=== PATIENT | female | born 1935 | race Caucasian/White ===

== ENCOUNTER 2017-06-01 17:59 | Emergency (ER) | payer MEDICARE, OTHER ==
[2017-06-01] MEDS ORDERED: DUONEB 0.5-3 MG/3 ml Neb IH ONE ×4 (18:35→20:30)
[2017-06-01] MEDS ORDERED: solu-MEDROL 125 MG IV ONE (18:35)
--- NOTE | 2017-06-01 18:40 | ERPHSYRPT ---
- History of Present Illness Source: patient, family Exam Limitations: no limitations Patient Subjective Stated Complaint: cough for three days Triage Nursing Assessment: ambulated to room per self. skin w/d,color normal, resp slightly sob. anterior upper chest wheezes heard. pain in chest with coughing. Timing/Duration: day(s) (4-5 days) Severity of Dyspnea-Max: moderate Severity of Dyspnea-Current: moderate Possible Cause: occasional episodes Modifying Factors: Improves With: coughing (makes it worse) Associated Symptoms: cough, chest pain/discomfort, productive cough Hx Tetanus, Diphtheria Vaccination/Date Given: Yes Hx Influenza Vaccination/Date Given: Yes Hx Pneumococcal Vaccination/Date Given: Yes <MONA PETIT - Last Filed: 06/01/17 18:52> <RACHELLE BONDS - Last Filed: 06/01/17 20:34> - History of Present Illness Time Seen by Provider: 06/01/17 18:36 Physician History: 81-year-old female with significant past medical history of atrial fibrillation , hypertension, started having cough, cold, fever. 3. 4 days ago was started on oral cephalexin but without any help. She started having more and more shortness of breath, chest congestion and cough, so she came to the emergency room. She denies any heavy pressure type of chest pain, nausea, vomiting, diarrhea or constipation, headache or dizziness. (MONA PETIT) Allergies/Adverse Reactions: Sulfa (Sulfonamide Antibiotics) Allergy (Verified 06/01/17 18:24) Home Medications: Carvedilol [Carvedilol] 6.25 mg PO BID 06/01/17 [History] Denosumab 60 mg [Prolia 60 mg Injection] 60 mg SQ UD 06/01/17 [History] Diazepam [Valium] 5 mg PO UD 06/01/17 [History] Diclofenac Sodium 50 mg [Voltaren 50 mg] 50 mg PO DAILY 06/01/17 [History] Hydrocodone/Acetaminophen [Hydrocodon-Acetaminophen 5-325] 1 each PO Q4HPRN PRN 06/01/17 [History] Levothyroxine Sodium 75 mg PO DAILY 06/01/17 [History] Losartan Potassium [Cozaar] 100 mg PO DAILY 06/01/17 [History] Lovastatin 40 mg PO DAILY 06/01/17 [History] Omeprazole 20 MG [Prilosec 20 mg] 20 mg PO DAILY 06/01/17 [History] Prednisone [Prednisone] 5 mg PO DAILY 06/01/17 [History] Pregabalin [Lyrica] 50 mg PO DAILY 06/01/17 [History] Sildenafil Citrate [Revatio] 20 mg PO TID 06/01/17 [History] Sildenafil Citrate [Viagra] 25 mg PO TID 06/01/17 [History] Warfarin Sodium 1 mg [Coumadin 1 MG] 1 mg PO DAILY 06/01/17 [History] Warfarin Sodium 2 mg [Coumadin 2 MG] 2 mg PO DAILY 06/01/17 [History] Zolpidem Tartrate [Ambien] 10 mg PO HS 06/01/17 [History] - Review of Systems Constitutional: No Fever, No Chills Eyes: No Symptoms Ears, Nose, & Throat: No Symptoms Respiratory: Cough, Dyspnea, Dyspnea on Exertion (VELIZ), Wheezing Cardiac: No Chest Pain, No Edema, No Syncope Abdominal/Gastrointestinal: No Abdominal Pain, No Nausea, No Vomiting, No Diarrhea Genitourinary Symptoms: No Dysuria Musculoskeletal: No Back Pain, No Neck Pain Skin: No Rash Neurological: No Dizziness, No Focal Weakness, No Sensory Changes Psychological: No Symptoms Endocrine: No Symptoms All Other Systems: Reviewed and Negative <MARISABEL,MONA - Last Filed: 06/01/17 18:52> - Past Medical History Pertinent Past Medical History: Yes Neurological History: Peripheral Neuropathy Cardiac History: Arrhythmia, Hypertension Respiratory History: Other Endocrine Medical History: Hypothyroidism Musculoskeletal History: Arthritis GI Medical History: GERD Other Medical History: pulmonary hypertension - Past Surgical History Past Surgical History: Yes Musculoskeletal: Orthopedic Surgery Other Surgical History: back surgery - Social History Smoking Status: Never smoker Exposure to second hand smoke: Yes Drug Use: none Patient Lives Alone: Yes - Female History Hx Now: No <MARISABEL,MONA - Last Filed: 06/01/17 18:52> - Physical Exam General Appearance: no apparent distress Eye Exam: PERRL/EOMI Ears, Nose, Throat Exam: hearing grossly normal Neck Exam: normal inspection Respiratory Exam: diminished breath sounds, rhonchi, wheezing Cardiovascular/Chest Exam: irregular Abdominal/Gastrointestinal Exam: soft Extremity Exam: non-tender Neurologic Exam: alert, oriented x 3 Skin Exam: normal color SpO2 Interpretation: normal SpO2: 97 Oxygen Delivery: Room Air <LÓPEZ PETITSH - Last Filed: 06/01/17 18:52> - Nursing Vital Signs Nursing Vital Signs: Initial Vital Signs Temperature 97.8 F 06/01/17 18:15 Pulse Rate 93 H 06/01/17 18:15 Respiratory Rate 18 06/01/17 18:15 Blood Pressure 141/87 06/01/17 18:15 O2 Sat by Pulse Oximetry 97 06/01/17 18:15 Pain Scale Pain Intensity 0 - Course Nursing assessment & vital signs reviewed: Yes <MARISABEL - Last Filed: 06/01/17 18:52> - Course EKG Interpreted by Me: RATE (74), A-fib (flutter), NORMAL INTERVALS (QTc 406), Non-specific ST Changes - Radiology Exams cxr X-ray Interpretation: Interpreted by me (mild right infrahilar and left lingular infiltrates) <RACHELLE BONDS - Last Filed: 06/01/17 20:34> Ordered Tests: Active Orders 24 hr Category Date Time Status EKG-ER Only STAT Care 06/01/17 18:35 Active Oxygen-ED Only NASAL CANNULA 2 lpm Care 06/01/17 18:35 Active CHEST 2 VIEWS (PA AND LAT) Stat Exams 06/01/17 18:35 Taken CBC W DIFF Stat Lab 06/01/17 18:52 Completed CMP Stat Lab 06/01/17 18:52 Completed Lactic Acid Stat Lab 06/01/17 19:35 Completed NT PRO BNP Stat Lab 06/01/17 18:52 Completed PROTIME WITH INR Stat Lab 06/01/17 18:45 Completed TROPONIN Stat Lab 06/01/17 18:52 Completed Respiratory Nebulizer STAT RT 06/01/17 18:36 Completed Medication Summary Generic Name Dose Route Start Last Admin Trade Name Freq PRN Reason Stop Dose Admin Albuterol/Ipratropium 3 ml 06/01/17 20:29 Duoneb 0.5-3 Mg/3 Ml Neb IH 06/01/17 20:30 STAT ONE Sodium Chloride 1,000 mls @ 100 mls/hr 06/01/17 18:45 06/01/17 19:09 Sodium Chloride 0.9% 1000 Ml IV 07/01/17 18:44 100 mls/hr .Q10H DARLEEN Administration Discontinued Medications Generic Name Dose Route Start Last Admin Trade Name Remigio PRN Reason Stop Dose Admin Albuterol/Ipratropium 3 ml 06/01/17 18:35 06/01/17 18:42 Duoneb 0.5-3 Mg/3 Ml Neb IH 06/01/17 18:36 3 ml STAT ONE Administration Albuterol/Ipratropium Confirm 06/01/17 18:35 Duoneb 0.5-3 Mg/3 Ml Neb Administered 06/01/17 18:36 Dose 3 ml IH .STK-MED ONE Methylprednisolone Sodium Succinate 80 mg 06/01/17 18:35 06/01/17 19:09 Solu-Medrol 125 Mg IV 06/01/17 18:36 80 mg STAT ONE Administration Methylprednisolone Sodium Succinate Confirm 06/01/17 19:01 Solu-Medrol 125 Mg Administered 06/01/17 19:02 Dose 125 mg .ROUTE .STK-MED ONE Lab/Rad Data: Laboratory Result Diagrams 06/01/17 18:52 06/01/17 18:52 Laboratory Results 06/01/17 06/01/17 06/01/17 Range/Units Unknown 19:35 18:52 WBC (4.0-10.5) K/mm3 RBC (4.1-5.4) M/mm3 Hgb (12.0-16.0) gm/dl Hct (35-47) % MCV (78-100) fl MCH (26-32) pg MCHC (32-36) g/dl RDW (11.5-14.0) % Plt Count (150-450) K/mm3 MPV (6-9.5) fl Gran % (36.0-66.0) % Lymphocytes % (24.0-44.0) % Monocytes % (0.0-12.0) % Eosinophils % (0.00-5.0) % Basophils % (0.0-0.4) % Basophils # (0-0.4) INR (0.8-3.0) Sodium (136-145) mEq/L Potassium (3.5-5.1) mEq/L Chloride (98-107) mEq/L Carbon Dioxide (21-32) mEq/L Anion Gap (5-15) MEQ/L BUN (9-20) mg/dL Creatinine (0.55-1.30) mg/dl Estimated GFR ML/MIN Glucose (70-110) MG/DL Lactic Acid 1.1 (0.4-2.0) Calcium (8.5-10.1) mg/dL Total Bilirubin (0.2-1.0) mg/dL AST (15-37) U/L ALT (12-78) U/L Alkaline Phosphatase (46-116) U/L Troponin I < 0.017 (0.000-0.056) ng/ml NT-Pro-B Natriuret Pep (0-450) pg/ml Serum Total Protein (6.4-8.2) gm/dL Albumin (3.4-5.0) g/dL Influenza Type A Ag NEGATIVE (NEGATIVE) Influenza Type B Ag NEGATIVE (NEGATIVE) RSV (PCR) NEGATIVE (Negative) 06/01/17 06/01/17 06/01/17 Range/Units 18:52 18:52 18:45 WBC 5.7 (4.0-10.5) K/mm3 RBC 3.62 L (4.1-5.4) M/mm3 Hgb 10.7 L (12.0-16.0) gm/dl Hct 34.5 L (35-47) % MCV 95.3 (78-100) fl MCH 29.5 (26-32) pg MCHC 31.0 L (32-36) g/dl RDW 15.5 H (11.5-14.0) % Plt Count 142 L (150-450) K/mm3 MPV 10.8 H (6-9.5) fl Gran % 66.3 H (36.0-66.0) % Lymphocytes % 25.2 (24.0-44.0) % Monocytes % 8.3 (0.0-12.0) % Eosinophils % 0.0 (0.00-5.0) % Basophils % 0.2 (0.0-0.4) % Basophils # 0.01 (0-0.4) INR 2.20 (0.8-3.0) Sodium 140 (136-145) mEq/L Potassium 4.2 (3.5-5.1) mEq/L Chloride 107 (98-107) mEq/L Carbon Dioxide 24.0 (21-32) mEq/L Anion Gap 13.1 (5-15) MEQ/L BUN 17 (9-20) mg/dL Creatinine 1.04 (0.55-1.30) mg/dl Estimated GFR 54 ML/MIN Glucose 120 H (70-110) MG/DL Lactic Acid (0.4-2.0) Calcium 8.3 L (8.5-10.1) mg/dL Total Bilirubin 0.40 (0.2-1.0) mg/dL AST 27 (15-37) U/L ALT 27 (12-78) U/L Alkaline Phosphatase 51 (46-116) U/L Troponin I (0.000-0.056) ng/ml NT-Pro-B Natriuret Pep 1927 H (0-450) pg/ml Serum Total Protein 6.4 (6.4-8.2) gm/dL Albumin 3.2 L (3.4-5.0) g/dL Influenza Type A Ag (NEGATIVE) Influenza Type B Ag (NEGATIVE) RSV (PCR) (Negative) <MONA PETIT - Last Filed: 06/01/17 18:52> - Progress Counseled pt/family regarding: lab results, diagnosis, need for follow-up, rad results <RACHELLE BONDS - Last Filed: 06/01/17 20:34> - Progress Progress Note: 06/01/17 19:37 Pt initially seen per Dr Petit. She is a pt of Dr Solorzano with hx of pulm HTN and atrial fib. She has few day hx of cough. Wheezing at home. Denies fever or chills. Some chest tightness worse with cough. PE: Crackes bilateral and tight wheeze on expiration. Cor irreg. Abd soft and NT. Await labs. 06/01/17 20:30 Tests reviewed with pt and daughter. She feels better. BNP a little up. She has hx of pulm HTN and uses home oxygen. They prefer home treatment. Will increase daily prednisone to 20mg daily and add duoneb and doxycyclien. She will follow up this week. Instr given. (RACHELLE BONDS) <MAHENDRA PETITYESH - Last Filed: 06/01/17 18:52> - Departure Time of Disposition: 20:31 Departure Disposition: Home Critical Care Time: No <BONDSRACHELLE Fountain - Last Filed: 06/01/17 20:34> - Departure Clinical Impression: Acute asthmatic bronchitis, Pulmonary hypertension Condition: Fair Referrals: AROLDO REYES [Primary Care Provider] - JAMIE COUCH [NON-STAFF PHY W/O PRIVILEGES] - Instructions: Bronchitis Additional Instructions: Increase prednisone to 20mg daily. Rx doxycycline. Rx duoneb. Return for problems or concerns. Follow up this week. Prescriptions: Albuterol/Ipratropium 3ml Neb* [DUONEB 0.5-3 MG/3 ml Neb] 3 ml IH Q4-6HPRN PRN #1 ampul.neb PRN Reason: breathing Doxycycline Hyclate 100 mg [Vibramycin 100 MG] 100 mg PO BID #20 tab
[2017-06-01] MEDS ORDERED: Sodium Chloride 0.9% 1000 ML 1,000 ML IV SCH (18:45)
[2017-06-01 19:00] LABS: BASOPHIL % 0.2 % (0.0-0.4); Granulocytes % 66.3 % (36.0-66.0); Lymphocytes % 25.2 % (24.0-44.0); Mean Cell Volume 95.3 fl (78-100); Mean Platelet Volume 10.8 fl (6-9.5); Monocytes % 8.3 % (0.0-12.0); Platelet Count 142 K/mm3 (150-450); Red Blood Count 3.62 M/mm3 (4.1-5.4); Red Cell Distribution Width 15.5 % (11.5-14.0); White Blood Count 5.7 K/mm3 (4.0-10.5)
[2017-06-01] MEDS ORDERED: solu-MEDROL 125 MG ONE (19:01)
[2017-06-01] MEDS ORDERED: Sodium Chloride 0.9% 1000 ML 1,000 ML ONE (19:01)
[2017-06-01 19:20] VITALS: O2SAT 98
[2017-06-01 19:37] LABS: ALBUMIN 3.2 g/dL (3.4-5.0); ANION GAP 13.1 MEQ/L (5-15); BILIRUBIN,TOTAL 0.4 mg/dL (0.2-1.0); Potassium 4.2 mEq/L (3.5-5.1); Total Protein 6.4 gm/dL (6.4-8.2)
[2017-06-01 19:41] LABS: INR 2.2 (0.8-3.0); PROTIME 24.7 SECONDS (9.95-12.35)
[2017-06-01 19:53] LABS: Mean Corpuscular Hemoglobin 29.5 pg (26-32)
[2017-06-01 20:25] VITALS: BP 136/79; PULSE 85
[2017-06-01] MEDS ORDERED: Vibramycin 100 MG PO ONE (20:29)
[2017-06-01] MEDS ORDERED: Vibramycin 100 MG ONE (20:37)
--- NOTE | 2017-06-01 21:15 | XRAY ---
Indication: Cough and short of breath. Comparison: None PA/lateral chest hyperinflated and clear. Heart is borderline enlarged. Vascularity normal. Bony thorax intact with osteopenia and degenerative changes. Impression: Nonacute hyperinflated chest with chronic features.
== END 2017-06-01 20:45 | disposition home or self-care (01) ==
LOC: ED 17:59
DX: J45.909 Unspecified asthma, uncomplicated (principal); I27.20 Pulmonary hypertension, unspecified; R05 Cough
CPT/HCPCS: 36000; 36415; 71020; 80053; 83605; 83880; 84484; 85025; 85610; 87631; 93005; 94640; 96360; 99284; J2930; A9270-GY

== ENCOUNTER 2017-09-02 20:57 | Emergency (ER) | payer MEDICARE, OTHER ==
[2017-09-02 21:48] LABS: Hematocrit 39.8 % (35-47); Hemoglobin 12.8 gm/dl (12.0-16.0); Mean Corpuscular Hemoglobin 30.5 pg (26-32); Mean Corpuscular Hgb Concent. 32.2 g/dl (32-36); Mean Platelet Volume 11.1 fl (6-9.5); Platelet Count 181 K/mm3 (150-450); Red Blood Count 4.19 M/mm3 (4.1-5.4); Red Cell Distribution Width 15.5 % (11.5-14.0); White Blood Count 7.6 K/mm3 (4.0-10.5)
[2017-09-02 22:11] LABS: ALBUMIN 4.1 g/dL (3.5-5.0); ALKALINE PHOSPHATASE 57 U/L (38-126); BLOOD UREA NITROGEN 15 mg/dL (7-17); CHLORIDE 106 mmol/L (98-107); Calcium 9.5 mg/dL (8.4-10.2); Carbon Dioxide 26 mmol/L (22-30); Creatinine 1 0.84 mg/dL (0.52-1.04); Glucose 91 mg/dL (74-106); Potassium 3.9 mmol/L (3.5-5.1); SGOT/AST 22 U/L (14-36); SGPT/ALT 17 U/L (0-35); SODIUM 142 mmol/L (137-145); Total Protein 7.1 g/dL (6.3-8.2)
[2017-09-02 22:18] LABS: Appearance CLEAR (CLEAR); Bacteria FEW /HPF (NEGATIVE); Bilirubin NEGATIVE (NEGATIVE); Blood NEGATIVE Ery/ul (0-5); Epithelial Cells FEW /HPF (FEW); Glucose NEGATIVE (NEGATIVE); Ketones NEGATIVE (NEGATIVE); Leukocyte Esterase 2+ (NEGATIVE); Nitrite NEGATIVE (NEGATIVE); Protein,Urine Dip NEGATIVE (Negative); Specific Gravity 1.005 (1.005-1.025); Urobilinogen NORMAL mg/dL (0-1)
[2017-09-02] MEDS ORDERED: APRESOLINE 20 MG/ML INJ IV ONE (22:36)
[2017-09-02] MEDS ORDERED: APRESOLINE 20 MG/ML INJ ONE ×2 (22:40→22:45)
--- NOTE | 2017-09-02 22:44 | ERPHSYRPT ---
- History of Present Illness Time Seen by Provider: 09/02/17 22:00 Source: patient, family Exam Limitations: no limitations Patient Subjective Stated Complaint: pt states 2 day hx of hypertension. "it feels like my a-fib is acting up. i have a dull pressure in my chest" Triage Nursing Assessment: aox3, breathing easy unlabored, skin pink warm dry, steady gait Physician History: patient with history of hypertension, A. fib and pulmonary fibrosis presents with elevated blood pressure. Patient noted her blood pressure was severely elevated yesterday with systolic blood pressure greater than 200 and systolic blood pressure greater than 110. Patient also noted that she was having some headaches along with palpitation and intermittent anterior chest discomfort. Patient double up on her blood pressure medicine Coreg. Blood pressure was still elevated today and was brought to ED by her daughter, who is a respiratory therapist at [facility]. Patient denies trying to get a hold of her physician for any advice. Patient denies any shortness of breath, pedal edema, blurred vision, numbness, weakness, altered mental status or difficulty speaking. Timing/Duration: day(s) (2), intermittent, gradual onset Severity: moderate Modifying Factors: Improves With: medication (Coreg seems to decrease blood pressure intermittently) Associated Symptoms: chest pain, headaches, No nausea, No vomiting, No abdominal pain, No shortness of breath, No diaphoresis, No cough, No malaise, No syncope, No seizure, No weakness Allergies/Adverse Reactions: amlodipine [From [facility]] Allergy (Verified 09/02/17 21:31) Sulfa (Sulfonamide Antibiotics) Allergy (Verified 06/01/17 18:24) Home Medications: Carvedilol [Carvedilol] 6.25 mg PO BID 06/01/17 [History] Hydrocodone/Acetaminophen [Hydrocodon-Acetaminophen 5-325] 1 each PO Q4HPRN PRN 06/01/17 [History] Levothyroxine Sodium 75 mg PO DAILY 06/01/17 [History] Losartan Potassium [Cozaar] 100 mg PO DAILY 06/01/17 [History] Prednisone [Prednisone] 5 mg PO DAILY 06/01/17 [History] Pregabalin [Lyrica] 50 mg PO DAILY 06/01/17 [History] Sildenafil Citrate [Revatio] 20 mg PO TID 06/01/17 [History] Warfarin Sodium 1 mg [Coumadin 1 MG] 1 mg PO DAILY 06/01/17 [History] Warfarin Sodium 2 mg [Coumadin 2 MG] 2 mg PO DAILY 06/01/17 [History] Zolpidem Tartrate [Ambien] 10 mg PO HS 06/01/17 [History] Esomeprazole Magnesium [Nexium] 20 mg PO DAILY 09/02/17 [History] Hx Tetanus, Diphtheria Vaccination/Date Given: Yes Hx Influenza Vaccination/Date Given: Yes Hx Pneumococcal Vaccination/Date Given: Yes - Review of Systems Constitutional: No Fever, No Chills Eyes: No Symptoms Ears, Nose, & Throat: No Symptoms Respiratory: No Symptoms, No Cough, No Dyspnea Cardiac: Palpitations, No Chest Pain, No Edema, No Syncope Abdominal/Gastrointestinal: No Symptoms, No Abdominal Pain, No Nausea, No Vomiting, No Diarrhea Genitourinary Symptoms: No Symptoms, No Dysuria Musculoskeletal: No Symptoms, No Back Pain, No Neck Pain Skin: No Symptoms, No Rash Neurological: Headache, No Dizziness, No Focal Weakness, No Gait Changes, No Irritability, No Parasthesia, No Sensory Changes, No Speech Changes Psychological: No Symptoms Endocrine: No Symptoms All Other Systems: Reviewed and Negative - Past Medical History Pertinent Past Medical History: Yes Neurological History: Peripheral Neuropathy Cardiac History: Arrhythmia, Hypertension Respiratory History: Other Endocrine Medical History: Hypothyroidism Musculoskeletal History: Arthritis GI Medical History: GERD Other Medical History: pulmonary hypertension - Past Surgical History Past Surgical History: Yes Musculoskeletal: Orthopedic Surgery Other Surgical History: back surgery - Social History Smoking Status: Never smoker Exposure to second hand smoke: Yes Drug Use: none Patient Lives Alone: Yes - Female History Hx Now: No - Nursing Vital Signs Nursing Vital Signs: Initial Vital Signs Temperature 98.6 F 09/02/17 21:23 Pulse Rate 91 H 09/02/17 21:23 Respiratory Rate 18 09/02/17 21:23 Blood Pressure 176/118 09/02/17 21:23 O2 Sat by Pulse Oximetry 96 09/02/17 21:23 Pain Scale Pain Intensity 5 - Physical Exam General Appearance: no apparent distress, alert Eye Exam: PERRL/EOMI, eyes nml inspection Ears, Nose, Throat Exam: normal ENT inspection, TMs normal, pharynx normal, moist mucous membranes Neck Exam: normal inspection, non-tender, supple, full range of motion Respiratory Exam: normal breath sounds, lungs clear, No respiratory distress Cardiovascular Exam: normal peripheral pulses, irregular, capillary refill <2 sec Gastrointestinal/Abdomen Exam: soft, normal bowel sounds, No tenderness, No mass Back Exam: normal inspection, normal range of motion, No CVA tenderness, No vertebral tenderness Extremity Exam: normal inspection, normal range of motion, pelvis stable Neurologic Exam: alert, oriented x 3, cooperative, normal mood/affect, nml cerebellar function, nml station & gait, sensation nml, No motor deficits, No sensory deficit, No disoriented, No confusion Skin Exam: normal color, warm, dry, No rash Lymphatic Exam: No adenopathy SpO2: 95 Oxygen Delivery: Room Air - Course Nursing assessment & vital signs reviewed: Yes EKG Interpreted by Me: RATE (80), A-fib, NORMAL AXIS, Non-specific ST Changes Ordered Tests: Active Orders 24 hr Category Date Time Status EKG-ER Only STAT Care 09/02/17 21:27 Active CBC Stat Lab 09/02/17 21:35 Completed CK-Creatinine Phosphokinase Stat Lab 09/02/17 21:35 Completed CMP Stat Lab 09/02/17 21:35 Completed D-DIMER QUANTITATION Stat Lab 09/02/17 21:35 Completed NT PRO BNP Stat Lab 09/02/17 21:35 Completed TROPONIN Q3H Lab 09/02/17 21:35 Completed UA W/ MICROSCOPIC Stat Lab 09/02/17 21:49 Completed Medication Summary Discontinued Medications Generic Name Dose Route Start Last Admin Trade Name Freq PRN Reason Stop Dose Admin Hydralazine HCl 10 mg 09/02/17 22:36 09/02/17 22:46 Apresoline 20 Mg/Ml Inj IV 09/02/17 22:37 10 mg STAT ONE Administration Hydralazine HCl Confirm 09/02/17 22:40 Apresoline 20 Mg/Ml Inj Administered 09/02/17 22:41 Dose 20 mg .ROUTE .STK-MED ONE Hydralazine HCl Confirm 09/02/17 22:45 Apresoline 20 Mg/Ml Inj Administered 09/02/17 22:46 Dose 20 mg .ROUTE .STK-MED ONE Lab/Rad Data: Laboratory Result Diagrams 09/02/17 21:35 09/02/17 21:35 Laboratory Results 09/02/17 09/02/17 09/02/17 Range/Units 21:49 21:35 21:35 WBC (4.0-10.5) K/mm3 RBC (4.1-5.4) M/mm3 Hgb (12.0-16.0) gm/dl Hct (35-47) % MCV (78-100) fl MCH (26-32) pg MCHC (32-36) g/dl RDW (11.5-14.0) % Plt Count (150-450) K/mm3 MPV (6-9.5) fl D-Dimer < 215 L (215-500) ng/mL Sodium (137-145) mmol/L Potassium (3.5-5.1) mmol/L Chloride (98-107) mmol/L Carbon Dioxide (22-30) mmol/L Anion Gap (5-15) MEQ/L BUN (7-17) mg/dL Creatinine (0.52-1.04) mg/dL Estimated GFR ML/MIN Glucose (74-106) mg/dL Calcium (8.4-10.2) mg/dL Total Bilirubin (0.2-1.3) mg/dL AST (14-36) U/L ALT (0-35) U/L Alkaline Phosphatase (38-126) U/L Creatine Kinase (30-135) U/L Troponin I 0.019 (0.000-0.034) ng/mL NT-Pro-B Natriuret Pep (0-1800) pg/mL Serum Total Protein (6.3-8.2) g/dL Albumin (3.5-5.0) g/dL Ur Collection Type VOID Urine Color LT.YELLOW (YELLOW) Urine Appearance CLEAR (CLEAR) Urine pH 8.0 (5-6) Ur Specific [place] 1.005 (1.005-1.025) Urine Protein NEGATIVE (Negative) Urine Ketones NEGATIVE (NEGATIVE) Urine Blood NEGATIVE (0-5) Thai/ul Urine Nitrite NEGATIVE (NEGATIVE) Urine Bilirubin NEGATIVE (NEGATIVE) Urine Urobilinogen NORMAL (0-1) mg/dL Ur Leukocyte Esterase 2+ (NEGATIVE) Urine Microscopic RBC 0-2 (0-2) /HPF Urine Microscopic WBC 2-5 (0-5) /HPF Ur Epithelial Cells FEW (FEW) /HPF Urine Bacteria FEW (NEGATIVE) /HPF Urine Culture Reflexed NO (NO) Urine Glucose NEGATIVE (NEGATIVE) mg/dL Specimen Received 09/02/170 09/02/17 09/02/17 09/02/17 Range/Units 21:35 21:35 21:35 WBC 7.6 (4.0-10.5) K/mm3 RBC 4.19 (4.1-5.4) M/mm3 Hgb 12.8 (12.0-16.0) gm/dl Hct 39.8 (35-47) % MCV 95.0 (78-100) fl MCH 30.5 (26-32) pg MCHC 32.2 (32-36) g/dl RDW 15.5 H (11.5-14.0) % Plt Count 181 (150-450) K/mm3 MPV 11.1 H (6-9.5) fl D-Dimer (215-500) ng/mL Sodium 142 (137-145) mmol/L Potassium 3.9 (3.5-5.1) mmol/L Chloride 106 (98-107) mmol/L Carbon Dioxide 26 (22-30) mmol/L Anion Gap 13.0 (5-15) MEQ/L BUN 15 (7-17) mg/dL Creatinine 0.84 (0.52-1.04) mg/dL Estimated GFR > 60 ML/MIN Glucose 91 (74-106) mg/dL Calcium 9.5 (8.4-10.2) mg/dL Total Bilirubin 0.60 (0.2-1.3) mg/dL AST 22 (14-36) U/L ALT 17 (0-35) U/L Alkaline Phosphatase 57 (38-126) U/L Creatine Kinase 89 (30-135) U/L Troponin I (0.000-0.034) ng/mL NT-Pro-B Natriuret Pep 1400 (0-1800) pg/mL Serum Total Protein 7.1 (6.3-8.2) g/dL Albumin 4.1 (3.5-5.0) g/dL Ur Collection Type Urine Color (YELLOW) Urine Appearance (CLEAR) Urine pH (5-6) Ur Specific [place] (1.005-1.025) Urine Protein (Negative) Urine Ketones (NEGATIVE) Urine Blood (0-5) Thai/ul Urine Nitrite (NEGATIVE) Urine Bilirubin (NEGATIVE) Urine Urobilinogen (0-1) mg/dL Ur Leukocyte Esterase (NEGATIVE) Urine Microscopic RBC (0-2) /HPF Urine Microscopic WBC (0-5) /HPF Ur Epithelial Cells (FEW) /HPF Urine Bacteria (NEGATIVE) /HPF Urine Culture Reflexed (NO) Urine Glucose (NEGATIVE) mg/dL Specimen Received - Progress Progress: improved Progress Note: 09/02/17 22:46 we will give patient hydralazine for elevated blood pressure. 09/02/17 23:20 patient feels much better. Blood pressure was 150s over 90s prior to discharge. Patient instructed to follow up with physician for adjustment of her blood pressure med Counseled pt/family regarding: lab results, diagnosis - Departure Time of Disposition: 23:21 Departure Disposition: Home Clinical Impression: Hypertensive urgency Condition: Stable Critical Care Time: No Referrals: AROLDO REYES [Primary Care Provider] - Instructions: High Blood Pressure in Adults Additional Instructions: follow up here in one to 2 days for blood pressure medicine adjustment. Return for worse headache, dizziness, blurred vision, chest pain, shortness of breath or any problems
[2017-09-02 22:54] LABS: CK-Creatinine Phosphokinase 89 U/L (30-135)
[2017-09-02 23:04] LABS: NT PRO BNP 1400 pg/mL (0-1800)
[2017-09-02 23:38] VITALS: BP 128/98; PULSE 102; O2SAT 98
== END 2017-09-02 23:33 ==
LOC: ED 20:57
DX: I16.0 Hypertensive urgency (principal); G62.9 Polyneuropathy, unspecified; Z79.899 Other long term (current) drug therapy; M19.90 Unspecified osteoarthritis, unspecified site; K21.9 Gastro-esophageal reflux disease without esophagitis; E03.9 Hypothyroidism, unspecified; Z79.01 Long term (current) use of anticoagulants; I48.91 Unspecified atrial fibrillation
CPT/HCPCS: 36000; 36415; 80053; 81000; 82550; 83880; 84484; 85027; 85379; 93005; 96374; 99284; J0360

== ENCOUNTER 2017-09-06 20:45 | Emergency (ER) | payer MEDICARE, OTHER ==
[2017-09-06] MEDS ORDERED: Catapres 0.1 MG PO ONE (21:07)
[2017-09-06] MEDS ORDERED: BABY ASPIRIN 81 MG CHEW PO ONE (21:07)
[2017-09-06] MEDS ORDERED: Catapres 0.1 MG ONE (21:14)
[2017-09-06] MEDS ORDERED: BABY ASPIRIN 81 MG CHEW ONE (21:14)
[2017-09-06] MEDS ORDERED: Sodium Chloride 0.9% 1000 ML 1,000 ML ONE (21:14)
[2017-09-06] MEDS ORDERED: Sodium Chloride 0.9% 1000 ML 1,000 ML IV SCH (21:15)
--- NOTE | 2017-09-06 21:15 | ERPHSYRPT ---
- History of Present Illness Time Seen by Provider: 09/06/17 20:55 Source: patient, family (DAUGHTER) Exam Limitations: no limitations Patient Subjective Stated Complaint: pain in chest, HTN, and pain in right neck Triage Nursing Assessment: PT A&O x3, pt complains of high blood pressure, pressure in chest, pain in right side of neck, BP 202/108, all other vitals wnl , lungs clear, upper and lower extremity pulses normal, skin dry Physician History: FOR THE PAST 3 HOURS PT HAS HAD CONSTANT CHEST PRESSURE AND ELEVATED BP OF 198/ 110; FOR THE PAST 2 HOURS RIGHT SIDED NECK PAIN. PT DENIES FEVER, COUGH, SHORTNESS OF AIR, NAUSEA, ABDOMINAL PAIN. LAST BM WAS 3 HOURS AGO. Allergies/Adverse Reactions: [place] [facility] Allergy (Verified 09/06/17 21:10) Sulfa (Sulfonamide Antibiotics) Allergy (Verified 09/06/17 21:10) Home Medications: Carvedilol [Carvedilol] 1.5 tab PO BID 06/01/17 [History] Hydrocodone/Acetaminophen [Hydrocodon-Acetaminophen 5-325] 1 each PO Q4HPRN PRN 06/01/17 [History] Levothyroxine Sodium 75 mg PO DAILY 06/01/17 [History] Losartan Potassium [Cozaar] 100 mg PO DAILY 06/01/17 [History] Prednisone [Prednisone] 5 mg PO DAILY 06/01/17 [History] Pregabalin [Lyrica] 50 mg PO DAILY 06/01/17 [History] Sildenafil Citrate [Revatio] 20 mg PO TID 06/01/17 [History] Zolpidem Tartrate [Ambien] 10 mg PO HS 06/01/17 [History] Esomeprazole Magnesium [Nexium] 20 mg PO DAILY 09/02/17 [History] Atorvastatin Calcium [Lipitor 20MG Tablet] 20 mg PO DAILY 09/06/17 [History] Hx Tetanus, Diphtheria Vaccination/Date Given: Yes Hx Influenza Vaccination/Date Given: Yes Hx Pneumococcal Vaccination/Date Given: Yes - Review of Systems Constitutional: Other (ELEVATED BP), No Fever Respiratory: No Dyspnea Cardiac: Other (CHEST PRESSURE) Abdominal/Gastrointestinal: No Abdominal Pain, No Vomiting, No Diarrhea Musculoskeletal: Neck Pain All Other Systems: Reviewed and Negative - Past Medical History Pertinent Past Medical History: Yes Neurological History: Peripheral Neuropathy Cardiac History: Arrhythmia, Hypertension Respiratory History: Other Endocrine Medical History: Hypothyroidism Musculoskeletal History: Arthritis GI Medical History: GERD Other Medical History: pulmonary hypertension, neuropathy - Past Surgical History Past Surgical History: Yes Musculoskeletal: Orthopedic Surgery Other Surgical History: back surgery - Social History Smoking Status: Never smoker Exposure to second hand smoke: Yes Drug Use: none Patient Lives Alone: Yes - Nursing Vital Signs Nursing Vital Signs: Initial Vital Signs Temperature 99.3 F 09/06/17 20:51 Pulse Rate 82 09/06/17 20:51 Respiratory Rate 13 09/06/17 20:51 Blood Pressure 202/108 09/06/17 20:51 O2 Sat by Pulse Oximetry 98 09/06/17 20:51 Pain Scale Pain Intensity 0 - Physical Exam General Appearance: alert Eye Exam: PERRL/EOMI Ears, Nose, Throat Exam: pharynx normal, moist mucous membranes Neck Exam: normal inspection Respiratory Exam: lungs clear Cardiovascular Exam: irregular Gastrointestinal/Abdomen Exam: soft, normal bowel sounds Back Exam: normal range of motion Extremity Exam: normal inspection, No pedal edema Neurologic Exam: alert, cooperative Skin Exam: warm, dry SpO2 Interpretation: normal SpO2: 98 Oxygen Delivery: Room Air - Course Nursing assessment & vital signs reviewed: Yes EKG Interpreted by Me: RATE (74), A-fib, NORMAL AXIS - Radiology Exams Chest X-ray Interpretation: Interpreted by me (QUESTIONABLE DENSITY RUL) - CT Exams Chest CT Interpretation: Tele-radiologist Report (NO ACUTE CARDIOPULMONARY ABNORMALITY IS IDENTIFIED.) Ordered Tests: Active Orders 24 hr Category Date Time Status Agriculture Laboratory Technician STAT Care 09/06/17 21:08 Active Clean Catch Urine Specimen STAT Care 09/06/17 21:55 Active EKG-ER Only STAT Care 09/06/17 21:03 Active IV Insertion STAT Care 09/06/17 21:03 Active Oxygen-ED Only NASAL CANNULA 2 lpm Care 09/06/17 21:07 Active Pulse Oximetry (ED) STAT Care 09/06/17 21:07 Active CHEST 1 VIEW (PORTABLE) Stat Exams 09/06/17 21:08 Taken CHEST WITHOUT CONTRAST [CT] Stat Exams 09/06/17 22:29 Taken AMYLASE Stat Lab 09/06/17 21:35 Completed CBC W DIFF Stat Lab 09/06/17 21:35 Completed CMP Stat Lab 09/06/17 21:35 Completed CULTURE,URINE Stat Lab 09/06/17 21:35 Received D-DIMER QUANTITATION Stat Lab 09/06/17 21:35 Completed LIPASE Stat Lab 09/06/17 21:35 Completed MAGNESIUM Stat Lab 09/06/17 21:35 Completed Estill Screen Stat Lab 09/06/17 21:35 Completed NT PRO BNP Stat Lab 09/06/17 21:35 Completed PROTIME WITH INR Stat Lab 09/06/17 21:35 Completed PTT Stat Lab 09/06/17 21:35 Completed T4 (Thyroxine) Stat Lab 09/06/17 21:35 Completed TROPONIN Q3H Lab 09/06/17 21:35 Completed TROPONIN Q3H Lab 09/07/17 00:15 Ordered TROPONIN Q3H Lab 09/07/17 03:15 Ordered TROPONIN Q3H Lab 09/07/17 06:15 Ordered TROPONIN Q3H Lab 09/07/17 09:15 Ordered TSH [TSH, 3RD Generation] Stat Lab 09/06/17 21:35 Completed UA W/ MICROSCOPIC Stat Lab 09/06/17 21:35 Completed Medication Summary Generic Name Dose Route Start Last Admin Trade Name Freq PRN Reason Stop Dose Admin Sodium Chloride 1,000 mls @ 100 mls/hr 09/06/17 21:15 09/06/17 21:16 Sodium Chloride 0.9% 1000 Ml IV 10/06/17 21:14 100 mls/hr .Q10H DARLEEN Administration Discontinued Medications Generic Name Dose Route Start Last Admin Trade Name Freq PRN Reason Stop Dose Admin Aspirin 324 mg 09/06/17 21:07 09/06/17 21:15 Baby Aspirin 81 Mg Chew PO 09/06/17 21:08 324 mg STAT ONE Administration Aspirin Confirm 09/06/17 21:14 Baby Aspirin 81 Mg Chew Administered 09/06/17 21:15 Dose 324 mg .ROUTE .STK-MED ONE Clonidine 0.1 mg 09/06/17 21:07 09/06/17 21:15 Catapres 0.1 Mg PO 09/06/17 21:08 0.1 mg STAT ONE Administration Clonidine Confirm 09/06/17 21:14 Catapres 0.1 Mg Administered 09/06/17 21:15 Dose 0.1 mg .ROUTE .STK-MED ONE Ceftriaxone Sodium/Dextrose 1 g in 50 mls @ 100 mls/hr 09/06/17 22:07 22:14 Rocephin 1 Gm-D5w 50 Ml Bag IV 09/06/17 22:36 100 mls/hr STAT STA Administration Ceftriaxone Sodium/Dextrose Confirm 09/06/17 22:12 Rocephin 1 Gm-D5w 50 Ml Bag Administered 09/06/17 22:13 Dose 1 g in 50 mls @ ud IV .STK-MED ONE Lab/Rad Data: Laboratory Result Diagrams 09/06/17 21:35 09/06/17 21:35 Laboratory Results 09/06/17 09/06/17 09/06/17 Range/Units 21:35 21:35 21:35 WBC (4.0-10.5) K/mm3 RBC (4.1-5.4) M/mm3 Hgb (12.0-16.0) gm/dl Hct (35-47) % MCV (78-100) fl MCH (26-32) pg MCHC (32-36) g/dl RDW (11.5-14.0) % Plt Count (150-450) K/mm3 MPV (6-9.5) fl Gran % (36.0-66.0) % Eos # (Auto) (0-0.5) Absolute Lymphs (auto) (1.0-4.6) Absolute Monos (auto) (0.0-1.3) Lymphocytes % (24.0-44.0) % Monocytes % (0.0-12.0) % Eosinophils % (0.00-5.0) % Basophils % (0.0-0.4) % Absolute Granulocytes (1.4-6.9) Basophils # (0-0.4) PT (9.95-12.35) SECONDS INR (0.8-3.0) APTT (25.3-37.0) SECONDS D-Dimer (215-500) ng/mL Sodium (137-145) mmol/L Potassium (3.5-5.1) mmol/L Chloride (98-107) mmol/L Carbon Dioxide (22-30) mmol/L Anion Gap (5-15) MEQ/L BUN (7-17) mg/dL Creatinine (0.52-1.04) mg/dL Estimated GFR ML/MIN Glucose (74-106) mg/dL Calcium (8.4-10.2) mg/dL Magnesium (1.6-2.3) mg/dL Total Bilirubin (0.2-1.3) mg/dL AST (14-36) U/L ALT (0-35) U/L Alkaline Phosphatase (38-126) U/L Troponin I (0.000-0.034) ng/mL NT-Pro-B Natriuret Pep (0-1800) pg/mL Serum Total Protein (6.3-8.2) g/dL Albumin (3.5-5.0) g/dL Amylase (30-110) U/L Lipase (23-300) U/L Thyroxine (T4) 8.03 (5.53-10.96) ug/dL TSH 3rd Generation 2.390 (0.47-4.68) mIU/L Ur Collection Type Urine Color (YELLOW) Urine Appearance (CLEAR) Urine pH (5-6) Ur Specific [place] (1.005-1.025) Urine Protein (Negative) Urine Ketones (NEGATIVE) Urine Blood (0-5) Thai/ul Urine Nitrite (NEGATIVE) Urine Bilirubin (NEGATIVE) Urine Urobilinogen (0-1) mg/dL Ur Leukocyte Esterase (NEGATIVE) Urine Microscopic WBC (0-5) /HPF Ur Epithelial Cells (FEW) /HPF Urine Bacteria (NEGATIVE) /HPF Urine Culture Reflexed (NO) Urine Glucose (NEGATIVE) mg/dL Monoscreen NEGATIVE (Negative) Specimen Received 09/06/17 09/06/17 09/06/17 Range/Units 21:35 21:35 21:35 WBC (4.0-10.5) K/mm3 RBC (4.1-5.4) M/mm3 Hgb (12.0-16.0) gm/dl Hct (35-47) % MCV (78-100) fl MCH (26-32) pg MCHC (32-36) g/dl RDW (11.5-14.0) % Plt Count (150-450) K/mm3 MPV (6-9.5) fl Gran % (36.0-66.0) % Eos # (Auto) (0-0.5) Absolute Lymphs (auto) (1.0-4.6) Absolute Monos (auto) (0.0-1.3) Lymphocytes % (24.0-44.0) % Monocytes % (0.0-12.0) % Eosinophils % (0.00-5.0) % Basophils % (0.0-0.4) % Absolute Granulocytes (1.4-6.9) Basophils # (0-0.4) PT 28.9 H (9.95-12.35) SECONDS INR 2.57 (0.8-3.0) APTT 38.6 H (25.3-37.0) SECONDS D-Dimer 286.62 (215-500) ng/mL Sodium (137-145) mmol/L Potassium (3.5-5.1) mmol/L Chloride (98-107) mmol/L Carbon Dioxide (22-30) mmol/L Anion Gap (5-15) MEQ/L BUN (7-17) mg/dL Creatinine (0.52-1.04) mg/dL Estimated GFR ML/MIN Glucose (74-106) mg/dL Calcium (8.4-10.2) mg/dL Magnesium (1.6-2.3) mg/dL Total Bilirubin (0.2-1.3) mg/dL AST (14-36) U/L ALT (0-35) U/L Alkaline Phosphatase (38-126) U/L Troponin I < 0.012 (0.000-0.034) ng/mL NT-Pro-B Natriuret Pep (0-1800) pg/mL Serum Total Protein (6.3-8.2) g/dL Albumin (3.5-5.0) g/dL Amylase (30-110) U/L Lipase (23-300) U/L Thyroxine (T4) (5.53-10.96) ug/dL TSH 3rd Generation (0.47-4.68) mIU/L Ur Collection Type CLEAN CATCH Urine Color LT.YELLOW (YELLOW) Urine Appearance CLEAR (CLEAR) Urine pH 8.0 (5-6) Ur Specific [place] 1.005 (1.005-1.025) Urine Protein NEGATIVE (Negative) Urine Ketones NEGATIVE (NEGATIVE) Urine Blood NEGATIVE (0-5) Thai/ul Urine Nitrite NEGATIVE (NEGATIVE) Urine Bilirubin NEGATIVE (NEGATIVE) Urine Urobilinogen NORMAL (0-1) mg/dL Ur Leukocyte Esterase 1+ (NEGATIVE) Urine Microscopic WBC 5-10 (0-5) /HPF Ur Epithelial Cells FEW (FEW) /HPF Urine Bacteria FEW (NEGATIVE) /HPF Urine Culture Reflexed YES (NO) Urine Glucose NEGATIVE (NEGATIVE) mg/dL Monoscreen (Negative) Specimen Received 09/06/17213409/06/17 09/06/17 Range/Units 21:35 21:35 WBC 7.6 (4.0-10.5) K/mm3 RBC 3.94 L (4.1-5.4) M/mm3 Hgb 12.0 (12.0-16.0) gm/dl Hct 38.3 (35-47) % MCV 97.2 (78-100) fl MCH 30.4 (26-32) pg MCHC 31.3 L (32-36) g/dl RDW 15.5 H (11.5-14.0) % Plt Count 164 (150-450) K/mm3 MPV 10.6 H (6-9.5) fl Gran % 55.6 (36.0-66.0) % Eos # (Auto) 0.08 (0-0.5) Absolute Lymphs (auto) 2.43 (1.0-4.6) Absolute Monos (auto) 0.84 (0.0-1.3) Lymphocytes % 31.9 (24.0-44.0) % Monocytes % 11.0 (0.0-12.0) % Eosinophils % 1.0 (0.00-5.0) % Basophils % 0.5 (0.0-0.4) % Absolute Granulocytes 4.23 (1.4-6.9) Basophils # 0.04 (0-0.4) PT (9.95-12.35) SECONDS INR (0.8-3.0) APTT (25.3-37.0) SECONDS D-Dimer (215-500) ng/mL Sodium 142 (137-145) mmol/L Potassium 5.0 (3.5-5.1) mmol/L Chloride 107 (98-107) mmol/L Carbon Dioxide 27 (22-30) mmol/L Anion Gap 13.6 (5-15) MEQ/L BUN 20 H (7-17) mg/dL Creatinine 1.03 (0.52-1.04) mg/dL Estimated GFR 55 ML/MIN Glucose 110 H (74-106) mg/dL Calcium 9.0 (8.4-10.2) mg/dL Magnesium 2.3 (1.6-2.3) mg/dL Total Bilirubin 0.40 (0.2-1.3) mg/dL AST 22 (14-36) U/L ALT 18 (0-35) U/L Alkaline Phosphatase 47 (38-126) U/L Troponin I (0.000-0.034) ng/mL NT-Pro-B Natriuret Pep 1260 (0-1800) pg/mL Serum Total Protein 6.2 L (6.3-8.2) g/dL Albumin 3.7 (3.5-5.0) g/dL Amylase 78 (30-110) U/L Lipase 192 (23-300) U/L Thyroxine (T4) (5.53-10.96) ug/dL TSH 3rd Generation (0.47-4.68) mIU/L Ur Collection Type Urine Color (YELLOW) Urine Appearance (CLEAR) Urine pH (5-6) Ur Specific [place] (1.005-1.025) Urine Protein (Negative) Urine Ketones (NEGATIVE) Urine Blood (0-5) Thai/ul Urine Nitrite (NEGATIVE) Urine Bilirubin (NEGATIVE) Urine Urobilinogen (0-1) mg/dL Ur Leukocyte Esterase (NEGATIVE) Urine Microscopic WBC (0-5) /HPF Ur Epithelial Cells (FEW) /HPF Urine Bacteria (NEGATIVE) /HPF Urine Culture Reflexed (NO) Urine Glucose (NEGATIVE) mg/dL Monoscreen (Negative) Specimen Received - Departure Time of Disposition: 23:20 Departure Disposition: Home Clinical Impression: CHEST PRESSURE, UTI, HTN Condition: Stable Critical Care Time: No Referrals: AROLDO REYES [Primary Care Provider] - Instructions: Malignant Hypertension (DC), Urinary Tract Infection, Adult (DC) Additional Instructions: FOLLOW UP WITH PRIVATE DOCTOR TOMORROW. Prescriptions: Nitrofurantoin Macro 100 mg [Macrobid 100MG Capsule] 100 mg PO BID #20 capsule
[2017-09-06 21:43] LABS: BASOPHIL % 0.5 % (0.0-0.4); Basophil (Absolute #) 0.04 (0-0.4); Eosinophil (Absolute #) 0.08 (0-0.5); Granulocyte Absolute (ANC) 4.23 (1.4-6.9); Granulocytes % 55.6 % (36.0-66.0); Hematocrit 38.3 % (35-47); Lymphocyte (Absolute #) 2.43 (1.0-4.6); Lymphocytes % 31.9 % (24.0-44.0); Mean Cell Volume 97.2 fl (78-100); Mean Corpuscular Hgb Concent. 31.3 g/dl (32-36); Mean Platelet Volume 10.6 fl (6-9.5); Monocyte (Absolute #) 0.84 (0.0-1.3); Platelet Count 164 K/mm3 (150-450); Red Blood Count 3.94 M/mm3 (4.1-5.4); Red Cell Distribution Width 15.5 % (11.5-14.0); White Blood Count 7.6 K/mm3 (4.0-10.5)
[2017-09-06 22:00] LABS: Mean Corpuscular Hemoglobin 30.4 pg (26-32)
[2017-09-06 22:02] LABS: Appearance CLEAR (CLEAR); Specific Gravity 1.005 (1.005-1.025)
[2017-09-06 22:03] LABS: ALBUMIN 3.7 g/dL (3.5-5.0); ANION GAP 13.6 MEQ/L (5-15); BILIRUBIN,TOTAL 0.4 mg/dL (0.2-1.3); Bacteria FEW /HPF (NEGATIVE); Bilirubin NEGATIVE (NEGATIVE); Blood NEGATIVE Ery/ul (0-5); Creatinine 1 1.03 mg/dL (0.52-1.04); Epithelial Cells FEW /HPF (FEW); Glucose NEGATIVE (NEGATIVE); Ketones NEGATIVE (NEGATIVE); Leukocyte Esterase 1+ (NEGATIVE); Nitrite NEGATIVE (NEGATIVE); Protein,Urine Dip NEGATIVE (Negative); Total Protein 6.2 g/dL (6.3-8.2); Urobilinogen NORMAL mg/dL (0-1)
[2017-09-06] MEDS ORDERED: ROCEPHIN 1 Gm-D5w 50 ml Bag** 1 G/50 ML IVPB IV STA (22:07)
[2017-09-06 22:08] LABS: INR 2.57 (0.8-3.0)
[2017-09-06 22:09] LABS: D-DIMER QUANTITATION 286.62 ng/mL (215-500)
[2017-09-06 22:10] LABS: PTT 38.6 SECONDS (25.3-37.0)
[2017-09-06] MEDS ORDERED: ROCEPHIN 1 Gm-D5w 50 ml Bag** 1 G/50 ML IVPB IV ONE (22:12)
[2017-09-06 23:46] VITALS: BP 153/87; PULSE 74; O2SAT 99
--- NOTE | 2017-09-07 08:44 | XRAY ---
Indication: Chest pressure. Hypertension. Atrial fibrillation. Multiple contiguous axial images obtained through the chest without contrast as ordered. Comparison: None Lungs are inflated with minimal bilateral dependent atelectasis and left base fibrosis/scarring. No suspicious pulmonary mass, infiltrate, or effusion. Heart is enlarged. Aorta is mildly calcified without aneurysmal dilatation. Distal paratracheal calcified node. No pathologic mediastinal lymphadenopathy. Bony thorax intact with moderate degenerative changes throughout the spine and mild of the curvature scoliosis. Limited upper abdomen including adrenal glands are unremarkable. Impression: Cardiomegaly. No acute cardiopulmonary abnormalities. Comment: Preliminary interpretation was made by [facility]. No discrepancy. CT DI 11.69
--- NOTE | 2017-09-07 08:44 | XRAY ---
Indication: Chest pressure. Hypertension. Comparison: June 01, 2017. Portable chest remains borderline enlarged. Vascularity normal. No focal infiltrate, consolidation, or large effusion. Bony thorax intact again with degenerative changes throughout the spine and mild double curvature scoliosis. Impression: Stable nonacute chest with chronic features. Comment: Preliminary interpretation was made by [facility]. No critical discrepancy.
== END 2017-09-06 23:46 | disposition home or self-care (01) ==
LOC: ED 20:45
DX: R07.89 Other chest pain (principal); N39.0 Urinary tract infection, site not specified; I10 Essential (primary) hypertension; M54.2 Cervicalgia; Z79.899 Other long term (current) drug therapy; I48.91 Unspecified atrial fibrillation
CPT/HCPCS: 36000; 36415; 71045; 71250; 80053; 81000; 82150; 83690; 83735; 83880; 84436; 84443; 84484; 85025; 85379; 85610; 85730; 86308; 87086; 93005; 93041; 96360; 96361; 96365; 99284; J0696; A9270-GY

== ENCOUNTER 2020-06-05 12:58 | Observation (INO) | payer MEDICARE, OTHER ==
[2020-06-05] MEDS ORDERED: PROVENTIL 2.5 MG/3 ML NEB IH ONE ×2 (13:50→14:02)
[2020-06-05] MEDS ORDERED: Sodium Chloride 0.9% 1000 ML 1,000 ML IV STA (13:51)
[2020-06-05] MEDS ORDERED: solu-MEDROL 125 MG IV ONE (13:51)
[2020-06-05] MEDS ORDERED: DUONEB 0.5-3 MG/3 ml Neb IH ONE (13:51)
[2020-06-05] MEDS ORDERED: Sodium Chloride 0.9% 1000 ML 1,000 ML ONE (14:01)
[2020-06-05] MEDS ORDERED: solu-MEDROL 125 MG ONE (14:01)
[2020-06-05 14:15] LABS: Absolute Neutrophil Ct (ANC) 5.63 (1.4-6.9); BASOPHIL % 0.1 % (0.0-0.4); Basophil (Absolute #) 0.01 (0-0.4); Eosinophil (Absolute #) 0 (0-0.5); Hematocrit 37.4 % (35-47); Hemoglobin 12.3 gm/dl (12.0-16.0); Lymphocytes % 23.1 % (24.0-44.0); Mean Corpuscular Hemoglobin 29.9 pg (26-32); Mean Corpuscular Hgb Concent. 32.9 g/dl (32-36); Mean Platelet Volume 9.9 fl (7.5-11.0); Monocytes % 8.5 % (0.0-12.0); Neutrophil % 68.3 % (36.0-66.0); Platelet Count 194 K/mm3 (150-450); Red Blood Count 4.11 M/mm3 (4.1-5.4); Red Cell Distribution Width 14.6 % (11.5-14.0); White Blood Count 8.2 K/mm3 (4.0-10.5)
--- NOTE | 2020-06-05 14:27 | XRAY ---
Indication: Short of breath. Comparison: September 06, 2017. Portable chest again demonstrates minimal bibasilar fibrosis/scarring and cardiomegaly. No focal infiltrate, consolidation, or large effusion. Bony thorax intact again with mild osteopenia, degenerative changes, and levorotoscoliosis. Impression: Nonacute chest with chronic features.
[2020-06-05 14:29] LABS: ALBUMIN 3.7 g/dL (3.5-5.0); ALKALINE PHOSPHATASE 48 U/L (38-126); ANION GAP 10.8 MEQ/L (5-15); BLOOD UREA NITROGEN 22 mg/dL (7-17); CHLORIDE 94 mmol/L (98-107); Calcium 8.8 mg/dL (8.4-10.2); Carbon Dioxide 26 mmol/L (22-30); Creatinine 1 0.91 mg/dL (0.52-1.04); EST GLOMERULAR FILTRATION RATE > 60.0 ML/MIN; Glucose 117 mg/dL (74-106); MAGNESIUM 1.8 mg/dL (1.6-2.3); NT PRO BNP 1890 pg/mL (0-1800); Potassium 4.3 mmol/L (3.5-5.1); SGOT/AST 29 U/L (14-36); SGPT/ALT 18 U/L (0-35); SODIUM 127 mmol/L (137-145); Total Protein 6.8 g/dL (6.3-8.2)
--- NOTE | 2020-06-05 15:04 | ERPHSYRPT ---
- History of Present Illness Time Seen by Provider: 06/05/20 13:15 Patient Subjective Stated Complaint: Pt went to see Elsa Pichardo yesterday for a kidney infection and was given a script for Keflex, pt today began feeling like her face is on fire and she's exhausted and stated that she can't walk straight and that her head hurts Triage Nursing Assessment: Pt brought to the ER by her daughter, hypertensive, rates head pain as 8/, tested positive for covid on 05/25/20 with symptoms beginning on the 05/21/20 and had BAM on the , pt did improve until the UTI, pulses normal, doesn't appear to be in any distress Physician History: 84 years old female with multiple medical problems including atrial fibrillation rate controlled on Eliquis, hypertension, hyperlipidemia, hypothyroidism, pulmonary hypertension, recent COVID-19 infection 2 weeks ago received outpa tient Bamlanivimab was seen outpatient yesterday because of burning urination, was diagnosed with UTI and placed on cefuroxime. Patient report after taking she started to feel weird and after taking second dose this morning she got flushing of her face, tightness in the chest with some shortness of breath. She was also having headache and facial burning sensation and also has been burning sensation in the throat. She took Benadryl at home when the heart symptoms started to improve and on my evaluation her symptoms are almost gone. She does complain of mild generalized weakness fatigue and tiredness. No fever or chills reported recently. Daughter is concerned about patient being dehydrated. Denies any abdominal pain or vomiting. Timing/Duration: today, sudden, improved Severity: moderate Modifying Factors: Improves With: other (benadryl) Associated Symptoms: nausea, shortness of breath, cough, headaches, weakness, No vomiting, No abdominal pain, No chest pain, No fever, No malaise, No seizure Allergies/Adverse Reactions: amlodipine [From Norvasc] Allergy (Verified 06/07/20 14:13) cefuroxime Allergy (Verified 06/07/20 14:13) cephalexin [From Keflex] Allergy (Verified 06/07/20 14:13) gabapentin [From Neurontin] Allergy (Verified 06/07/20 14:13) Sulfa (Sulfonamide Antibiotics) Allergy (Verified 06/07/20 14:13) Home Medications: Levothyroxine Sodium 75 mg PO DAILY 06/01/17 [History] Losartan Potassium [Cozaar] 100 mg PO DAILY 06/01/17 [History] Pregabalin [Lyrica] 50 mg PO DAILY 06/01/17 [History] Sildenafil Citrate [Revatio] 20 mg PO TID 06/01/17 [History] carvediloL [Carvedilol] 25 mg PO DAILY 06/01/17 [History] Atorvastatin Calcium [Lipitor 20MG Tablet] 20 mg PO DAILY 09/06/17 [History] Albuterol 2.5 mg/3 ml Neb [Proventil 2.5 mg/3 ml Neb] 2.5 mg IH TID 06/05/20 [History] Apixaban [Eliquis] 5 mg PO BID 06/05/20 [History] Chlorthalidone 25 mg PO DAILY 06/05/20 [History] Diclofenac Sodium Gel [Voltaren GEL] 2 gm TP QID 06/05/20 [History] Glycopyrrolate/Formoterol Fum [Bevespi Aerosphere Inhaler] 2 puff PO BID 06/05/20 [History] Hydrocodone Bit/Acetaminophen [Hydrocodon-Acetaminoph 7.5-325] 1 tab PO Q6H 06/05/20 [History] Omeprazole 20 mg PO DAILY 06/05/20 [History] Pregabalin 200 mg PO DAILY 06/05/20 [History] Trazodone HCl 50 mg [Desyrel 50 mg] 50 mg PO DAILY 06/05/20 [History] Hx Tetanus, Diphtheria Vaccination/Date Given: Yes Hx Influenza Vaccination/Date Given: Yes Hx Pneumococcal Vaccination/Date Given: Yes Travel Risk - International Travel Have you traveled outside of the country in past 3 weeks: No - Coronavirus Screening Are you exhibiting any of the following symptoms?: No Close contact with a COVID-19 positive Pt in past 14-21 Days: Yes - Review of Systems Constitutional: Fatigue, Weakness Eyes: No Symptoms Ears, Nose, & Throat: No Symptoms Respiratory: Cough, Dyspnea Cardiac: No Symptoms Abdominal/Gastrointestinal: Nausea Genitourinary Symptoms: Dysuria, Frequency, No Flank Pain Musculoskeletal: No Symptoms Skin: No Symptoms Neurological: Headache Psychological: No Symptoms Endocrine: No Symptoms Hematologic/Lymphatic: No Symptoms Immunological/Allergic: No Symptoms - Past Medical History Pertinent Past Medical History: Yes Neurological History: No Pertinent History ENT History: No Pertinent History Cardiac History: Arrhythmia Respiratory History: Other Endocrine Medical History: No Pertinent History Musculoskeletal History: Arthritis, Rheumatoid Arthritis GI Medical History: GERD History: No Pertinent History Psycho-Social History: No Pertinent History Female Reproductive Disorders: No Pertinent History Other Medical History: A FIB - TAKES ELOQUIS; PULMONARY HTN,COPD - Past Surgical History Past Surgical History: Yes Neuro Surgical History: No Pertinent History Cardiac: No Pertinent History Respiratory: No Pertinent History Gastrointestinal: No Pertinent History Genitourinary: No Pertinent History Musculoskeletal: Orthopedic Surgery Female Surgical History: No Pertinent History Other Surgical History: back surgery - Social History Smoking Status: Never smoker Exposure to second hand smoke: No Drug Use: none Patient Lives Alone: No - Female History Hx Now: No - Nursing Vital Signs Nursing Vital Signs: Initial Vital Signs Temperature 99.1 F 06/05/20 13:01 Pulse Rate 118 H 06/05/20 13:01 Blood Pressure 155/92 06/05/20 13:01 O2 Sat by Pulse Oximetry 95 06/05/20 13:01 Pain Scale Pain Intensity 0 - Physical Exam General Appearance: no apparent distress, alert Eye Exam: PERRL/EOMI, eyes nml inspection Ears, Nose, Throat Exam: normal ENT inspection, TMs normal, pharyngeal erythema Neck Exam: normal inspection, non-tender, supple, full range of motion Respiratory Exam: normal breath sounds, wheezing Cardiovascular Exam: normal heart sounds, tachycardia Gastrointestinal/Abdomen Exam: soft, normal bowel sounds, No tenderness Back Exam: normal inspection, normal range of motion, No CVA tenderness Extremity Exam: normal inspection, normal range of motion, pelvis stable Neurologic Exam: alert, oriented x 3, cooperative, 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 II-XII nml as tested, normal mood/affect, nml cerebellar function, sensation nml, No motor deficits, No sensory deficit Skin Exam: normal color SpO2 Interpretation: normal SpO2: 95 - Course EKG Interpreted by Me: RATE ([id number]), A-fib, NORMAL AXIS, NORMAL INTERVALS, Other (Nonspecific ST changes, T wave inversion in lateral leads) Ordered Tests: Medication Summary Discontinued Medications Generic Name Dose Route Start Last Admin Trade Name Freq PRN Reason Stop Dose Admin Acetaminophen 650 mg 06/05/20 16:14 06/05/20 16:37 Tylenol 325 Mg PO 07/05/20 16:13 650 mg Q4H PRN PRN Administration PAIN AND/OR FEVER Hydrocodone Bitart/Acetaminophen 1 tab 06/05/20 21:00 [place] 7.5/325 Mg Tab PO 06/10/20 20:59 Q6H PRN PRN PAIN Albuterol Sulfate Confirm 06/05/20 13:50 Proventil 2.5 Mg/3 Ml Neb Administered 06/05/20 13:51 Dose 2.5 mg IH .STK-MED ONE Albuterol Sulfate 2.5 mg 06/05/20 14:02 06/05/20 14:03 Proventil 2.5 Mg/3 Ml Neb IH 06/05/20 14:03 2.5 mg STAT ONE Administration Albuterol/Ipratropium 3 ml 06/05/20 13:51 06/05/20 14:49 Duoneb 0.5-3 Mg/3 Ml Neb IH 06/05/20 13:52 Not Given STAT ONE Albuterol/Ipratropium 3 ml 06/05/20 16:14 06/06/20 08:20 Duoneb 0.5-3 Mg/3 Ml Neb IH 07/05/20 16:13 3 ml Q4HPRN PRN Administration SHORTNESS OF BREATH/WHEEZING Apixaban 5 mg 06/05/20 22:00 06/06/20 09:45 Eliquis 2.5 Mg Tablet PO 07/05/20 21:59 5 mg BID DARLEEN Administration Carvedilol 25 mg 06/06/20 10:00 06/06/20 09:44 Coreg 12.5 Mg PO 07/06/20 09:59 25 mg DAILY DARLEEN Administration Diclofenac Sodium 2 gm 06/06/20 10:00 06/06/20 09:47 Voltaren Gel TP 07/06/20 09:59 Not Given QID DARLEEN Famotidine 20 mg 06/05/20 22:00 06/06/20 09:46 Pepcid 20 Mg Vial IV 07/05/20 21:59 20 mg Q12HT DARLEEN Administration Hydrochlorothiazide 25 mg 06/06/20 10:00 06/06/20 09:45 Hydrodiuril 25 Mg PO 07/06/20 09:59 25 mg DAILY DARLEEN Administration Sodium Chloride 1,000 mls @ 500 mls/hr 06/05/20 13:51 06/05/20 14:03 Sodium Chloride 0.9% 1000 Ml IV 06/05/20 15:50 500 mls/hr .Q2H STA Administration Sodium Chloride Confirm 06/05/20 14:01 Sodium Chloride 0.9% 1000 Ml Administered 06/05/20 14:02 Dose 1,000 mls @ ud .ROUTE .STK-MED ONE Sodium Chloride 1,000 mls @ 100 mls/hr 06/05/20 16:14 Sodium Chloride 0.9% 1000 Ml IV 07/05/20 16:13 .Q10H DARLEEN Levothyroxine Sodium 75 mcg 06/06/20 10:00 06/06/20 09:46 Synthroid 75 Mcg PO 07/06/20 09:59 75 mcg DAILY DARLEEN Administration Losartan Potassium 100 mg 06/06/20 10:00 06/06/20 09:45 Cozaar 50 Mg PO 07/06/20 09:59 100 mg DAILY DARLEEN Administration Methylprednisolone Sodium Succinate 125 mg 06/05/20 13:51 06/05/20 14:04 Solu-Medrol 125 Mg IV 06/05/20 13:52 125 mg STAT ONE Administration Methylprednisolone Sodium Succinate Confirm 06/05/20 14:01 Solu-Medrol 125 Mg Administered 06/05/20 14:02 Dose 125 mg .ROUTE .STK-MED ONE Miscellaneous Information 1 each 06/06/20 10:00 06/06/20 09:47 Medication Intervention 07/06/20 09:59 Not Given DAILY DARLEEN Miscellaneous Information 1 each 06/06/20 10:00 06/06/20 09:47 Medication Intervention 07/06/20 09:59 Not Given DAILY DARLEEN Ondansetron HCl 4 mg 06/05/20 16:14 Zofran 4 Mg/2 Ml Vial IV 07/05/20 16:13 Q6H PRN PRN NAUSEA/VOMITING Pantoprazole Sodium 40 mg 06/06/20 10:00 06/06/20 09:46 Protonix 40mg Tablet PO 07/06/20 09:59 40 mg DAILY DARLEEN Administration Pregabalin 50 mg 06/06/20 10:00 06/06/20 09:48 Lyrica 50mg PO 07/06/20 09:59 50 mg DAILY DARLEEN Administration Pregabalin 200 mg 06/06/20 16:00 Lyrica 100mg PO 07/06/20 15:59 1600 DARLEEN Simvastatin 20 mg 06/06/20 10:00 06/06/20 09:48 Zocor 20mg PO 07/06/20 09:59 20 mg DAILY DARLEEN Administration Trazodone HCl 50 mg 06/06/20 22:00 Desyrel 50 Mg PO 07/06/20 21:59 HS DARLEEN Lab/Rad Data: Laboratory Result Diagrams 06/05/20 13:40 06/05/20 13:40 Laboratory Results 06/05/20 06/05/20 06/05/20 Range/Units 14:55 14:30 13:40 WBC (4.0-10.5) K/mm3 RBC (4.1-5.4) M/mm3 Hgb (12.0-16.0) gm/dl Hct (35-47) % MCV (78-100) fl MCH (26-32) pg MCHC (32-36) g/dl RDW (11.5-14.0) % Plt Count (150-450) K/mm3 MPV (7.5-11.0) fl Gran % (36.0-66.0) % Eos # (Auto) (0-0.5) Absolute Lymphs (auto) (1.0-4.6) Absolute Monos (auto) (0.0-1.3) Lymphocytes % (24.0-44.0) % Monocytes % (0.0-12.0) % Eosinophils % (0.00-5.0) % Basophils % (0.0-0.4) % Absolute Granulocytes (1.4-6.9) Basophils # (0-0.4) Sodium (137-145) mmol/L Potassium (3.5-5.1) mmol/L Chloride (98-107) mmol/L Carbon Dioxide (22-30) mmol/L Anion Gap (5-15) MEQ/L BUN (7-17) mg/dL Creatinine (0.52-1.04) mg/dL Estimated GFR ML/MIN Glucose (74-106) mg/dL Calcium (8.4-10.2) mg/dL Magnesium (1.6-2.3) mg/dL Total Bilirubin (0.2-1.3) mg/dL AST (14-36) U/L ALT (0-35) U/L Alkaline Phosphatase (38-126) U/L Troponin I 0.012 (0.000-0.034) ng/mL NT-Pro-B Natriuret Pep (0-1800) pg/mL Serum Total Protein (6.3-8.2) g/dL Albumin (3.5-5.0) g/dL TSH 3rd Generation 2.310 (0.47-4.68) mIU/L Urine Color YELLOW (YELLOW) Urine Appearance CLEAR (CLEAR) Urine pH 6.0 (5-6) Ur Specific [place] 1.010 (1.005-1.025) Urine Protein NEGATIVE (Negative) Urine Ketones NEGATIVE (NEGATIVE) Urine Blood SMALL (0-5) Thai/ul Urine Nitrite NEGATIVE (NEGATIVE) Urine Bilirubin NEGATIVE (NEGATIVE) Urine Urobilinogen NEGATIVE (0-1) mg/dL Ur Leukocyte Esterase TRACE (NEGATIVE) Urine WBC (Auto) 3-5 (0-5) /HPF Urine RBC (Auto) NONE (0-2) /HPF U Epithel Cells (Auto) RARE (FEW) /HPF Urine Bacteria (Auto) NONE (NEGATIVE) /HPF Urine Mucus (Auto) SLIGHT (NEGATIVE) /HPF Urine Culture Reflexed YES (NO) Urine Glucose NEGATIVE (NEGATIVE) mg/dL 06/05/20 06/05/20 Range/Units 13:40 13:40 WBC 8.2 (4.0-10.5) K/mm3 RBC 4.11 (4.1-5.4) M/mm3 Hgb 12.3 (12.0-16.0) gm/dl Hct 37.4 (35-47) % MCV 91.0 (78-100) fl MCH 29.9 (26-32) pg MCHC 32.9 (32-36) g/dl RDW 14.6 H (11.5-14.0) % Plt Count 194 (150-450) K/mm3 MPV 9.9 (7.5-11.0) fl Gran % 68.3 H (36.0-66.0) % Eos # (Auto) 0 (0-0.5) Absolute Lymphs (auto) 1.90 (1.0-4.6) Absolute Monos (auto) 0.70 (0.0-1.3) Lymphocytes % 23.1 L (24.0-44.0) % Monocytes % 8.5 (0.0-12.0) % Eosinophils % 0.0 (0.00-5.0) % Basophils % 0.1 (0.0-0.4) % Absolute Granulocytes 5.63 (1.4-6.9) Basophils # 0.01 (0-0.4) Sodium 127 L (137-145) mmol/L Potassium 4.3 (3.5-5.1) mmol/L Chloride 94 L (98-107) mmol/L Carbon Dioxide 26 (22-30) mmol/L Anion Gap 10.8 (5-15) MEQ/L BUN 22 H (7-17) mg/dL Creatinine 0.91 (0.52-1.04) mg/dL Estimated GFR > 60.0 ML/MIN Glucose 117 H (74-106) mg/dL Calcium 8.8 (8.4-10.2) mg/dL Magnesium 1.8 (1.6-2.3) mg/dL Total Bilirubin 0.50 (0.2-1.3) mg/dL AST 29 (14-36) U/L ALT 18 (0-35) U/L Alkaline Phosphatase 48 (38-126) U/L Troponin I (0.000-0.034) ng/mL NT-Pro-B Natriuret Pep 1890 H (0-1800) pg/mL Serum Total Protein 6.8 (6.3-8.2) g/dL Albumin 3.7 (3.5-5.0) g/dL TSH 3rd Generation (0.47-4.68) mIU/L Urine Color (YELLOW) Urine Appearance (CLEAR) Urine pH (5-6) Ur Specific [place] (1.005-1.025) Urine Protein (Negative) Urine Ketones (NEGATIVE) Urine Blood (0-5) Thai/ul Urine Nitrite (NEGATIVE) Urine Bilirubin (NEGATIVE) Urine Urobilinogen (0-1) mg/dL Ur Leukocyte Esterase (NEGATIVE) Urine WBC (Auto) (0-5) /HPF Urine RBC (Auto) (0-2) /HPF U Epithel Cells (Auto) (FEW) /HPF Urine Bacteria (Auto) (NEGATIVE) /HPF Urine Mucus (Auto) (NEGATIVE) /HPF Urine Culture Reflexed (NO) Urine Glucose (NEGATIVE) mg/dL - Progress Progress: improved, re-examined Progress Note: 06/05/20 15:43 34 years old is evaluated for generalized weakness fatigue and allergic reaction. Her symptoms are much improved on presentation in the ER after she had an Benadryl at home. I have given her Solu-Medrol. EKG showed A. fib with rate bouncing between 90-[address] elevation. Negative initial troponins. She is given fluid bolus. On reevaluation she is feeling much better but still have some generalized weakness. Her CMP showed hyponatremia. Does have history of hyponatremia in the past as well. Her chest tightness/s hortness of breath is improved after breathing treatment. Her generalized weakness fatigue could be secondary to hyponatremia versus allergic reaction. She does not have UTI on today's urinalysis. I have discussed with Dr. Pascal since patient has a positive Covid within the month and patient is being admitted for observation and slow correction of sodium. Discussed with Dr.: Other (Dr. Gonzalez) Will see patient in: hospital (observation) Counseled pt/family regarding: lab results, diagnosis, rad results - Departure Departure Disposition: Observation Clinical Impression: Hyponatremia, Generalized weakness Allergic reaction Qualifiers: Encounter type: initial encounter Qualified Code(s): T78.40XA - Allergy, unspecified, initial encounter Condition: Stable Critical Care Time: No
[2020-06-05 15:19] LABS: Appearance CLEAR (CLEAR); Bilirubin NEGATIVE (NEGATIVE); Blood SMALL Ery/ul (0-5); Epithelial Cells RARE /HPF (FEW); Glucose NEGATIVE (NEGATIVE); Ketones NEGATIVE (NEGATIVE); Leukocyte Esterase TRACE (NEGATIVE); Mucus SLIGHT /HPF (NEGATIVE); Nitrite NEGATIVE (NEGATIVE); Protein,Urine Dip NEGATIVE (Negative); Urobilinogen NEGATIVE mg/dL (0-1)
[2020-06-05] MEDS ORDERED: Sodium Chloride 0.9% 1000 ML 1,000 ML IV SCH (16:14)
[2020-06-05] MEDS ORDERED: TYLENOL 325 MG PO PRN (16:14)
[2020-06-05] MEDS ORDERED: Zofran 4 MG/2 ML VIAL IV PRN (16:14)
[2020-06-05] MEDS: DUONEB 0.5-3 MG/3 ml Neb IH PRN (20:15)
[2020-06-05] MEDS ORDERED: NORCO 7.5/325 MG TAB PO PRN (21:00)
[2020-06-05] MEDS: Pepcid 20 MG VIAL IV SCH (21:40)
[2020-06-05] MEDS: ELIQUIS 2.5 MG TABLET PO SCH (21:40)
[2020-06-06 03:42] LABS: ALBUMIN 3.2 g/dL (3.5-5.0); ALKALINE PHOSPHATASE 39 U/L (38-126); ANION GAP 8.4 MEQ/L (5-15); BLOOD UREA NITROGEN 21 mg/dL (7-17); CHLORIDE 97 mmol/L (98-107); Calcium 8.4 mg/dL (8.4-10.2); Carbon Dioxide 26 mmol/L (22-30); Creatinine 1 0.73 mg/dL (0.52-1.04); EST GLOMERULAR FILTRATION RATE > 60.0 ML/MIN; Glucose 167 mg/dL (74-106); Potassium 4.5 mmol/L (3.5-5.1); SGOT/AST 23 U/L (14-36); SGPT/ALT 16 U/L (0-35); SODIUM 127 mmol/L (137-145); Total Protein 5.9 g/dL (6.3-8.2)
[2020-06-06 04:24] LABS: Absolute Neutrophil Ct (ANC) 3.35 (1.4-6.9); BASOPHIL % 0.2 % (0.0-0.4); Basophil (Absolute #) 0.01 (0-0.4); Eosinophil (Absolute #) 0 (0-0.5); Hematocrit 35.7 % (35-47); Hemoglobin 11.5 gm/dl (12.0-16.0); Lymphocyte (Absolute #) 0.98 (1.0-4.6); Lymphocytes % 21.5 % (24.0-44.0); Mean Cell Volume 90.8 fl (78-100); Mean Corpuscular Hemoglobin 29.3 pg (26-32); Mean Corpuscular Hgb Concent. 32.2 g/dl (32-36); Mean Platelet Volume 10.2 fl (7.5-11.0); Monocyte (Absolute #) 0.21 (0.0-1.3); Monocytes % 4.6 % (0.0-12.0); Neutrophil % 73.7 % (36.0-66.0); Platelet Count 158 K/mm3 (150-450); Red Blood Count 3.93 M/mm3 (4.1-5.4); Red Cell Distribution Width 14.6 % (11.5-14.0); White Blood Count 4.6 K/mm3 (4.0-10.5)
[2020-06-06] MEDS: DUONEB 0.5-3 MG/3 ml Neb IH PRN (08:20)
[2020-06-06] MEDS: ELIQUIS 2.5 MG TABLET PO SCH (09:45)
[2020-06-06] MEDS: Pepcid 20 MG VIAL IV SCH (09:46)
[2020-06-06] MEDS ORDERED: NON-FORMULARY ITEM (Chlorthalidone [Chlorthalidone] 25 MG) PO SCH (10:00)
[2020-06-06] MEDS ORDERED: PROVENTIL 2.5 MG/3 ML NEB IH SCH (10:00)
[2020-06-06] MEDS ORDERED: MEDICATION INTERVENTION MC SCH ×2 (10:00)
[2020-06-06] MEDS ORDERED: Lyrica 50MG PO SCH (10:00)
[2020-06-06] MEDS ORDERED: NON-FORMULARY ITEM (Atorvastatin Calcium 20 MG) PO SCH (10:00)
[2020-06-06] MEDS ORDERED: NON-FORMULARY ITEM (Glycopyrrolate/Formoterol Fum [Bevespi Aerosphere Inhaler] 2 PUFF) PO SCH (10:00)
[2020-06-06] MEDS ORDERED: COREG 12.5 MG PO SCH (10:00)
[2020-06-06] MEDS ORDERED: Protonix 40MG Tablet PO SCH (10:00)
[2020-06-06] MEDS ORDERED: PREGABALIN 200 MG PO SCH (10:00)
[2020-06-06] MEDS ORDERED: Voltaren GEL TP SCH (10:00)
[2020-06-06] MEDS ORDERED: hydroDIURIL 25 MG PO SCH (10:00)
[2020-06-06] MEDS ORDERED: Cozaar 50 MG PO SCH (10:00)
[2020-06-06] MEDS ORDERED: ZOCOR 20MG PO SCH (10:00)
[2020-06-06] MEDS ORDERED: SILDENAFIL CITRATE 20 MG PO SCH (10:00)
[2020-06-06] MEDS ORDERED: NON-FORMULARY ITEM (Losartan Potassium [Cozaar] 100 MG) PO SCH (10:00)
[2020-06-06] MEDS ORDERED: NON-FORMULARY ITEM (Omeprazole [Omeprazole] 20 MG) PO SCH (10:00)
[2020-06-06] MEDS ORDERED: SYNTHROID 75 MCG PO SCH (10:00)
[2020-06-06 10:10] VITALS: BP 118/68; PULSE 78
--- NOTE | 2020-06-06 12:05 | SSS ---
DISCHARGE DIAGNOSES: 1) HISTORY OF COVID. 2) REACTION TO CEPHALOSPORIN. 3) URINARY TRACT INFECTION. 4) PULMONARY HYPERTENSION. 5) HYPOTHYROIDISM. 6) PERIPHERAL NEUROPATHY. 7) ARTHRITIS OF BACK AND KNEES. HISTORY: The patient had burning and pain on urination and was given Omnicef. The next day she was short of breath, had redness in the face, more tachycardic and just felt bad and was brought into the emergency room. She was treated with some epinephrine and steroids and admitted for observation. Prior to this she did have COVID approximately two weeks ago as well as other family members. She apparently had been recovering from that and had done very well. Because of her recent COVID she was placed on the COVID unit. MEDICATIONS: Synthroid 75, losartan 100 q.d., Lyrica 50 q.d., Revatio 20 mg a day for pulmonary emboli, carvedilol 25 q.d., atorvastatin 20 q.d., Albuterol by nebulizer as needed, Eliquis 5 mg b.i.d., chlorthalidone 25 q.d., Voltaren gel four times a day to knees. Bevespi inhaler 2 puffs twice a day, Vicodin 7.5-325 every six hours PRN back pain/knee pain, Prilosec 20 q.d., Lyrica 200 mg at bedtime 50 in the morning, I believe, trazodone 50 at bedtime. ALLERGIES: AMLODIPINE. CEFUROZIME. CEPHALEXIN. GABAPENTIN. SULFA. PAST MEDICAL HISTORY: Pulmonary hypertension. Gastroesophageal reflux disease. Arthritis. PAST SURGICAL HISTORY: Orthopedic surgery. Back surgery. REVIEW OF SYSTEMS: HEENT: No problems hearing or seeing particularly. CHEST: No shortness of breath more than her usual. She is short of breath on exertion. Pulmonary hypertension. MUSCULOSKELETAL: No complaints except for knee pain, back pain, not bad presently. PSYCHOLOGIC: No disease. ENDOCRINE: No disease. SOCIAL HISTORY: Never smoked. She has numerous children one who is head of respiratory here. She lives with her and has numerous children including one grandson across the alley from her. PHYSICAL EXAMINATION: VITAL SIGNS: Temperature 99F, pulse 118, blood pressure 155/92. Pulse ox 95%. GENERAL APPEARANCE: The patient is in no distress. She is alert, orientated and pleasant to talk to. HEENT: Pupils equal and reactive to light. Hears and sees fairly well. Throat no swelling of the tonsils or posterior wall. NECK: No JVD. CHEST: Few wheezes bilateral. CVS: Irregular rate, slightly tachycardic. Telemetry shows atrial fibrillation which is chronic. ABDOMEN: No masses or organomegaly. EXTREMITIES: Fairly good pulses. No edema. LAB DATA AND TESTS: Sodium slightly low at 137. D-dimer just minimally elevated from normal. Troponins are negative. CBC was normal. IMPRESSION: 1) Reaction to cephalosporin. 2) Recent history of COVID. 3) History of pulmonary hypertension. 4) Hypertension. 5) Mild hyponatremia. HOSPITAL COURSE: The patient was treated with low dose IV fluids. She will be monitored for side effects from the reaction which has gotten better with the epinephrine, Benadryl and steroids. UA was normal and later urine culture was no growth at this time. The patient was observed overnight and she has done very well. She is in chronic atrial fibrillation, stable heart failure. The urinary tract infection has resolved. The allergic reaction to the cephalosporin has resolved. She is advised to drink when [age] as she does not over drink fluids it sounds like. Follow up with cardiology and now she is to list cephalosporin as an allergy. PROGNOSIS: Good.
[2020-06-06] MEDS ORDERED: LYRICA 100MG PO SCH (16:00)
[2020-06-06] MEDS ORDERED: DESYREL 50 MG PO SCH (22:00)
[2020-06-07 16:42] VITALS: O2SAT 95
== END 2020-06-06 10:42 | disposition home or self-care (01) ==
LOC: ED 12:58 → MED SURG 16:05
PROVIDERS: ADMIT Family Medicine; ATTEND Family Medicine
DX: R53.83 Other fatigue (principal); R00.0 Tachycardia, unspecified; T36.1X5A Adverse effect of cephalosporins and other beta-lactam antibiotics, initial encounter; I27.20 Pulmonary hypertension, unspecified; N39.0 Urinary tract infection, site not specified; E03.9 Hypothyroidism, unspecified; I50.9 Heart failure, unspecified; I48.91 Unspecified atrial fibrillation; E87.1 Hypo-osmolality and hyponatremia; G62.9 Polyneuropathy, unspecified; M17.0 Bilateral primary osteoarthritis of knee; M47.9 Spondylosis, unspecified; Z86.19 Personal history of other infectious and parasitic diseases; Z79.899 Other long term (current) drug therapy; Z79.01 Long term (current) use of anticoagulants
CPT/HCPCS: 36000; 36415; 71045; 80053; 81001; 83735; 83880; 84443; 84484; 85025; 87086; 93005; 93268; 94640; 94760; 94762; 96374; 99285; J2930; J7609; A9270-GY; G0378

== ENCOUNTER 2020-06-07 13:48 | Observation (INO) | payer MEDICARE, OTHER ==
[2020-06-07] MEDS ORDERED: Sodium Chloride 0.9% 1000 ML 1,000 ML IV STA (14:21)
[2020-06-07] MEDS ORDERED: Sodium Chloride 0.9% 500 ML 500 ML IV ONE (14:25)
[2020-06-07 14:34] LABS: Absolute Neutrophil Ct (ANC) 13.63 (1.4-6.9); BASOPHIL % 0.1 % (0.0-0.4); Basophil (Absolute #) 0.02 (0-0.4); Eosinophil (Absolute #) 0 (0-0.5); Hematocrit 34.8 % (35-47); Hemoglobin 11.5 gm/dl (12.0-16.0); Lymphocyte (Absolute #) 0.62 (1.0-4.6); Lymphocytes % 4.1 % (24.0-44.0); Mean Cell Volume 89.9 fl (78-100); Mean Corpuscular Hemoglobin 29.7 pg (26-32); Mean Platelet Volume 9.9 fl (7.5-11.0); Monocyte (Absolute #) 0.74 (0.0-1.3); Monocytes % 4.9 % (0.0-12.0); Neutrophil % 90.9 % (36.0-66.0); Platelet Count 194 K/mm3 (150-450); Red Blood Count 3.87 M/mm3 (4.1-5.4); Red Cell Distribution Width 14.4 % (11.5-14.0)
[2020-06-07 14:41] LABS: INR 2.01 (0.8-3.0); PROTIME 22.9 SECONDS (9.95-12.35)
--- NOTE | 2020-06-07 14:46 | XRAY ---
Indication: Weakness and dizziness. History of pulmonary hypertension. Comparison: June 05, 2020. Portable chest rotated and unchanged again demonstrating minimal bibasilar fibrosis/scarring and cardiomegaly. No new cardiopulmonary abnormalities.
--- NOTE | 2020-06-07 14:47 | XRAY ---
Indication: Weakness and dizziness. Status post fall. Multiple contiguous axial images obtained through the head without contrast. Comparison: September 03, 2017. Again age-appropriate global atrophy with minimal periventricular degenerative micro-ischemia. No acute intracranial hemorrhage, abnormal extra-axial fluid collection, or mass effect. Fourth ventricle is midline without hydrocephalus. Louis-white matter differentiation preserved. Bony calvarium intact. Visualized paranasal sinuses and mastoid air cells are clear. Impression: Continued nonacute senile brain.
[2020-06-07 14:48] LABS: ALBUMIN 3.4 g/dL (3.5-5.0); ANION GAP 10.2 MEQ/L (5-15); BILIRUBIN,TOTAL 0.6 mg/dL (0.2-1.3); Calcium 8.3 mg/dL (8.4-10.2); Creatinine 1 1.19 mg/dL (0.52-1.04); EST GLOMERULAR FILTRATION RATE 45.9 ML/MIN; MAGNESIUM 2.2 mg/dL (1.6-2.3); Potassium 4.3 mmol/L (3.5-5.1); Total Protein 6.4 g/dL (6.3-8.2)
[2020-06-07 15:17] LABS: TSH, 3RD Generation 1.95 mIU/L (0.47-4.68)
--- NOTE | 2020-06-07 16:45 | ERPHSYRPT ---
- History of Present Illness Time Seen by Provider: 06/07/20 13:56 Patient Subjective Stated Complaint: pt reports fall today at 1130, states she tripped on ledge in her house and was unable to get up off the floor. pt denies any injury at this time, denies LOC, pt reports approx 1215 her family arrived finding her on the floor and helping her up. pt reports dizziness today. denies pain. Triage Nursing Assessment: pt is aox3, pupils perrl, afebrile, resps easy and non labored, cap refill < 3 seconds, radial pulses strong and equal, irregular, pt skin pink warm dry. Physician History: 84 years old female with history of atrial fibrillation on Eliquis, pulmonary hypertension, hyperlipidemia, hypothyroidism who was recently admitted for hyponatremia presented in the ER with feeling dizzy and lightheaded since morning. Patient reports she feels as if she is going to pass out with standing up and walking. She feels weak all over with no energy to do her routine activities which she used to do. Earlier she was walking into her living room and her toe got caught leading to fall. She did not hit her head or loss of consciousness but was weak enough to get up and was lying on the floor for hours until family got in. Denies any chest pain palpitations or shortness of breath. No abdominal pain nausea or vomiting. Denies any focal numbness tingling wea kness, visual disturbance or difficulty speech. Timing/Duration: today Severity: moderate Modifying Factors: Improves With: movement Associated Symptoms: weakness Allergies/Adverse Reactions: amlodipine [From Norvasc] Allergy (Verified 06/07/20 14:13) cefuroxime Allergy (Verified 06/07/20 14:13) cephalexin [From Keflex] Allergy (Verified 06/07/20 14:13) gabapentin [From Neurontin] Allergy (Verified 06/07/20 14:13) Sulfa (Sulfonamide Antibiotics) Allergy (Verified 06/07/20 14:13) Home Medications: Levothyroxine Sodium 75 mg PO DAILY 06/01/17 [History] Losartan Potassium [Cozaar] 100 mg PO DAILY 06/01/17 [History] Pregabalin [Lyrica] 50 mg PO DAILY 06/01/17 [History] Sildenafil Citrate [Revatio] 20 mg PO TID 06/01/17 [History] carvediloL [Carvedilol] 25 mg PO DAILY 06/01/17 [History] Atorvastatin Calcium [Lipitor 20MG Tablet] 20 mg PO DAILY 09/06/17 [History] Albuterol 2.5 mg/3 ml Neb [Proventil 2.5 mg/3 ml Neb] 2.5 mg IH TID 06/05/20 [History] Apixaban [Eliquis] 5 mg PO BID 06/05/20 [History] Chlorthalidone 25 mg PO DAILY 06/05/20 [History] Diclofenac Sodium Gel [Voltaren GEL] 2 gm TP QID 06/05/20 [History] Glycopyrrolate/Formoterol Fum [Bevespi Aerosphere Inhaler] 2 puff PO BID 06/05/20 [History] Hydrocodone Bit/Acetaminophen [Hydrocodon-Acetaminoph 7.5-325] 1 tab PO Q6H 06/05/20 [History] Omeprazole 20 mg PO DAILY 06/05/20 [History] Pregabalin 200 mg PO DAILY 06/05/20 [History] Trazodone HCl 50 mg [Desyrel 50 mg] 50 mg PO DAILY 06/05/20 [History] Hx Tetanus, Diphtheria Vaccination/Date Given: Yes Hx Influenza Vaccination/Date Given: Yes Hx Pneumococcal Vaccination/Date Given: Yes Immunizations Up to Date: Yes Travel Risk - International Travel Have you traveled outside of the country in past 3 weeks: No - Coronavirus Screening Are you exhibiting any of the following symptoms?: No Close contact with a COVID-19 positive Pt in past 14-21 Days: No - Review of Systems Constitutional: Fatigue, Weakness Eyes: No Symptoms Ears, Nose, & Throat: No Symptoms Respiratory: Dyspnea Cardiac: No Symptoms Abdominal/Gastrointestinal: No Symptoms Genitourinary Symptoms: No Symptoms Musculoskeletal: No Symptoms Neurological: Dizziness Psychological: No Symptoms Endocrine: No Symptoms Hematologic/Lymphatic: No Symptoms Immunological/Allergic: No Symptoms - Past Medical History Pertinent Past Medical History: Yes Neurological History: No Pertinent History ENT History: No Pertinent History Cardiac History: Arrhythmia Respiratory History: Other Endocrine Medical History: No Pertinent History Musculoskeletal History: Arthritis, Rheumatoid Arthritis GI Medical History: GERD History: No Pertinent History Psycho-Social History: No Pertinent History Female Reproductive Disorders: No Pertinent History Other Medical History: A FIB - TAKES ELOQUIS; PULMONARY HTN,COPD. COVID POSITIVE 05/24/20 WITH BAM INFUSION 05/26/20 - Past Surgical History Past Surgical History: Yes Neuro Surgical History: No Pertinent History Cardiac: No Pertinent History Respiratory: No Pertinent History Gastrointestinal: No Pertinent History Genitourinary: No Pertinent History Musculoskeletal: Orthopedic Surgery Female Surgical History: No Pertinent History Other Surgical History: back surgery - Social History Smoking Status: Never smoker Exposure to second hand smoke: No Drug Use: none Patient Lives Alone: No - Female History Hx Now: No - Nursing Vital Signs Nursing Vital Signs: Initial Vital Signs Temperature 98.1 F 06/07/20 13:58 Pulse Rate 57 L 06/07/20 13:58 Respiratory Rate 20 06/07/20 13:58 Blood Pressure 96/63 06/07/20 13:58 O2 Sat by Pulse Oximetry 98 06/07/20 13:58 Pain Scale Pain Intensity 0 - Physical Exam General Appearance: no apparent distress, alert Eye Exam: PERRL/EOMI, eyes nml inspection Ears, Nose, Throat Exam: normal ENT inspection, TMs normal, pharynx normal Neck Exam: normal inspection, non-tender, supple, full range of motion Respiratory Exam: normal breath sounds, lungs clear Cardiovascular Exam: normal heart sounds, irregular Gastrointestinal/Abdomen Exam: soft, normal bowel sounds Back Exam: normal inspection, normal range of motion Extremity Exam: normal inspection, normal range of motion Neurologic Exam: alert, oriented x 3, cooperative, 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 as tested, normal mood/affect, nml cerebellar function, sensation nml Skin Exam: normal color SpO2 Interpretation: normal SpO2: 94 O2 Delivery: Room Air - Course EKG Interpreted by Me: RATE (112), A-fib, NORMAL AXIS, NORMAL INTERVALS, NORMAL QRS Ordered Tests: Active Orders 24 hr Category Date Time Status 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 STAT Care 06/07/20 14:22 Active EKG-ER Only STAT Care 06/07/20 14:21 Active IV Insertion STAT Care 06/07/20 14:21 Active Orthostatic Vital Signs STAT Care 06/07/20 14:21 Active CHEST 1 VIEW (PORTABLE) Stat Exams 06/07/20 14:21 Completed HEAD WITHOUT CONTRAST [CT] Stat Exams 06/07/20 14:36 Completed CBC W DIFF Stat Lab 06/07/20 14:12 Completed CK-Creatinine Phosphokinase Stat Lab 06/07/20 15:00 Completed CMP Stat Lab 06/07/20 14:12 Completed Lactic Acid Stat Lab 06/07/20 14:21 Completed Lactic Acid Stat Lab 06/07/20 16:28 Completed MAGNESIUM Stat Lab 06/07/20 14:12 Completed PT INR [PROTIME WITH INR] Stat Lab 06/07/20 14:12 Completed TROPONIN Q3H Lab 06/08/20 02:30 Ordered TROPONIN Q3H Lab 06/07/20 14:12 Completed TROPONIN Q3H Lab 06/07/20 17:00 Completed TROPONIN Q3H Lab 06/07/20 20:30 Ordered TROPONIN Q3H Lab 06/07/20 23:30 Ordered TSH [TSH, 3RD Generation] Stat Lab 06/07/20 15:00 Completed UA W/RFX UR CULTURE Stat Lab 06/07/20 16:41 Completed Transfer Order Routine Transfer 06/07/20 Ordered Medication Summary Discontinued Medications Generic Name Dose Route Start Last Admin Trade Name Freq PRN Reason Stop Dose Admin Sodium Chloride 1,000 mls @ 499 mls/hr 06/07/20 14:21 06/07/20 16:25 Sodium Chloride 0.9% 1000 Ml IV 06/07/20 16:21 0 mls/hr .Q2H1M STA Infusion Sodium Chloride Confirm 06/07/20 14:25 Sodium Chloride 0.9% 500 Ml Administered 06/07/20 14:26 Dose 500 mls @ ud IV .STK-MED ONE Lab/Rad Data: Laboratory Result Diagrams 06/07/20 14:12 06/07/20 14:12 Laboratory Results 06/07/20 06/07/20 06/07/20 Range/Units 17:00 16:41 16:28 WBC (4.0-10.5) K/mm3 RBC (4.1-5.4) M/mm3 Hgb (12.0-16.0) gm/dl Hct (35-47) % MCV (78-100) fl MCH (26-32) pg MCHC (32-36) g/dl RDW (11.5-14.0) % Plt Count (150-450) K/mm3 MPV (7.5-11.0) fl Gran % (36.0-66.0) % Eos # (Auto) (0-0.5) Absolute Lymphs (auto) (1.0-4.6) Absolute Monos (auto) (0.0-1.3) Lymphocytes % (24.0-44.0) % Monocytes % (0.0-12.0) % Eosinophils % (0.00-5.0) % Basophils % (0.0-0.4) % Absolute Granulocytes (1.4-6.9) Basophils # (0-0.4) PT (9.95-12.35) SECONDS INR (0.8-3.0) Sodium (137-145) mmol/L Potassium (3.5-5.1) mmol/L Chloride (98-107) mmol/L Carbon Dioxide (22-30) mmol/L Anion Gap (5-15) MEQ/L BUN (7-17) mg/dL Creatinine (0.52-1.04) mg/dL Estimated GFR ML/MIN Glucose (74-106) mg/dL Lactic Acid 2.0 (0.4-2.0) Calcium (8.4-10.2) mg/dL Magnesium (1.6-2.3) mg/dL Total Bilirubin (0.2-1.3) mg/dL AST (14-36) U/L ALT (0-35) U/L Alkaline Phosphatase (38-126) U/L Creatine Kinase (30-135) U/L Troponin I 0.014 (0.000-0.034) ng/mL Serum Total Protein (6.3-8.2) g/dL Albumin (3.5-5.0) g/dL TSH 3rd Generation (0.47-4.68) mIU/L Urine Color YELLOW (YELLOW) Urine Appearance CLEAR (CLEAR) Urine pH 6.0 (5-6) Ur Specific [place] 1.009 (1.005-1.025) Urine Protein NEGATIVE (Negative) Urine Ketones NEGATIVE (NEGATIVE) Urine Blood NEGATIVE (0-5) Thai/ul Urine Nitrite NEGATIVE (NEGATIVE) Urine Bilirubin NEGATIVE (NEGATIVE) Urine Urobilinogen NEGATIVE (0-1) mg/dL Ur Leukocyte Esterase NEGATIVE (NEGATIVE) Urine WBC (Auto) NONE (0-5) /HPF Urine RBC (Auto) NONE (0-2) /HPF U Epithel Cells (Auto) RARE (FEW) /HPF Urine Bacteria (Auto) NONE (NEGATIVE) /HPF Urine Mucus (Auto) SLIGHT (NEGATIVE) /HPF Urine Culture Reflexed NO (NO) Urine Glucose NEGATIVE (NEGATIVE) mg/dL 06/07/20 06/07/20 06/07/20 Range/Units 15:00 14:21 14:12 WBC (4.0-10.5) K/mm3 RBC (4.1-5.4) M/mm3 Hgb (12.0-16.0) gm/dl Hct (35-47) % MCV (78-100) fl MCH (26-32) pg MCHC (32-36) g/dl RDW (11.5-14.0) % Plt Count (150-450) K/mm3 MPV (7.5-11.0) fl Gran % (36.0-66.0) % Eos # (Auto) (0-0.5) Absolute Lymphs (auto) (1.0-4.6) Absolute Monos (auto) (0.0-1.3) Lymphocytes % (24.0-44.0) % Monocytes % (0.0-12.0) % Eosinophils % (0.00-5.0) % Basophils % (0.0-0.4) % Absolute Granulocytes (1.4-6.9) Basophils # (0-0.4) PT (9.95-12.35) SECONDS INR (0.8-3.0) Sodium (137-145) mmol/L Potassium (3.5-5.1) mmol/L Chloride (98-107) mmol/L Carbon Dioxide (22-30) mmol/L Anion Gap (5-15) MEQ/L BUN (7-17) mg/dL Creatinine (0.52-1.04) mg/dL Estimated GFR ML/MIN Glucose (74-106) mg/dL Lactic Acid 2.3 H (0.4-2.0) Calcium (8.4-10.2) mg/dL Magnesium (1.6-2.3) mg/dL Total Bilirubin (0.2-1.3) mg/dL AST (14-36) U/L ALT (0-35) U/L Alkaline Phosphatase (38-126) U/L Creatine Kinase 60 (30-135) U/L Troponin I 0.015 (0.000-0.034) ng/mL Serum Total Protein (6.3-8.2) g/dL Albumin (3.5-5.0) g/dL TSH 3rd Generation 1.950 (0.47-4.68) mIU/L Urine Color (YELLOW) Urine Appearance (CLEAR) Urine pH (5-6) Ur Specific [place] (1.005-1.025) Urine Protein (Negative) Urine Ketones (NEGATIVE) Urine Blood (0-5) Thai/ul Urine Nitrite (NEGATIVE) Urine Bilirubin (NEGATIVE) Urine Urobilinogen (0-1) mg/dL Ur Leukocyte Esterase (NEGATIVE) Urine WBC (Auto) (0-5) /HPF Urine RBC (Auto) (0-2) /HPF U Epithel Cells (Auto) (FEW) /HPF Urine Bacteria (Auto) (NEGATIVE) /HPF Urine Mucus (Auto) (NEGATIVE) /HPF Urine Culture Reflexed (NO) Urine Glucose (NEGATIVE) mg/dL 06/07/20 06/07/20 06/07/20 Range/Units 14:12 14:12 14:12 WBC 15.0 H (4.0-10.5) K/mm3 RBC 3.87 L (4.1-5.4) M/mm3 Hgb 11.5 L (12.0-16.0) gm/dl Hct 34.8 L (35-47) % MCV 89.9 (78-100) fl MCH 29.7 (26-32) pg MCHC 33.0 (32-36) g/dl RDW 14.4 H (11.5-14.0) % Plt Count 194 (150-450) K/mm3 MPV 9.9 (7.5-11.0) fl Gran % 90.9 H (36.0-66.0) % Eos # (Auto) 0 (0-0.5) Absolute Lymphs (auto) 0.62 L (1.0-4.6) Absolute Monos (auto) 0.74 (0.0-1.3) Lymphocytes % 4.1 L (24.0-44.0) % Monocytes % 4.9 (0.0-12.0) % Eosinophils % 0.0 (0.00-5.0) % Basophils % 0.1 (0.0-0.4) % Absolute Granulocytes 13.63 H (1.4-6.9) Basophils # 0.02 (0-0.4) PT 22.9 H (9.95-12.35) SECONDS INR 2.01 (0.8-3.0) Sodium 127 L (137-145) mmol/L Potassium 4.3 (3.5-5.1) mmol/L Chloride 95 L (98-107) mmol/L Carbon Dioxide 26 (22-30) mmol/L Anion Gap 10.2 (5-15) MEQ/L BUN 37 H (7-17) mg/dL Creatinine 1.19 H (0.52-1.04) mg/dL Estimated GFR 45.9 ML/MIN Glucose 133 H (74-106) mg/dL Lactic Acid (0.4-2.0) Calcium 8.3 L (8.4-10.2) mg/dL Magnesium 2.2 (1.6-2.3) mg/dL Total Bilirubin 0.60 (0.2-1.3) mg/dL AST 36 (14-36) U/L ALT 23 (0-35) U/L Alkaline Phosphatase 45 (38-126) U/L Creatine Kinase (30-135) U/L Troponin I (0.000-0.034) ng/mL Serum Total Protein 6.4 (6.3-8.2) g/dL Albumin 3.4 L (3.5-5.0) g/dL TSH 3rd Generation (0.47-4.68) mIU/L Urine Color (YELLOW) Urine Appearance (CLEAR) Urine pH (5-6) Ur Specific [place] (1.005-1.025) Urine Protein (Negative) Urine Ketones (NEGATIVE) Urine Blood (0-5) Thai/ul Urine Nitrite (NEGATIVE) Urine Bilirubin (NEGATIVE) Urine Urobilinogen (0-1) mg/dL Ur Leukocyte Esterase (NEGATIVE) Urine WBC (Auto) (0-5) /HPF Urine RBC (Auto) (0-2) /HPF U Epithel Cells (Auto) (FEW) /HPF Urine Bacteria (Auto) (NEGATIVE) /HPF Urine Mucus (Auto) (NEGATIVE) /HPF Urine Culture Reflexed (NO) Urine Glucose (NEGATIVE) mg/dL - Progress Progress: improved, re-examined Progress Note: 06/07/20 17:03 84 years old with recent Covid in a month time with multiple other medical problems who was admitted for hyponatremia presented back with dizziness lightheadedness and a fall. She does not have any focal neuro symptoms. She is given fluid bolus, orthostatics are negative. She still have a hyponatremia of 127 and will continue with fluids. Chest x-ray negative. I have obtained CT head as patient is on Eliquis and is negative for internal bleed or any acute findings. EKG showed atrial fibrillation with no acute ST elevations. Initial troponins are negative. She also has VIVEK and will continue with fluids. Discussed with Dr. Pascal and patient is admitted. Discussed with : Other ([place]hai) Will see patient in: hospital (observation) Counseled pt/family regarding: lab results, diagnosis, rad results - Departure Departure Disposition: Observation Clinical Impression: Dizziness on standing, Hyponatremia, VIVEK (acute kidney injury) Fall Qualifiers: Encounter type: initial encounter Qualified Code(s): W19.XXXA - Unspecified fall, initial encounter Condition: Stable Critical Care Time: No Referrals: EMMA CLEARY [Primary Care Provider] -
[2020-06-07 17:01] LABS: Appearance CLEAR (CLEAR); Bilirubin NEGATIVE (NEGATIVE); Blood NEGATIVE Ery/ul (0-5); Epithelial Cells RARE /HPF (FEW); Glucose NEGATIVE (NEGATIVE); Ketones NEGATIVE (NEGATIVE); Leukocyte Esterase NEGATIVE (NEGATIVE); Mucus SLIGHT /HPF (NEGATIVE); Nitrite NEGATIVE (NEGATIVE); Protein,Urine Dip NEGATIVE (Negative); Specific Gravity 1.009 (1.005-1.025); Urobilinogen NEGATIVE mg/dL (0-1)
[2020-06-07] MEDS ORDERED: Lasix 40 MG/4 ML IV ONE (18:24)
[2020-06-07] MEDS ORDERED: Lasix 40 MG/4 ML ONE (18:28)
[2020-06-07] MEDS ORDERED: Zofran 4 MG/2 ML VIAL IV PRN (19:15)
[2020-06-07] MEDS ORDERED: Sodium Chloride 0.9% 1000 ML 1,000 ML IV SCH (19:15)
[2020-06-07] MEDS: PROVENTIL 2.5 MG/3 ML NEB IH SCH (20:30)
[2020-06-07] MEDS ORDERED: Norco 10/325 MG Tablet PO PRN (22:26)
[2020-06-07] MEDS: DESYREL 50 MG PO SCH (22:59)
[2020-06-07] MEDS: Pepcid 20 MG VIAL IV SCH (22:59)
[2020-06-07] MEDS: ELIQUIS 2.5 MG TABLET PO SCH (23:00)
[2020-06-07] MEDS: COREG 12.5 MG PO SCH (23:00)
[2020-06-07] MEDS: TYLENOL 325 MG PO PRN (23:01)
[2020-06-08 07:17] LABS: Absolute Neutrophil Ct (ANC) 7.59 (1.4-6.9); BASOPHIL % 0.1 % (0.0-0.4); Basophil (Absolute #) 0.01 (0-0.4); Eosinophil (Absolute #) 0 (0-0.5); Hematocrit 33.9 % (35-47); Hemoglobin 11.1 gm/dl (12.0-16.0); Lymphocyte (Absolute #) 0.85 (1.0-4.6); Lymphocytes % 9.6 % (24.0-44.0); Mean Cell Volume 90.2 fl (78-100); Mean Corpuscular Hemoglobin 29.5 pg (26-32); Mean Corpuscular Hgb Concent. 32.7 g/dl (32-36); Mean Platelet Volume 10.1 fl (7.5-11.0); Monocyte (Absolute #) 0.45 (0.0-1.3); Monocytes % 5.1 % (0.0-12.0); Neutrophil % 85.2 % (36.0-66.0); Platelet Count 171 K/mm3 (150-450); Red Blood Count 3.76 M/mm3 (4.1-5.4); Red Cell Distribution Width 14.6 % (11.5-14.0); White Blood Count 8.9 K/mm3 (4.0-10.5)
[2020-06-08] MEDS ORDERED: PROVENTIL 2.5 MG/3 ML NEB IH ONE (07:24)
[2020-06-08] MEDS: PROVENTIL 2.5 MG/3 ML NEB IH SCH ×3 (07:28→18:45)
[2020-06-08 07:52] LABS: ALKALINE PHOSPHATASE 41 U/L (38-126); BLOOD UREA NITROGEN 27 mg/dL (7-17); CHLORIDE 100 mmol/L (98-107); Calcium 7.9 mg/dL (8.4-10.2); Carbon Dioxide 27 mmol/L (22-30); Creatinine 1 0.87 mg/dL (0.52-1.04); EST GLOMERULAR FILTRATION RATE > 60.0 ML/MIN; Glucose 103 mg/dL (74-106); Potassium 3.7 mmol/L (3.5-5.1); SGOT/AST 29 U/L (14-36); SGPT/ALT 18 U/L (0-35); SODIUM 131 mmol/L (137-145); Total Protein 5.7 g/dL (6.3-8.2)
[2020-06-08] MEDS: TYLENOL 325 MG PO PRN (09:33)
[2020-06-08] MEDS ORDERED: LYRICA 100MG PO SCH (10:00)
[2020-06-08] MEDS ORDERED: Protonix 40MG Tablet PO SCH (10:00)
[2020-06-08] MEDS ORDERED: ELIQUIS 2.5 MG TABLET PO SCH (10:00)
[2020-06-08] MEDS ORDERED: COREG 12.5 MG PO SCH (10:00)
[2020-06-08] MEDS ORDERED: MEDICATION INTERVENTION MC SCH ×2 (10:30)
[2020-06-08] MEDS: Cozaar 50 MG PO SCH ×2 (10:36→11:03)
[2020-06-08] MEDS: DELTASONE 10 MG PO SCH (10:36)
[2020-06-08] MEDS: Protonix 40MG Tablet PO SCH (10:37)
[2020-06-08] MEDS: ELIQUIS 2.5 MG TABLET PO SCH ×2 (10:47→20:44)
[2020-06-08] MEDS: COREG 12.5 MG PO SCH ×3 (10:47→20:56)
[2020-06-08] MEDS: Lyrica 50MG PO SCH (10:47)
[2020-06-08] MEDS: Pepcid 20 MG VIAL IV SCH ×3 (10:50→20:45)
[2020-06-08] MEDS ORDERED: Sodium Chloride 0.9% 1000 ML 1,000 ML IV SCH (12:15)
[2020-06-08] MEDS: Lasix 20 MG/2 ML IV SCH (12:50)
[2020-06-08] MEDS ORDERED: SILDENAFIL CITRATE 20 MG PO SCH (15:00)
[2020-06-08] MEDS: Voltaren GEL TP SCH ×2 (18:41→19:01)
[2020-06-08] MEDS: DESYREL 50 MG PO SCH (20:44)
[2020-06-08] MEDS ORDERED: ZOCOR 20MG PO SCH (22:00)
[2020-06-08] MEDS ORDERED: NON-FORMULARY ITEM (Glycopyrrolate/Formoterol Fum [Bevespi Aerosphere Inhaler] 2 PUFF) PO SCH (22:00)
[2020-06-09 06:36] LABS: ANION GAP 8.3 MEQ/L (5-15); BLOOD UREA NITROGEN 21 mg/dL (7-17); CHLORIDE 102 mmol/L (98-107); Carbon Dioxide 26 mmol/L (22-30); Creatinine 1 0.73 mg/dL (0.52-1.04); EST GLOMERULAR FILTRATION RATE > 60.0 ML/MIN; Potassium 3.3 mmol/L (3.5-5.1); SODIUM 133 mmol/L (137-145)
[2020-06-09] MEDS: PROVENTIL 2.5 MG/3 ML NEB IH SCH ×2 (07:44→13:25)
[2020-06-09] MEDS: COREG 12.5 MG PO SCH (07:50)
[2020-06-09] MEDS ORDERED: PREGABALIN 200 MG PO SCH (10:00)
[2020-06-09] MEDS ORDERED: NON-FORMULARY ITEM (Atorvastatin Calcium 20 MG) PO SCH (10:00)
[2020-06-09] MEDS ORDERED: NON-FORMULARY ITEM (Losartan Potassium [Cozaar] 100 MG) PO SCH (10:00)
[2020-06-09] MEDS ORDERED: NON-FORMULARY ITEM (Omeprazole [Omeprazole] 20 MG) PO SCH (10:00)
[2020-06-09] MEDS ORDERED: SYNTHROID 75 MCG PO SCH (10:00)
[2020-06-09] MEDS ORDERED: Klor Con 10 MEQ PO SCH (10:30)
[2020-06-09 10:35] LABS: Hematocrit 33.2 % (35-47); Hemoglobin 10.8 gm/dl (12.0-16.0); Mean Cell Volume 90.7 fl (78-100); Mean Corpuscular Hemoglobin 29.5 pg (26-32); Mean Corpuscular Hgb Concent. 32.5 g/dl (32-36); Mean Platelet Volume 10.6 fl (7.5-11.0); Platelet Count 165 K/mm3 (150-450); Red Blood Count 3.66 M/mm3 (4.1-5.4); Red Cell Distribution Width 14.7 % (11.5-14.0); White Blood Count 10.4 K/mm3 (4.0-10.5)
[2020-06-09] MEDS: ELIQUIS 2.5 MG TABLET PO SCH (11:11)
[2020-06-09] MEDS: Lasix 20 MG/2 ML IV SCH (11:11)
[2020-06-09] MEDS: DELTASONE 10 MG PO SCH (11:11)
[2020-06-09] MEDS: Lyrica 50MG PO SCH (11:11)
[2020-06-09 11:49] LABS: Lymphocytes 28 % (24-44); Monocyte 6 % (0.0-12.0); Neutrophils 66 % (36.0-66.0); Total Cells Counted 100
[2020-06-09 11:50] LABS: Platelet Estimate NORMAL (NORMAL)
[2020-06-09] MEDS: Pepcid 20 MG VIAL IV SCH (12:06)
[2020-06-09] MEDS: Voltaren GEL TP SCH (12:06)
[2020-06-09] MEDS: Protonix 40MG Tablet PO SCH (12:07)
[2020-06-09 12:16] VITALS: BP 120/63
[2020-06-09 13:43] VITALS: PULSE 84; O2SAT 93
--- NOTE | 2020-06-09 16:45 | XRAY ---
Indication: Short of breath. Positive Covid 19. Comparison: June 07, 2020. Portable chest demonstrates new diffuse bilateral groundglass airspace disease and new tiny left effusion. Heart remains enlarged. No other cardiopulmonary abnormalities. Comment: Preliminary interpretation was made by C. No critical discrepancy.
[2020-06-09] MEDS ORDERED: LYRICA 100MG PO SCH (22:00)
[2020-06-10] MEDS ORDERED: LASIX 20 MG PO SCH (10:00)
== END 2020-06-09 14:30 | disposition home or self-care (01) ==
LOC: ED 13:48 → MED SURG 18:45
PROVIDERS: ADMIT Family Medicine; ATTEND Family Medicine
DX: U07.1 COVID-19 (principal); I50.9 Heart failure, unspecified; E87.1 Hypo-osmolality and hyponatremia; I48.91 Unspecified atrial fibrillation; N17.9 Acute kidney failure, unspecified; R42 Dizziness and giddiness; Z79.01 Long term (current) use of anticoagulants; Z79.899 Other long term (current) drug therapy; I27.20 Pulmonary hypertension, unspecified; E78.5 Hyperlipidemia, unspecified; J44.9 Chronic obstructive pulmonary disease, unspecified; E03.9 Hypothyroidism, unspecified; W01.0XXA Fall on same level from slipping, tripping and stumbling without subsequent striking against object, initial encounter; R53.1 Weakness; R53.83 Other fatigue
CPT/HCPCS: 36000; 36415; 70450; 71045; 80051; 80053; 81001; 82550; 82565; 83605; 83735; 83880; 84443; 84484; 84520; 85025; 85610; 93005; 93041; 93268; 94640; 94762; 96374; 99284; G0378; J1940; J7609; A9270-GY

== ENCOUNTER 2023-05-09 13:15 | Emergency (ER) | payer MEDICARE, OTHER ==
--- NOTE | 2023-05-09 13:18 | ERPHSYRPT ---
- History of Present Illness Time Seen by Provider: 05/09/23 13:18 Source: patient, family Exam Limitations: no limitations Physician History: This is an 87-year-old white female patient of nurse practitioner Kylee who presents with a few day history of increasing shortness of breath and bilateral lower extremity swelling. She has actually increased her Lasix intake over the last couple of days. Patient denies chest pain. She has no abdominal pain. She has no nausea vomiting or diarrhea. Patient has multiple medical problems including hyperlipidemia, hypertension, hypothyroidism, gastroesophageal reflux disease, asthma, arrhythmia (on Eliquis) and pulmonary hypertension. Her room air oxygen saturation levels 96 to 99% Timing/Duration: day(s) Severity of Dyspnea-Max: moderate Severity of Dyspnea-Current: moderate Possible Cause: occasional episodes Modifying Factors: Improves With: activity Associated Symptoms: edema (Bilateral lower extremity), leg swelling (Bilateral lower extremities), No chest pain/discomfort Allergies/Adverse Reactions: amlodipine [From Norvasc] Allergy (Verified 05/09/23 13:19) cefuroxime Allergy (Verified 05/09/23 13:19) cephalexin [From Keflex] Allergy (Verified 05/09/23 13:19) gabapentin [From Neurontin] Allergy (Verified 05/09/23 13:19) Sulfa (Sulfonamide Antibiotics) Allergy (Verified 05/09/23 13:19) Home Medications: Levothyroxine Sodium 75 mg PO DAILY 06/01/17 [History] Losartan Potassium [Cozaar] 100 mg PO DAILY 06/01/17 [History] Pregabalin [Lyrica] 50 mg PO DAILY 06/01/17 [History] Sildenafil Citrate [Revatio] 20 mg PO TID 06/01/17 [History] carvediloL [Carvedilol] 25 mg PO BID 06/01/17 [History] Atorvastatin Calcium [Lipitor 20MG Tablet] 20 mg PO DAILY 09/06/17 [History] Albuterol 2.5 mg/3 ml Neb [Proventil 2.5 mg/3 ml Neb] 2.5 mg IH TID 06/05/20 [History] Apixaban [Eliquis] 5 mg PO BID 06/05/20 [History] Diclofenac Sodium Gel [Voltaren GEL] 2 gm TP QID 06/05/20 [History] Glycopyrrolate/Formoterol Fum [Bevespi Aerosphere Inhaler] 2 puff PO BID 06/05/20 [History] Omeprazole 20 mg PO DAILY 06/05/20 [History] Pregabalin 200 mg PO QHS 06/05/20 [History] Trazodone HCl 50 mg [Desyrel 50 mg] 50 mg PO DAILY 06/05/20 [History] Hydrocodone/Acetaminophen [[place] 10-325 Tablet] 1 each PO Q6H PRN PRN 06/07/20 [History] Prednisone 10 mg [Deltasone 10 mg] 10 mg PO DAILY 06/07/20 [History] Hx Tetanus, Diphtheria Vaccination/Date Given: Yes Hx Influenza Vaccination/Date Given: Yes Hx Pneumococcal Vaccination/Date Given: Yes Travel Risk - International Travel Have you traveled outside of the country in past 3 weeks: No - Coronavirus Screening Are you exhibiting any of the following symptoms?: Yes Symptoms: Shortness of Breath Close contact with a COVID-19 positive Pt in past 14-21 Days: No - Review of Systems Constitutional: No Symptoms Eyes: No Symptoms Ears, Nose, & Throat: No Symptoms Respiratory: Dyspnea, Dyspnea on Exertion (VELIZ), No Cough, No Stridor, No Wheezing Cardiac: No Symptoms Abdominal/Gastrointestinal: No Symptoms Genitourinary Symptoms: No Symptoms Musculoskeletal: No Symptoms Skin: Other (Chronic venous stasis disease with weeping of the skin of bilateral lower extremities) Neurological: No Symptoms Psychological: No Symptoms Endocrine: No Symptoms Hematologic/Lymphatic: No Symptoms Immunological/Allergic: No Symptoms All Other Systems: Reviewed and Negative - Past Medical History Pertinent Past Medical History: Yes Neurological History: No Pertinent History ENT History: No Pertinent History Cardiac History: Arrhythmia, High Cholesterol, Hypertension Respiratory History: Asthma, Bronchitis Endocrine Medical History: No Pertinent History Musculoskeletal History: Osteoarthritis, Osteoporosis GI Medical History: GERD History: No Pertinent History Psycho-Social History: No Pertinent History Female Reproductive Disorders: No Pertinent History Other Medical History: HX OF PULMONARY HTN, ASTHMA/BRONCHITIS. MULTIPLE P.T. INTERVENTIONS FOR W/C. - Past Surgical History Past Surgical History: Yes Neuro Surgical History: No Pertinent History Cardiac: No Pertinent History Respiratory: No Pertinent History Gastrointestinal: No Pertinent History Genitourinary: No Pertinent History Musculoskeletal: Orthopedic Surgery Female Surgical History: No Pertinent History Other Surgical History: back surgery - Social History Smoking Status: Never smoker Exposure to second hand smoke: No Drug Use: none Patient Lives Alone: No - Nursing Vital Signs Nursing Vital Signs: Initial Vital Signs Temperature 97.4 F 05/09/23 13:19 Pulse Rate 117 H 05/09/23 13:19 Respiratory Rate 23 05/09/23 13:19 Blood Pressure 137/109 05/09/23 13:19 O2 Sat by Pulse Oximetry 99 05/09/23 13:19 Pain Scale Pain Intensity 0 - Physical Exam General Appearance: no apparent distress, alert Eye Exam: PERRL/EOMI, eyes nml inspection Ears, Nose, Throat Exam: hearing grossly normal, normal ENT inspection, normal pharynx Neck Exam: normal inspection, non-tender, supple, full range of motion Respiratory Exam: normal breath sounds, lungs clear, airway intact, No chest tenderness, No respiratory distress Cardiovascular/Chest Exam: irregular Abdominal/Gastrointestinal Exam: soft, normal bowel sounds, No tenderness Rectal Exam: not done Extremity Exam: non-tender, normal range of motion, normal inspection, normal capillary refill, no calf tenderness, pelvis stable Neurologic Exam: alert, oriented x 3, cooperative, laser 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 II-XII nml as tested, normal mood/affect, nml cerebellar function, nml station & gait, sensation nml Skin Exam: normal color, warm, dry Lymphatic Exam: No adenopathy SpO2 Interpretation: normal O2 Delivery: Room Air - Course Nursing assessment & vital signs reviewed: Yes EKG Interpreted by Me: RATE (125), Right [place] Deviation, Other (No acute ischemic changes on today's twelve-lead EKG.) Ordered Tests: Active Orders 24 hr Category Date Time Status Belt Fixer STAT Care 05/09/23 13:30 Active EKG-ER Only STAT Care 05/09/23 13:36 Active IV Insertion STAT Care 05/09/23 13:30 Active Pulse Oximetry (ED) STAT Care 05/09/23 13:30 Active CHEST 1 VIEW (PORTABLE) Stat Exams 05/09/23 13:30 Taken BLOOD CULTURE Stat Lab 05/09/23 13:54 Received CBC W DIFF Stat Lab 05/09/23 13:30 Completed CMP Stat Lab 05/09/23 13:30 Completed Lactic Acid Urgent Lab 05/09/23 13:50 Completed MAGNESIUM Stat Lab 05/09/23 13:30 Completed NT PRO BNPII Stat Lab 05/09/23 13:30 Completed T4 (Thyroxine) Stat Lab 05/09/23 14:00 Completed TROPONIN Q4H Lab 05/09/23 13:30 Completed TROPONIN Q4H Lab 05/09/23 17:30 Ordered TROPONIN Q4H Lab 05/09/23 21:30 Ordered TSH [TSH, 3RD Generation] Stat Lab 05/09/23 14:29 Ordered Medication Summary Discontinued Medications Generic Name Dose Route Start Last Admin Trade Name Freq PRN Reason Stop Dose Admin Furosemide 20 mg 05/09/23 15:12 Furosemide 20 Mg/Vial IV 05/09/23 15:13 STAT ONE Lab/Rad Data: Laboratory Result Diagrams 05/09/23 13:30 05/09/23 13:30 Laboratory Results 05/09/23 05/09/23 05/09/23 Range/Units 14:00 13:54 13:50 WBC (4.0-10.5) x10^3/uL RBC (4.1-5.4) x10^6/uL Hgb (12.0-16.0) g/dL Hct (35-47) % MCV (78-100) fL MCH (26-32) pg MCHC (32-36) g/dL RDW (11.5-14.0) % Plt Count (150-450) x10^3/uL MPV (7.5-11.0) fL Gran % (36.0-66.0) % Immature Gran % (Auto) (0.00-0.4) % Nucleat RBC Rel Count (0.00-0.1) % Eos # (Auto) (0-0.5) x10^3/uL Immature Gran # (Auto) (0.00-0.03) x10^3u/L Absolute Lymphs (auto) (1.0-4.6) x10^3/uL Absolute Monos (auto) (0.0-1.3) x10^3/uL Absolute Nucleated RBC (0.00-0.01) x10^3u/L Lymphocytes % (24.0-44.0) % Monocytes % (0.0-12.0) % Eosinophils % (0.00-5.0) % Basophils % (0.0-0.4) % Absolute Granulocytes (1.4-6.9) x10^3/uL Basophils # (0-0.4) x10^3/uL Sodium (137-145) mmol/L Potassium (3.5-5.1) mmol/L Chloride (98-107) mmol/L Carbon Dioxide (22-30) mmol/L Anion Gap (5-15) MEQ/L BUN (7-17) mg/dL Creatinine (0.52-1.04) mg/dL Estimated GFR ML/MIN Glucose (74-106) mg/dL Lactic Acid 2.7 H (0.4-2.0) Calcium (8.4-10.2) mg/dL Magnesium (1.6-2.3) mg/dL Total Bilirubin (0.2-1.3) mg/dL AST (14-36) U/L ALT (0-35) U/L Alkaline Phosphatase (38-126) U/L Troponin I (0.000-0.034) ng/mL NT-Pro-B Natriuret Pep (<300) pg/mL Serum Total Protein (6.3-8.2) g/dL Albumin (3.5-5.0) g/dL Thyroxine (T4) 8.16 (5.53-10.96) ug/dL Influenza Type A Ag NEGATIVE (NEGATIVE) Influenza Type B Ag NEGATIVE (NEGATIVE) RSV (PCR) NEGATIVE (NEGATIVE) SARS-CoV-2 (PCR) NEGATIVE (NEGATIVE) 05/09/23 05/09/23 Range/Units 13:30 13:30 WBC 12.7 H (4.0-10.5) x10^3/uL RBC 4.67 (4.1-5.4) x10^6/uL Hgb 13.9 (12.0-16.0) g/dL Hct 43.6 (35-47) % MCV 93.4 (78-100) fL MCH 29.8 (26-32) pg MCHC 31.9 L (32-36) g/dL RDW 16.7 H (11.5-14.0) % Plt Count 150 (150-450) x10^3/uL MPV 9.9 (7.5-11.0) fL Gran % 85.2 H (36.0-66.0) % Immature Gran % (Auto) 0.7 H (0.00-0.4) % Nucleat RBC Rel Count 0.0 (0.00-0.1) % Eos # (Auto) 0.01 (0-0.5) x10^3/uL Immature Gran # (Auto) 0.09 H (0.00-0.03) x10^3u/L Absolute Lymphs (auto) 1.00 (1.0-4.6) x10^3/uL Absolute Monos (auto) 0.75 (0.0-1.3) x10^3/uL Absolute Nucleated RBC 0.00 (0.00-0.01) x10^3u/L Lymphocytes % 7.9 L (24.0-44.0) % Monocytes % 5.9 (0.0-12.0) % Eosinophils % 0.1 (0.00-5.0) % Basophils % 0.2 (0.0-0.4) % Absolute Granulocytes 10.83 H (1.4-6.9) x10^3/uL Basophils # 0.02 (0-0.4) x10^3/uL Sodium 133 L (137-145) mmol/L Potassium 4.8 (3.5-5.1) mmol/L Chloride 98 (98-107) mmol/L Carbon Dioxide 26 (22-30) mmol/L Anion Gap 14.4 (5-15) MEQ/L BUN 41 H (7-17) mg/dL Creatinine 1.09 H (0.52-1.04) mg/dL Estimated GFR 49.2 ML/MIN Glucose 282 H (74-106) mg/dL Lactic Acid (0.4-2.0) Calcium 8.9 (8.4-10.2) mg/dL Magnesium 2.5 H (1.6-2.3) mg/dL Total Bilirubin 1.10 (0.2-1.3) mg/dL AST 27 (14-36) U/L ALT 28 (0-35) U/L Alkaline Phosphatase 51 (38-126) U/L Troponin I 0.032 (0.000-0.034) ng/mL NT-Pro-B Natriuret Pep 2190 (<300) pg/mL Serum Total Protein 6.5 (6.3-8.2) g/dL Albumin 3.7 (3.5-5.0) g/dL Thyroxine (T4) (5.53-10.96) ug/dL Influenza Type A Ag (NEGATIVE) Influenza Type B Ag (NEGATIVE) RSV (PCR) (NEGATIVE) SARS-CoV-2 (PCR) (NEGATIVE) - Progress Progress: improved, re-examined Air Movement: fair Progress Note: 05/09/23 14:27 This patient's medical issue is 1 of moderate complexity. The level complex in the workup performed based on review the patient's past medical history, review the patient's medication list, review the patient's drug allergy list, history present illness and physical findings on examination. Workup in this patient includes placement of an intravenous line, CBC, CMP, troponin level, BNP, twelve-lead EKG, chest x-ray and ABG. 05/09/23 15:22 I reviewed and interpreted the patient's laboratory results. Patient does have an elevated BNP. She, clinically has evidence of mild CHF. Her troponin level is within normal limits. Patient does not have any chest pain. Her atrial fibrillation is now rate controlled in the 90s without chemical intervention. Her systolic blood pressure is running between 120s and low 130s. Her respiratory rate is 15. Her room air oxygen saturation levels 97%. She states she is feeling and breathing much better. I had a long discussion with the patient and the patient's medical power of nut threader, her daughter Emely. We are providing the patient with 20 mg of intravenous Lasix now. The patient's renal function has been stable now for 5 months. Patient's electrolytes are stable. The patient wants to go home. Patient's daughter Emely is a respiratory th erapist and she is comfortable having the patient discharged to home. Patient be taken her p.m. medication. The patient is medically stable to be discharged to home. Blood Culture(s) Obtained: No Antibiotics given: No Counseled pt/family regarding: lab results, diagnosis, rad results Medical Desision Making - Independent Historian Additional History obtained from: Child - Diagnostic Testing Diagnostic test were ordered, analyzed, and reviewed by me: Yes Radiological Interpretation: Interpreted by me - Risk of complications Low Risk: Low risk of morbidity from additional dx testing or treatment - Departure Departure Disposition: Home Clinical Impression: Shortness of breath, Mild congestive heart failure Condition: Stable Critical Care Time: No Referrals: ASHLY LAMB NP [Primary Care Provider] - Follow up/PCP as directed Instructions: Heart Failure Additional Instructions: Continue your medication as prescribed. Keep your legs elevated above the level of your heart when not up and ambulating. Contact your primary care provider and filling technician on 05/11/2023, to make a follow-up appointment for further evaluation management in the next 3 to 5 days.
[2023-05-09 13:37] LABS: Absolute Neutrophil Ct (ANC) 10.83 x10^3/uL (1.4-6.9); BASOPHIL % 0.2 % (0.0-0.4); Basophil (Absolute #) 0.02 x10^3/uL (0-0.4); Eosinophil % 0.1 % (0.00-5.0); Eosinophil (Absolute #) 0.01 x10^3/uL (0-0.5); Hematocrit 43.6 % (35-47); Hemoglobin 13.9 g/dL (12.0-16.0); IMMATURE GRAN # 0.09 x10^3u/L (0.00-0.03); IMMATURE GRAN % 0.7 % (0.00-0.4); Lymphocytes % 7.9 % (24.0-44.0); Mean Cell Volume 93.4 fL (78-100); Mean Corpuscular Hemoglobin 29.8 pg (26-32); Mean Corpuscular Hgb Concent. 31.9 g/dL (32-36); Mean Platelet Volume 9.9 fL (7.5-11.0); Monocyte (Absolute #) 0.75 x10^3/uL (0.0-1.3); Monocytes % 5.9 % (0.0-12.0); Neutrophil % 85.2 % (36.0-66.0); Platelet Count 150 x10^3/uL (150-450); Red Blood Count 4.67 x10^6/uL (4.1-5.4); Red Cell Distribution Width 16.7 % (11.5-14.0); White Blood Count 12.7 x10^3/uL (4.0-10.5)
[2023-05-09 13:47] VITALS: TEMP 97.4
[2023-05-09 14:02] LABS: ALBUMIN 3.7 g/dL (3.5-5.0); ANION GAP 14.4 MEQ/L (5-15); BILIRUBIN,TOTAL 1.1 mg/dL (0.2-1.3); Calcium 8.9 mg/dL (8.4-10.2); Creatinine 1 1.09 mg/dL (0.52-1.04); EST GLOMERULAR FILTRATION RATE 49.2 ML/MIN; MAGNESIUM 2.5 mg/dL (1.6-2.3); Potassium 4.8 mmol/L (3.5-5.1); TROPONIN 0.032 ng/mL (0.000-0.034); Total Protein 6.5 g/dL (6.3-8.2)
[2023-05-09 14:40] LABS: INFLUENZA A NEGATIVE (NEGATIVE); INFLUENZA B NEGATIVE (NEGATIVE); RESPIRATORY SYNCTIAL VIRUS NEGATIVE (NEGATIVE); SARS-CoV-2 Xpert Express NEGATIVE (NEGATIVE)
[2023-05-09] MEDS ORDERED: Lasix 20 MG/2 ML IV ONE (15:12)
[2023-05-09 15:18] VITALS: O2SAT 95
[2023-05-09] MEDS ORDERED: Lasix 20 MG/2 ML ONE (15:28)
[2023-05-09 15:37] VITALS: BP 150/104; PULSE 100; RESP 18
--- NOTE | 2023-05-09 19:47 | XRAY ---
Indication: Short of breath. Comparison: August 08, 2020 Portable chest is now clear. Heart remains enlarged. Bony thorax intact again with osteopenia, mild degenerative changes, and moderate levoscoliosis. Impression: Nonacute chest with chronic features.
== END 2023-05-09 15:42 | disposition home or self-care (01) ==
LOC: ED 13:15
DX: R06.02 Shortness of breath (principal); I11.0 Hypertensive heart disease with heart failure; I50.9 Heart failure, unspecified; R60.0 Localized edema; E78.5 Hyperlipidemia, unspecified; Z79.01 Long term (current) use of anticoagulants; Z79.52 Long term (current) use of systemic steroids; Z79.891 Long term (current) use of opiate analgesic; Z79.899 Other long term (current) drug therapy; Z20.828 Contact with and (suspected) exposure to other viral communicable diseases
CPT/HCPCS: 0241U; 36000; 36415; 71045; 80053; 83605; 83735; 83880; 84436; 84443; 84484; 85025; 87040; 93005; 93041; 94760; 96374; 99284; J1940

== ENCOUNTER 2023-05-17 12:31 | Emergency (ER) | payer MEDICARE, OTHER ==
[2023-05-17] MEDS ORDERED: DUONEB 0.5-3 MG/3 ml Neb IH ONE ×4 (12:50→14:30)
[2023-05-17] MEDS ORDERED: solu-MEDROL 125 MG, Sterile H2O 10 ml 2 ML IV ONE ×2 (13:12)
[2023-05-17] MEDS ORDERED: Sodium Chloride 0.9% 500 ML 500 ML IV ONE ×2 (13:12→13:22)
[2023-05-17 13:15] LABS: VBG CARBOXYHEMOGLOBIN 2.3 % T HGB (0.0-6.9); VBG HCO3- 29.1 meq/L (22-28); VBG HEMOGLOBIN 14.2; VBG O2 SATURATION 55.2 (95-100); VBG POTASSIUM 4.3 (3.5-5.1); VBG pH 7.47 (7.32-7.42)
[2023-05-17] MEDS ORDERED: solu-MEDROL ONE (13:21)
[2023-05-17] MEDS ORDERED: Sterile H2O 10 ml IJ ONE (13:21)
--- NOTE | 2023-05-17 13:25 | ERPHSYRPT ---
- History of Present Illness Time Seen by Provider: 05/17/23 12:42 Source: patient, family Exam Limitations: no limitations Patient Subjective Stated Complaint: SOB, cough, swelling Triage Nursing Assessment: Pt brought to the ER by her daughter, hypotensive, tachycardic, denies pain, pt began getting sick last week but over the past couple of days, hx of CHF, has been around other sick people, pulses normal, on Levaquin for cellulitis in her legs with culture growth, wheezy and coarse throughout, SOB, cough with white thick sputum Physician History: 87-year-old female with history of atrial fibrillation on Eliquis, congestive heart failure, bilateral lower extremity swelling/stasis presented in the ER with worsening cough congestion symptoms for almost 1 week. Patient reports having coughing spells and sputum productive of clear to yellow small in amount with associated chest tightness and pressure all over with bilateral wheezing. Denies any fever or chills. Patient was evaluated almost a week ago for similar symptoms but less severe, was in CHF exacerbation with more lower extremity swelling which improved after increasing dose of Lasix. Patient does have a positive sick contact. Patient is mildly tachypneic and tachycardic with A-fib in 120s and 130s. Allergies/Adverse Reactions: amlodipine [From Norvasc] Allergy (Verified 05/17/23 13:02) cefuroxime Allergy (Verified 05/17/23 13:02) cephalexin [From Keflex] Allergy (Verified 05/17/23 13:02) gabapentin [From Neurontin] Allergy (Verified 05/17/23 13:02) Sulfa (Sulfonamide Antibiotics) Allergy (Verified 05/17/23 13:02) Home Medications: Levothyroxine Sodium 75 mg PO DAILY 06/01/17 [History] Losartan Potassium [Cozaar] 100 mg PO DAILY 06/01/17 [History] Pregabalin [Lyrica] 50 mg PO DAILY 06/01/17 [History] Sildenafil Citrate [Revatio] 20 mg PO TID 06/01/17 [History] carvediloL [Carvedilol] 25 mg PO BID 06/01/17 [History] Atorvastatin Calcium [Lipitor 20MG Tablet] 20 mg PO DAILY 09/06/17 [History] Albuterol 2.5 mg/3 ml Neb [Proventil 2.5 mg/3 ml Neb] 2.5 mg IH TID 06/05/20 [History] Apixaban [Eliquis] 5 mg PO BID 06/05/20 [History] Diclofenac Sodium Gel [Voltaren GEL] 2 gm TP QID 06/05/20 [History] Glycopyrrolate/Formoterol Fum [Bevespi Aerosphere Inhaler] 2 puff PO BID 06/05/20 [History] Omeprazole 20 mg PO DAILY 06/05/20 [History] Pregabalin 200 mg PO QHS 06/05/20 [History] Trazodone HCl 50 mg [Desyrel 50 mg] 50 mg PO DAILY 06/05/20 [History] Hydrocodone/Acetaminophen [[place] 10-325 Tablet] 1 each PO Q6H PRN PRN 06/07/20 [History] Prednisone 10 mg [Deltasone 10 mg] 10 mg PO DAILY 06/07/20 [History] Levofloxacin [Levofloxacin 500 MG Tablet] 500 mg PO DAILY 05/17/23 [History] Hx Tetanus, Diphtheria Vaccination/Date Given: Yes Hx Influenza Vaccination/Date Given: Yes Hx Pneumococcal Vaccination/Date Given: Yes Travel Risk - International Travel Have you traveled outside of the country in past 3 weeks: No - Coronavirus Screening Are you exhibiting any of the following symptoms?: No Close contact with a COVID-19 positive Pt in past 14-21 Days: No - Vaccine Status Have you recieved a Covid-19 vaccination: Yes [employer]: [employer] - Vaccination Dates Date of 2cond Vaccination (if applicable): 2020 - Review of Systems Constitutional: Fatigue, Weakness Eyes: No Symptoms Ears, Nose, & Throat: Nose Congestion Respiratory: Cough, Dyspnea, Dyspnea on Exertion (VELIZ) Cardiac: Edema Abdominal/Gastrointestinal: No Symptoms Genitourinary Symptoms: No Symptoms Musculoskeletal: Arthralgias Skin: No Symptoms Neurological: No Symptoms Endocrine: No Symptoms Hematologic/Lymphatic: Easy Bleeding Immunological/Allergic: No Symptoms - Past Medical History Pertinent Past Medical History: Yes Neurological History: No Pertinent History ENT History: No Pertinent History Cardiac History: Arrhythmia, High Cholesterol, Hypertension Respiratory History: Asthma, Bronchitis Endocrine Medical History: No Pertinent History Musculoskeletal History: Osteoarthritis, Osteoporosis GI Medical History: GERD History: No Pertinent History Psycho-Social History: No Pertinent History Female Reproductive Disorders: No Pertinent History Other Medical History: HX OF PULMONARY HTN, ASTHMA/BRONCHITIS. MULTIPLE P.T. INTERVENTIONS FOR W/C. - Past Surgical History Past Surgical History: Yes Neuro Surgical History: No Pertinent History Cardiac: No Pertinent History Respiratory: No Pertinent History Gastrointestinal: No Pertinent History Genitourinary: No Pertinent History Musculoskeletal: Orthopedic Surgery Female Surgical History: No Pertinent History Other Surgical History: back surgery - Social History Smoking Status: Never smoker Exposure to second hand smoke: No Drug Use: none Patient Lives Alone: Yes - Nursing Vital Signs Nursing Vital Signs: Initial Vital Signs Temperature 97.8 F 05/17/23 12:45 Pulse Rate 131 H 05/17/23 12:45 Respiratory Rate 18 05/17/23 12:45 Blood Pressure 98/73 05/17/23 12:45 O2 Sat by Pulse Oximetry 95 05/17/23 12:45 Pain Scale Pain Intensity 4 - Physical Exam General Appearance: no apparent distress, alert Eye Exam: PERRL/EOMI Ears, Nose, Throat Exam: hearing grossly normal, pharyngeal erythema Neck Exam: normal inspection, supple, full range of motion Respiratory Exam: diminished breath sounds, wheezing Cardiovascular/Chest Exam: normal heart sounds, tachycardia, irregular Abdominal/Gastrointestinal Exam: soft, normal bowel sounds, No tenderness Extremity Exam: normal range of motion, pedal edema Neurologic Exam: alert, oriented x 3, cooperative, 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 Skin Exam: normal color SpO2 Interpretation: normal SpO2: 95 O2 Delivery: Room Air Ordered Tests: Active Orders 24 hr Category Date Time Status EKG-ER Only STAT Care 05/17/23 13:12 Active IV Insertion STAT Care 05/17/23 13:12 Active Oxygen-ED Only Nasal Cannula 2 lpm Care 05/17/23 13:12 Active CHEST 1 VIEW (PORTABLE) Stat Exams 05/17/23 13:12 Taken BLOOD CULTURE Stat Lab 05/17/23 13:40 Received CBC W DIFF Stat Lab 05/17/23 13:10 Completed CMP Stat Lab 05/17/23 13:10 Completed Lactic Acid Stat Lab 05/17/23 13:12 Completed MAGNESIUM Stat Lab 05/17/23 13:10 Completed NT PRO BNPII Stat Lab 05/17/23 13:10 Completed PROCALCITONIN Stat Lab 05/17/23 13:10 Completed TROPONIN Q4H Lab 05/17/23 13:10 Completed TROPONIN Q4H Lab 05/17/23 17:15 Ordered TROPONIN Q4H Lab 05/17/23 21:15 Ordered VBG [VENOUS BLOOD GAS] Stat Lab 05/17/23 13:15 Completed Respiratory Therapy Assessment DAILY RT 05/17/23 13:25 Active Medication Summary Generic Name Dose Route Start Last Admin Trade Name Freq PRN Reason Stop Dose Admin Amiodarone HCl/Dextrose 360 mg in 200 mls @ 33 mls/hr 05/17/23 14:45 05/17/23 15:02 Nexterone 360 Mg/200 Ml Bag IV 06/16/23 14:44 33 ml/hr .Q6H4M DARLEEN 33 mls/hr Administration Protocol Aztreonam 2 gm/ Sodium 100 mls @ 200 mls/hr 05/17/23 14:40 Chloride IV 05/17/23 15:09 STAT ONE Azithromycin 500 mg in 250 mls @ 250 mls/hr 05/17/23 14:41 05/17/23 15:00 Zithromax 500 Mg/ 250 Ml Nacl Premix IV 05/17/23 15:40 250 ml/hr STAT STA 250 mls/hr Administration Discontinued Medications Generic Name Dose Route Start Last Admin Trade Name Freq PRN Reason Stop Dose Admin Albuterol/Ipratropium Confirm 05/17/23 12:50 Ipratropium/Albuterol Sulfate 3 Ml Ampul.Neb Administered 05/17/23 12:51 Dose 3 ml IH .STK-MED ONE Albuterol/Ipratropium 3 ml 05/17/23 13:12 05/17/23 13:25 Ipratropium/Albuterol Sulfate 3 Ml Ampul.Neb IH 05/17/23 13:13 3 ml STAT ONE Administration Albuterol/Ipratropium Confirm 05/17/23 14:23 Ipratropium/Albuterol Sulfate 3 Ml Ampul.Neb Administered 05/17/23 14:24 Dose 3 ml IH .STK-MED ONE Albuterol/Ipratropium 3 ml 05/17/23 14:30 05/17/23 14:45 Ipratropium/Albuterol Sulfate 3 Ml Ampul.Neb IH 05/17/23 14:31 3 ml STAT ONE Administration Methylprednisolone Sodium 0 mg 05/17/23 13:12 05/17/23 13:34 Succinate 125 mg/ Sterile IV 05/17/23 13:13 125 mg Water 2 ml STAT ONE Administration Sodium Chloride 500 mls @ 500 mls/hr 05/17/23 13:12 05/17/23 14:30 Sodium Chloride 0.9% 500 Ml IV 05/17/23 14:11 Infused .Q1H ONE Infusion Sodium Chloride Confirm 05/17/23 13:22 Sodium Chloride 0.9% 500 Ml Administered 05/17/23 13:23 Dose 500 mls @ ud IV .STK-MED ONE Azithromycin Confirm 05/17/23 14:53 Zithromax 500 Mg/ 250 Ml Nacl Premix Administered 05/17/23 14:54 Dose 500 mg in 250 mls @ ud IV .STK-MED ONE Amiodarone HCl/Dextrose Confirm 05/17/23 14:53 Nexterone 360 Mg/200 Ml Bag Administered 05/17/23 14:54 Dose 360 mg in 200 mls @ ud IV .STK-MED ONE Methylprednisolone Sodium Succinate Confirm 05/17/23 13:21 Methylprednis Sod Succ 125 Mg/2 Ml Vial Administered 05/17/23 13:22 Dose 125 mg .ROUTE .STK-MED ONE Sterile Water Confirm 05/17/23 13:21 Water For Injection,Sterile 10 Ml Vial Administered 05/17/23 13:22 Dose 10 ml IJ .STK-MED ONE Lab/Rad Data: Laboratory Result Diagrams 05/17/23 13:10 05/17/23 13:10 Laboratory Results 05/17/23 05/17/23 05/17/23 Range/Units 13:15 13:15 13:12 WBC (4.0-10.5) x10^3/uL RBC (4.1-5.4) x10^6/uL Hgb (12.0-16.0) g/dL Hct (35-47) % MCV (78-100) fL MCH (26-32) pg MCHC (32-36) g/dL RDW (11.5-14.0) % Plt Count (150-450) x10^3/uL MPV (7.5-11.0) fL Gran % (36.0-66.0) % Immature Gran % (Auto) (0.00-0.4) % Nucleat RBC Rel Count (0.00-0.1) % Eos # (Auto) (0-0.5) x10^3/uL Immature Gran # (Auto) (0.00-0.03) x10^3u/L Absolute Lymphs (auto) (1.0-4.6) x10^3/uL Absolute Monos (auto) (0.0-1.3) x10^3/uL Absolute Nucleated RBC (0.00-0.01) x10^3u/L Lymphocytes % (24.0-44.0) % Monocytes % (0.0-12.0) % Eosinophils % (0.00-5.0) % Basophils % (0.0-0.4) % Absolute Granulocytes (1.4-6.9) x10^3/uL Basophils # (0-0.4) x10^3/uL pO2/FiO2 Ratio 21.0 % VBG pH 7.47 H (7.32-7.42) VBG pCO2 at Pat Temp 40 L (42-55) mm/Hg VBG pO2 at Pat Temp 39 (25-40) mm/Hg VBG HCO3 29.1 H* (22-28) meq/L VBG O2 Sat (Gonzalo) 55.2 L (95-100) VBG Base Excess 5.0 H (-2.0-2.0) VBG Hemoglobin 14.2 VBG Carboxyhemoglobin 2.3 (0.0-6.9) % T HGB POC Potassium 4.3 (3.5-5.1) Sodium (137-145) mmol/L Potassium (3.5-5.1) mmol/L Chloride (98-107) mmol/L Carbon Dioxide (22-30) mmol/L Anion Gap (5-15) MEQ/L BUN (7-17) mg/dL Creatinine (0.52-1.04) mg/dL Estimated GFR ML/MIN Glucose (74-106) mg/dL Lactic Acid 1.6 (0.4-2.0) Calcium (8.4-10.2) mg/dL Magnesium (1.6-2.3) mg/dL Total Bilirubin (0.2-1.3) mg/dL AST (14-36) U/L ALT (0-35) U/L Alkaline Phosphatase (38-126) U/L Troponin I (0.000-0.034) ng/mL NT-Pro-B Natriuret Pep (<300) pg/mL Serum Total Protein (6.3-8.2) g/dL Albumin (3.5-5.0) g/dL Procalcitonin (0.030-0.080) ng/mL Influenza Type A Ag NEGATIVE (NEGATIVE) Influenza Type B Ag NEGATIVE (NEGATIVE) RSV (PCR) POSITIVE (NEGATIVE) SARS-CoV-2 (PCR) NEGATIVE (NEGATIVE) 05/17/23 05/17/23 05/17/23 Range/Units 13:10 13:10 13:10 WBC 9.4 (4.0-10.5) x10^3/uL RBC 4.68 (4.1-5.4) x10^6/uL Hgb 13.8 (12.0-16.0) g/dL Hct 43.8 (35-47) % MCV 93.6 (78-100) fL MCH 29.5 (26-32) pg MCHC 31.5 L (32-36) g/dL RDW 17.4 H (11.5-14.0) % Plt Count 146 L (150-450) x10^3/uL MPV 10.2 (7.5-11.0) fL Gran % 85.5 H (36.0-66.0) % Immature Gran % (Auto) 0.4 (0.00-0.4) % Nucleat RBC Rel Count 0.0 (0.00-0.1) % Eos # (Auto) 0.01 (0-0.5) x10^3/uL Immature Gran # (Auto) 0.04 H (0.00-0.03) x10^3u/L Absolute Lymphs (auto) 0.73 L (1.0-4.6) x10^3/uL Absolute Monos (auto) 0.57 (0.0-1.3) x10^3/uL Absolute Nucleated RBC 0.00 (0.00-0.01) x10^3u/L Lymphocytes % 7.8 L (24.0-44.0) % Monocytes % 6.1 (0.0-12.0) % Eosinophils % 0.1 (0.00-5.0) % Basophils % 0.1 (0.0-0.4) % Absolute Granulocytes 8.01 H (1.4-6.9) x10^3/uL Basophils # 0.01 (0-0.4) x10^3/uL pO2/FiO2 Ratio % VBG pH (7.32-7.42) VBG pCO2 at Pat Temp (42-55) mm/Hg VBG pO2 at Pat Temp (25-40) mm/Hg VBG HCO3 (22-28) meq/L VBG O2 Sat (Gonzalo) (95-100) VBG Base Excess (-2.0-2.0) VBG Hemoglobin VBG Carboxyhemoglobin (0.0-6.9) % T HGB POC Potassium (3.5-5.1) Sodium 132 L (137-145) mmol/L Potassium 4.1 (3.5-5.1) mmol/L Chloride 100 (98-107) mmol/L Carbon Dioxide 26 (22-30) mmol/L Anion Gap 11.0 (5-15) MEQ/L BUN 31 H (7-17) mg/dL Creatinine 1.04 (0.52-1.04) mg/dL Estimated GFR 52.0 ML/MIN Glucose 92 (74-106) mg/dL Lactic Acid (0.4-2.0) Calcium 8.5 (8.4-10.2) mg/dL Magnesium 2.5 H (1.6-2.3) mg/dL Total Bilirubin 1.30 (0.2-1.3) mg/dL AST 37 H (14-36) U/L ALT 29 (0-35) U/L Alkaline Phosphatase 48 (38-126) U/L Troponin I 0.042 H* (0.000-0.034) ng/mL NT-Pro-B Natriuret Pep 2020 (<300) pg/mL Serum Total Protein 6.2 L (6.3-8.2) g/dL Albumin 3.4 L (3.5-5.0) g/dL Procalcitonin 0.163 H (0.030-0.080) ng/mL Influenza Type A Ag (NEGATIVE) Influenza Type B Ag (NEGATIVE) RSV (PCR) (NEGATIVE) SARS-CoV-2 (PCR) (NEGATIVE) - Progress Progress: improved, re-examined () Air Movement: good Progress Note: 05/17/23 13:25 87-year-old female with history of atrial fibrillation on Eliquis, congestive heart failure, bilateral lower extremity swelling/stasis presented in the ER with worsening cough congestion symptoms for almost 1 week. Patient reports having coughing spells and sputum productive of clear to yellow small in amount with associated chest tightness and pressure all over with bilateral wheezing. Denies any fever or chills. Patient was evaluated almost a week ago for similar symptoms but less severe, was in CHF exacerbation with more lower extremity swelling which improved after increasing dose of Lasix. Patient does have a positive sick contact. Patient is mildly tachypneic and tachycardic with A-fib in 120s and 130s. 05/17/23 15:07 EKG showed's A-fib with RVR. No acute ST elevations. She is given gentle hydration. Heart rate still in 120s. Has normal lactate and Pro-Abdullahi of 0.16 and chest x-ray reviewed by me revealed some opacities on the right side, given a dose of Azactam and Zithromax. Patient initial troponins are mildly elevated 0.042 which I believe is secondary to rapid A-fib. Patient blood pressure is borderline, started on Amio drip. Patient also has a positive RSV which I believe is the starting event followed by bacterial colonization. Patient is also given DuoNeb x 2 and Solu-Medrol. On reevaluation she is feeling better breathing franco but still tachycardic. I have reviewed the results of workup with patient and family, plan of admission. Discussed with Dr. Hurst, reviewed history, workup and agreed with admission. Blood Culture(s) Obtained: Yes Antibiotics given: Yes Discussed with : Other Counseled pt/family regarding: lab results, diagnosis, need for follow-up, rad results Medical Desision Making - Independent Historian Additional History obtained from: Child - Discussion of managment Care discussed with:: hospitalist Reviewed:: Test results Agreed on:: Treatment plan Will see patient: in hospital - Diagnostic Testing Diagnostic test were ordered, analyzed, and reviewed by me: Yes Radiological Interpretation: Interpreted by me, Reviewed by me - Risk of complications The pt has a high risk of morbidity or mortality based on: Decision regarding hospitilization or escalation of hosp level of care - Departure Departure Disposition: Observation Clinical Impression: Atrial fibrillation with RVR, Pneumonia, RSV (respiratory syncytial virus infe ction) Condition: Stable Critical Care Time: No Referrals: ASHLY LAMB, ADULT EDUCATOR [Primary Care Provider] - Follow up/PCP as directed
[2023-05-17 13:56] LABS: Absolute Neutrophil Ct (ANC) 8.01 x10^3/uL (1.4-6.9); BASOPHIL % 0.1 % (0.0-0.4); Basophil (Absolute #) 0.01 x10^3/uL (0-0.4); Eosinophil % 0.1 % (0.00-5.0); Eosinophil (Absolute #) 0.01 x10^3/uL (0-0.5); Hematocrit 43.8 % (35-47); Hemoglobin 13.8 g/dL (12.0-16.0); IMMATURE GRAN # 0.04 x10^3u/L (0.00-0.03); IMMATURE GRAN % 0.4 % (0.00-0.4); Lymphocyte (Absolute #) 0.73 x10^3/uL (1.0-4.6); Lymphocytes % 7.8 % (24.0-44.0); Mean Cell Volume 93.6 fL (78-100); Mean Corpuscular Hemoglobin 29.5 pg (26-32); Mean Corpuscular Hgb Concent. 31.5 g/dL (32-36); Mean Platelet Volume 10.2 fL (7.5-11.0); Monocyte (Absolute #) 0.57 x10^3/uL (0.0-1.3); Monocytes % 6.1 % (0.0-12.0); Neutrophil % 85.5 % (36.0-66.0); Platelet Count 146 x10^3/uL (150-450); Red Blood Count 4.68 x10^6/uL (4.1-5.4); Red Cell Distribution Width 17.4 % (11.5-14.0); White Blood Count 9.4 x10^3/uL (4.0-10.5)
[2023-05-17 14:28] LABS: ALBUMIN 3.4 g/dL (3.5-5.0); BILIRUBIN,TOTAL 1.3 mg/dL (0.2-1.3); Calcium 8.5 mg/dL (8.4-10.2); Creatinine 1 1.04 mg/dL (0.52-1.04); MAGNESIUM 2.5 mg/dL (1.6-2.3); PROCALCITONIN 0.163 ng/mL (0.030-0.080); Potassium 4.1 mmol/L (3.5-5.1); Total Protein 6.2 g/dL (6.3-8.2)
[2023-05-17 14:37] LABS: INFLUENZA A NEGATIVE (NEGATIVE); INFLUENZA B NEGATIVE (NEGATIVE); SARS-CoV-2 Xpert Express NEGATIVE (NEGATIVE)
[2023-05-17 14:39] LABS: RESPIRATORY SYNCTIAL VIRUS POSITIVE (NEGATIVE)
[2023-05-17] MEDS ORDERED: AZACTAM 1 GM*** 2 GM in Sodium Chloride 0.9% 100 ML IV ONE (14:40)
[2023-05-17] MEDS ORDERED: Zithromax 500 MG/ 250 ML NaCl Premix 500 MG/250 ML IVPB IV STA (14:41)
[2023-05-17] MEDS ORDERED: NEXTERONE 360 MG/200 ML BAG 360 MG/200 ML PLAST..BAG IV SCH (14:45)
[2023-05-17] MEDS ORDERED: Zithromax 500 MG/ 250 ML NaCl Premix 500 MG/250 ML IVPB IV ONE (14:53)
[2023-05-17] MEDS ORDERED: NEXTERONE 360 MG/200 ML BAG 360 MG/200 ML PLAST..BAG IV ONE (14:53)
[2023-05-17] MEDS ORDERED: NORCO 10-325 MG PO STA (16:28)
[2023-05-17] MEDS ORDERED: NORCO 10-325 MG ONE (16:33)
[2023-05-17] MEDS: DUONEB 0.5-3 MG/3 ml Neb IH SCH (17:16)
--- NOTE | 2023-05-17 17:39 | PCM.HP ---
History of Present Illness - Chief Complaint Chief Complaint: A fib RVR Date: 05/17/23 (1700) History of Present Illness: is a 87 year old female admitted with dyspnea. Symptoms started last Thursday with edema. She was seen in ER and given Lasix and sent home. On Thursday she went to PCP for cough and wheezing. She also had some infected leg wounds with Enterobacter on culture and she was given Levaquin. Today she developed severe cough and wheezing with dyspnea. She denies palpitations but HR was up to 145 in ER. She denies chest pain. She still has some edema but improved from one weak ago. She has no fever or chills. No sore throat. Cough is not productive. She has had mild diarrhea. No abdominal pain, no nausea or vomiting. No urinary complaints. PMH includes atrial fib, CHF, HTN, HLD, GERD and pulmonary hypertension. - Review of Systems Constitutional: No Symptoms, No Fever, No Chills Eyes: No Symptoms Ears, Nose, & Throat: No Symptoms Respiratory: Cough, Orthopnea, Short Of Breath, Wheezing Cardiac: Edema, Orthopnea, No Chest Pain, No Palpitations, No Syncope Abdominal/Gastrointestinal: Diarrhea, No Abdominal Pain, No Nausea, No Vomiting Genitourinary Symptoms: No Symptoms Musculoskeletal: No Symptoms Skin: Skin Lesions (Legs) Psychological: No Symptoms Endocrine: No Symptoms Immunological/Allergic: No Symptoms All Other Systems: Reviewed and Negative Medications & Allergies Home Medications: Home Medication List Levothyroxine Sodium 75 mg PO DAILY 06/01/17 [History Confirmed 05/17/23] Losartan Potassium [Cozaar] 100 mg PO DAILY 06/01/17 [History Confirmed 05/17/23] Pregabalin [Lyrica] 50 mg PO DAILY 06/01/17 [History Confirmed 05/17/23] Sildenafil Citrate [Revatio] 20 mg PO TID 06/01/17 [History Confirmed 05/17/23] carvediloL [Carvedilol] 25 mg PO BID 06/01/17 [History Confirmed 05/17/23] Atorvastatin Calcium [Lipitor 20MG Tablet] 20 mg PO DAILY 09/06/17 [History Confirmed 05/17/23] Albuterol 2.5 mg/3 ml Neb [Proventil 2.5 mg/3 ml Neb] 2.5 mg IH TID 06/05/20 [History Confirmed 05/17/23] Apixaban [Eliquis] 5 mg PO BID 06/05/20 [History Confirmed 05/17/23] Diclofenac Sodium Gel [Voltaren GEL] 2 gm TP QID 06/05/20 [History Confirmed 05/17/23] Glycopyrrolate/Formoterol Fum [Bevespi Aerosphere Inhaler] 2 puff PO BID 06/05 [History Confirmed 05/17/23] Omeprazole 20 mg PO DAILY 06/05/20 [History Confirmed 05/17/23] Pregabalin 200 mg PO QHS 06/05/20 [History Confirmed 05/17/23] Trazodone HCl 50 mg [Desyrel 50 mg] 50 mg PO DAILY 06/05/20 [History Confirmed 05/17/23] Hydrocodone/Acetaminophen [[place] 10-325 Tablet] 1 each PO Q6H PRN PRN 06/07/20 [History Confirmed 05/17/23] Prednisone 10 mg [Deltasone 10 mg] 10 mg PO DAILY 06/07/20 [History Confirmed 05/17/23] Furosemide 20 mg [Lasix 20 mg] 20 mg PO QAM #90 tablet 06/09/20 [Rx Confirmed 05/17/23] Levofloxacin [Levofloxacin 500 MG Tablet] 500 mg PO DAILY 05/17/23 [History Confirmed 05/17/23] Allergies/Adverse Reactions: Allergies Allergy/AdvReac Type Severity Reaction Status Date / Time amlodipine [From Norvasc] Allergy Verified 05/17/23 13:02 cefuroxime Allergy Verified 05/17/23 13:02 cephalexin [From Keflex] Allergy Verified 05/17/23 13:02 gabapentin [From Neurontin] Allergy Verified 05/17/23 13:02 Sulfa (Sulfonamide Allergy Verified 05/17/23 13:02 Antibiotics) - Past Medical History Past Medical History: Yes Neurological History: No Pertinent History ENT History: No Pertinent History Cardiac History: Arrhythmia, High Cholesterol, Hypertension Respiratory History: Asthma, Bronchitis Endocrine Medical History: No Pertinent History Musculoskelatal History: Osteoarthritis, Osteoporosis GI Medical History: GERD History: No Pertinent History Pyscho-Social History: No Pertinent History Reproductive Disorders: No Pertinent History Comment: HX OF PULMONARY HTN, ASTHMA/BRONCHITIS. MULTIPLE P.T. INTERVENTIONS FOR W/C. - Female History Are you now?: No - Past Surgical History Past Surgical History: Yes Neuro Surgical History: No Pertinent History Cardiac History: No Pertinent History Respiratory Surgery: No Pertinent History GI Surgical History: No Pertinent History Genitourinary Surgical Hx: No Pertinent History Musculskeletal Surgical Hx: Orthopedic Surgery Female Surgical History: No Pertinent History Other Surgical History: back surgery - Social History Smoking Status: Never smoker Exposure to second hand smoke: No Alcohol: None Drug Use: none - Physical Exam Vital Signs: Vital Signs - 24 hr Temp Pulse Resp BP BP Pulse Ox 05/17/23 17:17 136 H 20 96 05/17/23 17:00 97.0 F 135 H 20 100/74 95 05/17/23 16:50 97.0 F 124 H 20 100/74 97 05/17/23 15:30 133 H 18 80/65 99 05/17/23 15:10 95 05/17/23 15:00 145 H 16 101/76 98 05/17/23 14:30 138 H 25 H 89/71 98 05/17/23 14:14 108 H 20 94 L 05/17/23 14:12 127 H 12 93/62 100 05/17/23 13:31 128 H 128 H 93/62 95 05/17/23 13:25 145 H 28 H 96 05/17/23 12:45 97.8 F 131 H 18 98/73 95 General Appearance: mild distress Neurologic Exam: alert, oriented x 3, cooperative, bottom filler II-XII nml as tested Eye Exam: PERRL/EOMI, eyes nml inspection Ears, Nose, Throat Exam: normal ENT inspection Neck Exam: normal inspection, non-tender, supple, full range of motion Respiratory Exam: crackles/rales, wheezing Cardiovascular Exam: tachycardia, irregular Gastrointestinal/Abdomen Exam: soft, normal bowel sounds, No tenderness, No distention, No mass Pelvic Exam: not done Rectal Exam: deferred Back Exam: normal inspection Extremity Exam: normal inspection Skin Exam: other (Leg lesions) Lymphatic Exam: No adenopathy Results - Labs Lab/Micro Results: Lab Results-Last 24 Hours 05/17/23 05/17/23 05/17/23 Range/Units 13:10 13:10 13:10 WBC 9.4 (4.0-10.5) x10^3/uL RBC 4.68 (4.1-5.4) x10^6/uL Hgb 13.8 (12.0-16.0) g/dL Hct 43.8 (35-47) % MCV 93.6 (78-100) fL MCH 29.5 (26-32) pg MCHC 31.5 L (32-36) g/dL RDW 17.4 H (11.5-14.0) % Plt Count 146 L (150-450) x10^3/uL MPV 10.2 (7.5-11.0) fL Gran % 85.5 H (36.0-66.0) % Immature Gran % (Auto) 0.4 (0.00-0.4) % Nucleat RBC Rel Count 0.0 (0.00-0.1) % Eos # (Auto) 0.01 (0-0.5) x10^3/uL Immature Gran # (Auto) 0.04 H (0.00-0.03) x10^3u/L Absolute Lymphs (auto) 0.73 L (1.0-4.6) x10^3/uL Absolute Monos (auto) 0.57 (0.0-1.3) x10^3/uL Absolute Nucleated RBC 0.00 (0.00-0.01) x10^3u/L Lymphocytes % 7.8 L (24.0-44.0) % Monocytes % 6.1 (0.0-12.0) % Eosinophils % 0.1 (0.00-5.0) % Basophils % 0.1 (0.0-0.4) % Absolute Granulocytes 8.01 H (1.4-6.9) x10^3/uL Basophils # 0.01 (0-0.4) x10^3/uL pO2/FiO2 Ratio % VBG pH (7.32-7.42) VBG pCO2 at Pat Temp (42-55) mm/Hg VBG pO2 at Pat Temp (25-40) mm/Hg VBG HCO3 (22-28) meq/L VBG O2 Sat (Gonzalo) (95-100) VBG Base Excess (-2.0-2.0) VBG Hemoglobin VBG Carboxyhemoglobin (0.0-6.9) % T HGB POC Potassium (3.5-5.1) Sodium 132 L (137-145) mmol/L Potassium 4.1 (3.5-5.1) mmol/L Chloride 100 (98-107) mmol/L Carbon Dioxide 26 (22-30) mmol/L Anion Gap 11.0 (5-15) MEQ/L BUN 31 H (7-17) mg/dL Creatinine 1.04 (0.52-1.04) mg/dL Estimated GFR 52.0 ML/MIN Glucose 92 (74-106) mg/dL Lactic Acid (0.4-2.0) Calcium 8.5 (8.4-10.2) mg/dL Magnesium 2.5 H (1.6-2.3) mg/dL Total Bilirubin 1.30 (0.2-1.3) mg/dL AST 37 H (14-36) U/L ALT 29 (0-35) U/L Alkaline Phosphatase 48 (38-126) U/L Troponin I 0.042 H* (0.000-0.034) ng/mL NT-Pro-B Natriuret Pep 2020 (<300) pg/mL Serum Total Protein 6.2 L (6.3-8.2) g/dL Albumin 3.4 L (3.5-5.0) g/dL Procalcitonin 0.163 H (0.030-0.080) ng/mL Influenza Type A Ag (NEGATIVE) Influenza Type B Ag (NEGATIVE) RSV (PCR) (NEGATIVE) SARS-CoV-2 (PCR) (NEGATIVE) 05/17/23 05/17/23 05/17/23 Range/Units 13:12 13:15 13:15 WBC (4.0-10.5) x10^3/uL RBC (4.1-5.4) x10^6/uL Hgb (12.0-16.0) g/dL Hct (35-47) % MCV (78-100) fL MCH (26-32) pg MCHC (32-36) g/dL RDW (11.5-14.0) % Plt Count (150-450) x10^3/uL MPV (7.5-11.0) fL Gran % (36.0-66.0) % Immature Gran % (Auto) (0.00-0.4) % Nucleat RBC Rel Count (0.00-0.1) % Eos # (Auto) (0-0.5) x10^3/uL Immature Gran # (Auto) (0.00-0.03) x10^3u/L Absolute Lymphs (auto) (1.0-4.6) x10^3/uL Absolute Monos (auto) (0.0-1.3) x10^3/uL Absolute Nucleated RBC (0.00-0.01) x10^3u/L Lymphocytes % (24.0-44.0) % Monocytes % (0.0-12.0) % Eosinophils % (0.00-5.0) % Basophils % (0.0-0.4) % Absolute Granulocytes (1.4-6.9) x10^3/uL Basophils # (0-0.4) x10^3/uL pO2/FiO2 Ratio 21.0 % VBG pH 7.47 H (7.32-7.42) VBG pCO2 at Pat Temp 40 L (42-55) mm/Hg VBG pO2 at Pat Temp 39 (25-40) mm/Hg VBG HCO3 29.1 H* (22-28) meq/L VBG O2 Sat (Gonzalo) 55.2 L (95-100) VBG Base Excess 5.0 H (-2.0-2.0) VBG Hemoglobin 14.2 VBG Carboxyhemoglobin 2.3 (0.0-6.9) % T HGB POC Potassium 4.3 (3.5-5.1) Sodium (137-145) mmol/L Potassium (3.5-5.1) mmol/L Chloride (98-107) mmol/L Carbon Dioxide (22-30) mmol/L Anion Gap (5-15) MEQ/L BUN (7-17) mg/dL Creatinine (0.52-1.04) mg/dL Estimated GFR ML/MIN Glucose (74-106) mg/dL Lactic Acid 1.6 (0.4-2.0) Calcium (8.4-10.2) mg/dL Magnesium (1.6-2.3) mg/dL Total Bilirubin (0.2-1.3) mg/dL AST (14-36) U/L ALT (0-35) U/L Alkaline Phosphatase (38-126) U/L Troponin I (0.000-0.034) ng/mL NT-Pro-B Natriuret Pep (<300) pg/mL Serum Total Protein (6.3-8.2) g/dL Albumin (3.5-5.0) g/dL Procalcitonin (0.030-0.080) ng/mL Influenza Type A Ag NEGATIVE (NEGATIVE) Influenza Type B Ag NEGATIVE (NEGATIVE) RSV (PCR) POSITIVE (NEGATIVE) SARS-CoV-2 (PCR) NEGATIVE (NEGATIVE) - Radiology Impressions Radiology Exams & Impressions: Radiology Procedures Category Date Time Status CHEST 1 VIEW (PORTABLE) Stat Exams 05/17/23 13:12 Taken - Other Procedures and Tests Respiratory Therapy 05/17/23 13:25 Respiratory Therapy Assessment DAILY 05/17/23 16:49 Oxygen Nasal Cannula 2 lpm Assessment/Plan (1) Atrial fibrillation with RVR Current Visit: Yes Status: Acute Assessment & Plan: Patient has history of atrial fib Now has RVR likely secondary to RSV infection. Plan rate control Patient was not anticoagulated, likely due to history of falls. I think we should fully anticoagulate at least while in hospital. Note Troponin mildly elevated. Do not suspect acute coronary syndrome This is demand ischemia due to a fib with RVR Code(s): I48.91 - UNSPECIFIED ATRIAL FIBRILLATION (2) RSV (respiratory syncytial virus infection) Current Visit: Yes Status: Acute Assessment & Plan: RSV positive Severe cough. No fever. Dyspnea. Treatment is symptomatic. Will continue steroids at lower dose. Code(s): B33.8 - OTHER SPECIFIED VIRAL DISEASES (3) CHF (congestive heart failure) Current Visit: Yes Status: Chronic Assessment & Plan: CHF. EF is not known. CXray suggests mild CHF 1+ edema Will give IV Lasix and observe Code(s): I50.9 - HEART FAILURE, UNSPECIFIED (4) HTN (hypertension) Current Visit: Yes Status: Chronic Assessment & Plan: Continue home meds Code(s): I10 - ESSENTIAL (PRIMARY) HYPERTENSION (5) HLD (hyperlipidemia) Current Visit: Yes Status: Chronic Assessment & Plan: Continue home meds Code(s): E78.5 - HYPERLIPIDEMIA, UNSPECIFIED (6) GERD (gastroesophageal reflux disease) Current Visit: Yes Status: Chronic Assessment & Plan: PPI ordered Code(s): K21.9 - GASTRO-ESOPHAGEAL REFLUX DISEASE WITHOUT ESOPHAGITIS (7) Hyponatremia Current Visit: No Status: Acute Assessment & Plan: Er=[id number]. Recheck in am Mild fluid restriction Code(s): E87.1 - HYPO-OSMOLALITY AND HYPONATREMIA (8) Pulmonary hypertension Current Visit: No Status: Chronic Assessment & Plan: Continue home meds Code(s): I27.20 - PULMONARY HYPERTENSION, UNSPECIFIED Telemedicine Encounter - Telemedicine Encounter Telemedicine Encounter: The entirety of this encounter was performed via Telemedicine after consent obtained. Labs and imaging reviewed. Reviewed old charts. Discussed with ER provider 70 minutes spent on the care of this patient. Martín Bahena MD [employer]
[2023-05-17] MEDS ORDERED: NORCO 10-325 MG PO PRN (17:49)
[2023-05-17] MEDS ORDERED: Zofran 4 MG/2 ML VIAL IV PRN (17:51)
[2023-05-17] MEDS ORDERED: TYLENOL 325 MG PO PRN (17:51)
--- NOTE | 2023-05-17 18:24 | XRAY ---
Indication: Short of breath. Comparison: May 09, 2023 Portable chest remains inflated and clear. Heart remains enlarged. Bony thorax intact again with osteopenia, degenerative changes, and scoliosis. Impression: Continued nonacute chest with chronic features.
[2023-05-17] MEDS: CARDIZEM DRIP 100 MG/100 ML D5W 100 ML IV PRN (18:46)
[2023-05-17] MEDS ORDERED: PREGABALIN 200 MG PO SCH (22:00)
[2023-05-17] MEDS ORDERED: [UNRECOGNIZED DRUG - OTHER] PO SCH (22:00)
[2023-05-17] MEDS ORDERED: SILDENAFIL CITRATE 20 MG PO SCH (22:00)
[2023-05-17] MEDS ORDERED: PROVENTIL 2.5 MG/3 ML NEB IH SCH (22:00)
[2023-05-17] MEDS ORDERED: FORMOTEROL FUM PO SCH (22:00)
[2023-05-17] MEDS ORDERED: Coreg PO SCH (22:00)
[2023-05-17] MEDS ORDERED: GLYCOPYRROLATE PO SCH (22:00)
[2023-05-17] MEDS ORDERED: NON-FORMULARY ITEM (Apixaban [Eliquis] 5 MG Tablet) PO SCH (22:00)
[2023-05-17] MEDS: LYRICA 100MG PO SCH (22:02)
[2023-05-17] MEDS: COREG 12.5 MG PO SCH (22:02)
[2023-05-17] MEDS: DESYREL 50 MG PO SCH (22:02)
[2023-05-17] MEDS: Merrem 1 GM in Sodium Chloride 100ML MINI-BAG PLUS 100 ML IV SCH (22:05)
[2023-05-17] MEDS: ELIQUIS 2.5 MG TABLET PO SCH (22:05)
[2023-05-18] MEDS: DUONEB 0.5-3 MG/3 ml Neb IH SCH ×4 (00:09→18:13)
[2023-05-18] MEDS: CARDIZEM DRIP 100 MG/100 ML D5W 100 ML IV PRN ×2 (04:30→16:54)
[2023-05-18 04:55] LABS: Absolute Neutrophil Ct (ANC) 4.38 x10^3/uL (1.4-6.9); BASOPHIL % 0.2 % (0.0-0.4); Basophil (Absolute #) 0.01 x10^3/uL (0-0.4); Eosinophil (Absolute #) 0 x10^3/uL (0-0.5); Hemoglobin 12.9 g/dL (12.0-16.0); IMMATURE GRAN # 0.03 x10^3u/L (0.00-0.03); IMMATURE GRAN % 0.6 % (0.00-0.4); Lymphocytes % 13.3 % (24.0-44.0); Mean Corpuscular Hemoglobin 29.6 pg (26-32); Mean Corpuscular Hgb Concent. 31.5 g/dL (32-36); Mean Platelet Volume 10.3 fL (7.5-11.0); Monocyte (Absolute #) 0.16 x10^3/uL (0.0-1.3); Neutrophil % 82.9 % (36.0-66.0); Platelet Count 145 x10^3/uL (150-450); Red Blood Count 4.36 x10^6/uL (4.1-5.4); Red Cell Distribution Width 17.3 % (11.5-14.0); White Blood Count 5.3 x10^3/uL (4.0-10.5)
[2023-05-18 05:17] LABS: ALBUMIN 3.2 g/dL (3.5-5.0); ANION GAP 11.4 MEQ/L (5-15); BILIRUBIN,TOTAL 0.7 mg/dL (0.2-1.3); Calcium 7.9 mg/dL (8.4-10.2); Creatinine 1 1.23 mg/dL (0.52-1.04); EST GLOMERULAR FILTRATION RATE 42.5 ML/MIN; Potassium 4.1 mmol/L (3.5-5.1)
--- NOTE | 2023-05-18 05:45 | PCM.NOTE ---
Date and Time: 05/18/23 0543 Subjective Assessment: is a 87 year old female with a PMHX of atrial fib, CHF, HTN, HLD, GERD and pulmonary hypertension who presented to ED 05/17/23 with complaints of dyspnea with severe cough and wheezing. Onset of symptoms were about one week ago. At that time she visited ED with c/o dyspnea and edema and was treated for CHF exacerbation with lasix. She also visited her PCP this past Thursday for cough, wheezing, and infected leg wounds with enterobacter on culture and was given levaquin. Upon presentation patient was mildly tachypneic and tachycardic EKG showing AFIB with RVR with no ST elevations/deviations. HR in the 120/130?s. Patient admitted for AFIB RVR secondary to RSV infection, started on Merrem and cardizem drip. Patient also on eliquis. 05/18/23: Met with patient and daughter bedside. Endorses non-productive cough. HR remains elevated, on cardizem drip. BLE with +2 pitting edema with multiple wounds in various stages of healing. Denies fever,cp, abdominal pain, UGALDE, dizziness, N/V/D. - Review of Systems Constitutional: No Symptoms Eyes: No Symptoms Ears, Nose, & Throat: No Symptoms Respiratory: Cough, Short Of Breath, Wheezing Cardiac: Edema (ble +2 pitting) Abdominal/Gastrointestinal: No Symptoms Genitourinary Symptoms: No Symptoms Musculoskeletal: No Symptoms Skin: Skin Lesions (BLE ) Neurological: No Symptoms Psychological: No Symptoms Objective Exam General Appearance: no apparent distress Neurologic Exam: alert, oriented x 3, cooperative Skin Exam: pale Wound Assessment: Skin/Wound Assessment Wound/Incision Assessment Start: 05/17/23 17:25 Text: Status: Active Freq: Q6H Protocol: Document 05/18/23 02:00 (Rec: 05/18/23 02:32 [id number]) Wound/Incision Assessment Left Lower Wound Assessment Shift Assessment Wound Type Stasis Ulcer Drainage Amount Minimal General Appearance Well Approximated Primary Dressing Gauze Pads Comment various staging of healing x 2 open wounds on left lower extremity, one open wound to right lower extremity. right lower extremity with blood blister noted. left great toe incision noted. photos taken and placed in chart. Wound Photo Photo Taken Yes Date: 05/17/23 Comment: photos taken on admission by previous shift Eye Exam: PERRL Ears, Nose, Throat Exam: normal ENT inspection Neck Exam: normal inspection Respiratory Exam: diminished breath sounds, wheezing Cardiovascular Exam: tachycardia, irregular Gastrointestinal/Abdomen Exam: soft, normal bowel sounds Extremity Exam: normal inspection Back Exam: normal inspection OBJECTIVE DATA Vital Signs: Vital Signs - 24 hr Temp Pulse Resp BP BP Pulse Ox 05/18/23 04:00 95 H 15 131/76 05/18/23 03:00 93 H 14 112/82 05/18/23 02:00 91 H 13 121/70 95 05/18/23 01:00 87 19 102/75 99 05/18/23 00:11 95 H 24 97 05/18/23 00:01 87 05/18/23 00:00 85 14 108/69 99 05/17/23 23:01 80 16 95/77 98 05/17/23 22:00 89 15 125/88 99 05/17/23 21:00 94 H 16 111/70 98 05/17/23 20:26 98.1 F 05/17/23 20:01 96 H 15 109/77 95 05/17/23 20:00 98 H 05/17/23 19:54 98 H 15 130/94 05/17/23 19:00 113 H 16 130/94 96 05/17/23 18:46 129 H 103/83 05/17/23 18:00 128 H 12 103/83 99 05/17/23 17:17 136 H 20 96 05/17/23 17:00 97.0 F 135 H 20 100/74 95 05/17/23 16:50 97.0 F 124 H 20 100/74 97 05/17/23 16:49 135 H 05/17/23 16:30 91/67 05/17/23 16:00 128 H 18 90/67 97 05/17/23 15:30 133 H 18 80/65 99 05/17/23 15:10 95 05/17/23 15:00 145 H 16 101/76 98 05/17/23 14:30 138 H 25 H 89/71 98 05/17/23 14:14 108 H 20 94 L 05/17/23 14:12 127 H 12 93/62 100 05/17/23 13:31 128 H 128 H 93/62 95 05/17/23 13:25 145 H 28 H 96 05/17/23 12:45 97.8 F 131 H 18 98/73 95 Pain Assessment - Last Documented Pain Intensity 3 Intake and Output: Intake & Output 05/15/23 05/16/23 05/17/23 05/18/23 11:59 11:59 11:59 11:59 Intake Total 0 Balance 0 Weight 62.6 kg Lab Results: Lab Results-Last 24 Hours 05/17/23 05/17/23 05/17/23 Range/Units 13:10 13:10 13:10 WBC 9.4 (4.0-10.5) x10^3/uL RBC 4.68 (4.1-5.4) x10^6/uL Hgb 13.8 (12.0-16.0) g/dL Hct 43.8 (35-47) % MCV 93.6 (78-100) fL MCH 29.5 (26-32) pg MCHC 31.5 L (32-36) g/dL RDW 17.4 H (11.5-14.0) % Plt Count 146 L (150-450) x10^3/uL MPV 10.2 (7.5-11.0) fL Gran % 85.5 H (36.0-66.0) % Immature Gran % (Auto) 0.4 (0.00-0.4) % Nucleat RBC Rel Count 0.0 (0.00-0.1) % Eos # (Auto) 0.01 (0-0.5) x10^3/uL Immature Gran # (Auto) 0.04 H (0.00-0.03) x10^3u/L Absolute Lymphs (auto) 0.73 L (1.0-4.6) x10^3/uL Absolute Monos (auto) 0.57 (0.0-1.3) x10^3/uL Absolute Nucleated RBC 0.00 (0.00-0.01) x10^3u/L Lymphocytes % 7.8 L (24.0-44.0) % Monocytes % 6.1 (0.0-12.0) % Eosinophils % 0.1 (0.00-5.0) % Basophils % 0.1 (0.0-0.4) % Absolute Granulocytes 8.01 H (1.4-6.9) x10^3/uL Basophils # 0.01 (0-0.4) x10^3/uL D-Dimer (0.0-0.50) mg/L pO2/FiO2 Ratio % VBG pH (7.32-7.42) VBG pCO2 at Pat Temp (42-55) mm/Hg VBG pO2 at Pat Temp (25-40) mm/Hg VBG HCO3 (22-28) meq/L VBG O2 Sat (Gonzalo) (95-100) VBG Base Excess (-2.0-2.0) VBG Hemoglobin VBG Carboxyhemoglobin (0.0-6.9) % T HGB POC Potassium (3.5-5.1) Sodium 132 L (137-145) mmol/L Potassium 4.1 (3.5-5.1) mmol/L Chloride 100 (98-107) mmol/L Carbon Dioxide 26 (22-30) mmol/L Anion Gap 11.0 (5-15) MEQ/L BUN 31 H (7-17) mg/dL Creatinine 1.04 (0.52-1.04) mg/dL Estimated GFR 52.0 ML/MIN Glucose 92 (74-106) mg/dL Lactic Acid (0.4-2.0) Calcium 8.5 (8.4-10.2) mg/dL Magnesium 2.5 H (1.6-2.3) mg/dL Total Bilirubin 1.30 (0.2-1.3) mg/dL AST 37 H (14-36) U/L ALT 29 (0-35) U/L Alkaline Phosphatase 48 (38-126) U/L Troponin I 0.042 H* (0.000-0.034) ng/mL NT-Pro-B Natriuret Pep 2020 (<300) pg/mL Serum Total Protein 6.2 L (6.3-8.2) g/dL Albumin 3.4 L (3.5-5.0) g/dL Procalcitonin 0.163 H (0.030-0.080) ng/mL Influenza Type A Ag (NEGATIVE) Influenza Type B Ag (NEGATIVE) RSV (PCR) (NEGATIVE) SARS-CoV-2 (PCR) (NEGATIVE) 05/17/23 05/17/23 05/17/23 Range/Units 13:12 13:15 13:15 WBC (4.0-10.5) x10^3/uL RBC (4.1-5.4) x10^6/uL Hgb (12.0-16.0) g/dL Hct (35-47) % MCV (78-100) fL MCH (26-32) pg MCHC (32-36) g/dL RDW (11.5-14.0) % Plt Count (150-450) x10^3/uL MPV (7.5-11.0) fL Gran % (36.0-66.0) % Immature Gran % (Auto) (0.00-0.4) % Nucleat RBC Rel Count (0.00-0.1) % Eos # (Auto) (0-0.5) x10^3/uL Immature Gran # (Auto) (0.00-0.03) x10^3u/L Absolute Lymphs (auto) (1.0-4.6) x10^3/uL Absolute Monos (auto) (0.0-1.3) x10^3/uL Absolute Nucleated RBC (0.00-0.01) x10^3u/L Lymphocytes % (24.0-44.0) % Monocytes % (0.0-12.0) % Eosinophils % (0.00-5.0) % Basophils % (0.0-0.4) % Absolute Granulocytes (1.4-6.9) x10^3/uL Basophils # (0-0.4) x10^3/uL D-Dimer (0.0-0.50) mg/L pO2/FiO2 Ratio 21.0 % VBG pH 7.47 H (7.32-7.42) VBG pCO2 at Pat Temp 40 L (42-55) mm/Hg VBG pO2 at Pat Temp 39 (25-40) mm/Hg VBG HCO3 29.1 H* (22-28) meq/L VBG O2 Sat (Gonzalo) 55.2 L (95-100) VBG Base Excess 5.0 H (-2.0-2.0) VBG Hemoglobin 14.2 VBG Carboxyhemoglobin 2.3 (0.0-6.9) % T HGB POC Potassium 4.3 (3.5-5.1) Sodium (137-145) mmol/L Potassium (3.5-5.1) mmol/L Chloride (98-107) mmol/L Carbon Dioxide (22-30) mmol/L Anion Gap (5-15) MEQ/L BUN (7-17) mg/dL Creatinine (0.52-1.04) mg/dL Estimated GFR ML/MIN Glucose (74-106) mg/dL Lactic Acid 1.6 (0.4-2.0) Calcium (8.4-10.2) mg/dL Magnesium (1.6-2.3) mg/dL Total Bilirubin (0.2-1.3) mg/dL AST (14-36) U/L ALT (0-35) U/L Alkaline Phosphatase (38-126) U/L Troponin I (0.000-0.034) ng/mL NT-Pro-B Natriuret Pep (<300) pg/mL Serum Total Protein (6.3-8.2) g/dL Albumin (3.5-5.0) g/dL Procalcitonin (0.030-0.080) ng/mL Influenza Type A Ag NEGATIVE (NEGATIVE) Influenza Type B Ag NEGATIVE (NEGATIVE) RSV (PCR) POSITIVE (NEGATIVE) SARS-CoV-2 (PCR) NEGATIVE (NEGATIVE) 05/17/23 05/17/23 05/17/23 Range/Units 18:05 21:06 21:06 WBC (4.0-10.5) x10^3/uL RBC (4.1-5.4) x10^6/uL Hgb (12.0-16.0) g/dL Hct (35-47) % MCV (78-100) fL MCH (26-32) pg MCHC (32-36) g/dL RDW (11.5-14.0) % Plt Count (150-450) x10^3/uL MPV (7.5-11.0) fL Gran % (36.0-66.0) % Immature Gran % (Auto) (0.00-0.4) % Nucleat RBC Rel Count (0.00-0.1) % Eos # (Auto) (0-0.5) x10^3/uL Immature Gran # (Auto) (0.00-0.03) x10^3u/L Absolute Lymphs (auto) (1.0-4.6) x10^3/uL Absolute Monos (auto) (0.0-1.3) x10^3/uL Absolute Nucleated RBC (0.00-0.01) x10^3u/L Lymphocytes % (24.0-44.0) % Monocytes % (0.0-12.0) % Eosinophils % (0.00-5.0) % Basophils % (0.0-0.4) % Absolute Granulocytes (1.4-6.9) x10^3/uL Basophils # (0-0.4) x10^3/uL D-Dimer 0.32 (0.0-0.50) mg/L pO2/FiO2 Ratio % VBG pH (7.32-7.42) VBG pCO2 at Pat Temp (42-55) mm/Hg VBG pO2 at Pat Temp (25-40) mm/Hg VBG HCO3 (22-28) meq/L VBG O2 Sat (Gonzalo) (95-100) VBG Base Excess (-2.0-2.0) VBG Hemoglobin VBG Carboxyhemoglobin (0.0-6.9) % T HGB POC Potassium (3.5-5.1) Sodium (137-145) mmol/L Potassium (3.5-5.1) mmol/L Chloride (98-107) mmol/L Carbon Dioxide (22-30) mmol/L Anion Gap (5-15) MEQ/L BUN (7-17) mg/dL Creatinine (0.52-1.04) mg/dL Estimated GFR ML/MIN Glucose (74-106) mg/dL Lactic Acid (0.4-2.0) Calcium (8.4-10.2) mg/dL Magnesium (1.6-2.3) mg/dL Total Bilirubin (0.2-1.3) mg/dL AST (14-36) U/L ALT (0-35) U/L Alkaline Phosphatase (38-126) U/L Troponin I 0.035 H 0.031 (0.000-0.034) ng/mL NT-Pro-B Natriuret Pep (<300) pg/mL Serum Total Protein (6.3-8.2) g/dL Albumin (3.5-5.0) g/dL Procalcitonin (0.030-0.080) ng/mL Influenza Type A Ag (NEGATIVE) Influenza Type B Ag (NEGATIVE) RSV (PCR) (NEGATIVE) SARS-CoV-2 (PCR) (NEGATIVE) 05/18/23 05/18/23 05/18/23 Range/Units 04:50 04:50 04:50 WBC 5.3 (4.0-10.5) x10^3/uL RBC 4.36 (4.1-5.4) x10^6/uL Hgb 12.9 (12.0-16.0) g/dL Hct 41.0 (35-47) % MCV 94.0 (78-100) fL MCH 29.6 (26-32) pg MCHC 31.5 L (32-36) g/dL RDW 17.3 H (11.5-14.0) % Plt Count 145 L (150-450) x10^3/uL MPV 10.3 (7.5-11.0) fL Gran % 82.9 H (36.0-66.0) % Immature Gran % (Auto) 0.6 H (0.00-0.4) % Nucleat RBC Rel Count 0.0 (0.00-0.1) % Eos # (Auto) 0 (0-0.5) x10^3/uL Immature Gran # (Auto) 0.03 (0.00-0.03) x10^3u/L Absolute Lymphs (auto) 0.70 L (1.0-4.6) x10^3/uL Absolute Monos (auto) 0.16 (0.0-1.3) x10^3/uL Absolute Nucleated RBC 0.00 (0.00-0.01) x10^3u/L Lymphocytes % 13.3 L (24.0-44.0) % Monocytes % 3.0 (0.0-12.0) % Eosinophils % 0.0 (0.00-5.0) % Basophils % 0.2 (0.0-0.4) % Absolute Granulocytes 4.38 (1.4-6.9) x10^3/uL Basophils # 0.01 (0-0.4) x10^3/uL D-Dimer (0.0-0.50) mg/L pO2/FiO2 Ratio % VBG pH (7.32-7.42) VBG pCO2 at Pat Temp (42-55) mm/Hg VBG pO2 at Pat Temp (25-40) mm/Hg VBG HCO3 (22-28) meq/L VBG O2 Sat (Gonzalo) (95-100) VBG Base Excess (-2.0-2.0) VBG Hemoglobin VBG Carboxyhemoglobin (0.0-6.9) % T HGB POC Potassium (3.5-5.1) Sodium 133 L (137-145) mmol/L Potassium 4.1 (3.5-5.1) mmol/L Chloride 101 (98-107) mmol/L Carbon Dioxide 25 (22-30) mmol/L Anion Gap 11.4 (5-15) MEQ/L BUN 35 H (7-17) mg/dL Creatinine 1.23 H (0.52-1.04) mg/dL Estimated GFR 42.5 ML/MIN Glucose 137 H (74-106) mg/dL Lactic Acid (0.4-2.0) Calcium 7.9 L (8.4-10.2) mg/dL Magnesium (1.6-2.3) mg/dL Total Bilirubin 0.70 (0.2-1.3) mg/dL AST 26 (14-36) U/L ALT 26 (0-35) U/L Alkaline Phosphatase 45 (38-126) U/L Troponin I 0.026 (0.000-0.034) ng/mL NT-Pro-B Natriuret Pep (<300) pg/mL Serum Total Protein 6.0 L (6.3-8.2) g/dL Albumin 3.2 L (3.5-5.0) g/dL Procalcitonin (0.030-0.080) ng/mL Influenza Type A Ag (NEGATIVE) Influenza Type B Ag (NEGATIVE) RSV (PCR) (NEGATIVE) SARS-CoV-2 (PCR) (NEGATIVE) Radiology Exams: Radiology Procedures Category Date Time Status CHEST 1 VIEW (PORTABLE) Stat Exams 05/17/23 13:12 Completed Assessment/Plan (1) Atrial fibrillation with RVR Current Visit: Yes Status: Acute Assessment & Plan: Patient has history of atrial fib Now has RVR likely secondary to RSV infection. Plan rate control Patient was not anticoagulated, likely due to history of falls. I think we should fully anticoagulate at least while in hospital. Note Troponin mildly elevated. Do not suspect acute coronary syndrome This is demand ischemia due to a fib with RVR 05/18: -ECHO/cards consult pending -Continue Eliquis/cardizem gtt until HR controlled Code(s): I48.91 - UNSPECIFIED ATRIAL FIBRILLATION (2) RSV (respiratory syncytial virus infection) Current Visit: Yes Status: Acute Assessment & Plan: RSV positive Severe cough. No fever. Dyspnea. Treatment is symptomatic. Will continue steroids at lower dose. 05/18: -add solumedrol at 40mg bid Code(s): B33.8 - OTHER SPECIFIED VIRAL DISEASES (3) CHF (congestive heart failure) Current Visit: Yes Status: Chronic Assessment & Plan: CHF. EF is not known. CXray suggests mild CHF 1+ edema Will give IV Lasix and observe 05/18: -ECHO pending, cards consult pending -Add IV lasix 40 bid -Venous doppler negative Code(s): I50.9 - HEART FAILURE, UNSPECIFIED (4) HTN (hypertension) Current Visit: Yes Status: Chronic Assessment & Plan: Continue home meds Code(s): I10 - ESSENTIAL (PRIMARY) HYPERTENSION (5) HLD (hyperlipidemia) Current Visit: Yes Status: Chronic Assessment & Plan: Continue home meds Code(s): E78.5 - HYPERLIPIDEMIA, UNSPECIFIED (6) GERD (gastroesophageal reflux disease) Current Visit: Yes Status: Chronic Assessment & Plan: PPI ordered Code(s): K21.9 - GASTRO-ESOPHAGEAL REFLUX DISEASE WITHOUT ESOPHAGITIS (7) Hyponatremia Current Visit: No Status: Acute Assessment & Plan: [id number]. Recheck in am Mild fluid restriction 05/18: -improving Code(s): E87.1 - HYPO-OSMOLALITY AND HYPONATREMIA (8) Pulmonary hypertension Current Visit: No Status: Chronic Assessment & Plan: Continue home meds Code(s): I27.20 - PULMONARY HYPERTENSION, UNSPECIFIED Code(s): I48.91 - UNSPECIFIED ATRIAL FIBRILLATION (2) RSV (respiratory syncytial virus infection) Current Visit: Yes Status: Acute Code(s): B33.8 - OTHER SPECIFIED VIRAL DISEASES (3) CHF (congestive heart failure) Current Visit: Yes Status: Chronic Code(s): I50.9 - HEART FAILURE, UNSPECIFIED (4) GERD (gastroesophageal reflux disease) Current Visit: Yes Status: Chronic Code(s): K21.9 - GASTRO-ESOPHAGEAL REFLUX DISEASE WITHOUT ESOPHAGITIS (5) HLD (hyperlipidemia) Current Visit: Yes Status: Chronic Code(s): E78.5 - HYPERLIPIDEMIA, UNSPECIFIED (6) HTN (hypertension) Current Visit: Yes Status: Chronic Code(s): I10 - ESSENTIAL (PRIMARY) HYPERTENSION (7) Hyponatremia Current Visit: No Status: Acute Code(s): E87.1 - HYPO-OSMOLALITY AND HYPONATREMIA (8) Pulmonary hypertension Current Visit: No Status: Chronic Code(s): I27.20 - PULMONARY HYPERTENSION, UNSPECIFIED (9) Hypothyroid Current Visit: Yes Status: Acute Assessment & Plan: -TSH level low, will decrease synthroid to 50mcg, advised patient to recheck with PCP in about 4 weeks Code(s): E03.9 - HYPOTHYROIDISM, UNSPECIFIED
[2023-05-18] MEDS: Merrem 1 GM in Sodium Chloride 100ML MINI-BAG PLUS 100 ML IV SCH ×3 (06:04→21:41)
[2023-05-18] MEDS ORDERED: MEDICATION INTERVENTION MC SCH ×2 (07:15)
[2023-05-18] MEDS ORDERED: NON-FORMULARY ITEM (Atorvastatin Calcium 20 MG Tab) PO SCH (10:00)
[2023-05-18] MEDS ORDERED: NON-FORMULARY ITEM (Omeprazole [Omeprazole] 20 MG Capsule.Dr) PO SCH (10:00)
[2023-05-18] MEDS ORDERED: DESYREL 50 MG PO SCH (10:00)
[2023-05-18] MEDS ORDERED: SYNTHROID 75 MCG PO SCH ×2 (10:00→14:29)
[2023-05-18] MEDS: Protonix 40MG Tablet PO SCH (10:20)
[2023-05-18] MEDS: ELIQUIS 2.5 MG TABLET PO SCH ×2 (10:20→21:00)
[2023-05-18] MEDS: ZOCOR 20MG PO SCH (10:20)
[2023-05-18] MEDS: COREG 12.5 MG PO SCH (10:21)
[2023-05-18] MEDS: Lyrica 50MG PO SCH (10:21)
[2023-05-18] MEDS: solu-MEDROL 40 MG, Sterile H2O 10 ml 1 ML IV SCH ×4 (11:25→21:00)
--- NOTE | 2023-05-18 12:23 | XRAY ---
Indication: Bilateral leg edema. Elevated d-dimer. Two-dimensional sonogram and color Doppler imaging of the major venous vessels of the left and right leg performed. Comparison: None No thrombus seen in the examined deep venous vessels of the left and right leg including greater saphenous vein. Veins demonstrate normal compressibility. Venous waveforms are normal with and without augmentation. Impression: Left and right legs negative for DVT.
[2023-05-18] MEDS: Lasix 40 MG/4 ML IV SCH ×2 (12:52→21:00)
[2023-05-18] MEDS: PATIENT OWN MEDICATION PO SCH ×2 (14:42→20:59)
[2023-05-18] MEDS: LYRICA 100MG PO SCH (20:59)
[2023-05-18] MEDS: DESYREL 50 MG PO SCH (21:00)
[2023-05-18] MEDS: Lopressor 50 MG PO SCH (21:00)
[2023-05-19] MEDS: DUONEB 0.5-3 MG/3 ml Neb IH SCH ×3 (02:06→14:05)
[2023-05-19] MEDS ORDERED: PROVENTIL 2.5 MG/3 ML NEB IH PRN (02:52)
[2023-05-19] MEDS: Merrem 1 GM in Sodium Chloride 100ML MINI-BAG PLUS 100 ML IV SCH (05:02)
--- NOTE | 2023-05-19 05:38 | PCM.NOTE ---
Date and Time: 05/19/23 0535 Subjective Assessment: is a 87 year old female with a PMHX of atrial fib, CHF, HTN, HLD, GERD and pulmonary hypertension who presented to ED 05/17/23 with complaints of dyspnea with severe cough and wheezing. Onset of symptoms were about one week ago. At that time she visited ED with c/o dyspnea and edema and was treated for CHF exacerbation with lasix. She also visited her PCP this past Thursday for cough, wheezing, and infected leg wounds with enterobacter on culture and was given levaquin. Upon presentation patient was mildly tachypneic and tachycardic EKG showing AFIB with RVR with no ST elevations/deviations. HR in the 120/130?s. Patient admitted for AFIB RVR secondary to RSV infection, started on Merrem and cardizem drip. Patient also on eliquis. Cardiololgy consulted with recs to continue cardizem drip, d/c carvedilol, start lopressor, wean cardizem as appropriate. 05/18/23: Met with patient and daughter bedside. Endorses non-productive cough. HR remains elevated, on cardizem drip. BLE with +2 pitting edema with multiple wounds in various stages of healing. Denies fever,cp, abdominal pain, UGALDE, dizziness, N/V/D. Objective Exam Wound Assessment: Skin/Wound Assessment Wound/Incision Assessment Start: 05/17/23 17:25 Text: Status: Active Freq: Q6H Protocol: Document 05/19/23 02:00 SM (Rec: 05/19/23 02:44 SM [id number]) Wound/Incision Assessment Left Lower Wound Assessment Shift Assessment Wound Type Stasis Ulcer Drainage Amount Minimal General Appearance Well Approximated Primary Dressing Gauze Pads Comment various staging of healing x 2 open wounds on left lower extremity, one open wound to right lower extremity. right lower extremity with blood blister noted. left great toe incision noted. photos taken and placed in chart. remains true Wound Photo Photo Taken Yes Date: 05/17/23 Comment: photos taken on admission by previous shift OBJECTIVE DATA Vital Signs: Vital Signs - 24 hr Temp Pulse Resp BP BP Pulse Ox 05/19/23 03:46 101 H 05/19/23 03:01 101 H 18 95 05/19/23 02:49 98.3 F 106 H 17 145/85 94 L 05/18/23 23:48 92 H 05/18/23 20:00 92 H 05/18/23 19:31 93 H 20 93/68 05/18/23 19:01 98 H 19 93/68 05/18/23 19:00 99 H 22 05/18/23 18:50 87 19 05/18/23 18:40 79 22 05/18/23 18:30 86 20 05/18/23 18:20 83 17 05/18/23 18:14 84 18 95 05/18/23 18:10 86 17 05/18/23 18:03 96 H 20 05/18/23 17:50 79 19 05/18/23 17:40 102 H 21 05/18/23 17:30 84 27 H 05/18/23 17:20 83 19 05/18/23 17:10 94 H 30 H 05/18/23 17:03 97 H 13 05/18/23 16:54 96 H 16 99/63 05/18/23 16:49 89 05/18/23 16:00 112 H 16 99/63 05/18/23 15:00 82 19 99/67 05/18/23 14:00 87 20 109/64 05/18/23 13:03 90 20 92 L 05/18/23 13:00 99 H 20 115/68 05/18/23 12:00 98.0 F 86 20 114/76 94 L 05/18/23 11:00 92 H 15 121/78 05/18/23 10:00 88 15 117/69 05/18/23 09:00 97 H 16 114/77 05/18/23 08:00 97.9 F 103 H 24 112/74 94 L 05/18/23 07:56 94 H 15 126/79 05/18/23 07:00 89 15 126/79 05/18/23 06:54 90 18 94 L 05/18/23 06:00 98.1 F 96 H 15 115/75 Pain Assessment - Last Documented Pain Intensity 0 Intake and Output: Intake & Output 05/16/23 05/17/23 05/18/23 05/19/23 11:59 11:59 11:59 11:59 Intake Total 220 498 Output Total 1000 Balance 220 -502 Weight 62.6 kg Lab Results: Lab Results-Last 24 Hours 05/18/23 Range/Units 04:50 TSH 3rd Generation 0.353 L (0.47-4.68) mIU/L Radiology Exams: Radiology Procedures Category Date Time Status CHEST 1 VIEW (PORTABLE) Stat Exams 05/17/23 13:12 Completed ECHO W/2D AND DOPPLER [US] Routine Exams 05/18/23 07:16 Taken VENOUS BILATERAL EXTREMITY [US] Stat Exams 05/18/23 07:17 Completed Multi-Disciplinary Progress Notes: Multi-Disciplinary Progress Notes 05/19/23 02:06 Respiratory Note by Toma Pérez RT at bedside for scheduled 0100 neb tx. Pt is sleeping comfortably at this time. Pt's family requested to not wake patient for scheduled 0100 neb tx. No neb given at this time. Initialized on 05/19/23 02:06 - END OF NOTE Assessment/Plan (1) Atrial fibrillation with RVR Current Visit: Yes Status: Acute Assessment & Plan: Patient has history of atrial fib Now has RVR likely secondary to RSV infection. Plan rate control Patient was not anticoagulated, likely due to history of falls. I think we should fully anticoagulate at least while in hospital. Note Troponin mildly elevated. Do not suspect acute coronary syndrome This is demand ischemia due to a fib with RVR 05/18: -ECHO/cards consult pending -Continue Eliquis/cardizem gtt until HR controlled Code(s): I48.91 - UNSPECIFIED ATRIAL FIBRILLATION (2) RSV (respiratory syncytial virus infection) Current Visit: Yes Status: Acute Assessment & Plan: RSV positive Severe cough. No fever. Dyspnea. Treatment is symptomatic. Will continue steroids at lower dose. 05/18: -add solumedrol at 40mg bid Code(s): B33.8 - OTHER SPECIFIED VIRAL DISEASES (3) CHF (congestive heart failure) Current Visit: Yes Status: Chronic Assessment & Plan: CHF. EF is not known. CXray suggests mild CHF 1+ edema Will give IV Lasix and observe 05/18: -ECHO pending, cards consult pending -Add IV lasix 40 bid -Venous doppler negative Code(s): I50.9 - HEART FAILURE, UNSPECIFIED (4) HTN (hypertension) Current Visit: Yes Status: Chronic Assessment & Plan: Continue home meds Code(s): I10 - ESSENTIAL (PRIMARY) HYPERTENSION (5) HLD (hyperlipidemia) Current Visit: Yes Status: Chronic Assessment & Plan: Continue home meds Code(s): E78.5 - HYPERLIPIDEMIA, UNSPECIFIED (6) GERD (gastroesophageal reflux disease) Current Visit: Yes Status: Chronic Assessment & Plan: PPI ordered Code(s): K21.9 - GASTRO-ESOPHAGEAL REFLUX DISEASE WITHOUT ESOPHAGITIS (7) Hyponatremia Current Visit: No Status: Acute Assessment & Plan: [id number]. Recheck in am Mild fluid restriction 05/18: -improving Code(s): E87.1 - HYPO-OSMOLALITY AND HYPONATREMIA (8) Pulmonary hypertension Current Visit: No Status: Chronic Assessment & Plan: Continue home meds Code(s): I27.20 - PULMONARY HYPERTENSION, UNSPECIFIED Code(s): I48.91 - UNSPECIFIED ATRIAL FIBRILLATION Code(s): I48.91 - UNSPECIFIED ATRIAL FIBRILLATION (2) RSV (respiratory syncytial virus infection) Current Visit: Yes Status: Acute Code(s): B33.8 - OTHER SPECIFIED VIRAL DISEASES (3) CHF (congestive heart failure) Current Visit: Yes Status: Chronic Code(s): I50.9 - HEART FAILURE, UNSPECIFIED (4) GERD (gastroesophageal reflux disease) Current Visit: Yes Status: Chronic Code(s): K21.9 - GASTRO-ESOPHAGEAL REFLUX DISEASE WITHOUT ESOPHAGITIS (5) HLD (hyperlipidemia) Current Visit: Yes Status: Chronic Code(s): E78.5 - HYPERLIPIDEMIA, UNSPECIFIED (6) HTN (hypertension) Current Visit: Yes Status: Chronic Code(s): I10 - ESSENTIAL (PRIMARY) HYPERTENSION (7) Hyponatremia Current Visit: No Status: Acute Code(s): E87.1 - HYPO-OSMOLALITY AND HYPONATREMIA (8) Pulmonary hypertension Current Visit: No Status: Chronic Code(s): I27.20 - PULMONARY HYPERTENSION, UNSPECIFIED (9) Hypothyroid Current Visit: Yes Status: Acute Code(s): E03.9 - HYPOTHYROIDISM, UNSPECIFIED
[2023-05-19 08:02] VITALS: RESP 16
[2023-05-19] MEDS: Lyrica 50MG PO SCH (08:43)
[2023-05-19] MEDS: ZOCOR 20MG PO SCH (08:43)
[2023-05-19] MEDS: Lopressor 50 MG PO SCH (08:43)
[2023-05-19] MEDS: Protonix 40MG Tablet PO SCH (08:43)
[2023-05-19] MEDS: ELIQUIS 2.5 MG TABLET PO SCH (08:43)
[2023-05-19] MEDS: solu-MEDROL 40 MG, Sterile H2O 10 ml 1 ML IV SCH ×2 (08:44)
[2023-05-19 08:57] VITALS: BP 120/67
[2023-05-19 09:11] LABS: Hematocrit 42.4 % (35-47); Hemoglobin 13.5 g/dL (12.0-16.0); Mean Corpuscular Hemoglobin 29.6 pg (26-32); Mean Corpuscular Hgb Concent. 31.8 g/dL (32-36); Mean Platelet Volume 10.1 fL (7.5-11.0); Platelet Count 161 x10^3/uL (150-450); Red Blood Count 4.56 x10^6/uL (4.1-5.4); Red Cell Distribution Width 17.4 % (11.5-14.0); White Blood Count 9.8 x10^3/uL (4.0-10.5)
[2023-05-19 09:26] LABS: ALBUMIN 3.2 g/dL (3.5-5.0); ANION GAP 12.7 MEQ/L (5-15); BILIRUBIN,TOTAL 0.8 mg/dL (0.2-1.3); Calcium 7.6 mg/dL (8.4-10.2); Creatinine 1 1.03 mg/dL (0.52-1.04); EST GLOMERULAR FILTRATION RATE 52.6 ML/MIN; Potassium 3.4 mmol/L (3.5-5.1); Total Protein 5.9 g/dL (6.3-8.2)
[2023-05-19] MEDS ORDERED: SYNTHROID 50 MCG PO SCH (10:00)
[2023-05-19] MEDS: Lasix 40 MG/4 ML IV SCH (10:39)
[2023-05-19] MEDS: PATIENT OWN MEDICATION PO SCH (10:40)
[2023-05-19 12:43] VITALS: TEMP 98.6; O2SAT 95
--- NOTE | 2023-05-19 13:58 | PCM.DS ---
Discharge Summary Date of Admission: 05/17/23 16:41 Date of Discharge: 05/19/23 Admitting Physician: TARSHA CANALES MD Consults: Consults on Case 05/18/23 07:20 Consult Cardiology ROUTINE Primary Care Provider: ASHLY LAMB Allergies Allergies amlodipine [From Norvasc] Allergy (Verified 05/17/23 13:02) cefuroxime Allergy (Verified 05/17/23 13:02) cephalexin [From Keflex] Allergy (Verified 05/17/23 13:02) gabapentin [From Neurontin] Allergy (Verified 05/17/23 13:02) Sulfa (Sulfonamide Antibiotics) Allergy (Verified 05/17/23 13:02) Hospital Summary - Hospital Course Hospital Course: is a 87 year old female with a PMHX of atrial fib, CHF, HTN, HLD, GERD and pulmonary hypertension who presented to ED 05/17/23 with complaints of dyspnea with severe cough and wheezing. Patient admitted for AFIB RVR secondary to RSV infection, started on Merrem and cardizem drip. Furthermore patient was diagnosed outpatient with enterobacter infection to the BLE which she was being treated for as an OP. During hospital course, patient received cardizem and merrem. Cardiology consulted with recommendations to change carvediolol to metoprolol. She will Follow up with Dr. Sarmiento as OP. TSH level was noted low on lab findings, synthroid decreased to 50mcg with recs to follow up with PCP for re-evaluation. Patient advised to complete levaquin for leg wounds per Dr. Moise. Patient has been cleared by cardiology and requesting discharge today. Patient also advised of low potassium, will send home with potassium for the next few days. Discharge Note New Diagnosis:AFIB RVR, RSV New Medications: metoprolol/dose changed on synthroid to 50mcg/potassium Follow Up: PCP/ cards Latest Assessment & Plan (1) Atrial fibrillation with RVR Current Visit: Yes Status: Acute Assessment & Plan: Patient has history of atrial fib Now has RVR likely secondary to RSV infection. Plan rate control Patient was not anticoagulated, likely due to history of falls. I think we should fully anticoagulate at least while in hospital. Note Troponin mildly elevated. Do not suspect acute coronary syndrome This is demand ischemia due to a fib with RVR 05/18: -ECHO/cards consult pending -Continue Eliquis/cardizem gtt until HR controlled Code(s): I48.91 - UNSPECIFIED ATRIAL FIBRILLATION (2) RSV (respiratory syncytial virus infection) Current Visit: Yes Status: Acute Assessment & Plan: RSV positive Severe cough. No fever. Dyspnea. Treatment is symptomatic. Will continue steroids at lower dose. 05/18: -add solumedrol at 40mg bid Code(s): B33.8 - OTHER SPECIFIED VIRAL DISEASES (3) CHF (congestive heart failure) Current Visit: Yes Status: Chronic Assessment & Plan: CHF. EF is not known. CXray suggests mild CHF 1+ edema Will give IV Lasix and observe 05/18: -ECHO pending, cards consult pending -Add IV lasix 40 bid -Venous doppler negative Code(s): I50.9 - HEART FAILURE, UNSPECIFIED (4) HTN (hypertension) Current Visit: Yes Status: Chronic Assessment & Plan: Continue home meds Code(s): I10 - ESSENTIAL (PRIMARY) HYPERTENSION (5) HLD (hyperlipidemia) Current Visit: Yes Status: Chronic Assessment & Plan: Continue home meds Code(s): E78.5 - HYPERLIPIDEMIA, UNSPECIFIED (6) GERD (gastroesophageal reflux disease) Current Visit: Yes Status: Chronic Assessment & Plan: PPI ordered Code(s): K21.9 - GASTRO-ESOPHAGEAL REFLUX DISEASE WITHOUT ESOPHAGITIS (7) Hyponatremia Current Visit: No Status: Acute Assessment & Plan: [id number]. Recheck in am Mild fluid restriction 05/18: -improving Code(s): E87.1 - HYPO-OSMOLALITY AND HYPONATREMIA (8) Pulmonary hypertension Current Visit: No Status: Chronic Assessment & Plan: Continue home meds I spent 35 minutes [id number] with the patient on the day of discharge pe rforming discharge exam, discussing hospital stay and discharge instructions with patient and caregivers, preparation of discharge records, prescriptions & referral forms and addressing any questions/concerns the patient had as documented above. - Vitals & Intake/Output Vital Signs: Vital Signs Temperature 98.6 F 05/19/23 12:00 Pulse Rate 87 05/19/23 12:00 Respiratory Rate 16 05/19/23 12:00 Blood Pressure 120/67 05/19/23 12:00 O2 Sat by Pulse Oximetry 95 05/19/23 12:00 Intake & Output: Intake & Output 05/17/23 05/18/23 05/19/23 05/20/23 11:59 11:59 11:59 11:59 Intake Total 220 598 Output Total 1600 Balance 220 -1002 Weight 62.6 kg - Lab Result Diagrams: 05/19/23 08:50 05/19/23 08:50 Lab Results-Last 24 Hrs: Lab Results-Last 24 Hours 05/19/23 05/19/23 05/19/23 Range/Units 08:50 08:50 11:18 WBC 9.8 (4.0-10.5) x10^3/uL RBC 4.56 (4.1-5.4) x10^6/uL Hgb 13.5 (12.0-16.0) g/dL Hct 42.4 (35-47) % MCV 93.0 (78-100) fL MCH 29.6 (26-32) pg MCHC 31.8 L (32-36) g/dL RDW 17.4 H (11.5-14.0) % Plt Count 161 (150-450) x10^3/uL MPV 10.1 (7.5-11.0) fL Sodium 134 L (137-145) mmol/L Potassium 3.4 L (3.5-5.1) mmol/L Chloride 102 (98-107) mmol/L Carbon Dioxide 23 (22-30) mmol/L Anion Gap 12.7 (5-15) MEQ/L BUN 39 H (7-17) mg/dL Creatinine 1.03 (0.52-1.04) mg/dL Estimated GFR 52.6 ML/MIN Glucose 228 H (74-106) mg/dL POC Glucometer 181 H (74 to 106) mg/dL Calcium 7.6 L (8.4-10.2) mg/dL Total Bilirubin 0.80 (0.2-1.3) mg/dL AST 27 (14-36) U/L ALT 28 (0-35) U/L Alkaline Phosphatase 42 (38-126) U/L Serum Total Protein 5.9 L (6.3-8.2) g/dL Albumin 3.2 L (3.5-5.0) g/dL Micro Results-Entire Visit: Microbiology 05/17/23 13:29 Blood Culture - Preliminary Blood 05/17/23 13:40 Blood Culture - Preliminary Blood - Radiology Exams Ordered Rad Exams-Entire Visit: Radiology Procedures Category Date Time Status CHEST 1 VIEW (PORTABLE) Stat Exams 05/17/23 13:12 Completed ECHO W/2D AND DOPPLER [US] Routine Exams 05/18/23 07:16 Taken VENOUS BILATERAL EXTREMITY [US] Stat Exams 05/18/23 07:17 Completed - Procedures and Test Procedures and Tests throughout Hospitalization: Therapy Orders & Screens 05/17/23 13:25 Respiratory Therapy Assessment DAILY Comment: 05/17/23 16:49 Oxygen Nasal Cannula 2 lpm Comment: Respiratory Therapy Consult ONCE Comment: Reason For Exam: 05/19/23 07:27 PT Eval & Treat (MD Order) ONCE Reason for Eval:: leg wraps Diagnosis: A fib RVR OT Eval and Treat (MD Order) ONCE Comment: Physician Instructions: Reason For Exam: Diagnosis: A fib RVR Discharge Exam General Appearance: no apparent distress Neurologic Exam: alert, oriented x 3, cooperative Eye Exam: PERRL Ears, Nose, Throat Exam: normal ENT inspection Neck Exam: normal inspection Respiratory Exam: diminished breath sounds, wheezing Cardiovascular Exam: regular rate/rhythm, normal heart sounds, edema (BLE) Gastrointestinal/Abdomen Exam: soft, normal bowel sounds Pelvic Exam: deferred Rectal Exam: deferred Extremity Exam: other (multiple wounds in BLE in various stages of healing) Skin Exam: abrasion Wound Assessment: Skin/Wound Assessment Wound/Incision Assessment Start: 05/17/23 17:25 Text: Status: Active Freq: Q6H Protocol: Document 05/19/23 11:10 [facility] (Rec: 05/19/23 11:15 [facility] [id number]) Wound/Incision Assessment Right Lower Wound Assessment Shift Assessment Wound Type Stasis Ulcer Dressing Status Changed Drainage Amount Minimal Drainage Description Serous Primary Dressing Mepilex Border Left Lower Wound Assessment Shift Assessment Wound Type Stasis Ulcer Dressing Status Changed Drainage Amount Minimal Drainage Description Serous General Appearance Well Approximated Primary Dressing Mepilex Border Wound Photo Photo Taken Yes Date: 05/19/23 Time: 11:10 Comment: PT took photos and placed in chart. Final Diagnosis/Problem List - Final Discharge Diagnosis/Problem (1) Atrial fibrillation with RVR Current Visit: Yes Status: Acute Code(s): I48.91 - UNSPECIFIED ATRIAL FIBRILLATION (2) RSV (respiratory syncytial virus infection) Current Visit: Yes Status: Acute Code(s): B33.8 - OTHER SPECIFIED VIRAL DISEASES (3) CHF (congestive heart failure) Current Visit: Yes Status: Chronic Code(s): I50.9 - HEART FAILURE, UNSPECIFIED (4) GERD (gastroesophageal reflux disease) Current Visit: Yes Status: Chronic Code(s): K21.9 - GASTRO-ESOPHAGEAL REFLUX DISEASE WITHOUT ESOPHAGITIS (5) HLD (hyperlipidemia) Current Visit: Yes Status: Chronic Code(s): E78.5 - HYPERLIPIDEMIA, UNSPECIFIED (6) HTN (hypertension) Current Visit: Yes Status: Chronic Code(s): I10 - ESSENTIAL (PRIMARY) HYPERTENSION (7) Hyponatremia Current Visit: No Status: Acute Code(s): E87.1 - HYPO-OSMOLALITY AND HYPONATREMIA (8) Pulmonary hypertension Current Visit: No Status: Chronic Code(s): I27.20 - PULMONARY HYPERTENSION, UNSPECIFIED (9) Hypothyroid Current Visit: Yes Status: Acute Code(s): E03.9 - HYPOTHYROIDISM, UNSPECIFIED - Discharge Disposition: Home, Self-Care Condition: Stable Prescriptions: New Metoprolol Tartrate 50 mg [Lopressor 50 MG] 50 mg PO BID 30 Days #60 tablet Albuterol 2.5 mg/3 ml Neb [Proventil 2.5 mg/3 ml Neb] 2.5 mg IH Q4H PRN PRN 30 Days #120 amp PRN Reason: Shortness Of Breath/Wheezing Levothyroxine Sodium 50 Mcg [Synthroid 50 Mcg] 50 mcg PO DAILY 30 Days #30 tablet Continue Sildenafil Citrate [Revatio] 20 mg PO TID Pregabalin [Lyrica] 50 mg PO DAILY Atorvastatin Calcium [Lipitor 20MG Tablet] 20 mg PO HS Pregabalin 200 mg PO QHS Omeprazole 20 mg PO DAILY Diclofenac Sodium Gel [Voltaren GEL] 2 gm TP QID Apixaban [Eliquis] 5 mg PO BID Albuterol 2.5 mg/3 ml Neb [Proventil 2.5 mg/3 ml Neb] 2.5 mg IH TID Trazodone HCl 50 mg [Desyrel 50 mg] 50 mg PO HS Prednisone 10 mg [Deltasone 10 mg] 10 mg PO DAILY Hydrocodone/Acetaminophen [[place] 10-325 Tablet] 1 each PO BID PRN PRN PRN Reason: Pain Levofloxacin [Levofloxacin 500 MG Tablet] 500 mg PO DAILY Furosemide 40 mg [Lasix 40 MG] 40 mg PO DAILY Spironolactone [Aldactone] 100 mg PO DAILY Empagliflozin [Jardiance] 10 mg PO DAILY Discontinued carvediloL [Carvedilol] 25 mg PO BID Levothyroxine Sodium 75 mg PO DAILY Instructions: Atrial Fibrillation (DC), Pneumonia, Adult (DC), Respiratory Syncytial Virus, Adult (DC) Follow up with: CAPRI SARMIENTO [CONSULTING PHYSICIAN] - 06/03/23 11:15 am ([facility]) ASHLY LAMB NP [Primary Care Provider] - 05/25/23 1:45 pm Forms: Discharge Instructions
[2023-05-19] MEDS ORDERED: Klor Con PO ONE (13:59)
[2023-05-19 14:07] VITALS: PULSE 98
--- NOTE | 2023-05-20 13:33 | ECHO ---
DATE OF PROCEDURE: 05/18/2023 CLINICAL INFORMATION: Atrial fibrillation and shortness of breath. TECHNIQUE: Transthoracic 2D and M-mode study echocardiogram. The patient underwent 2D echo, M-mode study and color flow mapping which was technically difficult study because of poor acoustic window. However, 2D images suggested normal left ventricle size and normal left ventricular systolic function with estimated left ventricular ejection fraction between 55 and 60%. There was severe left atrial enlargement. There was moderate to severe right atrial enlargement. The right ventricle appears to be within normal limits and appears to be functioning well. There is no evidence of any pericardial effusion. Aortic root size was not well visualized however most likely borderline in size. The mitral valve appears to be with mitral annulus calcification and mild thickening and calcification of mitral valve leaflet especially posterior wall without evidence of any significant stenosis however. The aortic valve appears to be calcified with evidence of moderate aortic stenosis with peak gradient of 28 mm of Mercury and mean gradient of 20 mm of Mercury. The tricuspid valve was not well visualized however there were no obvious abnormalities. Pulmonic valve was not well visualized. There were no obvious abnormalities noted. Color Doppler flow mapping showed mild to moderate mitral regurgitation, mild to moderate tricuspid regurgitation with evidence of mild to moderate pulmonary hypertension. Evidence of moderate aortic stenosis was noted as mentioned above. IMPRESSION: 1) NORMAL LEFT VENTRICLE SIZE AND NORMAL LEFT VENTRICULAR SYSTOLIC FUNCTION. 2) CALCIFIC AORTIC SCLEROSIS WITH EVIDENCE OF MODERATE STENOSIS. 3) RIGHT ATRIAL ENLARGEMENT. 4) MILD TO MODERATE MITRAL REGURGITATION. 5) MILD TO MODERATE TRICUSPID REGURGITATION WITH EVIDENCE OF MILD TO MODERATE PULMONARY HYPERTENSION WITH PEAK SYSTOLIC PRESSURE OF 48 MM OF MERCURY.
== END 2023-05-19 14:38 | disposition home or self-care (01) ==
LOC: ED 12:31 → ICU 16:41
PROVIDERS: ADMIT Internal Medicine; ATTEND Internal Medicine
DX: I48.20 Chronic atrial fibrillation, unspecified (principal); I50.9 Heart failure, unspecified; B97.4 Respiratory syncytial virus as the cause of diseases classified elsewhere; L03.116 Cellulitis of left lower limb; L03.115 Cellulitis of right lower limb; I10 Essential (primary) hypertension; I27.20 Pulmonary hypertension, unspecified; J44.9 Chronic obstructive pulmonary disease, unspecified; E03.9 Hypothyroidism, unspecified; G62.9 Polyneuropathy, unspecified; E87.6 Hypokalemia; E78.5 Hyperlipidemia, unspecified; Z79.899 Other long term (current) drug therapy; Z79.01 Long term (current) use of anticoagulants; K21.9 Gastro-esophageal reflux disease without esophagitis; Z20.828 Contact with and (suspected) exposure to other viral communicable diseases; R60.0 Localized edema
CPT/HCPCS: 0241U; 36000; 36415; 71045; 80053; 82805; 82947; 83605; 83735; 83880; 84145; 84443; 84484; 85025; 85027; 85379; 87040; 93005; 93306; 93970; 94640; 96365; 96367; 96368; 96374; 97161; 99285; G0378; Q3014; J0456; J1940; J2920; J2930; J7609; A9270-GY; J0282

== ENCOUNTER 2023-05-25 15:37 | Emergency (ER) | payer MEDICARE, OTHER ==
[2023-05-25 15:50] VITALS: TEMP 97.6; O2SAT 96
[2023-05-25 16:14] LABS: BASOPHIL % 0.2 % (0.0-0.4); Basophil (Absolute #) 0.02 x10^3/uL (0-0.4); Eosinophil % 0.1 % (0.00-5.0); Eosinophil (Absolute #) 0.01 x10^3/uL (0-0.5); Hematocrit 46.4 % (35-47); Hemoglobin 14.5 g/dL (12.0-16.0); IMMATURE GRAN # 0.14 x10^3u/L (0.00-0.03); IMMATURE GRAN % 1.3 % (0.00-0.4); Lymphocyte (Absolute #) 1.17 x10^3/uL (1.0-4.6); Lymphocytes % 11.2 % (24.0-44.0); Mean Cell Volume 94.7 fL (78-100); Mean Corpuscular Hemoglobin 29.6 pg (26-32); Mean Corpuscular Hgb Concent. 31.3 g/dL (32-36); Mean Platelet Volume 10.3 fL (7.5-11.0); Monocyte (Absolute #) 0.57 x10^3/uL (0.0-1.3); Monocytes % 5.5 % (0.0-12.0); Neutrophil % 81.7 % (36.0-66.0); Platelet Count 160 x10^3/uL (150-450); Red Cell Distribution Width 17.2 % (11.5-14.0); White Blood Count 10.4 x10^3/uL (4.0-10.5)
[2023-05-25 16:29] LABS: ALBUMIN 3.4 g/dL (3.5-5.0); ANION GAP 14.7 MEQ/L (5-15); BILIRUBIN,TOTAL 1.5 mg/dL (0.2-1.3); Creatinine 1 0.98 mg/dL (0.52-1.04); EST GLOMERULAR FILTRATION RATE 55.9 ML/MIN; Potassium 4.7 mmol/L (3.5-5.1); Total Protein 6.1 g/dL (6.3-8.2)
[2023-05-25] MEDS ORDERED: Sodium Chloride 0.9% 500 ML 500 ML IV ONE ×2 (16:51→16:52)
[2023-05-25 17:10] LABS: INR 1.09 (0.8-3.0); PROTIME 11.8 SECONDS (9.4-12.5); PTT 26.8 SECONDS (25.1-36.5)
--- NOTE | 2023-05-25 17:11 | XRAY ---
Indication: Pulseless left lower extremity. Conventional contrast enhanced CTA abdominal aorta with bilateral runoff performed using 120 cc Isovue 370 contrast. 2-D sagittal and coronal reformatted images obtained. Additional 3-D reformatted images obtained using a separate workstation. Comparison: None Abdominal aorta is moderately arteriosclerotic without aneurysm/dissection. Origin/proximal superior mesenteric artery is mildly arteriosclerotic without critical stenosis, poststenotic dilatation, or obstruction. Remaining celiac and inferior mesenteric arteries are normal in CTA appearance. A single renal artery supplies each kidney. Mild arteriosclerotic calcifications at origin of left main renal artery without post stenotic dilatation. Left leg runoff demonstrates minimal arteriosclerotic disease in the common iliac artery without critical stenosis/obstruction.. Widely patent external iliac, common femoral, and deep femoral arteries. Mild diffuse scattered arteriosclerotic calcifications seen throughout the superficial femoral artery. Occlusion at the level of the proximal popliteal artery. No contrast in the remaining popliteal artery or tibioperoneal trunk. Trifurcation vessels are significantly arteriosclerotic with faint contrast in the distal anterior tibial, posterior tibial, and peroneal arteries. Peroneal artery tapers off by lower leg with only contrasted anterior tibial and posterior tibial arteries cross the ankle joint to supply the left foot. Right leg runoff demonstrates minimal arteriosclerotic disease in the common iliac without critical stenosis/obstruction. Widely patent external iliac, common femoral, and deep femoral arteries. Superficial femoral artery demonstrates mild/moderate scattered arteriosclerotic disease without critical stenosis/obstruction. Occlusion at the level of the proximal popliteal artery with no contrast in the remaining popliteal artery and tibioperoneal trunk. Trifurcation vessels demonstrates significant arteriosclerotic disease throughout with faint reconstitution of the mid to distal posterior tibial and peroneal arteries. Anterior tibial artery is predominantly occluded throughout with faint intermittent reconstitution seen just above the ankle. Anterior tibial, peroneal and posterior tibial arteries cross the ankle joint to supply the right foot. Noncontrasted stomach and bowel loops appear nonobstructed. No free fluid/air. Liver, gallbladder, pancreas, spleen, adrenal glands, kidneys, ureters, bladder, and uterus are unremarkable. No pathologic retroperitoneal lymphadenopathy. Lung bases images cardiomegaly and bibasilar subsegmental atelectasis/scarring. Osseous structures demonstrates osteopenia, marked levorotoscoliosis centered at thoracolumbar junction, 1 cm anterolisthesis L4 on L5 on S1 with L4-L5 fusion hardware, and mild degenerative changes both hips. Impression: 1. Arteriosclerotic abdominal aorta without aneurysm/dissection. Additional arteriosclerotic disease superior mesenteric and left main renal arteries without critical stenosis/obstruction. 2. Left leg runoff demonstrates diffuse scattered arteriosclerotic disease greatest in the lower leg. Patent pelvic and femoral arteries. Occlusion proximal popliteal artery with tiny faint reconstitution distal trifurcation arteries. Two-vessel runoff left foot. 3. Right leg runoff also demonstrates diffuse scattered arteriosclerotic disease greatest in lower leg. Patent pelvic and femoral arteries. Occlusion proximal popliteal artery with also tiny faint reconstitution distal trifurcation arteries. Three-vessel runoff right foot. 4. CT findings including cardiomegaly, osteopenia, lumbar levorotoscoliosis, multilevel thoracolumbar degenerative spondylosis, grade 1 anterolisthesis L4 on L5 on S1 with L4-S1 posterior fusion, and bilateral hip degenerative arthropathy.
[2023-05-25 18:33] VITALS: BP 110/75; PULSE 97; RESP 12
--- NOTE | 2023-05-25 18:40 | ERPHSYRPT ---
- History of Present Illness Source: patient, family Exam Limitations: no limitations Patient Subjective Stated Complaint: Pt states "I had my leg arterial doppler and they left one has occlusion. My left leg is swollen cold and black." Triage Nursing Assessment: Pt presented alert and oriented x 3, skin pwd. Pt has cold left lower extremity with no palpable pulse. Physician History: Patient is a 87-year-old female who is on Eliquis for atrial fibrillation who presents to the ER with a cold and blue left lower extremity for [address] 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 CTA of the left lower extremity was recommended at that time per Dr. Braxton. Dr. Bonner called to the ER and recommended to me that patient get a CTA of her lower extremity and be transferred to another facility. Patient has multiple medical problems including atrial fibrillation, congestive heart failure, and pulmonary hypertension. Patient has minimal pain but has decreased sensation in her left lower extremity. Occurred: other (2 days ago) Quality: other (Decree sensation left lower extremity) Severity of Pain-Max: mild Severity of Pain-Current: none Modifying Factors: Improves With: nothing Associated Symptoms: unable to bear weight Allergies/Adverse Reactions: amlodipine [From Norvasc] Allergy (Verified 05/17/23 13:02) cefuroxime Allergy (Verified 05/17/23 13:02) cephalexin [From Keflex] Allergy (Verified 05/17/23 13:02) gabapentin [From Neurontin] Allergy (Verified 05/17/23 13:02) Sulfa (Sulfonamide Antibiotics) Allergy (Verified 05/17/23 13:02) Home Medications: Pregabalin [Lyrica] 50 mg PO DAILY 06/01/17 [History] Sildenafil Citrate [Revatio] 20 mg PO TID 06/01/17 [History] Atorvastatin Calcium [Lipitor 20MG Tablet] 20 mg PO HS 09/06/17 [History] Albuterol 2.5 mg/3 ml Neb [Proventil 2.5 mg/3 ml Neb] 2.5 mg IH TID 06/05/20 [History] Apixaban [Eliquis] 5 mg PO BID 06/05/20 [History] Diclofenac Sodium Gel [Voltaren GEL] 2 gm TP QID 06/05/20 [History] Omeprazole 20 mg PO DAILY 06/05/20 [History] Pregabalin 200 mg PO QHS 06/05/20 [History] Trazodone HCl 50 mg [Desyrel 50 mg] 50 mg PO HS 06/05/20 [History] Hydrocodone/Acetaminophen [[place] 10-325 Tablet] 1 each PO BID PRN PRN 06/07/20 [History] Prednisone 10 mg [Deltasone 10 mg] 10 mg PO DAILY 06/07/20 [History] Empagliflozin [Jardiance] 10 mg PO DAILY 05/17/23 [History] Furosemide 40 mg [Lasix 40 MG] 40 mg PO DAILY 05/17/23 [History] Spironolactone [Aldactone] 100 mg PO DAILY 05/17/23 [History] Hx Tetanus, Diphtheria Vaccination/Date Given: No Hx Influenza Vaccination/Date Given: Yes Hx Pneumococcal Vaccination/Date Given: Yes Immunizations Up to Date: Yes Travel Risk - International Travel Have you traveled outside of the country in past 3 weeks: No - Coronavirus Screening Are you exhibiting any of the following symptoms?: No Close contact with a COVID-19 positive Pt in past 14-21 Days: No - Vaccine Status Have you recieved a Covid-19 vaccination: Yes 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[employer]: [employer] - Vaccination Dates Date of 2cond Vaccination (if applicable): 2020 - Review of Systems Constitutional: No Symptoms Eyes: No Symptoms Ears, Nose, & Throat: No Symptoms Respiratory: No Symptoms, Dyspnea Cardiac: No Symptoms Abdominal/Gastrointestinal: No Symptoms Genitourinary Symptoms: No Symptoms Skin: No Symptoms Neurological: No Symptoms Psychological: No Symptoms Endocrine: No Symptoms Hematologic/Lymphatic: No Symptoms Immunological/Allergic: No Symptoms - Past Medical History Pertinent Past Medical History: Yes Neurological History: No Pertinent History ENT History: No Pertinent History Cardiac History: Arrhythmia, High Cholesterol, Hypertension Respiratory History: Asthma, Bronchitis Endocrine Medical History: No Pertinent History Musculoskeletal History: Osteoarthritis, Osteoporosis GI Medical History: GERD History: No Pertinent History Psycho-Social History: No Pertinent History Female Reproductive Disorders: No Pertinent History Other Medical History: HX OF PULMONARY HTN, ASTHMA/BRONCHITIS. MULTIPLE P.T. INTERVENTIONS FOR W/C. - Past Surgical History Past Surgical History: Yes Neuro Surgical History: No Pertinent History Cardiac: No Pertinent History Respiratory: No Pertinent History Gastrointestinal: No Pertinent History Genitourinary: No Pertinent History Musculoskeletal: Orthopedic Surgery Female Surgical History: No Pertinent History Other Surgical History: back surgery - Social History Smoking Status: Never smoker Exposure to second hand smoke: No Drug Use: none Patient Lives Alone: No - Nursing Vital Signs Nursing Vital Signs: Initial Vital Signs Temperature 97.6 F 05/25/23 15:40 Pulse Rate 119 H 05/25/23 15:40 Respiratory Rate 22 05/25/23 15:40 Blood Pressure 123/99 05/25/23 15:40 O2 Sat by Pulse Oximetry 96 05/25/23 15:40 Pain Scale Pain Intensity 0 Tachycardic - Physical Exam General Appearance: mild distress Eyes, Ears, Nose, Throat Exam: normal ENT inspection, TMs normal, pharynx normal, moist mucous membranes Neck Exam: normal inspection, non-tender, supple, full range of motion, No Brudzinski, No Kernig's, No meningismus Cardiovascular/Respiratory Exam: irregularly irregular (A-fib with mild rapid ventricular response.), rales (Rales one fourth bilaterally) Gastrointestinal/Abdominal Exam: non-tender, soft Back Exam: normal inspection, normal range of motion Legs Exam: left leg: other (Left lower extremity with bluish discoloration, there is no pedal or DP pulse, DKA 3 sensation in all 5 toes) Neuro/Tendon Exam: No normal sensation (Decree sensation in all 5 toes of her left foot) Mental Status Exam: alert, oriented x 3, cooperative Skin Exam: other (Left lower extremity blue with decree sensation) SpO2 Interpretation: normal SpO2: 96 O2 Delivery: Room Air - Course Nursing assessment & vital signs reviewed: Yes EKG Interpreted by Me: RATE (Atrial fibrillation/rate 107/prolonged QTc/low voltage/nonspecific ST-T wave changes) Ordered Tests: Active Orders 24 hr Category Date Time Status CTA ABD/PEL W FEM RUNOFF [CT] Stat Exams 05/25/23 15:48 Completed CBC W DIFF Stat Lab 05/25/23 16:00 Completed CMP Stat Lab 05/25/23 16:00 Completed Lactic Acid Stat Lab 05/25/23 16:10 Completed PROTIME WITH INR Stat Lab 05/25/23 16:50 Completed PTT Stat Lab 05/25/23 16:50 Completed Medication Summary Discontinued Medications Generic Name Dose Route Start Last Admin Trade Name Remigio PRN Reason Stop Dose Admin Sodium Chloride 500 mls @ 500 mls/hr 05/25/23 16:51 05/25/23 17:59 Sodium Chloride 0.9% 500 Ml IV 05/25/23 17:50 Infused .Q1H ONE Infusion Sodium Chloride Confirm 05/25/23 16:52 Sodium Chloride 0.9% 500 Ml Administered 05/25/23 16:53 Dose 500 mls @ ud IV .STK-MED ONE Lab/Rad Data: Laboratory Result Diagrams 05/25/23 16:00 05/25/23 16:00 Laboratory Results 05/25/23 05/25/23 05/25/23 Range/Units 16:50 16:10 16:00 WBC (4.0-10.5) x10^3/uL RBC (4.1-5.4) x10^6/uL Hgb (12.0-16.0) g/dL Hct (35-47) % MCV (78-100) fL MCH (26-32) pg MCHC (32-36) g/dL RDW (11.5-14.0) % Plt Count (150-450) x10^3/uL MPV (7.5-11.0) fL Gran % (36.0-66.0) % Immature Gran % (Auto) (0.00-0.4) % Nucleat RBC Rel Count (0.00-0.1) % Eos # (Auto) (0-0.5) x10^3/uL Immature Gran # (Auto) (0.00-0.03) x10^3u/L Absolute Lymphs (auto) (1.0-4.6) x10^3/uL Absolute Monos (auto) (0.0-1.3) x10^3/uL Absolute Nucleated RBC (0.00-0.01) x10^3u/L Lymphocytes % (24.0-44.0) % Monocytes % (0.0-12.0) % Eosinophils % (0.00-5.0) % Basophils % (0.0-0.4) % Absolute Granulocytes (1.4-6.9) x10^3/uL Basophils # (0-0.4) x10^3/uL PT 11.8 (9.4-12.5) SECONDS INR 1.09 (0.8-3.0) APTT 26.8 (25.1-36.5) SECONDS Sodium 134 L (137-145) mmol/L Potassium 4.7 (3.5-5.1) mmol/L Chloride 99 (98-107) mmol/L Carbon Dioxide 25 (22-30) mmol/L Anion Gap 14.7 (5-15) MEQ/L BUN 36 H (7-17) mg/dL Creatinine 0.98 (0.52-1.04) mg/dL Estimated GFR 55.9 ML/MIN Glucose 119 H (74-106) mg/dL Lactic Acid 1.3 (0.4-2.0) Calcium 9.0 (8.4-10.2) mg/dL Total Bilirubin 1.50 H (0.2-1.3) mg/dL AST 32 (14-36) U/L ALT 30 (0-35) U/L Alkaline Phosphatase 50 (38-126) U/L Serum Total Protein 6.1 L (6.3-8.2) g/dL Albumin 3.4 L (3.5-5.0) g/dL 05/25/ Range/Units 16:00 WBC 10.4 (4.0-10.5) x10^3/uL RBC 4.90 (4.1-5.4) x10^6/uL Hgb 14.5 (12.0-16.0) g/dL Hct 46.4 (35-47) % MCV 94.7 (78-100) fL MCH 29.6 (26-32) pg MCHC 31.3 L (32-36) g/dL RDW 17.2 H (11.5-14.0) % Plt Count 160 (150-450) x10^3/uL MPV 10.3 (7.5-11.0) fL Gran % 81.7 H (36.0-66.0) % Immature Gran % (Auto) 1.3 H (0.00-0.4) % Nucleat RBC Rel Count 0.0 (0.00-0.1) % Eos # (Auto) 0.01 (0-0.5) x10^3/uL Immature Gran # (Auto) 0.14 H (0.00-0.03) x10^3u/L Absolute Lymphs (auto) 1.17 (1.0-4.6) x10^3/uL Absolute Monos (auto) 0.57 (0.0-1.3) x10^3/uL Absolute Nucleated RBC 0.00 (0.00-0.01) x10^3u/L Lymphocytes % 11.2 L (24.0-44.0) % Monocytes % 5.5 (0.0-12.0) % Eosinophils % 0.1 (0.00-5.0) % Basophils % 0.2 (0.0-0.4) % Absolute Granulocytes 8.50 H (1.4-6.9) x10^3/uL Basophils # 0.02 (0-0.4) x10^3/uL PT (9.4-12.5) SECONDS INR (0.8-3.0) APTT (25.1-36.5) SECONDS Sodium (137-145) mmol/L Potassium (3.5-5.1) mmol/L Chloride (98-107) mmol/L Carbon Dioxide (22-30) mmol/L Anion Gap (5-15) MEQ/L BUN (7-17) mg/dL Creatinine (0.52-1.04) mg/dL Estimated GFR ML/MIN Glucose (74-106) mg/dL Lactic Acid (0.4-2.0) Calcium (8.4-10.2) mg/dL Total Bilirubin (0.2-1.3) mg/dL AST (14-36) U/L ALT (0-35) U/L Alkaline Phosphatase (38-126) U/L Serum Total Protein (6.3-8.2) g/dL Albumin (3.5-5.0) g/dL - Progress Progress Note: 05/25/23 18:49 Nursing note and vital signs reviewed. No food or housing insecurity noted. All lab results reviewed and shared with patient/daughter. Ultrasound result reviewed and shared with daughter/mother. CTA of left lower extremity result reviewed and shared with daughter/mother. After multiple calls, [facility] refused patient due to lack of vascular surgery. Dr. Greer,vascular surgeon, at [facility] wants pt transferred to the Hospitalist. 05/25/23 18:[address] Vanegas, hospitalist at [facility]. Unfortunately, there is no open beds at this time and possibly will not be until tomorrow morning. 05/25/23 19:25 Patient actually excepted at [facility] quicker after further phone call per nursing. Counseled pt/family regarding: lab results, diagnosis, need for follow-up, rad results Medical Desision Making - Independent Historian Additional History obtained from: Family - Discussion of managment Care discussed with:: specialist - Diagnostic Testing Diagnostic test were ordered, analyzed, and reviewed by me: Yes Radiological Interpretation: Reviewed by me - Risk of complications The pt has a high risk of morbidity or mortality based on: Need for major surgery in patient with known risk factors - Departure Departure Disposition: Transfer Clinical Impression: Ischemia of left lower extremity Condition: Stable Critical Care Time: Yes Critical Care Time(excluding separately billable procedures): Critical 30-74 mins Referrals: ASHLY LAMB NP [Primary Care Provider] - Follow up/PCP as directed
== END 2023-05-25 19:41 | disposition short-term general hospital (02) ==
LOC: ED 15:37
DX: I70.222 Atherosclerosis of native arteries of extremities with rest pain, left leg (principal); I27.20 Pulmonary hypertension, unspecified; E78.5 Hyperlipidemia, unspecified; I11.0 Hypertensive heart disease with heart failure; I50.9 Heart failure, unspecified; Z79.01 Long term (current) use of anticoagulants; Z79.84 Long term (current) use of oral hypoglycemic drugs; Z79.899 Other long term (current) drug therapy
CPT/HCPCS: 36415; 75635; 80053; 83605; 85025; 85610; 85730; 99285; 99291

== ENCOUNTER 2023-08-10 11:40 | Observation (INO) | payer MEDICARE, OTHER ==
[2023-08-10 12:54] LABS: Absolute Neutrophil Ct (ANC) 12.22 x10^3/uL (1.4-6.9); BASOPHIL % 0.1 % (0.0-0.4); Basophil (Absolute #) 0.01 x10^3/uL (0-0.4); Eosinophil (Absolute #) 0 x10^3/uL (0-0.5); Hematocrit 36.6 % (35-47); Hemoglobin 11.3 g/dL (12.0-16.0); IMMATURE GRAN # 0.09 x10^3u/L (0.00-0.03); IMMATURE GRAN % 0.6 % (0.00-0.4); Lymphocyte (Absolute #) 1.02 x10^3/uL (1.0-4.6); Lymphocytes % 7.2 % (24.0-44.0); Mean Cell Volume 95.6 fL (78-100); Mean Corpuscular Hemoglobin 29.5 pg (26-32); Mean Corpuscular Hgb Concent. 30.9 g/dL (32-36); Monocyte (Absolute #) 0.79 x10^3/uL (0.0-1.3); Monocytes % 5.6 % (0.0-12.0); Neutrophil % 86.5 % (36.0-66.0); Platelet Count 163 x10^3/uL (150-450); Red Blood Count 3.83 x10^6/uL (4.1-5.4); White Blood Count 14.1 x10^3/uL (4.0-10.5)
[2023-08-10 13:08] LABS: ALBUMIN 3.4 g/dL (3.5-5.0); ANION GAP 11.2 MEQ/L (5-15); BILIRUBIN,TOTAL 1.1 mg/dL (0.2-1.3); Calcium 8.4 mg/dL (8.4-10.2); Creatinine 1 0.96 mg/dL (0.52-1.04); EST GLOMERULAR FILTRATION RATE 57.3 ML/MIN; Potassium 4.5 mmol/L (3.5-5.1); Total Protein 5.8 g/dL (6.3-8.2)
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
--- NOTE | 2023-08-10 14:19 | XRAY ---
Indication: Swelling and discoloration following fall 2 days ago. Comparison: None 2 view right lower leg demonstrates osteopenia and extensive scattered vascular calcifications. No other bony, articular, or soft tissue abnormalities.
[2023-08-10] MEDS ORDERED: Levofloxacin 500MG/100ML D5W 500 MG/100 ML BAG IV ONE (16:07)
[2023-08-10] MEDS: Levofloxacin 500MG/100ML D5W 500 MG/100 ML BAG IV STA (16:08)
[2023-08-10] MEDS: Sodium Chloride 0.9% 1000 ML 1,000 ML IV SCH (16:08)
--- NOTE | 2023-08-10 16:56 | PCM.HP ---
History of Present Illness - Chief Complaint Chief Complaint: BLE edema/weeping/ LLE pain Date: 08/10/23 History of Present Illness: is a 87 year old female with a pmhx of AFIB, CHF, HLD, pulmonary HTN, hypothyroidism, hypotension, OA, and GERD who presented to ED 08/10/23 with complaints of LLE pain after tripping over a shop vac cord on 08/08/23. She does have a history of venous stasis with multiple open areas to BLE for which she is getting wound care in [place] with dressing changes QOD. She reports that the pain to LLE started today as well as increased edema to her BLE with weeping. Denies fever,cough, sob, cp, abdominal pain, UGALDE, dizziness, N/V/D. Upon arrival in ED, patient tachycardic, afebrile, and mildly hypotensive. Xray of the Tib/Fib demonstrating OP and extensive scattered vascular calcifications. Lab findings remarkable for leukocytosis with WBC at 14.1, normocytic anemia with Hgb at 11.3, BNP at 3720, and BUN at 33. Podiatry consulted in ED with recommendations for IV abx for the next 24 hours as well as diuresis and bilateral compression dressings. Patient given bumex, lopressor, and levaquin in ED. Patient admitted for cellulitis. - Review of Systems Constitutional: No Symptoms Eyes: No Symptoms Ears, Nose, & Throat: No Symptoms Respiratory: No Symptoms Cardiac: No Symptoms Abdominal/Gastrointestinal: No Symptoms Genitourinary Symptoms: No Symptoms Musculoskeletal: No Symptoms Skin: Cellulitis (LLE), Skin Lesions (skin tear to right and left calf/right knee) Neurological: No Symptoms Psychological: No Symptoms Endocrine: No Symptoms Hematologic/Lymphatic: No Symptoms Immunological/Allergic: No Symptoms Medications & Allergies Home Medications: Home Medication List Pregabalin [Lyrica] 50 mg PO DAILY 06/01/17 [History Confirmed 08/10/23] Sildenafil Citrate [Revatio] 20 mg PO TID 06/01/17 [History Confirmed 08/10/23] Atorvastatin Calcium [Lipitor 20MG Tablet] 20 mg PO HS 09/06/17 [History Confirmed 08/10/23] Apixaban [Eliquis] 2.5 mg PO BID 06/05/20 [History Confirmed 08/10/23] Omeprazole 20 mg PO DAILY 06/05/20 [History Confirmed 08/10/23] Pregabalin 200 mg PO QHS 06/05/20 [History Confirmed 08/10/23] Trazodone HCl 50 mg [Desyrel 50 mg] 50 mg PO HS 06/05/20 [History Confirmed 08/10/23] Hydrocodone/Acetaminophen [[place] 10-325 Tablet] 1 each PO BID PRN PRN 06/07/20 [History Confirmed 08/10/23] Prednisone 10 mg [Deltasone 10 mg] 10 mg PO DAILY 06/07/20 [History Confirmed 08/10/23] Empagliflozin [Jardiance] 10 mg PO DAILY 05/17/23 [History Confirmed 08/10/23] Spironolactone [Aldactone] 100 mg PO DAILY 05/17/23 [History Confirmed 08/10/23] Levothyroxine Sodium 50 Mcg [Synthroid 50 Mcg] 50 mcg PO DAILY 30 Days #30 tablet 05/19/23 [Rx Confirmed 08/10/23] Metoprolol Tartrate 50 mg [Lopressor 50 MG] 50 mg PO BID 30 Days #60 tablet 05/19/23 [Rx Confirmed 08/10/23] Bumetanide 1 mg [Bumex 1 mg] 1 mg PO DAILY 07/10/23 [History Confirmed 08/10/23] Midodrine HCl 1 tablet PO BID 07/10/23 [History Confirmed 08/10/23] Allergies/Adverse Reactions: Allergies Allergy/AdvReac Type Severity Reaction Status Date / Time amlodipine [From Norvasc] Allergy Verified 08/10/23 12:27 cefuroxime Allergy Verified 08/10/23 12:27 cephalexin [From Keflex] Allergy Verified 08/10/23 12:27 gabapentin [From Neurontin] Allergy Verified 08/10/23 12:27 Sulfa (Sulfonamide Allergy Verified 08/10/23 12:27 Antibiotics) - Past Medical History Past Medical History: Yes Neurological History: No Pertinent History ENT History: No Pertinent History Cardiac History: Arrhythmia, Congestive Heart Failure, High Cholesterol, Hypertension Respiratory History: Bronchitis Endocrine Medical History: No Pertinent History Musculoskelatal History: Osteoarthritis, Osteoporosis GI Medical History: GERD History: No Pertinent History Pyscho-Social History: No Pertinent History Reproductive Disorders: No Pertinent History Comment: HX OF PULMONARY HTN, ASTHMA/BRONCHITIS. MULTIPLE P.T. INTERVENTIONS FOR WOUND CARE. - Past Surgical History Past Surgical History: Yes Neuro Surgical History: No Pertinent History Cardiac History: No Pertinent History Respiratory Surgery: No Pertinent History GI Surgical History: No Pertinent History Genitourinary Surgical Hx: No Pertinent History Musculskeletal Surgical Hx: Orthopedic Surgery Female Surgical History: No Pertinent History Other Surgical History: back surgery. ANGIOGRAM - Social History Smoking Status: Never smoker Exposure to second hand smoke: No Alcohol: None Drug Use: none - Social Determinants of Health Will the patient participate in the screening: Yes Do you worry about a steady place to live?: No In the past 12 months,have you had to go without utilities?: No Have you or anyone in your house had to go without enough: No Transportation Issues: No Has anyone in your support network made you feel unsafe?: No Does the patient want assistance with any of the above?: No - Physical Exam Vital Signs: Vital Signs - 24 hr Temp Pulse Resp BP BP Pulse Ox 08/10/23 16:30 102 H 17 101/66 08/10/23 16:23 107 H 17 84/60 08/10/23 16:22 100 H 21 08/10/23 16:10 99 H 17 99/71 08/10/23 16:09 94 L 08/10/23 16:00 104 H 14 104/82 08/10/23 15:50 91 H 19 98/67 08/10/23 15:40 94 H 18 99/75 08/10/23 15:30 101 H 18 97/67 08/10/23 15:20 101 H 18 83/69 08/10/23 15:10 106 H 25 H 97/71 08/10/23 14:50 120 H 22 93/62 08/10/23 14:40 115 H 21 72/52 08/10/23 14:30 117 H 20 86/67 08/10/23 14:01 113 H 22 104/78 08/10/23 13:30 119 H 17 100/69 08/10/23 13:22 108 H 18 97/65 08/10/23 12:00 98.1 F 135 H 20 101/63 94 L General Appearance: no apparent distress Neurologic Exam: alert, oriented x 3, cooperative Eye Exam: PERRL/EOMI Ears, Nose, Throat Exam: normal ENT inspection Neck Exam: normal inspection Respiratory Exam: normal breath sounds, lungs clear Cardiovascular Exam: tachycardia Gastrointestinal/Abdomen Exam: soft, normal bowel sounds Pelvic Exam: not done Rectal Exam: deferred Back Exam: normal inspection Extremity Exam: inflammation, pedal edema, swelling, other (skin tear to right and left calf/right knee erythema to LLE, open areas with serous drainage) Skin Exam: warm, abrasion (skin tear to right and left calf/right knee erythema to LLE, open areas with serous drainage) Results - Labs Lab/Micro Results: Lab Results-Last 24 Hours 08/10/23 08/10/23 08/10/23 Range/Units 12:45 12:46 12:46 WBC 14.1 H (4.0-10.5) x10^3/uL RBC 3.83 L (4.1-5.4) x10^6/uL Hgb 11.3 L (12.0-16.0) g/dL Hct 36.6 (35-47) % MCV 95.6 (78-100) fL MCH 29.5 (26-32) pg MCHC 30.9 L (32-36) g/dL RDW 16.0 H (11.5-14.0) % Plt Count 163 (150-450) x10^3/uL MPV 10.0 (7.5-11.0) fL Gran % 86.5 H (36.0-66.0) % Immature Gran % (Auto) 0.6 H (0.00-0.4) % Nucleat RBC Rel Count 0.0 (0.00-0.1) % Eos # (Auto) 0 (0-0.5) x10^3/uL Immature Gran # (Auto) 0.09 H (0.00-0.03) x10^3u/L Absolute Lymphs (auto) 1.02 (1.0-4.6) x10^3/uL Absolute Monos (auto) 0.79 (0.0-1.3) x10^3/uL Absolute Nucleated RBC 0.00 (0.00-0.01) x10^3u/L Lymphocytes % 7.2 L (24.0-44.0) % Monocytes % 5.6 (0.0-12.0) % Eosinophils % 0.0 (0.00-5.0) % Basophils % 0.1 (0.0-0.4) % Absolute Granulocytes 12.22 H (1.4-6.9) x10^3/uL Basophils # 0.01 (0-0.4) x10^3/uL Sodium 136 (135-145) mmol/L Potassium 4.5 (3.5-5.1) mmol/L Chloride 106 (98-107) mmol/L Carbon Dioxide 23 (22-30) mmol/L Anion Gap 11.2 (5-15) MEQ/L BUN 33 H (7-17) mg/dL Creatinine 0.96 (0.52-1.04) mg/dL Estimated GFR 57.3 ML/MIN Glucose 127 H (74-106) mg/dL Lactic Acid (0.4-2.0) Calcium 8.4 (8.4-10.2) mg/dL Total Bilirubin 1.10 (0.2-1.3) mg/dL AST 21 (14-36) U/L ALT 20 (0-35) U/L Alkaline Phosphatase 58 (38-126) U/L NT-Pro-B Natriuret Pep 3720 (<300) pg/mL Serum Total Protein 5.8 L (6.3-8.2) g/dL Albumin 3.4 L (3.5-5.0) g/dL 08/10/23 Range/Units 13:49 WBC (4.0-10.5) x10^3/uL RBC (4.1-5.4) x10^6/uL Hgb (12.0-16.0) g/dL Hct (35-47) % MCV (78-100) fL MCH (26-32) pg MCHC (32-36) g/dL RDW (11.5-14.0) % Plt Count (150-450) x10^3/uL MPV (7.5-11.0) fL Gran % (36.0-66.0) % Immature Gran % (Auto) (0.00-0.4) % Nucleat RBC Rel Count (0.00-0.1) % Eos # (Auto) (0-0.5) x10^3/uL Immature Gran # (Auto) (0.00-0.03) x10^3u/L Absolute Lymphs (auto) (1.0-4.6) x10^3/uL Absolute Monos (auto) (0.0-1.3) x10^3/uL Absolute Nucleated RBC (0.00-0.01) x10^3u/L Lymphocytes % (24.0-44.0) % Monocytes % (0.0-12.0) % Eosinophils % (0.00-5.0) % Basophils % (0.0-0.4) % Absolute Granulocytes (1.4-6.9) x10^3/uL Basophils # (0-0.4) x10^3/uL Sodium (135-145) mmol/L Potassium (3.5-5.1) mmol/L Chloride (98-107) mmol/L Carbon Dioxide (22-30) mmol/L Anion Gap (5-15) MEQ/L BUN (7-17) mg/dL Creatinine (0.52-1.04) mg/dL Estimated GFR ML/MIN Glucose (74-106) mg/dL Lactic Acid 1.0 (0.4-2.0) Calcium (8.4-10.2) mg/dL Total Bilirubin (0.2-1.3) mg/dL AST (14-36) U/L ALT (0-35) U/L Alkaline Phosphatase (38-126) U/L NT-Pro-B Natriuret Pep (<300) pg/mL Serum Total Protein (6.3-8.2) g/dL Albumin (3.5-5.0) g/dL - Radiology Impressions Radiology Exams & Impressions: Radiology Procedures Category Date Time Status LOWER LEG Stat Exams 08/10/23 13:41 Completed Assessment/Plan (1) Left leg cellulitis Current Visit: Yes Status: Acute Assessment & Plan: -Cellulitis vs venous stasis -Podiatry consulted with recs for IV abx for the next 24 hours as well as diuresis -Previous wound cultures/sensitivity reviewed -Levaquin initiated n ED (patient with multiple allergies), will continue -Bumex -Check PCT, LA, ESR, CRP -Blood cultures ordered and pending/wound culture drainage -Xray of tib/fib RLE with no acute findings Code(s): L03.116 - CELLULITIS OF LEFT LOWER LIMB (2) Atrial fibrillation Current Visit: Yes Status: Acute Assessment & Plan: -EKG with AFIB HR 117, right axis deviation, no ST elevations/deviation -IV lopressor 2.5mg given in ED -Continue home meds Eliquis/metoprolol Code(s): I48.91 - UNSPECIFIED ATRIAL FIBRILLATION (3) Venous stasis of both lower extremities Current Visit: Yes Status: Acute Assessment & Plan: -see cellulitis Code(s): I87.8 - OTHER SPECIFIED DISORDERS OF VEINS (4) Hypothyroid Current Visit: No Status: Acute Assessment & Plan: -TSH -Continue synthroid Code(s): E03.9 - HYPOTHYROIDISM, UNSPECIFIED (5) CHF (congestive heart failure) Current Visit: No Status: Chronic Assessment & Plan: -Bumex given in ED, will continue -Recent echo 05/18/23: EF 55% IMPRESSION: 1) TECHNICALLY DIFFICULT STUDY BECAUSE POOR ACOUSTIC WINDOW. 2) NORMAL LEFT VENTRICLE SIZE WITH MOST LIKELY NORMAL LEFT VENTRICULAR SYSTOLIC FUNCTION. 3) MILD CONCENTRIC LEFT VENTRICULAR HYPERTROPHY. 4) SIGNIFICANT ATRIAL ENLARGEMENT. 5) CALCIFIC AORTIC SCLEROSIS WITH EVIDENCE OF MILD TO MODERATE AORTIC STENOSIS. 6) MILD TO MODERATE MITRAL REGURGITATION. 7) MILD TO MODERATE TRICUSPID REGURGITATION WITH EVIDENCE OF MILD TO MODERATE PULMONARY HYPERTENSION. Code(s): I50.9 - HEART FAILURE, UNSPECIFIED (6) HLD (hyperlipidemia) Current Visit: No Status: Chronic Assessment & Plan: -Continue statin Code(s): E78.5 - HYPERLIPIDEMIA, UNSPECIFIED (7) Pulmonary hypertension Current Visit: No Status: Chronic Assessment & Plan: -continue sildenifil Code(s): I27.20 - PULMONARY HYPERTENSION, UNSPECIFIED (8) GERD (gastroesophageal reflux disease) Current Visit: Yes Status: Acute Assessment & Plan: -Protonix Code(s): K21.9 - GASTRO-ESOPHAGEAL REFLUX DISEASE WITHOUT ESOPHAGITIS
[2023-08-10] MEDS ORDERED: Zofran 4 MG/2 ML VIAL IV PRN (16:59)
[2023-08-10] MEDS: Lopressor 50 MG PO SCH (18:15)
[2023-08-10 18:54] LABS: PROCALCITONIN 0.273 ng/mL (0.030-0.080); TSH, 3RD Generation 2.6 mIU/L (0.47-4.68)
[2023-08-10] MEDS: MIDODRINE HCL 2.5 MG PO SCH (21:30)
[2023-08-10] MEDS ORDERED: ELIQUIS 2.5 MG TABLET ONE (21:37)
[2023-08-10] MEDS ORDERED: LYRICA 100MG ONE (21:38)
[2023-08-10] MEDS ORDERED: ZOCOR 20MG ONE (21:39)
[2023-08-10] MEDS: DESYREL 50 MG PO SCH (22:00)
[2023-08-10] MEDS ORDERED: NON-FORMULARY ITEM (Atorvastatin Calcium 20 MG Tab) PO SCH (22:00)
[2023-08-10] MEDS: PREGABALIN 200 MG PO SCH (22:12)
[2023-08-10] MEDS: SILDENAFIL CITRATE 20 MG PO SCH (22:13)
[2023-08-10] MEDS: ZOCOR 20MG PO SCH (22:14)
[2023-08-10] MEDS: NON-FORMULARY ITEM (Apixaban [Eliquis] 5 MG Tablet) PO SCH (22:14)
[2023-08-10] MEDS: NORCO 7.5/325 MG TAB PO PRN (22:19)
--- NOTE | 2023-08-11 05:23 | PCM.NOTE ---
Date and Time: 08/11/23516 Subjective Assessment: HPI: is a 87 year old female with a pmhx of AFIB, CHF, HLD, pulmonary HTN, hypothyroidism, hypotension, OA, and GERD who presented to ED 08/10/23 with complaints of LLE pain after tripping over a shop vac cord on 08/08/23 admitted with cellulitis left leg and afib rvr. Xray of the Tib/Fib demonstrating OP and extensive scattered vascular calcifications. 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 She recently had angiogram that showed she has arterial vascular disease in her legs as well. AFIB is chronic, was given lopressor in ED, home medications resumed. Podiatry consulted with recommendations for IV abx/compression dressings. Current treatment for cellulitis with Levaquin/diuresis/ elevation. Patient declines compression dressings at this time. 08/11/23: Met with patient and daughter Emely at bedside. Patient endorsing improvement in pain to BLE. Edema mildly improved. Patient is agreeable to compression dressings. Discussed lab finding, WBC is trending down. Wound culture x 2 of left/right with gram negative ID, sensitivity pending. Plan to continue on Levaquin/diuresis. Will follow cultures. Add triamcinolone cream. - Review of Systems Constitutional: No Symptoms Eyes: No Symptoms Ears, Nose, & Throat: No Symptoms Respiratory: Short Of Breath Cardiac: No Symptoms Abdominal/Gastrointestinal: No Symptoms Genitourinary Symptoms: No Symptoms Musculoskeletal: No Symptoms Skin: Cellulitis, Skin Lesions ((LLE), Skin Lesions (skin tear to right and left calf/right knee)) Neurological: No Symptoms Psychological: No Symptoms Endocrine: No Symptoms Hematologic/Lymphatic: No Symptoms Immunological/Allergic: No Symptoms Objective Exam General Appearance: no apparent distress Neurologic Exam: alert, oriented x 3, cooperative Skin Exam: normal color Wound Assessment: Skin/Wound Assessment Wound/Incision Assessment Start: 08/10/23 17:55 Text: Status: Active Freq: Q6H Protocol: Document 08/11/23 00:14 MP (Rec: 08/11/23 00:31 MP [id number]) Wound/Incision Assessment Right Lower Posterior Wound Assessment Shift Assessment Wound Stage Non Pressure Wound Left Upper Lateral Arm Wound Assessment Shift Assessment Wound Type Skin Tear Dressing Status Dry & Intact Surrounding Tissue Purple Right Lower Posterior Lateral Wound Assessment Shift Assessment Wound Stage Non Pressure Wound Left Lower Posterior Wound Assessment Shift Assessment Wound Type Pressure Ulcer Wound Stage Non Pressure Wound Dressing Status Dry & Intact Left Lateral Knee Wound Assessment Shift Assessment Wound Type Skin Tear Left Knee Wound Assessment Shift Assessment Wound Type Skin Tear Left Calf Wound Assessment Shift Assessment Wound Type cellulitis Drainage Amount Minimal Surrounding Tissue Dark Red,Purple Right Lower Calf Wound Assessment Shift Assessment Wound Stage Non Pressure Wound Surrounding Tissue Purple Right Knee Wound Assessment Shift Assessment Wound Type Skin Tear Wound Photo Photo Taken Yes Comment: Josh consulted with pt, pt goes to wound clinic in [place] for wounds to her legs Eye Exam: PERRL Ears, Nose, Throat Exam: normal ENT inspection Neck Exam: normal inspection Respiratory Exam: normal breath sounds, lungs clear Cardiovascular Exam: tachycardia Gastrointestinal/Abdomen Exam: soft, normal bowel sounds Extremity Exam: inflammation, limited range of motion, swelling, other ((skin tear to right and left calf/right knee erythema/purple discoloration to LLE, open areas with serous drainage)) Back Exam: normal inspection Pelvic Exam: deferred Rectal Exam: deferred OBJECTIVE DATA Vital Signs: Vital Signs - 24 hr Temp Pulse Resp BP BP Pulse Ox 08/11/23 04:01 141/101 08/11/23 04:00 98.1 F 140 H 17 101/62 99 08/11/23 00:00 98.1 F 79 17 97/53 98 08/10/23 19:52 98.0 F 114 H 20 89/55 96 08/10/23 19:40 96 08/10/23 18:58 94 L 08/10/23 18:08 97 08/10/23 16:59 97 08/10/23 16:55 96.3 F 110 H 18 113/61 99 08/10/23 16:30 102 H 17 101/66 08/10/23 16:23 107 H 17 84/60 08/10/23 16:22 100 H 21 08/10/23 16:10 99 H 17 99/71 08/10/23 16:00 104 H 14 104/82 08/10/23 15:50 91 H 19 98/67 08/10/23 15:40 94 H 18 99/75 08/10/23 15:30 101 H 18 97/67 08/10/23 15:20 101 H 18 83/69 08/10/23 15:10 106 H 25 H 97/71 08/10/23 14:50 120 H 22 93/62 08/10/23 14:40 115 H 21 72/52 08/10/23 14:30 117 H 20 86/67 08/10/23 14:01 113 H 22 104/78 08/10/23 13:30 119 H 17 100/69 08/10/23 13:22 108 H 18 97/65 08/10/23 12:00 98.1 F 135 H 20 101/63 94 L Pain Assessment - Last Documented Pain Intensity 8 Pain Scale Used 0-10 Pain Scale Intake and Output: Intake & Output 08/08/23 08/09/23 08/10/23 08/11/23 11:59 11:59 11:59 11:59 Intake Total 480 Output Total 800 Balance -320 Weight 61 kg Lab Results: Lab Results-Last 24 Hours 08/10/23 08/10/23 08/10/23 Range/Units 12:45 12:46 12:46 WBC 14.1 H (4.0-10.5) x10^3/uL RBC 3.83 L (4.1-5.4) x10^6/uL Hgb 11.3 L (12.0-16.0) g/dL Hct 36.6 (35-47) % MCV 95.6 (78-100) fL MCH 29.5 (26-32) pg MCHC 30.9 L (32-36) g/dL RDW 16.0 H (11.5-14.0) % Plt Count 163 (150-450) x10^3/uL MPV 10.0 (7.5-11.0) fL Gran % 86.5 H (36.0-66.0) % Immature Gran % (Auto) 0.6 H (0.00-0.4) % Nucleat RBC Rel Count 0.0 (0.00-0.1) % Eos # (Auto) 0 (0-0.5) x10^3/uL Immature Gran # (Auto) 0.09 H (0.00-0.03) x10^3u/L Absolute Lymphs (auto) 1.02 (1.0-4.6) x10^3/uL Absolute Monos (auto) 0.79 (0.0-1.3) x10^3/uL Absolute Nucleated RBC 0.00 (0.00-0.01) x10^3u/L Lymphocytes % 7.2 L (24.0-44.0) % Monocytes % 5.6 (0.0-12.0) % Eosinophils % 0.0 (0.00-5.0) % Basophils % 0.1 (0.0-0.4) % Absolute Granulocytes 12.22 H (1.4-6.9) x10^3/uL Basophils # 0.01 (0-0.4) x10^3/uL ESR (0-20) mm/hr Sodium 136 (135-145) mmol/L Potassium 4.5 (3.5-5.1) mmol/L Chloride 106 (98-107) mmol/L Carbon Dioxide 23 (22-30) mmol/L Anion Gap 11.2 (5-15) MEQ/L BUN 33 H (7-17) mg/dL Creatinine 0.96 (0.52-1.04) mg/dL Estimated GFR 57.3 ML/MIN Glucose 127 H (74-106) mg/dL Lactic Acid (0.4-2.0) Calcium 8.4 (8.4-10.2) mg/dL Total Bilirubin 1.10 (0.2-1.3) mg/dL AST 21 (14-36) U/L ALT 20 (0-35) U/L Alkaline Phosphatase 58 (38-126) U/L NT-Pro-B Natriuret Pep 3720 (<300) pg/mL Serum Total Protein 5.8 L (6.3-8.2) g/dL Albumin 3.4 L (3.5-5.0) g/dL Procalcitonin (0.030-0.080) ng/mL TSH 3rd Generation (0.47-4.68) mIU/L 08/10/23 08/10/23 08/10/23 Range/Units 13:49 17:48 Unknown WBC (4.0-10.5) x10^3/uL RBC (4.1-5.4) x10^6/uL Hgb (12.0-16.0) g/dL Hct (35-47) % MCV (78-100) fL MCH (26-32) pg MCHC (32-36) g/dL RDW (11.5-14.0) % Plt Count (150-450) x10^3/uL MPV (7.5-11.0) fL Gran % (36.0-66.0) % Immature Gran % (Auto) (0.00-0.4) % Nucleat RBC Rel Count (0.00-0.1) % Eos # (Auto) (0-0.5) x10^3/uL Immature Gran # (Auto) (0.00-0.03) x10^3u/L Absolute Lymphs (auto) (1.0-4.6) x10^3/uL Absolute Monos (auto) (0.0-1.3) x10^3/uL Absolute Nucleated RBC (0.00-0.01) x10^3u/L Lymphocytes % (24.0-44.0) % Monocytes % (0.0-12.0) % Eosinophils % (0.00-5.0) % Basophils % (0.0-0.4) % Absolute Granulocytes (1.4-6.9) x10^3/uL Basophils # (0-0.4) x10^3/uL ESR 32 H (0-20) mm/hr Sodium (135-145) mmol/L Potassium (3.5-5.1) mmol/L Chloride (98-107) mmol/L Carbon Dioxide (22-30) mmol/L Anion Gap (5-15) MEQ/L BUN (7-17) mg/dL Creatinine (0.52-1.04) mg/dL Estimated GFR ML/MIN Glucose (74-106) mg/dL Lactic Acid 1.0 (0.4-2.0) Calcium (8.4-10.2) mg/dL Total Bilirubin (0.2-1.3) mg/dL AST (14-36) U/L ALT (0-35) U/L Alkaline Phosphatase (38-126) U/L NT-Pro-B Natriuret Pep (<300) pg/mL Serum Total Protein (6.3-8.2) g/dL Albumin (3.5-5.0) g/dL Procalcitonin 0.273 H (0.030-0.080) ng/mL TSH 3rd Generation 2.600 (0.47-4.68) mIU/L Radiology Exams: Radiology Procedures Category Date Time Status CHEST 1 VIEW (PORTABLE) Routine Exams 08/10/23 17:37 Taken LOWER LEG Stat Exams 08/10/23 13:41 Completed Assessment/Plan (1) Left leg cellulitis Current Visit: Yes Status: Acute Assessment & Plan: (1) Left leg cellulitis Current Visit: Yes Status: Acute Assessment & Plan: -Cellulitis vs venous stasis -Podiatry consulted with recs for IV abx for the next 24 hours as well as diuresis -Previous wound cultures/sensitivity reviewed -Levaquin initiated n ED (patient with multiple allergies), will continue -Bumex -Check PCT, LA, ESR, CRP -Blood cultures ordered and pending/wound culture drainage -Xray of tib/fib RLE with no acute findings 08/10: -Wound culture l/r LE drainage with gram - ID, sensitivity pending -Continue Levaquin -Continue diuresis -add triamcinolone topical Code(s): L03.116 - CELLULITIS OF LEFT LOWER LIMB (2) Atrial fibrillation Current Visit: Yes Status: Acute Assessment & Plan: -EKG with AFIB HR 117, right axis deviation, no ST elevations/deviation -IV lopressor 2.5mg given in ED -Continue home meds Eliquis/metoprolol Code(s): I48.91 - UNSPECIFIED ATRIAL FIBRILLATION (3) Venous stasis of both lower extremities Current Visit: Yes Status: Acute Assessment & Plan: -see cellulitis Code(s): I87.8 - OTHER SPECIFIED DISORDERS OF VEINS (4) Hypothyroid Current Visit: No Status: Acute Assessment & Plan: -TSH -Continue synthroid Code(s): E03.9 - HYPOTHYROIDISM, UNSPECIFIED (5) CHF (congestive heart failure) Current Visit: No Status: Chronic Assessment & Plan: -Bumex given in ED, will continue -Recent echo 05/18/23: EF 55% IMPRESSION: 1) TECHNICALLY DIFFICULT STUDY BECAUSE POOR ACOUSTIC WINDOW. 2) NORMAL LEFT VENTRICLE SIZE WITH MOST LIKELY NORMAL LEFT VENTRICULAR SYSTOLIC FUNCTION. 3) MILD CONCENTRIC LEFT VENTRICULAR HYPERTROPHY. 4) SIGNIFICANT ATRIAL ENLARGEMENT. 5) CALCIFIC AORTIC SCLEROSIS WITH EVIDENCE OF MILD TO MODERATE AORTIC STENOSIS. 6) MILD TO MODERATE MITRAL REGURGITATION. 7) MILD TO MODERATE TRICUSPID REGURGITATION WITH EVIDENCE OF MILD TO MODERATE PULMONARY HYPERTENSION. Code(s): I50.9 - HEART FAILURE, UNSPECIFIED (6) HLD (hyperlipidemia) Current Visit: No Status: Chronic Assessment & Plan: -Continue statin Code(s): E78.5 - HYPERLIPIDEMIA, UNSPECIFIED (7) Pulmonary hypertension Current Visit: No Status: Chronic Assessment & Plan: -continue sildenifil Code(s): I27.20 - PULMONARY HYPERTENSION, UNSPECIFIED (8) GERD (gastroesophageal reflux disease) Current Visit: Yes Status: Acute Assessment & Plan: -Protonix VTE: Eliquis PPI: protonix Dispo: 1-2 days Code(s): L03.116 - CELLULITIS OF LEFT LOWER LIMB (2) Atrial fibrillation Current Visit: Yes Status: Acute Code(s): I48.91 - UNSPECIFIED ATRIAL FIBRILLATION (3) Venous stasis of both lower extremities Current Visit: Yes Status: Acute Code(s): I87.8 - OTHER SPECIFIED DISORDERS OF VEINS (4) Hypothyroid Current Visit: No Status: Acute Code(s): E03.9 - HYPOTHYROIDISM, UNSPECIFIED (5) CHF (congestive heart failure) Current Visit: No Status: Chronic Code(s): I50.9 - HEART FAILURE, UNSPECIFIE D (6) HLD (hyperlipidemia) Current Visit: No Status: Chronic Code(s): E78.5 - HYPERLIPIDEMIA, UNSPECIFIED (7) Pulmonary hypertension Current Visit: No Status: Chronic Code(s): I27.20 - PULMONARY HYPERTENSION, UNSPECIFIED (8) GERD (gastroesophageal reflux disease) Current Visit: Yes Status: Acute Code(s): K21.9 - GASTRO-ESOPHAGEAL REFLUX DISEASE WITHOUT ESOPHAGITIS
[2023-08-11 06:40] LABS: Absolute Neutrophil Ct (ANC) 7.34 x10^3/uL (1.4-6.9); BASOPHIL % 0.1 % (0.0-0.4); Basophil (Absolute #) 0.01 x10^3/uL (0-0.4); Eosinophil % 0.1 % (0.00-5.0); Eosinophil (Absolute #) 0.01 x10^3/uL (0-0.5); Hemoglobin 11.2 g/dL (12.0-16.0); IMMATURE GRAN # 0.05 x10^3u/L (0.00-0.03); IMMATURE GRAN % 0.5 % (0.00-0.4); Lymphocyte (Absolute #) 2.56 x10^3/uL (1.0-4.6); Mean Cell Volume 96.4 fL (78-100); Mean Corpuscular Hemoglobin 29.2 pg (26-32); Mean Corpuscular Hgb Concent. 30.3 g/dL (32-36); Mean Platelet Volume 9.9 fL (7.5-11.0); Monocytes % 6.6 % (0.0-12.0); Neutrophil % 68.7 % (36.0-66.0); Platelet Count 152 x10^3/uL (150-450); Red Blood Count 3.84 x10^6/uL (4.1-5.4); Red Cell Distribution Width 16.2 % (11.5-14.0); White Blood Count 10.7 x10^3/uL (4.0-10.5)
[2023-08-11 06:58] LABS: ALBUMIN 3.1 g/dL (3.5-5.0); ANION GAP 10.3 MEQ/L (5-15); BILIRUBIN,TOTAL 1.1 mg/dL (0.2-1.3); Calcium 8.2 mg/dL (8.4-10.2); Creatinine 1 0.77 mg/dL (0.52-1.04); EST GLOMERULAR FILTRATION RATE 74.6 ML/MIN; PREALBUMIN 15.95 mg/dL (17.6-36.0); Potassium 4.1 mmol/L (3.5-5.1); Total Protein 5.6 g/dL (6.3-8.2)
[2023-08-11] MEDS: BUMEX 1 MG IV SCH (08:03)
[2023-08-11] MEDS: Aldactone 25 MG PO SCH (08:04)
[2023-08-11] MEDS: DELTASONE 10 MG PO SCH (08:04)
[2023-08-11] MEDS: Protonix 40MG Tablet PO SCH (08:04)
[2023-08-11] MEDS: SYNTHROID 50 MCG PO SCH (08:05)
[2023-08-11] MEDS: ELIQUIS 2.5 MG TABLET PO SCH (08:05)
[2023-08-11] MEDS: Lyrica 50MG PO SCH (08:05)
[2023-08-11] MEDS: PROAMATINE PO SCH (08:22)
[2023-08-11] MEDS: SILDENAFIL CITRATE PO SCH (08:23)
--- NOTE | 2023-08-11 08:37 | XRAY ---
Indication: CHF. Comparison: May 17, 2023 Portable chest remains inflated and clear. Heart remains borderline enlarged. Descending aorta remains arteriosclerotic and tortuous. Bony thorax intact again with osteopenia, degenerative changes, and minimal levoscoliosis. Impression: Continued nonacute chest with chronic features.
[2023-08-11] MEDS: LOPRESSOR INJECTION IV ONE (10:30)
[2023-08-11] MEDS: BUMEX 1 MG IV ONE (10:31)
[2023-08-11] MEDS: Levofloxacin 500MG/100ML D5W 500 MG/100 ML BAG IV SCH (10:32)
[2023-08-11] MEDS ORDERED: KENALOG 0.1% CREAM 15 GM TP SCH (11:30)
[2023-08-11] MEDS: JARDIANCE PO SCH (11:30)
[2023-08-11] MEDS: PROAMATINE PO ONE (13:23)
[2023-08-11] MEDS ORDERED: Levofloxacin 500MG/100ML D5W 500 MG/100 ML BAG IV SCH (15:00)
[2023-08-11] MEDS: Levaquin 250MG/50ML D5W 250 MG/50 ML BAG IV SCH (15:48)
[2023-08-11] MEDS: LYRICA 100MG PO SCH (22:13)
--- NOTE | 2023-08-12 05:09 | PCM.NOTE ---
Date and Time: 08/12/23 0508 Subjective Assessment: HPI: is a 87 year old female with a pmhx of AFIB, CHF, HLD, pulmonary HTN, hypothyroidism, hypotension, OA, and GERD who presented to ED 08/10/23 with complaints of LLE pain after tripping over a shop vac cord on 08/08/23 admitted with cellulitis left leg and afib rvr. Xray of the Tib/Fib demonstrating OP and extensive scattered vascular calcifications. 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 She recently had angiogram that showed she has arterial vascular disease in her legs as well. AFIB is chronic, was given lopressor in ED, home medications resumed. Podiatry consulted with recommendations for IV abx/compression dressings. Current treatment for cellulitis with Levaquin/diuresis/ elevation. Patient declines compression dressings at this time. Objective Exam Wound Assessment: Skin/Wound Assessment Wound/Incision Assessment Start: 08/10/23 17:55 Text: Status: Active Freq: Q6H Protocol: Document 08/12/23 00:00 MP (Rec: 08/12/23 00:42 MP [id number]) Wound/Incision Assessment Right Lower Posterior Wound Assessment Shift Assessment Wound Stage Non Pressure Wound Left Upper Lateral Arm Wound Assessment Shift Assessment Wound Type Skin Tear Dressing Status Dry & Intact Surrounding Tissue Purple Right Lower Posterior Lateral Wound Assessment Shift Assessment Wound Stage Non Pressure Wound Left Lower Posterior Wound Assessment Shift Assessment Wound Stage Non Pressure Wound Dressing Status Dry & Intact Left Lateral Knee Wound Assessment Shift Assessment Wound Type Skin Tear Left Knee Wound Assessment Shift Assessment Wound Type Skin Tear Left Calf Wound Assessment Shift Assessment Wound Type cellulitis Drainage Amount Minimal Wound Bed Greatest Portion Red (Granulation) Wound Bed Lesser Portion Shiny Surrounding Tissue Dark Red,Purple Comment WRAPPED PER DR NICOLE AT THIS TIME- remains true Right Lower Calf Wound Assessment Shift Assessment Wound Stage Non Pressure Wound Surrounding Tissue Purple Comment WRAPPED PER DR NICOLE AT THIS TIME Right Knee Wound Assessment Shift Assessment Wound Type Skin Tear Wound Photo Photo Taken Yes OBJECTIVE DATA Vital Signs: Vital Signs - 24 hr Temp Pulse Resp BP Pulse Ox 08/12/23 04:00 98.0 F 104 H 20 117/65 95 08/11/23 23:47 97.6 F 125 H 21 127/82 92 L 08/11/23 19:54 97.4 F 104 H 18 125/65 97 08/11/23 19:32 98 08/11/23 15:04 94 L 08/11/23 15:00 96.1 F 106 H 19 106/60 94 L 08/11/23 13:04 127 H 88/50 08/11/23 12:00 97.8 F 104 H 21 93/55 93 L 08/11/23 06:42 98 F 104 H 17 118/82 100 Pain Assessment - Last Documented Pain Intensity 5 Pain Scale Used 0-10 Pain Scale Intake and Output: Intake & Output 08/09/23 08/10/23 08/11/23 08/12/23 11:59 11:59 11:59 11:59 Intake Total 1160 1160 Output Total 1800 850 Balance -640 310 Weight 61 kg Lab Results: Lab Results-Last 24 Hours 08/11/23 08/11/23 Range/Units 06:25 06:25 WBC 10.7 H (4.0-10.5) x10^3/uL RBC 3.84 L (4.1-5.4) x10^6/uL Hgb 11.2 L (12.0-16.0) g/dL Hct 37.0 (35-47) % MCV 96.4 (78-100) fL MCH 29.2 (26-32) pg MCHC 30.3 L (32-36) g/dL RDW 16.2 H (11.5-14.0) % Plt Count 152 (150-450) x10^3/uL MPV 9.9 (7.5-11.0) fL Gran % 68.7 H (36.0-66.0) % Immature Gran % (Auto) 0.5 H (0.00-0.4) % Nucleat RBC Rel Count 0.0 (0.00-0.1) % Eos # (Auto) 0.01 (0-0.5) x10^3/uL Immature Gran # (Auto) 0.05 H (0.00-0.03) x10^3u/L Absolute Lymphs (auto) 2.56 (1.0-4.6) x10^3/uL Absolute Monos (auto) 0.70 (0.0-1.3) x10^3/uL Absolute Nucleated RBC 0.00 (0.00-0.01) x10^3u/L Lymphocytes % 24.0 (24.0-44.0) % Monocytes % 6.6 (0.0-12.0) % Eosinophils % 0.1 (0.00-5.0) % Basophils % 0.1 (0.0-0.4) % Absolute Granulocytes 7.34 H (1.4-6.9) x10^3/uL Basophils # 0.01 (0-0.4) x10^3/uL Sodium 137 (135-145) mmol/L Potassium 4.1 (3.5-5.1) mmol/L Chloride 109 H (98-107) mmol/L Carbon Dioxide 22 (22-30) mmol/L Anion Gap 10.3 (5-15) MEQ/L BUN 28 H (7-17) mg/dL Creatinine 0.77 (0.52-1.04) mg/dL Estimated GFR 74.6 ML/MIN Glucose 97 (74-106) mg/dL Calcium 8.2 L (8.4-10.2) mg/dL Total Bilirubin 1.10 (0.2-1.3) mg/dL AST 19 (14-36) U/L ALT 17 (0-35) U/L Alkaline Phosphatase 51 (38-126) U/L Serum Total Protein 5.6 L (6.3-8.2) g/dL Albumin 3.1 L (3.5-5.0) g/dL Prealbumin 15.95 L (17.6-36.0) mg/dL Radiology Exams: Radiology Procedures Category Date Time Status CHEST 1 VIEW (PORTABLE) Routine Exams 08/10/23 17:37 Completed LOWER LEG Stat Exams 08/10/23 13:41 Completed Multi-Disciplinary Progress Notes: Multi-Disciplinary Progress Notes 08/11/23 10:20 Pharmacy Note by Gumaro Giordano Levaquin dose reduced to 250mg per renal dosing policy. Est. crcl is 28ml/min. Initialized on 08/11/23 10:20 - END OF NOTE 08/11/23 09:47 Case Management Note by Melina Isaac PATIENT HAS [facility]. THEY WERE NOTIFIED PATIENT HERE OBS. THEY WILL NEED NOTIFIED AT TIME OF DC AT [phone]. THEY WILL NEED FAXED THE DC INSTRUCTIONS, DC MED LIST AND DC SUMMARY TO [phone] Initialized on 08/11/23 09:47 - END OF NOTE Assessment/Plan (1) Left leg cellulitis Current Visit: Yes Status: Acute Assessment & Plan: -Cellulitis vs venous stasis -Podiatry consulted with recs for IV abx for the next 24 hours as well as diuresis -Previous wound cultures/sensitivity reviewed -Levaquin initiated n ED (patient with multiple allergies), will continue -Bumex -Check PCT, LA, ESR, CRP -Blood cultures ordered and pending/wound culture drainage -Xray of tib/fib RLE with no acute findings 08/10: -Wound culture l/r LE drainage with gram - ID, sensitivity pending -Continue Levaquin -Continue diuresis -add triamcinolone topical Code(s): L03.116 - CELLULITIS OF LEFT LOWER LIMB (2) Atrial fibrillation Current Visit: Yes Status: Acute Assessment & Plan: -EKG with AFIB HR 117, right axis deviation, no ST elevations/deviation -IV lopressor 2.5mg given in ED -Continue home meds Eliquis/metoprolol Code(s): I48.91 - UNSPECIFIED ATRIAL FIBRILLATION (3) Venous stasis of both lower extremities Current Visit: Yes Status: Acute Assessment & Plan: -see cellulitis Code(s): I87.8 - OTHER SPECIFIED DISORDERS OF VEINS (4) Hypothyroid Current Visit: No Status: Acute Assessment & Plan: -TSH -Continue synthroid Code(s): E03.9 - HYPOTHYROIDISM, UNSPECIFIED (5) CHF (congestive heart failure) Current Visit: No Status: Chronic Assessment & Plan: -Bumex given in ED, will continue -Recent echo 05/18/23: EF 55% IMPRESSION: 1) TECHNICALLY DIFFICULT STUDY BECAUSE POOR ACOUSTIC WINDOW. 2) NORMAL LEFT VENTRICLE SIZE WITH MOST LIKELY NORMAL LEFT VENTRICULAR SYSTOLIC FUNCTION. 3) MILD CONCENTRIC LEFT VENTRICULAR HYPERTROPHY. 4) SIGNIFICANT ATRIAL ENLARGEMENT. 5) CALCIFIC AORTIC SCLEROSIS WITH EVIDENCE OF MILD TO MODERATE AORTIC STENOSIS. 6) MILD TO MODERATE MITRAL REGURGITATION. 7) MILD TO MODERATE TRICUSPID REGURGITATION WITH EVIDENCE OF MILD TO MODERATE P ULMONARY HYPERTENSION. Code(s): I50.9 - HEART FAILURE, UNSPECIFIED (6) HLD (hyperlipidemia) Current Visit: No Status: Chronic Assessment & Plan: -Continue statin Code(s): E78.5 - HYPERLIPIDEMIA, UNSPECIFIED (7) Pulmonary hypertension Current Visit: No Status: Chronic Assessment & Plan: -continue sildenifil Code(s): I27.20 - PULMONARY HYPERTENSION, UNSPECIFIED (8) GERD (gastroesophageal reflux disease) Current Visit: Yes Status: Acute Assessment & Plan: -Protonix VTE: Eliquis PPI: protonix Dispo: 1-2 days Code(s): L03.116 - CELLULITIS OF LEFT LOWER LIMB Code(s): L03.116 - CELLULITIS OF LEFT LOWER LIMB (2) Atrial fibrillation Current Visit: Yes Status: Acute Code(s): I48.91 - UNSPECIFIED ATRIAL FIBRILLATION (3) Venous stasis of both lower extremities Current Visit: Yes Status: Acute Code(s): I87.8 - OTHER SPECIFIED DISORDERS OF VEINS (4) Hypothyroid Current Visit: No Status: Acute Code(s): E03.9 - HYPOTHYROIDISM, UNSPECIFIED (5) CHF (congestive heart failure) Current Visit: No Status: Chronic Code(s): I50.9 - HEART FAILURE, UNSPECIFIED (6) HLD (hyperlipidemia) Current Visit: No Status: Chronic Code(s): E78.5 - HYPERLIPIDEMIA, UNSPECIFIED (7) Pulmonary hypertension Current Visit: No Status: Chronic Code(s): I27.20 - PULMONARY HYPERTENSION, UNSPECIFIED (8) GERD (gastroesophageal reflux disease) Current Visit: Yes Status: Acute Code(s): K21.9 - GASTRO-ESOPHAGEAL REFLUX DISEASE WITHOUT ESOPHAGITIS
[2023-08-12 05:19] LABS: Absolute Neutrophil Ct (ANC) 6.46 x10^3/uL (1.4-6.9); BASOPHIL % 0.1 % (0.0-0.4); Basophil (Absolute #) 0.01 x10^3/uL (0-0.4); Eosinophil % 0.3 % (0.00-5.0); Eosinophil (Absolute #) 0.03 x10^3/uL (0-0.5); Hematocrit 34.5 % (35-47); Hemoglobin 10.7 g/dL (12.0-16.0); IMMATURE GRAN # 0.08 x10^3u/L (0.00-0.03); IMMATURE GRAN % 0.9 % (0.00-0.4); Lymphocyte (Absolute #) 1.72 x10^3/uL (1.0-4.6); Lymphocytes % 19.1 % (24.0-44.0); Mean Cell Volume 96.1 fL (78-100); Mean Corpuscular Hemoglobin 29.8 pg (26-32); Mean Platelet Volume 10.3 fL (7.5-11.0); Monocyte (Absolute #) 0.72 x10^3/uL (0.0-1.3); Neutrophil % 71.6 % (36.0-66.0); Platelet Count 160 x10^3/uL (150-450); Red Blood Count 3.59 x10^6/uL (4.1-5.4); Red Cell Distribution Width 16.1 % (11.5-14.0)
[2023-08-12 05:25] LABS: ALBUMIN 2.7 g/dL (3.5-5.0); ANION GAP 6.8 MEQ/L (5-15); BILIRUBIN,TOTAL 0.4 mg/dL (0.2-1.3); Creatinine 1 0.81 mg/dL (0.52-1.04); EST GLOMERULAR FILTRATION RATE 70.2 ML/MIN; Total Protein 5.2 g/dL (6.3-8.2)
--- NOTE | 2023-08-12 07:46 | PCM.CONS ---
Podiatry HPI - Consult Date of Consultation Date: 08/10/23 Reason for Consult: venous insufficency ulcerations bilateral /cellulitis left/ PAD Consulting Provider: BONNIE NUR DPM - [facility] History of Present Illness: This is an 87-year-old white female patient of nurse practitioner Kylee who stated that she tripped over a shot back 2 days ago. Since that time she has noticed increased swelling and both her lower extremities with left side worse than right. In addition, the left side does show worsening of her chronic venous stasis disease with weeping present from superficial wounds bilaterally. She also sees outpatient wound care clinic and has outpatient home health care. Because of the presence of worsening discoloration of the skin on the left lower leg below the knee, and associated increased redness (possible cellulitis) and tenderness, patient was brought into the emergency department by her daughter. Patient takes Bumex, she is on Eliquis, she is on Aldactone. Patient has a history of atrial fibrillation, hyperlipidemia, hypothyroidism, diabetes. Patient denies shortness of breath. Patient denies chest pain. Medications & Allergies Home Medications: Home Medication List Pregabalin [Lyrica] 50 mg PO QAM 06/01/17 [History Confirmed 08/10/23] Sildenafil Citrate [Revatio] 20 mg PO TID 06/01/17 [History Confirmed 08/10/23] Atorvastatin Calcium [Lipitor 20MG Tablet] 20 mg PO HS 09/06/17 [History Confirmed 08/10/23] Apixaban [Eliquis] 2.5 mg PO BID 06/05/20 [History Confirmed 08/10/23] Omeprazole 20 mg PO DAILY 06/05/20 [History Confirmed 08/10/23] Pregabalin 200 mg PO QHS 06/05/20 [History Confirmed 08/10/23] Trazodone HCl 50 mg [Desyrel 50 mg] 50 mg PO HS 06/05/20 [History Confirmed 08/10/23] Prednisone 10 mg [Deltasone 10 mg] 10 mg PO DAILY 06/07/20 [History Confirmed 08/10/23] Empagliflozin [Jardiance] 10 mg PO LUNCH 05/17/23 [History Confirmed 08/10/23] Metoprolol Tartrate 50 mg [Lopressor 50 MG] 50 mg PO BID 30 Days #60 tablet 05/19/23 [Rx Confirmed 08/10/23] Bumetanide 1 mg [Bumex 1 mg] 1 mg PO DAILY 07/10/23 [History Confirmed 08/10/23] Midodrine HCl 2.5 mg PO BID 07/10/23 [History Confirmed 08/10/23] Hydrocodone/Acetaminophen [Hydrocodone-Acetamin 7.5-325] 1 tab PO BIDPRN PRN 08/10/23 [History Confirmed 08/10/23] Levothyroxine Sodium 50 Mcg [Synthroid 50 Mcg] 50 mcg PO BREAKFAST 08/10/23 [History Confirmed 08/10/23] Spironolactone 25 mg PO DAILY 08/10/23 [History Confirmed 08/10/23] Allergies/Adverse Reactions: Allergies Allergy/AdvReac Type Severity Reaction Status Date / Time amlodipine [From Norvasc] Allergy Verified 08/10/23 12:27 cefuroxime Allergy Verified 08/10/23 12:27 cephalexin [From Keflex] Allergy Verified 08/10/23 12:27 gabapentin [From Neurontin] Allergy Verified 08/10/23 12:27 Sulfa (Sulfonamide Allergy Verified 08/10/23 12:27 Antibiotics) - Past Medical History Past Medical History: Yes Neurological History: No Pertinent History ENT History: No Pertinent History Cardiac History: Arrhythmia, Congestive Heart Failure, High Cholesterol, Hypertension Respiratory History: Bronchitis Endocrine Medical History: No Pertinent History Musculoskelatal History: Osteoarthritis, Osteoporosis GI Medical History: GERD History: No Pertinent History Pyscho-Social History: No Pertinent History Reproductive Disorders: No Pertinent History Comment: HX OF PULMONARY HTN, ASTHMA/BRONCHITIS. MULTIPLE P.T. INTERVENTIONS FOR WOUND CARE. - Past Surgical History Past Surgical History: Yes Neuro Surgical History: No Pertinent History Cardiac History: No Pertinent History Respiratory Surgery: No Pertinent History GI Surgical History: No Pertinent History Genitourinary Surgical Hx: No Pertinent History Musculskeletal Surgical Hx: Orthopedic Surgery Female Surgical History: No Pertinent History Other Surgical History: back surgery. ANGIOGRAM - Social History Smoking Status: Never smoker Exposure to second hand smoke: No Alcohol: None Drug Use: none - Social Determinants of Health Will the patient participate in the screening: Yes Do you worry about a steady place to live?: No Do you have any problems with any of the following?: No known problems In the past 12 months,have you had to go without utilities?: No Have you or anyone in your house had to go without enough: No Transportation Issues: No Has anyone in your support network made you feel unsafe?: No Does the patient want assistance with any of the above?: No Physical Exam - General General Appearance: no apparent distress (See images) - Neuro Neurologic: Epicritic and protopathic - Vascular Peripheral Pulses: Posterior tibialis: 0, Dorsalis-Pedis: 1+ Capillary Refill Time: > 3 seconds Hair Growth: absent Varicosities: Positive Edema: Pitting Edema Degree: 2+ Skin Temperature: Warm to touch - Narrative Narrative Physical Exam: Podiatry Physical Exam Results - Labs Lab/Micro Results: Lab Results-Last 24 Hours 08/12/23 08/12/23 Range/Units 04:15 04:15 WBC 9.0 (4.0-10.5) x10^3/uL RBC 3.59 L (4.1-5.4) x10^6/uL Hgb 10.7 L (12.0-16.0) g/dL Hct 34.5 L (35-47) % MCV 96.1 (78-100) fL MCH 29.8 (26-32) pg MCHC 31.0 L (32-36) g/dL RDW 16.1 H (11.5-14.0) % Plt Count 160 (150-450) x10^3/uL MPV 10.3 (7.5-11.0) fL Gran % 71.6 H (36.0-66.0) % Immature Gran % (Auto) 0.9 H (0.00-0.4) % Nucleat RBC Rel Count 0.0 (0.00-0.1) % Eos # (Auto) 0.03 (0-0.5) x10^3/uL Immature Gran # (Auto) 0.08 H (0.00-0.03) x10^3u/L Absolute Lymphs (auto) 1.72 (1.0-4.6) x10^3/uL Absolute Monos (auto) 0.72 (0.0-1.3) x10^3/uL Absolute Nucleated RBC 0.00 (0.00-0.01) x10^3u/L Lymphocytes % 19.1 L (24.0-44.0) % Monocytes % 8.0 (0.0-12.0) % Eosinophils % 0.3 (0.00-5.0) % Basophils % 0.1 (0.0-0.4) % Absolute Granulocytes 6.46 (1.4-6.9) x10^3/uL Basophils # 0.01 (0-0.4) x10^3/uL Sodium 138 (135-145) mmol/L Potassium 4.0 (3.5-5.1) mmol/L Chloride 110 H (98-107) mmol/L Carbon Dioxide 25 (22-30) mmol/L Anion Gap 6.8 (5-15) MEQ/L BUN 32 H (7-17) mg/dL Creatinine 0.81 (0.52-1.04) mg/dL Estimated GFR 70.2 ML/MIN Glucose 111 H (74-106) mg/dL Calcium 8.0 L (8.4-10.2) mg/dL Total Bilirubin 0.40 (0.2-1.3) mg/dL AST 17 (14-36) U/L ALT 14 (0-35) U/L Alkaline Phosphatase 48 (38-126) U/L Serum Total Protein 5.2 L (6.3-8.2) g/dL Albumin 2.7 L (3.5-5.0) g/dL Microbiology 08/10/23 17:30 Wound Culture - Final Drainage - Left Lower Klebsiella Pneumoniae 08/10/23 17:30 Wound Culture - Final Leg - Right Lower Klebsiella Pneumoniae - Radiology Impressions Radiology Exams & Impressions: Radiology Procedures Category Date Time Status CHEST 1 VIEW (PORTABLE) Routine Exams 08/10/23 17:37 Completed LOWER LEG Stat Exams 08/10/23 13:41 Completed Assessment/Plan (1) PAD (peripheral artery disease) Current Visit: Yes Status: Acute Assessment & Plan: Patient examination evaluation. Patient seen by Dr. Greer for peripheral vascular intervention which was performed 1220 specifically focusing on aortography with bilateral iliac runoff and selective angiography of the left lower extremity under conscious sedation. Per his report patient without any significant vascular disease necessitating intervention. His suggestion suspected delayed flow is secondary to cardiopulmonary status with congestive heart failure and pulmonary hypertension. Code(s): I73.9 - PERIPHERAL VASCULAR DISEASE, UNSPECIFIED (2) Localized edema due to fluid overload Current Visit: Yes Status: Acute Code(s): E87.70 - FLUID OVERLOAD, UNSPECIFIED (3) Pulmonary hypertension Current Visit: No Status: Chronic Code(s): I27.20 - PULMONARY HYPERTENSION, UNSPECIFIED (4) Generalized weakness Current Visit: No Status: Acute Code(s): R53.1 - WEAKNESS (5) Fall Current Visit: No Status: Acute Qualifiers: Encounter type: initial encounter Qualified Code(s): W19.XXXA - Unspecified fall, initial encounter Code(s): W19.XXXA - UNSPECIFIED FALL, INITIAL ENCOUNTER (6) CHF (congestive heart failure) Current Visit: No Status: Chronic Code(s): I50.9 - HEART FAILURE, UNSPECIFIED (7) Ischemia of left lower extremity Current Visit: No Status: Acute Code(s): I99.8 - OTHER DISORDER OF CIRCULATORY SYSTEM (8) Left leg cellulitis Current Visit: Yes Status: Acute Assessment & Plan: Left leg likely consistent with cellulitis given appearance however traumatic venous insufficiency is possible cause for discoloration. Patient has a longstanding history of venous insufficiency ulcers which is being treated by a wound care. At this time while inpatient patient would benefit from mild compression therapy. Recommend bilateral Unna boots with changes 2-3 times weekly. Code(s): L03.116 - CELLULITIS OF LEFT LOWER LIMB (9) Venous stasis of both lower extremities Current Visit: Yes Status: Acute Code(s): I87.8 - OTHER SPECIFIED DISORDERS OF VEINS
--- NOTE | 2023-08-12 07:52 | PCM.NOTE ---
Date and Time: 08/12/23 0751 Subjective Assessment: doing ok. Physical Exam - Narrative Narrative Physical Exam: Podiatry Physical Exam OBJECTIVE DATA Vital Signs: Vital Signs - 24 hr Temp Pulse Resp BP Pulse Ox 08/12/23 06:59 96.3 F 60 18 136/79 96 08/12/23 04:00 98.0 F 104 H 20 117/65 95 08/11/23 23:47 97.6 F 125 H 21 127/82 92 L 08/11/23 19:54 97.4 F 104 H 18 125/65 97 08/11/23 19:32 98 08/11/23 15:04 94 L 08/11/23 15:00 96.1 F 106 H 19 106/60 94 L 08/11/23 13:04 127 H 88/50 08/11/23 12:00 97.8 F 104 H 21 93/55 93 L Pain Assessment - Last Documented Pain Intensity 5 Pain Scale Used 0-10 Pain Scale Intake and Output: Intake & Output 08/09/23 08/10/23 08/11/23 08/12/23 11:59 11:59 11:59 11:59 Intake Total 1160 1160 Output Total 1800 850 Balance -640 310 Weight 61 kg 60.4 kg Lab Results: Lab Results-Last 24 Hours 08/12/23 08/12/23 Range/Units 04:15 04:15 WBC 9.0 (4.0-10.5) x10^3/uL RBC 3.59 L (4.1-5.4) x10^6/uL Hgb 10.7 L (12.0-16.0) g/dL Hct 34.5 L (35-47) % MCV 96.1 (78-100) fL MCH 29.8 (26-32) pg MCHC 31.0 L (32-36) g/dL RDW 16.1 H (11.5-14.0) % Plt Count 160 (150-450) x10^3/uL MPV 10.3 (7.5-11.0) fL Gran % 71.6 H (36.0-66.0) % Immature Gran % (Auto) 0.9 H (0.00-0.4) % Nucleat RBC Rel Count 0.0 (0.00-0.1) % Eos # (Auto) 0.03 (0-0.5) x10^3/uL Immature Gran # (Auto) 0.08 H (0.00-0.03) x10^3u/L Absolute Lymphs (auto) 1.72 (1.0-4.6) x10^3/uL Absolute Monos (auto) 0.72 (0.0-1.3) x10^3/uL Absolute Nucleated RBC 0.00 (0.00-0.01) x10^3u/L Lymphocytes % 19.1 L (24.0-44.0) % Monocytes % 8.0 (0.0-12.0) % Eosinophils % 0.3 (0.00-5.0) % Basophils % 0.1 (0.0-0.4) % Absolute Granulocytes 6.46 (1.4-6.9) x10^3/uL Basophils # 0.01 (0-0.4) x10^3/uL Sodium 138 (135-145) mmol/L Potassium 4.0 (3.5-5.1) mmol/L Chloride 110 H (98-107) mmol/L Carbon Dioxide 25 (22-30) mmol/L Anion Gap 6.8 (5-15) MEQ/L BUN 32 H (7-17) mg/dL Creatinine 0.81 (0.52-1.04) mg/dL Estimated GFR 70.2 ML/MIN Glucose 111 H (74-106) mg/dL Calcium 8.0 L (8.4-10.2) mg/dL Total Bilirubin 0.40 (0.2-1.3) mg/dL AST 17 (14-36) U/L ALT 14 (0-35) U/L Alkaline Phosphatase 48 (38-126) U/L Serum Total Protein 5.2 L (6.3-8.2) g/dL Albumin 2.7 L (3.5-5.0) g/dL Radiology Exams: Radiology Procedures Category Date Time Status CHEST 1 VIEW (PORTABLE) Routine Exams 08/10/23 17:37 Completed LOWER LEG Stat Exams 08/10/23 13:41 Completed Multi-Disciplinary Progress Notes: Multi-Disciplinary Progress Notes 08/11/23 10:20 Pharmacy Note by Gumaro Giordano Levaquin dose reduced to 250mg per renal dosing policy. Est. crcl is 28ml/min. Initialized on 08/11/23 10:20 - END OF NOTE 08/11/23 09:47 Case Management Note by Melina Isaac PATIENT HAS [facility]. THEY WERE NOTIFIED PATIENT HERE OBS. THEY WILL NEED NOTIFIED AT TIME OF DC AT [phone]. THEY WILL NEED FAXED THE DC INSTRUCTIONS, DC MED LIST AND DC SUMMARY TO [phone] Initialized on 08/11/23 09:47 - END OF NOTE Assessment/Plan (1) PAD (peripheral artery disease) Current Visit: Yes Status: Acute Assessment & Plan: Patient examination evaluation. Patient seen by Dr. Greer for peripheral vascular intervention which was performed 1220 specifically focusing on aortography with bilateral iliac runoff and selective angiography of the left lower extremity under conscious sedation. Per his report patient without any significant vascular disease necessitating intervention. His suggestion suspected delayed flow is secondary to cardiopulmonary status with congestive heart failure and pulmonary hypertension. Code(s): I73.9 - PERIPHERAL VASCULAR DISEASE, UNSPECIFIED (2) Localized edema due to fluid overload Current Visit: Yes Status: Acute Code(s): E87.70 - FLUID OVERLOAD, UNSPECIFIED (3) Pulmonary hypertension Current Visit: No Status: Chronic Code(s): I27.20 - PULMONARY HYPERTENSION, UNSPECIFIED (4) Generalized weakness Current Visit: No Status: Acute Code(s): R53.1 - WEAKNESS (5) Fall Current Visit: No Status: Acute Qualifiers: Encounter type: initial encounter Qualified Code(s): W19.XXXA - Unspecified fall, initial encounter Code(s): W19.XXXA - UNSPECIFIED FALL, INITIAL ENCOUNTER (6) CHF (congestive heart failure) Current Visit: No Status: Chronic Code(s): I50.9 - HEART FAILURE, UNSPECIFIED (7) Ischemia of left lower extremity Current Visit: No Status: Acute Code(s): I99.8 - OTHER DISORDER OF CIRCULATORY SYSTEM (8) Left leg cellulitis Current Visit: Yes Status: Acute Assessment & Plan: Left leg likely consistent with cellulitis given appearance however traumatic venous insufficiency is possible cause for discoloration. Patient has a longstanding history of venous insufficiency ulcers which is being treated by a wound care. At this time while inpatient patient would benefit from mild compression therapy. Recommend bilateral Unna boots with changes 2-3 times weekly. Code(s): L03.116 - CELLULITIS OF LEFT LOWER LIMB (9) Venous stasis of both lower extremities Current Visit: Yes Status: Acute Code(s): I87.8 - OTHER SPECIFIED DISORDERS OF VEINS
[2023-08-12] MEDS: TYLENOL 325 MG PO PRN (09:59)
--- NOTE | 2023-08-12 11:15 | PCM.DS ---
Discharge Summary Date of Admission: 08/10/23 16:47 Date of Discharge: 08/12/23 Admitting Physician: TARSHA CANALES MD Primary Care Provider: ASHLY LAMB Allergies Allergies amlodipine [From Norvasc] Allergy (Verified 08/10/23 12:27) cefuroxime Allergy (Verified 08/10/23 12:27) cephalexin [From Keflex] Allergy (Verified 08/10/23 12:27) gabapentin [From Neurontin] Allergy (Verified 08/10/23 12:27) Sulfa (Sulfonamide Antibiotics) Allergy (Verified 08/10/23 12:27) Hospital Summary - Hospital Course Hospital Course: is a 87 year old female with a pmhx of AFIB, CHF, HLD, pulmonary HTN, hypothyroidism, hypotension, OA, and GERD who presented to ED 08/10/23 with complaints of LLE pain after tripping over a shop vac cord on 08/08/23 admitted with cellulitis left leg and afib rvr. Xray of the Tib/Fib demonstrating OP and extensive scattered vascular calcifications. She has chronic stasis dermatitis in her legs for which she receives treatment through wound care in [place]. She recently had angiogram that showed she has arterial vascular disease in her legs as well. AFIB is chronic, was given lopressor in ED, home medications resumed. Podiatry consulted with recommendations for IV abx/compression dressings. IP treatment for cellulitis with Levaquin/diuresis/ elevation/compression dressing with noted improvement. Patient endorses pain is controlled. WBC now WNL. Discussed case with podiatry with recommendations for bilateral Unna boots with changes 2-3 times weekly. CM to set up Home care for dressing changes. Current wound culture positive for klebsiella, which is sensitive to levaquin. Will refer patient to ID -Dr. Smith as pt has had multiple positive wound cultures. Patient is requesting discharge today. Will send home on oral levaquin. She is to follow up next week with podiatry. Discharge Note New Diagnosis: Cellulitis New Medications: Levaquin Follow Up: podiatry/ID/PCP Latest Assessment & Plan (1) Left leg cellulitis Current Visit: Yes Status: Acute Assessment & Plan: -Cellulitis vs venous stasis -Podiatry consulted with recs for IV abx for the next 24 hours as well as diuresis -Previous wound cultures/sensitivity reviewed -Levaquin initiated n ED (patient with multiple allergies), will continue -Bumex -Check PCT, LA, ESR, CRP -Blood cultures ordered and pending/wound culture drainage -Xray of tib/fib RLE with no acute findings 08/10: -Wound culture l/r LE drainage with gram - ID, sensitivity pending -Continue Levaquin -Continue diuresis -add triamcinolone topical Code(s): L03.116 - CELLULITIS OF LEFT LOWER LIMB (2) Atrial fibrillation Current Visit: Yes Status: Acute Assessment & Plan: -EKG with AFIB HR 117, right axis deviation, no ST elevations/deviation -IV lopressor 2.5mg given in ED -Continue home meds Eliquis/metoprolol Code(s): I48.91 - UNSPECIFIED ATRIAL FIBRILLATION (3) Venous stasis of both lower extremities Current Visit: Yes Status: Acute Assessment & Plan: -see cellulitis Code(s): I87.8 - OTHER SPECIFIED DISORDERS OF VEINS (4) Hypothyroid Current Visit: No Status: Acute Assessment & Plan: -TSH -Continue synthroid Code(s): E03.9 - HYPOTHYROIDISM, UNSPECIFIED (5) CHF (congestive heart failure) Current Visit: No Status: Chronic Assessment & Plan: -Bumex given in ED, will continue -Recent echo 05/18/23: EF 55% IMPRESSION: 1) TECHNICALLY DIFFICULT STUDY BECAUSE POOR ACOUSTIC WINDOW. 2) NORMAL LEFT VENTRICLE SIZE WITH MOST LIKELY NORMAL LEFT VENTRICULAR SYSTOLIC FUNCTION. 3) MILD CONCENTRIC LEFT VENTRICULAR HYPERTROPHY. 4) SIGNIFICANT ATRIAL ENLARGEMENT. 5) CALCIFIC AORTIC SCLEROSIS WITH EVIDENCE OF MILD TO MODERATE AORTIC STENOSIS. 6) MILD TO MODERATE MITRAL REGURGITATION. 7) MILD TO MODERATE TRICUSPID REGURGITATION WITH EVIDENCE OF MILD TO MODERATE PULMONARY HYPERTENSION. Code(s): I50.9 - HEART FAILURE, UNSPECIFIED (6) HLD (hyperlipidemia) Current Visit: No Status: Chronic Assessment & Plan: -Continue statin Code(s): E78.5 - HYPERLIPIDEMIA, UNSPECIFIED (7) Pulmonary hypertension Current Visit: No Status: Chronic Assessment & Plan: -continue sildenifil Code(s): I27.20 - PULMONARY HYPERTENSION, UNSPECIFIED (8) GERD (gastroesophageal reflux disease) Current Visit: Yes Status: Acute Assessment & Plan: -Protonix I spent 35 minutes [id number] with the patient on the day of discharge performing discharge exam, discussing hospital stay and discharge instructions with patient and caregivers, preparation of discharge records, prescriptions & referral forms and addressing any questions/concerns the patient had as documented above. - Vitals & Intake/Output Vital Signs: Vital Signs Temperature 96.3 F 08/12/23 06:59 Pulse Rate 60 08/12/23 06:59 Respiratory Rate 18 08/12/23 06:59 Blood Pressure 136/79 08/12/23 06:59 O2 Sat by Pulse Oximetry 98 08/12/23 07:08 Intake & Output: Intake & Output 08/09/23 08/10/23 08/11/23 08/12/23 11:59 11:59 11:59 11:59 Intake Total 1160 1740 Output Total 1800 1100 Balance -640 640 Weight 61 kg 60.4 kg - Lab Result Diagrams: 08/12/23 04:15 08/12/23 04:15 Lab Results-Last 24 Hrs: Lab Results-Last 24 Hours 08/12/23 08/12/23 Range/Units 04:15 04:15 WBC 9.0 (4.0-10.5) x10^3/uL RBC 3.59 L (4.1-5.4) x10^6/uL Hgb 10.7 L (12.0-16.0) g/dL Hct 34.5 L (35-47) % MCV 96.1 (78-100) fL MCH 29.8 (26-32) pg MCHC 31.0 L (32-36) g/dL RDW 16.1 H (11.5-14.0) % Plt Count 160 (150-450) x10^3/uL MPV 10.3 (7.5-11.0) fL Gran % 71.6 H (36.0-66.0) % Immature Gran % (Auto) 0.9 H (0.00-0.4) % Nucleat RBC Rel Count 0.0 (0.00-0.1) % Eos # (Auto) 0.03 (0-0.5) x10^3/uL Immature Gran # (Auto) 0.08 H (0.00-0.03) x10^3u/L Absolute Lymphs (auto) 1.72 (1.0-4.6) x10^3/uL Absolute Monos (auto) 0.72 (0.0-1.3) x10^3/uL Absolute Nucleated RBC 0.00 (0.00-0.01) x10^3u/L Lymphocytes % 19.1 L (24.0-44.0) % Monocytes % 8.0 (0.0-12.0) % Eosinophils % 0.3 (0.00-5.0) % Basophils % 0.1 (0.0-0.4) % Absolute Granulocytes 6.46 (1.4-6.9) x10^3/uL Basophils # 0.01 (0-0.4) x10^3/uL Sodium 138 (135-145) mmol/L Potassium 4.0 (3.5-5.1) mmol/L Chloride 110 H (98-107) mmol/L Carbon Dioxide 25 (22-30) mmol/L Anion Gap 6.8 (5-15) MEQ/L BUN 32 H (7-17) mg/dL Creatinine 0.81 (0.52-1.04) mg/dL Estimated GFR 70.2 ML/MIN Glucose 111 H (74-106) mg/dL Calcium 8.0 L (8.4-10.2) mg/dL Total Bilirubin 0.40 (0.2-1.3) mg/dL AST 17 (14-36) U/L ALT 14 (0-35) U/L Alkaline Phosphatase 48 (38-126) U/L Serum Total Protein 5.2 L (6.3-8.2) g/dL Albumin 2.7 L (3.5-5.0) g/dL Micro Results-Entire Visit: Microbiology 08/10/23 17:30 Wound Culture - Final Drainage - Left Lower Klebsiella Pneumoniae 08/10/23 17:30 Wound Culture - Final Leg - Right Lower Klebsiella Pneumoniae - Radiology Exams Ordered Rad Exams-Entire Visit: Radiology Procedures Category Date Time Status CHEST 1 VIEW (PORTABLE) Routine Exams 08/10/23 17:37 Completed LOWER LEG Stat Exams 08/10/23 13:41 Completed - Procedures and Test Procedures and Tests throughout Hospitalization: Therapy Orders & Screens 08/10/23 17:21 Oxygen NASAL CANNULA 2 lpm Comment: O2 at 2lpm HS Diagnosis: Left leg cellulitis 08/10/23 17:37 Respiratory Therapy Consult ONCE Comment: Reason For Exam: Diagnosis: BLE edema/weeping/ LLE pain 08/10/23 19:26 OT Screen per Nursing Assess ONCE Comment: Protocol Order Physician Instructions: Greater than 3 points order OT Admission Screening Reason For Exam: Triggered on Admission Diagnosis: BLE edema/weeping/ LLE pain Open Wound/Cellutlitis/Pressure Ulcers: Yes Acute Fx/ORIF/Change in wt bearing status: Yes Severe MUSCULOSKELETAL pain: No ADL Dysfunction: No Acute CVA w/Hemiparesis/Hemiplegia: No Decreased Functional Mobility/Strength: Yes Sprain/Strain: No Acute Post-op Mobility Dysfunction: No Total Points: 11 PT Screen per Nursing Assess ONCE Comment: Protocol Order Physician Instructions: Greater than 3 points order PT Admission Screenin Reason For Exam: Triggered on Admission Diagnosis: BLE edema/weeping/ LLE pain Open Wound/Cellutlitis/Pressure Ulcers: Yes Acute Fx/ORIF/Change in wt bearing status: Yes Severe MUSCULOSKELETAL pain: No ADL Dysfunction: No Acute CVA w/Hemiparesis/Hemiplegia: No Decreased Functional Mobility/Strength: Yes Sprain/Strain: No Acute Post-op Mobility Dysfunction: No Total Points: 11 Discharge Exam General Appearance: no apparent distress Neurologic Exam: alert, oriented x 3, cooperative Eye Exam: PERRL Ears, Nose, Throat Exam: normal ENT inspection Neck Exam: normal inspection Respiratory Exam: normal breath sounds, lungs clear Cardiovascular Exam: regular rate/rhythm Gastrointestinal/Abdomen Exam: soft, normal bowel sounds Pelvic Exam: deferred Rectal Exam: deferred Back Exam: normal inspection Extremity Exam: inflammation, swelling, tenderness, other (Skin Lesions ((LLE), Skin Lesions (skin tear to right and left calf/right knee))) Skin Exam: other (Skin Lesions (LLE), Skin Lesions /skin tear to right and left calf/right knee) Wound Assessment: Skin/Wound Assessment Wound/Incision Assessment Start: 08/10/23 17:55 Text: Status: Active Freq: Q6H Protocol: Document 08/12/23 06:00 MP (Rec: 08/12/23 06:20 MP [id number]) Wound/Incision Assessment Right Lower Posterior Wound Assessment Shift Assessment Wound Stage Non Pressure Wound Left Upper Lateral Arm Wound Assessment Shift Assessment Wound Type Skin Tear Dressing Status Dry & Intact Surrounding Tissue Purple Right Lower Posterior Lateral Wound Assessment Shift Assessment Wound Stage Non Pressure Wound Left Lower Posterior Wound Assessment Shift Assessment Wound Stage Non Pressure Wound Dressing Status Dry & Intact Left Lateral Knee Wound Assessment Shift Assessment Wound Type Skin Tear Left Knee Wound Assessment Shift Assessment Wound Type Skin Tear Left Calf Wound Assessment Shift Assessment Wound Type cellulitis Drainage Amount Minimal Wound Bed Greatest Portion Red (Granulation) Wound Bed Lesser Portion Shiny Surrounding Tissue Dark Red,Purple Comment WRAPPED PER DR NICOLE AT THIS TIME- remains true Right Lower Calf Wound Assessment Shift Assessment Wound Stage Non Pressure Wound Surrounding Tissue Purple Comment WRAPPED PER DR NICOLE AT THIS TIME Right Knee Wound Assessment Shift Assessment Wound Type Skin Tear Wound Photo Photo Taken Yes Final Diagnosis/Problem List - Final Discharge Diagnosis/Problem (1) Left leg cellulitis Current Visit: Yes Status: Acute Code(s): L03.116 - CELLULITIS OF LEFT LOWER LIMB (2) Atrial fibrillation Current Visit: Yes Status: Chronic Code(s): I48.91 - UNSPECIFIED ATRIAL FIBRILLATION (3) Venous stasis of both lower extremities Current Visit: Yes Status: Chronic Code(s): I87.8 - OTHER SPECIFIED DISORDERS OF VEINS (4) Hypothyroid Current Visit: No Status: Chronic Code(s): E03.9 - HYPOTHYROIDISM, UNSPECIFIED (5) CHF (congestive heart failure) Current Visit: No Status: Chronic Code(s): I50.9 - HEART FAILURE, UNSPECIFIED (6) HLD (hyperlipidemia) Current Visit: No Status: Chronic Code(s): E78.5 - HYPERLIPIDEMIA, UNSPECIFIED (7) Pulmonary hypertension Current Visit: No Status: Chronic Code(s): I27.20 - PULMONARY HYPERTENSION, UNSPECIFIED (8) GERD (gastroesophageal reflux disease) Current Visit: Yes Status: Chronic Code(s): K21.9 - GASTRO-ESOPHAGEAL REFLUX DISEASE WITHOUT ESOPHAGITIS - Discharge Discharge Date: 08/12/23 ([facility]) Disposition: Home, Self-Care Condition: Stable Prescriptions: New levoFLOXacin [Levofloxacin] 500 mg PO DAILY #5 tablet Continue Sildenafil Citrate [Revatio] 20 mg PO TID Pregabalin [Lyrica] 50 mg PO QAM Atorvastatin Calcium [Lipitor 20MG Tablet] 20 mg PO HS Pregabalin 200 mg PO QHS Omeprazole 20 mg PO DAILY Apixaban [Eliquis] 2.5 mg PO BID Trazodone HCl 50 mg [Desyrel 50 mg] 50 mg PO HS Prednisone 10 mg [Deltasone 10 mg] 10 mg PO DAILY Empagliflozin [Jardiance] 10 mg PO LUNCH Metoprolol Tartrate 50 mg [Lopressor 50 MG] 50 mg PO BID 30 Days #60 tablet Midodrine HCl 2.5 mg PO BID Bumetanide 1 mg [Bumex 1 mg] 1 mg PO DAILY Levothyroxine Sodium 50 Mcg [Synthroid 50 Mcg] 50 mcg PO BREAKFAST Hydrocodone/Acetaminophen [Hydrocodone-Acetamin 7.5-325] 1 tab PO BIDPRN PRN PRN Reason: Pain Spironolactone 25 mg PO DAILY Follow up with: ASHLY LAMB NP [Primary Care Provider] - 08/19/23 1:00 pm
[2023-08-12 13:15] VITALS: BP 105/72; PULSE 94; RESP 16; TEMP 96.2; O2SAT 95
== END 2023-08-12 13:21 | disposition home health service (06) ==
LOC: ED 11:40 → MED SURG 16:47
PROVIDERS: ADMIT Internal Medicine; ATTEND Internal Medicine
DX: L03.116 Cellulitis of left lower limb (principal); I48.91 Unspecified atrial fibrillation; I87.8 Other specified disorders of veins; E03.9 Hypothyroidism, unspecified; I11.0 Hypertensive heart disease with heart failure; I50.9 Heart failure, unspecified; E78.5 Hyperlipidemia, unspecified; I27.20 Pulmonary hypertension, unspecified; K21.9 Gastro-esophageal reflux disease without esophagitis; I73.9 Peripheral vascular disease, unspecified; E87.70 Fluid overload, unspecified; R53.1 Weakness; W19.XXXA Unspecified fall, initial encounter; Z79.01 Long term (current) use of anticoagulants; Z79.899 Other long term (current) drug therapy; Z20.828 Contact with and (suspected) exposure to other viral communicable diseases
CPT/HCPCS: 29580; 36000; 36415; 71045; 73590; 80053; 83605; 83880; 84134; 84145; 84443; 85025; 85652; 86140; 87040; 87070; 87077; 87186; 93005; 94762; 96365; 99284; 99291; Q3014; 93268; 99214; 99232; J1956; A9270-GY; G0378

== ENCOUNTER 2023-09-13 16:13 | Emergency (ER) | payer MEDICARE ==
[2023-09-13] MEDS ORDERED: Sodium Chloride 0.9% 1000 ML 1,000 ML ONE (16:40)
[2023-09-13] MEDS: Sodium Chloride 0.9% 1000 ML 1,000 ML IV STA (16:42)
[2023-09-13 16:43] VITALS: TEMP 97.3
--- NOTE | 2023-09-13 17:05 | ERPHSYRPT ---
- History of Present Illness Source: patient, family Exam Limitations: no limitations Patient Subjective Stated Complaint: C/O SOB for approx one week Triage Nursing Assessment: Patient brought back to ER in a W/C. Transferred from chair to bed with standby assistance. She is alert and oriented. Pitting edema present to BLE. No cough. No SOB noted at this time at rest but patient becomes SOB with exertion. Timing/Duration: week(s) (1-2 weeks) Severity of Dyspnea-Max: moderate Severity of Dyspnea-Current: moderate Associated Symptoms: edema, ankle swelling, heart racing, lightheadedness Hx Tetanus, Diphtheria Vaccination/Date Given: Yes Hx Influenza Vaccination/Date Given: Yes Hx Pneumococcal Vaccination/Date Given: Yes Immunizations Up to Date: Yes <MONA PETIT - Last Filed: 09/13/23 18:16> - History of Present Illness Possible Cause: frequent episodes Modifying Factors: Improves With: coughing, lying down, rest Associated Symptoms: cough <TONYA LUIS - Last Filed: 09/13/23 19:24> - History of Present Illness Time Seen by Provider: 09/13/23 16:59 Physician History: Patient is 87-year-old female with significant past medical history of pulmonary hypertension COPD CHF chronic venous stasis atrial fibrillation recently diagnosed cellulitis of both lower. Started having worsening pedal edema generalized weakness lethargic. So she was brought into the emergency room. (MONA PETIT) discussed risks/benefits of testing with pt and family ( who also served as independent source fo rHx in ER. and they wish to proceed with CMP, Resp swab, CXR, CBC, and these were ordered and results discussed. (TONYA LUIS) Allergies/Adverse Reactions: amlodipine [From Norvasc] Allergy (Verified 09/13/23 16:20) cefuroxime Allergy (Verified 09/13/23 16:20) cephalexin [From Keflex] Allergy (Verified 09/13/23 16:20) gabapentin [From Neurontin] Allergy (Verified 09/13/23 16:20) Sulfa (Sulfonamide Antibiotics) Allergy (Verified 09/13/23 16:20) Home Medications: Pregabalin [Lyrica] 50 mg PO QAM 06/01/17 [History] Sildenafil Citrate [Revatio] 20 mg PO TID 06/01/17 [History] Atorvastatin Calcium [Lipitor 20MG Tablet] 20 mg PO HS 09/06/17 [History] Apixaban [Eliquis] 2.5 mg PO BID 06/05/20 [History] Omeprazole 20 mg PO DAILY 06/05/20 [History] Pregabalin 200 mg PO QHS 06/05/20 [History] Trazodone HCl 50 mg [Desyrel 50 mg] 50 mg PO HS 06/05/20 [History] Prednisone 10 mg [Deltasone 10 mg] 10 mg PO DAILY 06/07/20 [History] Empagliflozin [Jardiance] 10 mg PO LUNCH 05/17/23 [History] Bumetanide 1 mg [Bumex 1 mg] 1 mg PO DAILY 07/10/23 [History] Midodrine HCl 2.5 mg PO BID 07/10/23 [History] Hydrocodone/Acetaminophen [Hydrocodone-Acetamin 7.5-325] 1 tab PO BIDPRN PRN 08/10/23 [History] Levothyroxine Sodium 50 Mcg [Synthroid 50 Mcg] 50 mcg PO BREAKFAST 08/10/23 [History] Spironolactone 25 mg PO DAILY 08/10/23 [History] Travel Risk - International Travel Have you traveled outside of the country in past 3 weeks: No - Emerging Infectious Disease Are you exhibiting symptoms associated with any current EIDs: Yes Symptoms: Shortness of Breath <MAHENDRA PETITYESH - Last Filed: 09/13/23 18:16> - Review of Systems Constitutional: Lethargy, Weakness, No Fever, No Chills Eyes: No Symptoms Ears, Nose, & Throat: No Symptoms Respiratory: Dyspnea, Dyspnea on Exertion (VELIZ), No Cough Cardiac: Edema, No Chest Pain, No Syncope Abdominal/Gastrointestinal: No Abdominal Pain, No Nausea, No Vomiting, No Diarrhea Genitourinary Symptoms: No Dysuria Musculoskeletal: No Back Pain, No Neck Pain Skin: Cellulitis, No Rash Neurological: No Dizziness, No Focal Weakness, No Sensory Changes Psychological: No Symptoms Endocrine: No Symptoms All Other Systems: Reviewed and Negative <MAHENDRA PETITYESH - Last Filed: 09/13/23 18:16> - Review of Systems Hematologic/Lymphatic: No Symptoms Immunological/Allergic: No Symptoms <JANELLETONYAJANICE FINNEYREY - Last Filed: 09/13/23 19:24> - Past Medical History Pertinent Past Medical History: Yes Neurological History: No Pertinent History ENT History: No Pertinent History Cardiac History: Arrhythmia, Congestive Heart Failure, High Cholesterol, Hypertension Respiratory History: Bronchitis Endocrine Medical History: No Pertinent History Musculoskeletal History: Osteoarthritis, Osteoporosis GI Medical History: GERD History: No Pertinent History Psycho-Social History: No Pertinent History Female Reproductive Disorders: No Pertinent History Other Medical History: HX OF PULMONARY HTN, ASTHMA/BRONCHITIS. MULTIPLE P.T. INTERVENTIONS FOR WOUND CARE. - Past Surgical History Past Surgical History: Yes Neuro Surgical History: No Pertinent History Cardiac: No Pertinent History Respiratory: No Pertinent History Gastrointestinal: No Pertinent History Genitourinary: No Pertinent History Musculoskeletal: Orthopedic Surgery Female Surgical History: No Pertinent History Other Surgical History: back surgery. ANGIOGRAM - Social History Smoking Status: Never smoker Exposure to second hand smoke: No Drug Use: none Patient Lives Alone: No <MARISABELMONA - Last Filed: 09/13/23 18:16> - Physical Exam General Appearance: mild distress, alert Eye Exam: PERRL/EOMI Neck Exam: normal inspection, supple Respiratory Exam: diminished breath sounds, crackles/rales, rhonchi Cardiovascular/Chest Exam: normal heart sounds, regular rate/rhythm Abdominal/Gastrointestinal Exam: soft, No tenderness, No distention, No mass Extremity Exam: non-tender, normal range of motion, normal inspection, no calf tenderness, pedal edema, slow capillary refill, swelling Neurologic Exam: alert, oriented x 3, cooperative, special effects person II-XII nml as tested, sensation nml, No motor deficits Skin Exam: normal color, warm, No dry SpO2 Interpretation: normal SpO2: 100 O2 Delivery: Room Air <MARISABEL, - Last Filed: 09/13/23 18:16> - Physical Exam Peripheral Pulses Exam: carotid (R): 2+, carotid (L): 2+, femoral (R): 2+, femoral (L): 2+, dorsalis-pedis (R): 2+, dorsalis-pedis (L): 2+ <TONYA LUIS - Last Filed: 09/13/23 19:24> - Nursing Vital Signs Nursing Vital Signs: Initial Vital Signs Temperature 97.3 F 09/13/23 16:15 Pulse Rate 84 09/13/23 16:15 Respiratory Rate 20 09/13/23 16:15 Blood Pressure 138/44 09/13/23 16:15 O2 Sat by Pulse Oximetry 97 09/13/23 16:15 Pain Scale Pain Intensity 0 - Course Nursing assessment & vital signs reviewed: Yes - Radiology Exams Chest X-ray Interpretation: Interpreted by me (COPD changes), Reviewed by me <MONA PETIT - Last Filed: 09/13/23 18:16> Ordered Tests: Active Orders 24 hr Category Date Time Status EKG-ER Only STAT Care 09/13/23 16:36 Active EKG-ER Only STAT Care 09/13/23 17:15 Active Oxygen-ED Only Nasal Cannula 2 lpm Care 09/13/23 16:36 Active CHEST 1 VIEW (PORTABLE) Stat Exams 09/13/23 16:23 Taken CBC W DIFF Stat Lab 09/13/23 16:42 Completed CMP Stat Lab 09/13/23 16:42 Completed CULTURE,URINE Stat Lab 09/13/23 18:16 Received D-DIMER QUANTITATIVE Stat Lab 09/13/23 16:42 Completed Lactic Acid Stat Lab 09/13/23 16:28 Completed NT PRO BNPII Stat Lab 09/13/23 16:42 Completed TROPONIN Q4H Lab 09/13/23 16:42 Completed TROPONIN Q4H Lab 09/13/23 20:30 Ordered TROPONIN Q4H Lab 09/14/23 00:30 Ordered UA W/RFX UR CULTURE Stat Lab 09/13/23 18:16 Completed Medication Summary Discontinued Medications Generic Name Dose Route Start Last Admin Trade Name Freq PRN Reason Stop Dose Admin Sodium Chloride 1,000 mls @ 999 mls/hr 09/13/23 16:36 09/13/23 17:00 Sodium Chloride 0.9% 1000 Ml IV 09/13/23 17:36 0 mls/hr .Q1H1M STA Infusion Sodium Chloride Confirm 09/13/23 16:40 Sodium Chloride 0.9% 1000 Ml Administered 09/13/23 16:41 Dose 1,000 mls @ ud .ROUTE .STK-MED ONE Lab/Rad Data: Laboratory Result Diagrams 09/13/23 16:42 09/13/23 16:42 Laboratory Results 09/13/23 09/13/23 09/13/23 Range/Units 18:16 16:42 16:42 WBC (4.0-10.5) x10^3/uL RBC (4.1-5.4) x10^6/uL Hgb (12.0-16.0) g/dL Hct (35-47) % MCV (78-100) fL MCH (26-32) pg MCHC (32-36) g/dL RDW (11.5-14.0) % Plt Count (150-450) x10^3/uL MPV (7.5-11.0) fL Gran % (36.0-66.0) % Immature Gran % (Auto) (0.00-0.4) % Nucleat RBC Rel Count (0.00-0.1) % Eos # (Auto) (0-0.5) x10^3/uL Immature Gran # (Auto) (0.00-0.03) x10^3u/L Absolute Lymphs (auto) (1.0-4.6) x10^3/uL Absolute Monos (auto) (0.0-1.3) x10^3/uL Absolute Nucleated RBC (0.00-0.01) x10^3u/L Lymphocytes % (24.0-44.0) % Monocytes % (0.0-12.0) % Eosinophils % (0.00-5.0) % Basophils % (0.0-0.4) % Absolute Granulocytes (1.4-6.9) x10^3/uL Basophils # (0-0.4) x10^3/uL D-Dimer (0.0-0.50) mg/L Sodium (135-145) mmol/L Potassium (3.5-5.1) mmol/L Chloride (98-107) mmol/L Carbon Dioxide (22-30) mmol/L Anion Gap (5-15) MEQ/L BUN (7-17) mg/dL Creatinine (0.52-1.04) mg/dL Estimated GFR ML/MIN Glucose (74-106) mg/dL Lactic Acid (0.4-2.0) Calcium (8.4-10.2) mg/dL Total Bilirubin (0.2-1.3) mg/dL AST (14-36) U/L ALT (0-35) U/L Alkaline Phosphatase (38-126) U/L Troponin I 0.021 (0.000-0.033) ng/mL NT-Pro-B Natriuret Pep (<300) pg/mL Serum Total Protein (6.3-8.2) g/dL Albumin (3.5-5.0) g/dL Urine Color Yellow (Yellow) Urine Appearance Clear (Clear) Urine pH 5.0 (4.6-8.0) Ur Specific Camilla 1.010 (1.005-1.030) Urine Protein Negative (Negative) Urine Glucose (UA) 500 A (Negative) mg/dL Urine Ketones Negative (Negative) Urine Blood Negative (Negative) Urine Nitrite Negative (Negative) Urine Bilirubin Negative (Negative) Urine Urobilinogen 0.2 (0.2) mg/dL Ur Leukocyte Esterase Moderate A (Negative) U Hyaline Cast (Auto) NONE SEEN (0-2) /LPF Urine Microscopic RBC 0-2 (0-5) /HPF Urine Microscopic WBC 21-50 A (0-5) /HPF Ur Epithelial Cells Rare (None Seen) /HPF Urine Bacteria Rare A (None Seen) /HPF Urine Culture Reflexed YES (NO) Influenza Type A Ag NEGATIVE (NEGATIVE) Influenza Type B Ag NEGATIVE (NEGATIVE) RSV (PCR) NEGATIVE (NEGATIVE) SARS-CoV-2 (PCR) NEGATIVE (NEGATIVE) 09/13/23 09/13/23 09/13/23 Range/Units 16:42 16:42 16:42 WBC 9.0 (4.0-10.5) x10^3/uL RBC 4.08 L (4.1-5.4) x10^6/uL Hgb 11.3 L (12.0-16.0) g/dL Hct 37.5 (35-47) % MCV 91.9 (78-100) fL MCH 27.7 (26-32) pg MCHC 30.1 L (32-36) g/dL RDW 16.0 H (11.5-14.0) % Plt Count 186 (150-450) x10^3/uL MPV 10.1 (7.5-11.0) fL Gran % 77.8 H (36.0-66.0) % Immature Gran % (Auto) 0.4 (0.00-0.4) % Nucleat RBC Rel Count 0.0 (0.00-0.1) % Eos # (Auto) 0.03 (0-0.5) x10^3/uL Immature Gran # (Auto) 0.04 H (0.00-0.03) x10^3u/L Absolute Lymphs (auto) 1.21 (1.0-4.6) x10^3/uL Absolute Monos (auto) 0.71 (0.0-1.3) x10^3/uL Absolute Nucleated RBC 0.00 (0.00-0.01) x10^3u/L Lymphocytes % 13.4 L (24.0-44.0) % Monocytes % 7.9 (0.0-12.0) % Eosinophils % 0.3 (0.00-5.0) % Basophils % 0.2 (0.0-0.4) % Absolute Granulocytes 7.03 H (1.4-6.9) x10^3/uL Basophils # 0.02 (0-0.4) x10^3/uL D-Dimer 1.11 H* (0.0-0.50) mg/L Sodium 133 L (135-145) mmol/L Potassium 4.2 (3.5-5.1) mmol/L Chloride 104 (98-107) mmol/L Carbon Dioxide 24 (22-30) mmol/L Anion Gap 10.0 (5-15) MEQ/L BUN 24 H (7-17) mg/dL Creatinine 1.08 H (0.52-1.04) mg/dL Estimated GFR 49.7 ML/MIN Glucose 124 H (74-106) mg/dL Lactic Acid (0.4-2.0) Calcium 8.1 L (8.4-10.2) mg/dL Total Bilirubin 0.70 (0.2-1.3) mg/dL AST 24 (14-36) U/L ALT 14 (0-35) U/L Alkaline Phosphatase 59 (38-126) U/L Troponin I (0.000-0.033) ng/mL NT-Pro-B Natriuret Pep 2530 (<300) pg/mL Serum Total Protein 6.0 L (6.3-8.2) g/dL Albumin 3.1 L (3.5-5.0) g/dL Urine Color (Yellow) Urine Appearance (Clear) Urine pH (4.6-8.0) Ur Specific Camilla (1.005-1.030) Urine Protein (Negative) Urine Glucose (UA) (Negative) mg/dL Urine Ketones (Negative) Urine Blood (Negative) Urine Nitrite (Negative) Urine Bilirubin (Negative) Urine Urobilinogen (0.2) mg/dL Ur Leukocyte Esterase (Negative) U Hyaline Cast (Auto) (0-2) /LPF Urine Microscopic RBC (0-5) /HPF Urine Microscopic WBC (0-5) /HPF Ur Epithelial Cells (None Seen) /HPF Urine Bacteria (None Seen) /HPF Urine Culture Reflexed (NO) Influenza Type A Ag (NEGATIVE) Influenza Type B Ag (NEGATIVE) RSV (PCR) (NEGATIVE) SARS-CoV-2 (PCR) (NEGATIVE) 09/13/23 Range/Units 16:28 WBC (4.0-10.5) x10^3/uL RBC (4.1-5.4) x10^6/uL Hgb (12.0-16.0) g/dL Hct (35-47) % MCV (78-100) fL MCH (26-32) pg MCHC (32-36) g/dL RDW (11.5-14.0) % Plt Count (150-450) x10^3/uL MPV (7.5-11.0) fL Gran % (36.0-66.0) % Immature Gran % (Auto) (0.00-0.4) % Nucleat RBC Rel Count (0.00-0.1) % Eos # (Auto) (0-0.5) x10^3/uL Immature Gran # (Auto) (0.00-0.03) x10^3u/L Absolute Lymphs (auto) (1.0-4.6) x10^3/uL Absolute Monos (auto) (0.0-1.3) x10^3/uL Absolute Nucleated RBC (0.00-0.01) x10^3u/L Lymphocytes % (24.0-44.0) % Monocytes % (0.0-12.0) % Eosinophils % (0.00-5.0) % Basophils % (0.0-0.4) % Absolute Granulocytes (1.4-6.9) x10^3/uL Basophils # (0-0.4) x10^3/uL D-Dimer (0.0-0.50) mg/L Sodium (135-145) mmol/L Potassium (3.5-5.1) mmol/L Chloride (98-107) mmol/L Carbon Dioxide (22-30) mmol/L Anion Gap (5-15) MEQ/L BUN (7-17) mg/dL Creatinine (0.52-1.04) mg/dL Estimated GFR ML/MIN Glucose (74-106) mg/dL Lactic Acid 1.7 (0.4-2.0) Calcium (8.4-10.2) mg/dL Total Bilirubin (0.2-1.3) mg/dL AST (14-36) U/L ALT (0-35) U/L Alkaline Phosphatase (38-126) U/L Troponin I (0.000-0.033) ng/mL NT-Pro-B Natriuret Pep (<300) pg/mL Serum Total Protein (6.3-8.2) g/dL Albumin (3.5-5.0) g/dL Urine Color (Yellow) Urine Appearance (Clear) Urine pH (4.6-8.0) Ur Specific Camilla (1.005-1.030) Urine Protein (Negative) Urine Glucose (UA) (Negative) mg/dL Urine Ketones (Negative) Urine Blood (Negative) Urine Nitrite (Negative) Urine Bilirubin (Negative) Urine Urobilinogen (0.2) mg/dL Ur Leukocyte Esterase (Negative) U Hyaline Cast (Auto) (0-2) /LPF Urine Microscopic RBC (0-5) /HPF Urine Microscopic WBC (0-5) /HPF Ur Epithelial Cells (None Seen) /HPF Urine Bacteria (None Seen) /HPF Urine Culture Reflexed (NO) Influenza Type A Ag (NEGATIVE) Influenza Type B Ag (NEGATIVE) RSV (PCR) (NEGATIVE) SARS-CoV-2 (PCR) (NEGATIVE) - Progress Progress: improved, re-examined Air Movement: good Blood Culture(s) Obtained: No Antibiotics given: No Discussed with : D.Marisabel, Other (Hospitalist at [facility] ) Will see patient in: hospital (observation) Counseled pt/family regarding: lab results, diagnosis, need for follow-up, rad results <TONYA LUIS - Last Filed: 09/13/23 19:24> - Progress Progress Note: 09/13/23 18:46 pt taken over at change of shift from Dr. Petit after discussion of Rt Ht failure, findings on testing and exam, and pt introduction to family as well. , and trying to transfer to [facility] for Tx near her family. awaiting hospital call back. Hospitalist wished us to try to get to place with cardio due to condition prior to any admit here consideration. 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 09/13/23 19:23 Discussed with Hospitalist at [facility] in consultation and they accepted the pt in transfer. (TONYA LUIS) Medical Desision Making - Independent Historian Additional History obtained from: Family - Discussion of managment Care discussed with:: hospitalist Reviewed:: Test results, Need for additional workup Agreed on:: need for follow-up, decision to admit, place in obs Will see patient: in hospital - Diagnostic Testing Diagnostic test were ordered, analyzed, and reviewed by me: Yes Radiological Interpretation: Interpreted by me, Reviewed by me - Risk of complications The pt has a mod risk of morbidity or mortality based on: Need for prescription drug management The pt has a high risk of morbidity or mortality based on: Decision regarding hospitilization or escalation of hosp level of care <TONYA LUIS - Last Filed: 09/13/23 19:24> <MONA PETIT - Last Filed: 09/13/23 18:16> - Departure Departure Disposition: Transfer Critical Care Time: No <TONYA LUIS - Last Filed: 09/13/23 19:24> - Departure Clinical Impression: Venous stasis of both lower extremities, Shortness of breath CHF (congestive heart failure) Qualifiers: Heart failure type: right-sided Heart failure chronicity: acute on chronic Qualified Code(s): I50.813 - Acute on chronic right heart failure Condition: Good Referrals: ASHLY LAMB NP [Primary Care Provider] - Follow up/PCP as directed Instructions: Heart Failure
[2023-09-13 17:22] LABS: INFLUENZA A NEGATIVE (NEGATIVE); INFLUENZA B NEGATIVE (NEGATIVE); RESPIRATORY SYNCTIAL VIRUS NEGATIVE (NEGATIVE); SARS-CoV-2 Xpert Express NEGATIVE (NEGATIVE)
[2023-09-13 17:29] LABS: Absolute Neutrophil Ct (ANC) 7.03 x10^3/uL (1.4-6.9); BASOPHIL % 0.2 % (0.0-0.4); Basophil (Absolute #) 0.02 x10^3/uL (0-0.4); Eosinophil % 0.3 % (0.00-5.0); Eosinophil (Absolute #) 0.03 x10^3/uL (0-0.5); Hematocrit 37.5 % (35-47); Hemoglobin 11.3 g/dL (12.0-16.0); IMMATURE GRAN # 0.04 x10^3u/L (0.00-0.03); IMMATURE GRAN % 0.4 % (0.00-0.4); Lymphocyte (Absolute #) 1.21 x10^3/uL (1.0-4.6); Lymphocytes % 13.4 % (24.0-44.0); Mean Cell Volume 91.9 fL (78-100); Mean Corpuscular Hemoglobin 27.7 pg (26-32); Mean Corpuscular Hgb Concent. 30.1 g/dL (32-36); Mean Platelet Volume 10.1 fL (7.5-11.0); Monocyte (Absolute #) 0.71 x10^3/uL (0.0-1.3); Monocytes % 7.9 % (0.0-12.0); Neutrophil % 77.8 % (36.0-66.0); Platelet Count 186 x10^3/uL (150-450); Red Blood Count 4.08 x10^6/uL (4.1-5.4)
[2023-09-13 17:50] LABS: ALBUMIN 3.1 g/dL (3.5-5.0); BILIRUBIN,TOTAL 0.7 mg/dL (0.2-1.3); Calcium 8.1 mg/dL (8.4-10.2); Creatinine 1 1.08 mg/dL (0.52-1.04); EST GLOMERULAR FILTRATION RATE 49.7 ML/MIN; Potassium 4.2 mmol/L (3.5-5.1)
[2023-09-13 19:12] LABS: Appearance Clear (Clear); Bacteria Rare /HPF (None Seen); Bilirubin Negative (Negative); Blood Negative (Negative); Epithelial Cells Rare /HPF (None Seen); Glucose, Urine 500 mg/dL (Negative); Hyaline Casts NONE SEEN /LPF (0-2); Ketones Negative (Negative); Leukocyte Esterase Moderate (Negative); Nitrite Negative (Negative); Protein,Urine Dip Negative (Negative); RBC 0-2 /HPF (0-5); Urobilinogen 0.2 mg/dL (0.2); WBC 21-50 /HPF (0-5)
[2023-09-13 19:19] LABS: ADD URINE CULTURE? YES (NO)
[2023-09-13 19:33] VITALS: BP 139/88; PULSE 136; RESP 13; O2SAT 97
--- NOTE | 2023-09-13 19:34 | XRAY ---
Indication: Short of breath. Comparison: August 10, 2023 Portable chest again demonstrates borderline cardiomegaly and tortuous descending aorta. New tiny left effusion. Right lung clear. Bony thorax intact again with osteopenia, degenerative changes, and scoliosis. Impression: Borderline cardiomegaly with tiny left effusion. Rule out mild or early cardiac decompensation/CHF. Superimposed pneumonia not completely excluded.
== END 2023-09-13 19:55 | disposition short-term general hospital (02) ==
LOC: ED 16:13
DX: I11.0 Hypertensive heart disease with heart failure (principal); I50.813 Acute on chronic right heart failure; I87.8 Other specified disorders of veins; R06.02 Shortness of breath; R53.1 Weakness; R60.0 Localized edema; Z79.01 Long term (current) use of anticoagulants; Z79.84 Long term (current) use of oral hypoglycemic drugs; Z79.891 Long term (current) use of opiate analgesic; Z79.899 Other long term (current) drug therapy; Z11.52 Encounter for screening for COVID-19
CPT/HCPCS: 0241U; 36000; 36415; 71045; 80053; 81001; 83605; 83880; 84484; 85025; 85379; 87086; 93005; 99285

== ENCOUNTER 2023-09-17 08:18 | Inpatient (IN) | payer MEDICARE ==
[2023-09-17] MEDS ORDERED: Aplisol ID ONE (11:35)
--- NOTE | 2023-09-17 15:20 | PCM.SB.HP ---
Swing Bed H&P - Acute Care H&P Revisions as follows General Appearance: no apparent distress Neurologic: alert, oriented x 3, cooperative, normal mood/affect, nml cerebellar function, sensation nml, motor weakness Eye Exam: PERRL/EOMI, eyes nml inspection Ears, Nose, Throat Exam: normal ENT inspection, pharynx normal, moist mucous membranes Neck Exam: normal inspection, non-tender, supple, full range of motion Respiratory: normal breath sounds, lungs clear, No respiratory distress Cardiovascular: regular rate/rhythm, normal heart sounds, normal peripheral pulses Gastrointestinal: soft, normal bowel sounds, No tenderness, No mass Pelvic Exam: not done Male Genitalia: other (N/A) Rectal Exam: deferred Back Exam: normal inspection, normal range of motion, No CVA tenderness, No vertebral tenderness Extremity Exam: lacerations, inflammation, swelling, tenderness, other (skin lesions in various stages of heeling of BLLE, see nursing pics in chart) Skin Exam: normal color, warm, dry, No rash Lymphatic: No adenopathy - Acute Care ROS Revisions Constitutional: Weakness Eyes (ROS): No Symptoms Ears, Nose, & Throat: No Symptoms Respiratory: No Symptoms Cardiac: No Symptoms Abdominal/Gastrointestinal: No Symptoms Genitourinary Symptoms: No Symptoms Genitourinary Symptoms: No Symptoms Telemedicine Encounter - Telemedicine Encounter Telemedicine Encounter: The entirety of this encounter was performed via Telemedicine" is a 87 year old female with a pmhx of AFIB, CHF, HLD, pulmonary HTN, hypothyroidism, hypotension, OA, and GERD. She was transferred here from [facility] for a swing bed. She has continued weakens of BLLE and will be working with PT BID daily. She has chronic stasis dermatitis in her legs for which she receives treatment through wound care with podiatry OP at [facility], [facility]. She recently had angiogram that showed she has arterial vascular disease in her legs as well. While at [facility] she was dx with a UTI and completed antibiotics. She is no longer having symptoms. At last admission at [facility], [facility]1983 she was to f/u with ID -Dr. Smith as pt has had multiple positive wound cultures. Today she continues to have BLLE edema and erythema. If podiatry is unable to consult will have PT eval for further care. She denies CP, abd pain, N/V/D. She reports + increased SOB with walking. 1. Weakness R53.1 - PT BID - admitted swing bed for this - daughter does not want OP rehab placement at this time as she has done this in the past and it was not helpful she explained - 2 step PPD per swing bed protocol 2. Chronic stasis dermatitis I83.009 - Podiatry consult if able to do so, if not then PT can manage - Podiatry scheduled to be out of office starting tomorrow - unna boots - Holliday PRN for chronic related pain - Multiple wounds on BLLE in various stages of healing 3. Chronic a-fib I48.2 - Continue home meds including Eliquis 4. Hypothyroidism- chronic E03.9 - Continue Synthroid 5. HTN- chronic I10 - Stable, continue home meds 6. CHF- chronic I50.22 - Continue Bumex, jardiance, sildenfil - heart healthy diet - cardio-pulmonary rehab consult for OP 7. GERD- chronic K21.9 - Continue Protonix 8. Neuropathy- chronic G60.9 - Continue Lyrica 9. Hyperlipidemia- chronic E78.5 - Continue statin 10. Skin tear- Acute S31.010A - Left upper back VTE: Eliquis PPI: Protonix Next of KIN: Daughter- Emely [phone] D/C plan: approx 1 week Code status: SCO/DNR
[2023-09-17] MEDS: SILDENAFIL CITRATE PO SCH (16:09)
[2023-09-17] MEDS: ELIQUIS 2.5 MG TABLET PO SCH (22:15)
[2023-09-17] MEDS: LYRICA 100MG PO SCH (22:15)
[2023-09-17] MEDS: Lopressor 50 MG PO SCH (22:15)
[2023-09-17] MEDS: ZOCOR 20MG PO SCH (22:15)
[2023-09-17] MEDS: DESYREL 50 MG PO SCH (22:15)
[2023-09-18 05:20] LABS: Hematocrit 34.3 % (35-47); Hemoglobin 10.5 g/dL (12.0-16.0); Mean Corpuscular Hemoglobin 27.6 pg (26-32); Mean Corpuscular Hgb Concent. 30.6 g/dL (32-36); Mean Platelet Volume 9.7 fL (7.5-11.0); Platelet Count 236 x10^3/uL (150-450); Red Blood Count 3.81 x10^6/uL (4.1-5.4); Red Cell Distribution Width 16.1 % (11.5-14.0); White Blood Count 7.4 x10^3/uL (4.0-10.5)
[2023-09-18 05:34] LABS: ALBUMIN 2.6 g/dL (3.5-5.0); ANION GAP 4.4 MEQ/L (5-15); BILIRUBIN,TOTAL 0.5 mg/dL (0.2-1.3); Calcium 7.7 mg/dL (8.4-10.2); Creatinine 1 0.93 mg/dL (0.52-1.04); EST GLOMERULAR FILTRATION RATE 59.5 ML/MIN; Potassium 3.6 mmol/L (3.5-5.1); Total Protein 5.3 g/dL (6.3-8.2)
[2023-09-18] MEDS: NORCO 7.5/325 MG TAB PO PRN (07:24)
[2023-09-18] MEDS: Lyrica 50MG PO SCH (09:15)
[2023-09-18] MEDS: Senokot-S Tablet PO SCH (09:15)
[2023-09-18] MEDS: DELTASONE 10 MG PO SCH (09:16)
[2023-09-18] MEDS: Protonix 40MG Tablet PO SCH (09:16)
[2023-09-18] MEDS: JARDIANCE PO SCH (09:16)
[2023-09-18] MEDS: Aldactone 25 MG PO SCH (09:16)
[2023-09-18] MEDS: BUMEX 1 MG PO SCH (09:16)
[2023-09-18] MEDS: SYNTHROID 75 MCG PO SCH (09:16)
--- NOTE | 2023-09-18 09:18 | PCM.CONS ---
Podiatry HPI - Consult Date of Consultation Date: 09/18/23 Reason for Consult: chronic venous insufficency ulceration Consulting Provider: BONNIE NUR DPM - [facility] History of Present Illness: Mrs. Maldonado is a very pleasant 87 year old female with a significant medical of AFIB, CHF, HLD, pulmonary HTN, hypothyroidism, hypotension, OA, and GERD. She recently was discharged from [facility] for diuresis and UTI. Patient suffered a fall which had resulted in new ulceration to the left knee and hemmorrahgic bullous blisters to the left lower extremity. She does have some recurrent edema to the bilateral lower extremity however the legs are no longer drainning serous fluid. Patient was seen initially today working with PT ambulating and in seemingly in good spirits. Patient denies any other constitutional symptoms. Medications & Allergies Home Medications: Home Medication List Pregabalin [Lyrica] 50 mg PO QAM 06/01/17 [History Confirmed 09/17/23] Sildenafil Citrate [Revatio] 20 mg PO TID 06/01/17 [History Confirmed 09/17/23] Atorvastatin Calcium [Lipitor 20MG Tablet] 20 mg PO HS 09/06/17 [History Confirmed 09/17/23] Apixaban [Eliquis] 2.5 mg PO BID 06/05/20 [History Confirmed 09/17/23] Omeprazole 20 mg PO DAILY 06/05/20 [History Confirmed 09/17/23] Pregabalin 200 mg PO QHS 06/05/20 [History Confirmed 09/17/23] Trazodone HCl 50 mg [Desyrel 50 mg] 50 mg PO HS 06/05/20 [History Confirmed 09/17/23] Prednisone 10 mg [Deltasone 10 mg] 10 mg PO DAILY 06/07/20 [History Confirmed 09/17/23] Empagliflozin [Jardiance] 10 mg PO DAILY 05/17/23 [History Confirmed 09/17/23] Metoprolol Tartrate 50 mg [Lopressor 50 MG] 50 mg PO BID 30 Days #60 tablet 05/19/23 [Rx Confirmed 09/17/23] Bumetanide 1 mg [Bumex 1 mg] 1 mg PO DAILY 07/10/23 [History Confirmed 09/17/23] Hydrocodone/Acetaminophen [Hydrocodone-Acetamin 7.5-325] 1 tab PO Q6HPRN PRN 08/10/23 [History Confirmed 09/17/23] Spironolactone 25 mg PO DAILY 08/10/23 [History Confirmed 09/17/23] Bumetanide 1 mg [Bumex 1 mg] 1 mg PO DAILY PRN PRN 09/17/23 [History Confirmed 09/17/23] Levothyroxine Sodium 75 Mcg [Synthroid 75 Mcg] 75 mcg PO DAILY 09/17/23 [History Confirmed 09/17/23] Sennosides/Docusate Sodium [Senna Plus 8.6-50 mg Softgel] 1 tab PO DAILY 09/17/23 [History Confirmed 09/17/23] Allergies/Adverse Reactions: Allergies Allergy/AdvReac Type Severity Reaction Status Date / Time amlodipine [From Norvasc] Allergy Verified 09/13/23 16:20 cefuroxime Allergy Verified 09/13/23 16:20 cephalexin [From Keflex] Allergy Verified 09/13/23 16:20 gabapentin [From Neurontin] Allergy Verified 09/13/23 16:20 Sulfa (Sulfonamide Allergy Verified 09/13/23 16:20 Antibiotics) - Past Medical History Past Medical History: Yes Neurological History: No Pertinent History ENT History: No Pertinent History Cardiac History: Arrhythmia, Congestive Heart Failure, High Cholesterol Respiratory History: Bronchitis Endocrine Medical History: No Pertinent History Musculoskelatal History: Osteoarthritis, Osteoporosis GI Medical History: GERD History: No Pertinent History Pyscho-Social History: No Pertinent History Reproductive Disorders: No Pertinent History Comment: HX OF PULMONARY HTN, ASTHMA/BRONCHITIS. MULTIPLE P.T. INTERVENTIONS FOR WOUND CARE. - Female History Are you now?: No - Past Surgical History Past Surgical History: Yes Neuro Surgical History: No Pertinent History Cardiac History: No Pertinent History Respiratory Surgery: No Pertinent History GI Surgical History: No Pertinent History Genitourinary Surgical Hx: No Pertinent History Musculskeletal Surgical Hx: Orthopedic Surgery Female Surgical History: No Pertinent History Other Surgical History: back surgery. ANGIOGRAM - Social History Smoking Status: Never smoker Exposure to second hand smoke: No Alcohol: None Drug Use: none - Social Determinants of Health Will the patient participate in the screening: Yes Do you worry about a steady place to live?: No Do you have any problems with any of the following?: No known problems In the past 12 months,have you had to go without utilities?: No Have you or anyone in your house had to go without enough: No Transportation Issues: No Has anyone in your support network made you feel unsafe?: No Does the patient want assistance with any of the above?: No Physical Exam - General General Appearance: no apparent distress - Neuro Neurologic: Epicritic and protopathic - Vascular Peripheral Pulses: Posterior tibialis: 1+, Dorsalis-Pedis: 1+ Capillary Refill Time: < 3 seconds Hair Growth: Symmetrical and Bilateral Varicosities: Positive Edema: Pitting Edema Degree: 3+ Skin: Supple, not atrophic (Hemorrahgic blister to lateral aspect of proximal leg. Superficial hematoma anterior tibia at mid diaphyseal area.) Skin Temperature: Warm to touch - Narrative Narrative Physical Exam: Podiatry Physical Exam Results - Labs Lab/Micro Results: Lab Results-Last 24 Hours 09/17/23 09/18/23 09/18/23 Range/Units 20:55 04:50 04:50 WBC 7.4 (4.0-10.5) x10^3/uL RBC 3.81 L (4.1-5.4) x10^6/uL Hgb 10.5 L (12.0-16.0) g/dL Hct 34.3 L (35-47) % MCV 90.0 (78-100) fL MCH 27.6 (26-32) pg MCHC 30.6 L (32-36) g/dL RDW 16.1 H (11.5-14.0) % Plt Count 236 (150-450) x10^3/uL MPV 9.7 (7.5-11.0) fL Sodium 135 (135-145) mmol/L Potassium 3.6 (3.5-5.1) mmol/L Chloride 107 (98-107) mmol/L Carbon Dioxide 27 (22-30) mmol/L Anion Gap 4.4 L (5-15) MEQ/L BUN 28 H (7-17) mg/dL Creatinine 0.93 (0.52-1.04) mg/dL Estimated GFR 59.5 ML/MIN Glucose 89 (74-106) mg/dL POC Glucometer 149 H (74 to 106) mg/dL Calcium 7.7 L (8.4-10.2) mg/dL Total Bilirubin 0.50 (0.2-1.3) mg/dL AST 20 (14-36) U/L ALT 14 (0-35) U/L Alkaline Phosphatase 55 (38-126) U/L Serum Total Protein 5.3 L (6.3-8.2) g/dL Albumin 2.6 L (3.5-5.0) g/dL - Other Procedures and Tests Respiratory Therapy 09/17/23 11:37 Oxygen Nasal Cannula 2 lpm Assessment/Plan (1) Venous insufficiency of both lower extremities Current Visit: Yes Status: Acute Assessment & Plan: Patient examination and evaluation Patient good candidate for ongoing compression therapy. Blisters/hematoma drainned under aseptic technique utilizing a 18 guage needle. Unna boots applied to the bilateral lower extremity for localized edema and comp ression therapy. Assessed vascular studies from previous visit with peripheral vascular specialist demonstrating aortography with bilateral iliac runoff and selective angiography of the left lower extremity under conscious sedation. Per his report patient without any significant vascular disease necessitating intervention. His suggestion suspected delayed flow is secondary to cardiopulmonary status with congestive heart failure and pulmonary hypertension. Monitor Ins/Outs [place] BP If patient progressing and wound stable will consult PT for dressing changes 2x weekly during stay Patient has outpatient C for wound care established. Discussion with Daughter (Emely) with regards to consultation with Cardiology (Dr. Wilson) will likely proceed with addition of Metalazone on discharge to improve regulation. Will follow with you. Code(s): I87.2 - VENOUS INSUFFICIENCY (CHRONIC) (PERIPHERAL) (2) Hematoma of left lower leg Current Visit: Yes Status: Acute Code(s): S80.12XA - CONTUSION OF LEFT LOWER LEG, INITIAL ENCOUNTER (3) Blister of leg without infection Current Visit: Yes Status: Acute Code(s): S80.829A - BLISTER (NONTHERMAL), UNSPECIFIED LOWER LEG, INIT ENCNTR (4) Atrial fibrillation with RVR Current Visit: No Status: Acute Code(s): I48.91 - UNSPECIFIED ATRIAL FIBRILLATION (5) Chronic hypotension Current Visit: No Status: Acute Code(s): I95.89 - OTHER HYPOTENSION (6) Fall Current Visit: No Status: Acute Qualifiers: Encounter type: initial encounter Qualified Code(s): W19.XXXA - Unspecified fall, initial encounter Code(s): W19.XXXA - UNSPECIFIED FALL, INITIAL ENCOUNTER (7) Generalized weakness Current Visit: No Status: Acute Code(s): R53.1 - WEAKNESS (8) Hyponatremia Current Visit: No Status: Acute Code(s): E87.1 - HYPO-OSMOLALITY AND HYPONATREMIA (9) Localized edema due to fluid overload Current Visit: No Status: Acute Code(s): E87.70 - FLUID OVERLOAD, UNSPECIFIED
[2023-09-18] MEDS: Aplisol ID SCH (10:25)
[2023-09-19 06:26] LABS: Hematocrit 35.4 % (35-47); Hemoglobin 10.4 g/dL (12.0-16.0); Mean Cell Volume 92.9 fL (78-100); Mean Corpuscular Hemoglobin 27.3 pg (26-32); Mean Corpuscular Hgb Concent. 29.4 g/dL (32-36); Mean Platelet Volume 9.6 fL (7.5-11.0); Platelet Count 229 x10^3/uL (150-450); Red Blood Count 3.81 x10^6/uL (4.1-5.4); Red Cell Distribution Width 16.1 % (11.5-14.0); White Blood Count 7.8 x10^3/uL (4.0-10.5)
[2023-09-19 06:35] LABS: ALBUMIN 2.7 g/dL (3.5-5.0); ANION GAP 5.9 MEQ/L (5-15); BILIRUBIN,TOTAL 0.4 mg/dL (0.2-1.3); Calcium 7.7 mg/dL (8.4-10.2); Creatinine 1 0.88 mg/dL (0.52-1.04); EST GLOMERULAR FILTRATION RATE 63.6 ML/MIN; Potassium 3.7 mmol/L (3.5-5.1); Total Protein 5.2 g/dL (6.3-8.2)
[2023-09-19 08:10] VITALS: BP 111/71; PULSE 72; RESP 16; TEMP 97.9
[2023-09-19 08:30] VITALS: O2SAT 93
--- NOTE | 2023-09-19 09:19 | PCM.DS ---
Discharge Summary Date of Admission: 09/17/23 13:46 Date of Discharge: 09/19/23 Admitting Physician: DANIELLE MACEDO MD Consults: Consults on Case 09/17/23 15:42 Consult Podiatry ROUTINE Primary Care Provider: ASHLY LAMB Allergies Allergies amlodipine [From Norvasc] Allergy (Verified 09/13/23 16:20) cefuroxime Allergy (Verified 09/13/23 16:20) cephalexin [From Keflex] Allergy (Verified 09/13/23 16:20) gabapentin [From Neurontin] Allergy (Verified 09/13/23 16:20) Sulfa (Sulfonamide Antibiotics) Allergy (Verified 09/13/23 16:20) Hospital Summary - Hospital Course Hospital Course: 09/17/23 is a 87 year old female with a pmhx of AFIB, CHF, HLD, pulmonary HTN, hypothyroidism, hypotension, OA, and GERD. She was transferred here from [facility] for a swing bed. She has continued weakens of BLLE and will be working with PT BID daily. She has chronic stasis dermatitis in her legs for which she receives treatment through wound care with podiatry OP at [facility]. She recently had angiogram that showed she has arterial vascular disease in her legs as well. While at [facility] she was dx with a UTI and completed antibiotics. She is no longer having symptoms. At last admission at [facility] she was to f/u with ID -Dr. Smith as pt has had multiple positive wound cultures. Today she continues to have BLLE edema and erythema. If podiatry is unable to consult will have PT eval for further care. She denies CP, abd pain, N/V/D. She reports + increased SOB with walking. 09/19/23 Pt laying in bed explains she is ready to go home today. She was able to walk around the unit several times yesterday and did well. Spoke with pt's daughter and she would like for her to go home this morning since she is doing so well with PT. Legs are wrapped- completed by podiatry on day of admission. Pt is to f/u OP for wound care with podiatry. She denies any further concerns at this time. - Vitals & Intake/Output Vital Signs: Vital Signs Temperature 97.9 F 09/19/23 08:00 Pulse Rate 72 09/19/23 08:00 Respiratory Rate 16 09/19/23 08:00 Blood Pressure 111/71 09/19/23 08:00 O2 Sat by Pulse Oximetry 93 L 09/19/23 08:28 Intake & Output: Intake & Output 09/16/23 09/17/23 09/18/23 09/19/23 11:59 11:59 11:59 11:59 Intake Total 340 600 Balance 340 600 Weight 61.1 kg 61.1 kg - Lab Result Diagrams: 09/19/23 06:13 09/19/23 06:13 Lab Results-Last 24 Hrs: Lab Results-Last 24 Hours 09/19/23 09/19/23 Range/Units 06:13 06:13 WBC 7.8 (4.0-10.5) x10^3/uL RBC 3.81 L (4.1-5.4) x10^6/uL Hgb 10.4 L (12.0-16.0) g/dL Hct 35.4 (35-47) % MCV 92.9 (78-100) fL MCH 27.3 (26-32) pg MCHC 29.4 L (32-36) g/dL RDW 16.1 H (11.5-14.0) % Plt Count 229 (150-450) x10^3/uL MPV 9.6 (7.5-11.0) fL Sodium 134 L (135-145) mmol/L Potassium 3.7 (3.5-5.1) mmol/L Chloride 107 (98-107) mmol/L Carbon Dioxide 25 (22-30) mmol/L Anion Gap 5.9 (5-15) MEQ/L BUN 28 H (7-17) mg/dL Creatinine 0.88 (0.52-1.04) mg/dL Estimated GFR 63.6 ML/MIN Glucose 89 (74-106) mg/dL Calcium 7.7 L (8.4-10.2) mg/dL Total Bilirubin 0.40 (0.2-1.3) mg/dL AST 22 (14-36) U/L ALT 14 (0-35) U/L Alkaline Phosphatase 49 (38-126) U/L Serum Total Protein 5.2 L (6.3-8.2) g/dL Albumin 2.7 L (3.5-5.0) g/dL - Procedures and Test Procedures and Tests throughout Hospitalization: Therapy Orders & Screens 09/17/23 11:37 PT Eval & Treat ( Order) ONCE Reason for Eval:: SWINGBED, WOUND CARE Diagnosis: DECONDITIONING R/T CHF, LEGS WOUNDS Oxygen Nasal Cannula 2 lpm Comment: OT Eval and Treat ( Order) ONCE Comment: Physician Instructions: Reason For Exam: Diagnosis: DECONDITIONING R/T CHF, LEG WOUNDS 09/17/23 15:23 OT Screen per Nursing Assess ONCE Comment: Protocol Order Physician Instructions: Greater than 3 points order OT Admission Screening Reason For Exam: Triggered on Admission Diagnosis: DECONDITIONING R/T CHF, LEG WOUNDS Open Wound/Cellutlitis/Pressure Ulcers: Yes Acute Fx/ORIF/Change in wt bearing status: No Severe MUSCULOSKELETAL pain: No ADL Dysfunction: No Acute CVA w/Hemiparesis/Hemiplegia: No Decreased Functional Mobility/Strength: Yes Sprain/Strain: No Acute Post-op Mobility Dysfunction: No Total Points: 6 PT Screen per Nursing Assess ONCE Comment: Protocol Order Physician Instructions: Greater than 3 points order PT Admission Screenin Reason For Exam: Triggered on Admission Diagnosis: DECONDITIONING R/T CHF, LEG WOUNDS Open Wound/Cellutlitis/Pressure Ulcers: Yes Acute Fx/ORIF/Change in wt bearing status: No Severe MUSCULOSKELETAL pain: No ADL Dysfunction: No Acute CVA w/Hemiparesis/Hemiplegia: No Decreased Functional Mobility/Strength: Yes Sprain/Strain: No Acute Post-op Mobility Dysfunction: No Total Points: 6 09/17/23 17:13 PT Clarification Order ROUTINE Comment: Physician Instructions: Reason For Exam: PT Clarification: P.T. TO RX 5-6X/WK UNTIL D/C TO ADDRESS FUNCTIONAL MOBILITY AND GAIT TRAINING, THER EX, BALANCE AND ENDURANCE ACTIVITIES TO MAXIMIZR FUNCTIONAL POTENTIAL FOR SAFE RETURN HOME. Discharge Exam General Appearance: no apparent distress, alert Neurologic Exam: alert, oriented x 3, cooperative, normal mood/affect, nml cerebellar function, sensation nml, No motor deficits Eye Exam: PERRL, EOMI, eyes nml inspection Ears, Nose, Throat Exam: normal ENT inspection, pharynx normal, moist mucous membranes Neck Exam: normal inspection, non-tender, supple, full range of motion Respiratory Exam: normal breath sounds, lungs clear, No respiratory distress Cardiovascular Exam: regular rate/rhythm, normal heart sounds Gastrointestinal/Abdomen Exam: soft, No tenderness, No mass Pelvic Exam: deferred Rectal Exam: deferred Back Exam: normal inspection, normal range of motion, No CVA tenderness, No vertebral tenderness Extremity Exam: normal inspection, normal range of motion, other (BLLE legs wrapped) Skin Exam: normal color, warm, dry Wound Assessment: Skin/Wound Assessment Wound/Incision Assessment Start: 09/17/23 15:23 Text: Status: Active Freq: Q6H Protocol: Document 09/19/23 08:00 (Rec: 09/19/23 08:56 [id number]) Wound/Incision Assessment Left Upper Back Wound Assessment Shift Assessment Wound Type Skin Tear Wound Stage Non Pressure Wound Dressing Status Dry & Intact Drainage Amount None Drainage Odor None/Absent Primary Dressing Mepilex Right Knee Wound Assessment Shift Assessment Wound Type Skin Tear Wound Stage Non Pressure Wound General Appearance Open to air Right Posterior Knee Wound Assessment Shift Assessment Wound Type Blister Wound Stage Non Pressure Wound Dressing Status Dry & Intact Drainage Amount None Drainage Odor None/Absent Primary Dressing Mepilex Left Knee Wound Assessment Shift Assessment Wound Type Skin Tear Wound Stage Non Pressure Wound Dressing Status Dry & Intact Drainage Amount None Drainage Odor None/Absent Primary Dressing Mepilex Left Lateral Knee Wound Assessment Shift Assessment Wound Type Blister Wound Stage Non Pressure Wound General Appearance Open to air Comment Fluid filled blister, open to air Left Toe Wound Assessment Shift Assessment Wound Stage Non Pressure Wound Comment Left 2nd-5th toes Wound Photo Photo Taken Yes Comment: pictures in chart Final Diagnosis/Problem List - Final Discharge Diagnosis/Problem (1) Weakness Current Visit: Yes Status: Acute Code(s): R53.1 - WEAKNESS (2) Chronic venous stasis dermatitis of both lower extremities Current Visit: Yes Status: Acute Code(s): I87.2 - VENOUS INSUFFICIENCY (CHRONIC) (PERIPHERAL) (3) Chronic atrial fibrillation Current Visit: Yes Status: Acute Code(s): I48.20 - CHRONIC ATRIAL FIBRILLATION, UNSPECIFIED (4) Hypothyroid Current Visit: No Status: Chronic Code(s): E03.9 - HYPOTHYROIDISM, UNSPECIFIED (5) HTN (hypertension) Current Visit: No Status: Chronic Code(s): I10 - ESSENTIAL (PRIMARY) HYPERTENSION (6) CHF (congestive heart failure) Current Visit: No Status: Chronic Code(s): I50.9 - HEART FAILURE, UNSPECIFIED (7) GERD (gastroesophageal reflux disease) Current Visit: Yes Status: Acute Code(s): K21.9 - GASTRO-ESOPHAGEAL REFLUX DISEASE WITHOUT ESOPHAGITIS (8) Neuropathy Current Visit: Yes Status: Acute Code(s): G62.9 - POLYNEUROPATHY, UNSPECIFIED (9) Hyperlipidemia Current Visit: Yes Status: Acute Code(s): E78.5 - HYPERLIPIDEMIA, UNSPECIFIED (10) Skin tear Current Visit: Yes Status: Acute Assessment & Plan: 1. Weakness R53.1 - PT BID - admitted swing bed for this - daughter does not want OP rehab placement at this time as she has done this in the past and it was not helpful she explained - 2 step PPD per swing bed protocol 2. Chronic stasis dermatitis I83.009 - Podiatry consult if able to do so, if not then PT can manage - Podiatry scheduled to be out of office starting tomorrow - unna boots - [place] PRN for chronic related pain - Multiple wounds on BLLE in various stages of healing 3. Chronic a-fib I48.2 - Continue home meds including Eliquis 4. Hypothyroidism- chronic E03.9 - Continue Synthroid 5. HTN- chronic I10 - Stable, continue home meds 6. CHF- chronic I50.22 - Continue Bumex, jardiance, sildenfil - heart healthy diet - cardio-pulmonary rehab consult for OP 7. GERD- chronic K21.9 - Continue Protonix 8. Neuropathy- chronic G60.9 - Continue Lyrica 9. Hyperlipidemia- chronic E78.5 - Continue statin 10. Skin tear- Acute S31.010A - Left upper back Code(s): [id number] - - Discharge Discharge Date: 09/19/23 Disposition: Home, Self-Care Condition: Stable Prescriptions: Continue Sildenafil Citrate [Revatio] 20 mg PO TID Pregabalin [Lyrica] 50 mg PO QAM Atorvastatin Calcium [Lipitor 20MG Tablet] 20 mg PO HS Pregabalin 200 mg PO QHS Omeprazole 20 mg PO DAILY Apixaban [Eliquis] 2.5 mg PO BID Trazodone HCl 50 mg [Desyrel 50 mg] 50 mg PO HS Prednisone 10 mg [Deltasone 10 mg] 10 mg PO DAILY Empagliflozin [Jardiance] 10 mg PO DAILY Metoprolol Tartrate 50 mg [Lopressor 50 MG] 50 mg PO BID 30 Days #60 tablet Bumetanide 1 mg [Bumex 1 mg] 1 mg PO DAILY Hydrocodone/Acetaminophen [Hydrocodone-Acetamin 7.5-325] 1 tab PO Q6HPRN PRN PRN Reason: Pain Spironolactone 25 mg PO DAILY Levothyroxine Sodium 75 Mcg [Synthroid 75 Mcg] 75 mcg PO DAILY Bumetanide 1 mg [Bumex 1 mg] 1 mg PO DAILY PRN PRN PRN Reason: fluid retention Sennosides/Docusate Sodium [Senna Plus 8.6-50 mg Softgel] 1 tab PO DAILY Follow up with: BREN LEE [Other] - 10/01/23 1:30 pm ASHLY LAMB NP [Primary Care Provider] -
[2023-09-29] MEDS ORDERED: Aplisol ID SCH (10:00)
== END 2023-09-19 09:40 | disposition home or self-care (01) | DRG 948 ==
LOC: MED SURG 13:46
PROVIDERS: ADMIT Internal Medicine; ATTEND Internal Medicine
DX: R53.1 Weakness (principal); E87.1 Hypo-osmolality and hyponatremia; I48.20 Chronic atrial fibrillation, unspecified; E03.9 Hypothyroidism, unspecified; I11.0 Hypertensive heart disease with heart failure; I50.9 Heart failure, unspecified; K21.9 Gastro-esophageal reflux disease without esophagitis; G62.9 Polyneuropathy, unspecified; I87.2 Venous insufficiency (chronic) (peripheral); S80.12XA Contusion of left lower leg, initial encounter; I95.89 Other hypotension; W19.XXXA Unspecified fall, initial encounter; E87.70 Fluid overload, unspecified; E78.5 Hyperlipidemia, unspecified; R60.0 Localized edema; S21.212A Laceration without foreign body of left back wall of thorax without penetration into thoracic cavity, initial encounter; Z79.01 Long term (current) use of anticoagulants; Z79.899 Other long term (current) drug therapy
CPT/HCPCS: 10140; 29580; 36415; 80053; 82947; 85027; 94760; 99221; Q3014; 97110-GP; A9270-GY

== ENCOUNTER 2024-01-02 10:18 | Emergency (ER) | payer MEDICARE, OTHER ==
[2024-01-02 10:27] VITALS: TEMP 98.8
--- NOTE | 2024-01-02 10:41 | ERPHSYRPT ---
- History of Present Illness Time Seen by Provider: 01/02/24 10:35 Source: patient, family Exam Limitations: no limitations Patient Subjective Stated Complaint: PT states "I was bitten by my cat and then she scratched me." Triage Nursing Assessment: PT presented alert and oriented X 3, skin wpd. pt ambulates with a slow gait, able to speak in clear full sentences. PT has scratches to left forearm. Physician History: Pt was bitten by her cat a week or so ago and noted pain/swelling starting yesterday+. Cat has not had shots , but is behaving normally and being observed - animal control to be notified for f/u. Pt need updated tdap. N/V intact and tendon function OK, but increased pain with stretching at the extreme range. Discussed admission risks/benefits of AB Tx and of advancing infection involving tendon space with pt and daughter and they would like to try AB outpt today and I have advised return this evening if not improving, they have they have the capacity to make this choice. No direct trauma. no agustín tenderness. But discussed having CBC, Tdap update and CT to help check for tendon space infection and pt and family agree after discussion of risks/benefits and will proceed these are ordered. Results discussed. Occurred: days ago Method of Injury: other (cat bite) Quality: constant, throbbing Severity of Pain-Max: moderate Severity of Pain-Current: moderate Extremities Pain Location: forearm: left, hand: left Modifying Factors: Improves With: immobilization, movement Associated Symptoms: none Allergies/Adverse Reactions: amlodipine [From Norvasc] Allergy (Verified 09/13/23 16:20) cefuroxime Allergy (Verified 09/13/23 16:20) cephalexin [From Keflex] Allergy (Verified 09/13/23 16:20) gabapentin [From Neurontin] Allergy (Verified 09/13/23 16:20) Sulfa (Sulfonamide Antibiotics) Allergy (Verified 09/13/23 16:20) Home Medications: Pregabalin [Lyrica] 50 mg PO QAM 06/01/17 [History] Sildenafil Citrate [Revatio] 20 mg PO TID 06/01/17 [History] Atorvastatin Calcium [Lipitor 20MG Tablet] 20 mg PO HS 09/06/17 [History] Apixaban [Eliquis] 2.5 mg PO BID 06/05/20 [History] Omeprazole 20 mg PO DAILY 06/05/20 [History] Pregabalin 200 mg PO QHS 06/05/20 [History] Trazodone HCl 50 mg [Desyrel 50 mg] 50 mg PO HS 06/05/20 [History] Prednisone 10 mg [Deltasone 10 mg] 10 mg PO DAILY 06/07/20 [History] Empagliflozin [Jardiance] 10 mg PO DAILY 05/17/23 [History] Bumetanide 1 mg [Bumex 1 mg] 1 mg PO DAILY 07/10/23 [History] Hydrocodone/Acetaminophen [Hydrocodone-Acetamin 7.5-325] 1 tab PO Q6HPRN PRN 09/29 [History] Spironolactone 25 mg PO DAILY 08/10/23 [History] Bumetanide 1 mg [Bumex 1 mg] 1 mg PO DAILY PRN PRN 09/17/23 [History] Levothyroxine Sodium 75 Mcg [Synthroid 75 Mcg] 75 mcg PO DAILY 09/17/23 [History] Sennosides/Docusate Sodium [Senna Plus 8.6-50 mg Softgel] 1 tab PO DAILY 09/17/23 [History] Hx Tetanus, Diphtheria Vaccination/Date Given: No Hx Influenza Vaccination/Date Given: No Hx Pneumococcal Vaccination/Date Given: No Immunizations Up to Date: No Travel Risk - International Travel Have you traveled outside of the country in past 3 weeks: No - Emerging Infectious Disease Are you exhibiting symptoms associated with any current EIDs: No Symptoms: Shortness of Breath - Review of Systems Constitutional: No Fever, No Chills Eyes: No Symptoms Ears, Nose, & Throat: No Symptoms Respiratory: No Cough, No Dyspnea Cardiac: No Chest Pain, No Edema, No Syncope Abdominal/Gastrointestinal: No Abdominal Pain, No Nausea, No Vomiting, No Diarrhea Genitourinary Symptoms: No Dysuria Musculoskeletal: Injury, Joint Redness, Joint Pain, Joint Swelling, No Back Pain, No Neck Pain Skin: Other (travis bites), No Rash Neurological: No Dizziness, No Focal Weakness, No Sensory Changes Psychological: No Symptoms Endocrine: No Symptoms Hematologic/Lymphatic: No Symptoms Immunological/Allergic: No Symptoms All Other Systems: Reviewed and Negative - Past Medical History Pertinent Past Medical History: Yes Neurological History: No Pertinent History ENT History: No Pertinent History Cardiac History: Arrhythmia, Congestive Heart Failure, High Cholesterol Respiratory History: Bronchitis Endocrine Medical History: No Pertinent History Musculoskeletal History: Osteoarthritis, Osteoporosis GI Medical History: GERD History: No Pertinent History Psycho-Social History: No Pertinent History Female Reproductive Disorders: No Pertinent History Other Medical History: HX OF PULMONARY HTN, ASTHMA/BRONCHITIS. MULTIPLE P.T. INTERVENTIONS FOR WOUND CARE. - Past Surgical History Past Surgical History: Yes Neuro Surgical History: No Pertinent History Cardiac: No Pertinent History Respiratory: No Pertinent History Gastrointestinal: No Pertinent History Genitourinary: No Pertinent History Musculoskeletal: Orthopedic Surgery Female Surgical History: No Pertinent History Other Surgical History: back surgery. ANGIOGRAM - Social History Smoking Status: Never smoker Exposure to second hand smoke: No Drug Use: none Patient Lives Alone: No - Social Determinants of Health Will the patient participate in the screening: Yes Do you worry about a steady place to live?: No Do you have any problems with any of the following?: No known problems In the past 12 months,have you had to go without utilities?: No Transportation Issues: No Has anyone in your support network made you feel unsafe?: No Have you or anyone in your house had to go without enough: No - Nursing Vital Signs Nursing Vital Signs: Initial Vital Signs Temperature 98.8 F 01/02/24 10:22 Pulse Rate 80 01/02/24 10:22 Respiratory Rate 20 01/02/24 10:22 Blood Pressure 116/55 01/02/24 10:22 O2 Sat by Pulse Oximetry 94 L 01/02/24 10:22 Pain Scale Pain Intensity 2 - Physical Exam General Appearance: no apparent distress, alert Eyes, Ears, Nose, Throat Exam: moist mucous membranes Neck Exam: non-tender, supple, full range of motion Cardiovascular/Respiratory Exam: chest non-tender, normal breath sounds, regular rate/rhythm, no respiratory distress Abdominal Exam: non-tender, No guarding Back Exam: normal inspection, normal range of motion, No vertebral tenderness Shoulder Exam: normal inspection, non-tender, no evidence of injury, normal ROM Elbow/Forearm Exam: normal inspection, non-tender, no evidence of injury, normal ROM Wrist Exam: normal inspection, non-tender, no evidence of injury Hand Exam: normal ROM, infection, soft tissue tenderness, swelling, No bone tenderness DTR - Upper Extremity Exam: bicep (R): 2+, bicep (L): 2+, tricep (R): 2+, tricep (L): 2+ Neuro/Tendon Exam: normal sensation, normal motor functions Mental Status Exam: alert, oriented x 3, cooperative Skin Exam: normal color, warm, dry SpO2 Interpretation: normal SpO2: 95 O2 Delivery: Room Air - Course Nursing assessment & vital signs reviewed: Yes - CT Exams Left Upper Extremity CT Interpretation: Tele-radiologist Report, No Fracture, Other (celluitis/swelling no fluid collections) Ordered Tests: Active Orders 24 hr Category Date Time Status IV Insertion STAT Care 01/02/24 10:46 Active UPPER EXTREMITY W/O CONTRAST [CT] Stat Exams 01/02/24 10:51 Completed CBC W DIFF Stat Lab 01/02/24 10:55 Completed Medication Summary Discontinued Medications Generic Name Dose Route Start Last Admin Trade Name Freq PRN Reason Stop Dose Admin Diphtheria/Tetanus/Acell Pertussis 0.5 ml 01/02/24 10:49 01/02/24 11:18 Tdap --Diph,Pertuss(Acell),Tet Vac/Pf 0.5 Ml Vial IM 01/02/24 10:50 0.5 ml .ONCE ONE Administration Diphtheria/Tetanus/Acell Pertussis Confirm 01/02/24 10:52 Tdap --Diph,Pertuss(Acell),Tet Vac/Pf 0.5 Ml Vial Administered 01/02/24 10:53 Dose 0.5 ml IM .STK-MED ONE Sodium Chloride 1,000 mls @ 999 mls/hr 01/02/24 10:46 01/02/24 11:50 Sodium Chloride 0.9% 1000 Ml IV 01/02/24 11:46 Infused .Q1H1M STA Infusion Ampicillin Sodium/Sulbactam 100 mls @ 200 mls/hr 01/02/24 10:47 01/02/24 11:17 Sodium 1.5 g/ Sodium Chloride IV 01/02/24 11:16 Not Given STAT ONE Sodium Chloride Confirm 01/02/24 10:52 Sodium Chloride 0.9% 1000 Ml Administered 01/02/24 10:53 Dose 1,000 mls @ ud .ROUTE .STK-MED ONE Ampicillin Sodium/Sulbactam 100 mls @ 200 mls/hr 01/02/24 11:00 01/02/24 11:13 Sodium 1.5 g/ Sodium Chloride IV 01/02/24 11:29 200 mls/hr STAT ONE Administration Lab/Rad Data: Laboratory Result Diagrams 01/02/24 10:55 Laboratory Results 01/02/24 Range/Units 10:55 WBC 9.0 (3.98-10.04) x10^3/uL RBC 4.48 (3.93-5.22) x10^6/uL Hgb 12.3 (11.2-15.7) g/dL Hct 39.6 (34.1-44.9) % MCV 88.4 (79.4-94.8) fL MCH 27.5 (25.6-32.2) pg MCHC 31.1 L (32.2-35.5) g/dL RDW 24.8 H (11.7-14.4) % Plt Count 122 L (182-369) x10^3/uL MPV 9.7 (9.4-12.3) fL Gran % 68.9 (34.0-71.1) % Immature Gran % (Auto) 0.3 (0.001-0.429) % Nucleat RBC Rel Count 0.0 (0.00-0.2) % Eos # (Auto) 0.01 L (0.04-0.36) x10^3/uL Immature Gran # (Auto) 0.03 (0.001-0.031) x10^3u/L Absolute Lymphs (auto) 1.80 (1.18-3.74) x10^3/uL Absolute Monos (auto) 0.97 H (0.24-0.86) x10^3/uL Absolute Nucleated RBC 0.00 (0.00-0.012) x10^3u/L Lymphocytes % 19.9 (19.3-51.7) % Monocytes % 10.7 (4.7-12.5) % Eosinophils % 0.1 L (0.7-5.8) % Basophils % 0.1 (0.1-1.2) % Absolute Granulocytes 6.22 H (1.56-6.13) x10^3/uL Basophils # 0.01 (0.01-0.08) x10^3/uL - Progress Progress: improved, re-examined Progress Note: 01/02/24 13:16 swelling seems improved and pain is less to globe tester of left hand now. Counseled pt/family regarding: lab results, diagnosis, need for follow-up, rad results Medical Desision Making - Independent Historian Additional History obtained from: Child - Discussion of managment Reviewed:: Test results, Need for additional workup Agreed on:: Treatment plan, need for follow-up - Diagnostic Testing Diagnostic test were ordered, analyzed, and reviewed by me: Yes Radiological Interpretation: Interpreted by me, Reviewed by me - Risk of complications The pt has a mod risk of morbidity or mortality based on: Need for prescription drug management The pt has a high risk of morbidity or mortality based on: Decision regarding hospitilization or escalation of hosp level of care - Departure Departure Disposition: Home Clinical Impression: Infected cat bite Condition: Good Critical Care Time: No Referrals: ASHLY LAMB, PREDATORY ANIMAL EXTERMINATOR [Primary Care Provider] - Follow up/PCP as directed Instructions: Animal Bites ED, Rabies (DC) Additional Instructions: we are providing rabies info for you to follow-up with the animal control and observe your cat for any strange behavior - if so contact animal control to consider rabies shots . See your DrZhao Thursday to recheck your arm for progress and return meantime if any concerns, swelling, pain , numbness or other concerns. Also use antibiotic ointment on the scratches/wounds. Prescriptions: Amox Tr/Potass Clav. 875 mg [Augmentin 875-125 Tablet] 875 mg PO BID #20 tablet
[2024-01-02] MEDS ORDERED: Adacel Vial IM ONE (10:52)
[2024-01-02] MEDS ORDERED: Sodium Chloride 0.9% 1000 ML 1,000 ML ONE (10:52)
[2024-01-02 10:59] LABS: Absolute Neutrophil Ct (ANC) 6.22 x10^3/uL (1.56-6.13); BASOPHIL % 0.1 % (0.1-1.2); Basophil (Absolute #) 0.01 x10^3/uL (0.01-0.08); Eosinophil % 0.1 % (0.7-5.8); Eosinophil (Absolute #) 0.01 x10^3/uL (0.04-0.36); Hematocrit 39.6 % (34.1-44.9); Hemoglobin 12.3 g/dL (11.2-15.7); IMMATURE GRAN # 0.03 x10^3u/L (0.001-0.031); IMMATURE GRAN % 0.3 % (0.001-0.429); Lymphocytes % 19.9 % (19.3-51.7); Mean Cell Volume 88.4 fL (79.4-94.8); Mean Corpuscular Hemoglobin 27.5 pg (25.6-32.2); Mean Corpuscular Hgb Concent. 31.1 g/dL (32.2-35.5); Mean Platelet Volume 9.7 fL (9.4-12.3); Monocyte (Absolute #) 0.97 x10^3/uL (0.24-0.86); Monocytes % 10.7 % (4.7-12.5); Neutrophil % 68.9 % (34.0-71.1); Platelet Count 122 x10^3/uL (182-369); Red Blood Count 4.48 x10^6/uL (3.93-5.22); Red Cell Distribution Width 24.8 % (11.7-14.4)
[2024-01-02] MEDS: Sodium Chloride 0.9% 1000 ML 1,000 ML IV STA (11:12)
[2024-01-02] MEDS: Unasyn 1.5GM Vial*** 1.5 G in Sodium Chloride 100ML MINI-BAG PLUS 100 ML IV ONE (11:13)
[2024-01-02] MEDS: Unasyn 1.5GM Vial*** 1.5 G in Sodium Chloride 0.9% 100 ML IV ONE (11:17)
[2024-01-02] MEDS: Adacel Vial IM ONE (11:18)
[2024-01-02 11:51] VITALS: RESP 16
--- NOTE | 2024-01-02 12:48 | XRAY ---
CLINICAL HISTORY: infection after cat bite COMPARISON: None. TECHNIQUE: CT scan of the left hand and forearm was performed without contrast. Axial images were obtained with reformatted coronal and sagittal images and submitted for interpretation. One of the following dose reduction techniques was utilized for this exam. Automated exposure control, adjustment of the mA and/or kV according to patient size, and use of iterative reconstruction. FINDINGS: Scattered areas of fat stranding are seen in the subcutaneous soft tissues of the left wrist and forearm. No definite/obvious collection seen. Reduced bone density. Severe degenerative changes are seen in 1st carpometacarpal joint as evidenced by osteophytosis and reduced joint spaces. Degenerative changes seen in the visualized proximal interphalangeal joints of second and fourth fingers showing marginal osteophytes and narrowing of joint spaces. Degenerative changes seen in the intercarpal bones as evidenced by intraosseous cysts. Possible subarticular geode seen in the head of the third metacarpal. Chondrocalcinosis seen as evidenced by soft tissue ossification No acute fracture or dislocation seen. No lytic or sclerotic bone lesions. Vascular calcifications seen. IMPRESSION: Scattered areas of fat stranding are seen in the subcutaneous soft tissues of the left wrist and forearm. Findings are likely due to subcutaneous soft tissue edema, likely infective/inflammatory (cellulitis), would recommend clinical correlation. 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 Chondrocalcinosis seen No definite acute bony injury identified. Received a call from [facility] from at 11:36 AM CYTOLOGY MANAGER, 01/02/2024, and Dr. Myles Cruz was informed regarding the presence of positive findings. Electronically Signed by: Jose E Acevedo MD. (01/02/2024 12:44:08 EDT)
[2024-01-02 12:52] VITALS: O2SAT 95
[2024-01-02 13:44] VITALS: BP 116/69; PULSE 60
[2024-01-02 14:17] LABS: Slide Review 1 YES
== END 2024-01-02 13:44 | disposition home or self-care (01) ==
LOC: ED 10:18
DX: S50.872A Other superficial bite of left forearm, initial encounter (principal); S60.572A Other superficial bite of hand of left hand, initial encounter; L08.9 Local infection of the skin and subcutaneous tissue, unspecified; W55.01XA Bitten by cat, initial encounter; I50.9 Heart failure, unspecified; E78.5 Hyperlipidemia, unspecified; Z79.01 Long term (current) use of anticoagulants; Z79.84 Long term (current) use of oral hypoglycemic drugs; Z79.899 Other long term (current) drug therapy; Z23 Encounter for immunization
CPT/HCPCS: 36000; 36415; 73200; 85025; 90471; 90715; 96365; 99284; J0295

== ENCOUNTER 2024-02-08 13:56 | Observation (INO) | payer MEDICARE, OTHER ==
[2024-02-08] MEDS ORDERED: DUONEB 0.5-3 MG/3 ml Neb IH ONE (15:03)
--- NOTE | 2024-02-08 15:04 | ERPHSYRPT ---
- History of Present Illness Time Seen by Provider: 02/08/24 14:04 Source: patient, family Exam Limitations: no limitations Patient Subjective Stated Complaint: weak, cough, covid + Triage Nursing Assessment: Pt brought to the ER by her daughter, hypertensive, oxygen 90% where her normal is approx 96%, rates pain at 5/10 in her left medial back, pulses normal, anne marie lower leg ext which is normal and appears better than usual per daughter, placed on 2L NC Physician History: 88 years old female with multiple medical problems including hypertension, hyperlipidemia, congestive heart failure, atrial fibrillation on Eliquis is brought in the ER with complaint of generalized weakness for the last 2 to 3 days with cough and congestion symptoms. Home COVID test is positive today. Patient oxygen saturation usually around is 96% but on presentation is 90%, placed on 2 L oxygen and is currently around 94%. Patient reports left mid to lower back pain with fatigue tiredness and lack of energy to do her routine activities. No fever or chills reported. No abdominal pain nausea or vomiting. Denies any chest pain otherwise. Allergies/Adverse Reactions: amlodipine [From Norvasc] Allergy (Verified 02/08/24 14:40) cefuroxime Allergy (Verified 02/08/24 14:40) cephalexin [From Keflex] Allergy (Verified 02/08/24 14:40) gabapentin [From Neurontin] Allergy (Verified 02/08/24 14:40) Sulfa (Sulfonamide Antibiotics) Allergy (Verified 02/08/24 14:40) Home Medications: Pregabalin [Lyrica] 50 mg PO QAM 06/01/17 [History] Sildenafil Citrate [Revatio] 20 mg PO TID 06/01/17 [History] Atorvastatin Calcium [Lipitor 20MG Tablet] 20 mg PO HS 09/06/17 [History] Apixaban [Eliquis] 5 mg PO BID 06/05/20 [History] Omeprazole 20 mg PO DAILY 06/05/20 [History] Pregabalin 200 mg PO QHS 06/05/20 [History] Trazodone HCl 50 mg [Desyrel 50 mg] 50 mg PO HS 06/05/20 [History] Prednisone 10 mg [Deltasone 10 mg] 10 mg PO DAILY 06/07/20 [History] Empagliflozin [Jardiance] 10 mg PO DAILY 05/17/23 [History] Bumetanide 1 mg [Bumex 1 mg] 1 mg PO BID 07/10/23 [History] Hydrocodone/Acetaminophen [Hydrocodone-Acetamin 7.5-325] 1 tab PO BID 08/10/23 [History] Spironolactone 25 mg PO DAILY 08/10/23 [History] Levothyroxine Sodium 75 Mcg [Synthroid 75 Mcg] 75 mcg PO DAILY 09/17/23 [History] Denosumab 60 mg [Prolia 60 mg Injection] 60 mg SQ UD 02/08/24 [History] Digoxin 0.125 mg Tablet [Lanoxin 0.125MG TABLET] 0.125 mg PO DAILY 02/08/24 [History] Metolazone 2.5 mg [Zaroxolyn 2.5 MG] 2.5 mg PO DAILY 02/08/24 [History] Midodrine HCl 2.5 mg PO BID 02/08/24 [History] Hx Tetanus, Diphtheria Vaccination/Date Given: No Hx Influenza Vaccination/Date Given: No Hx Pneumococcal Vaccination/Date Given: No Travel Risk - International Travel Have you traveled outside of the country in past 3 weeks: No - Emerging Infectious Disease Are you exhibiting symptoms associated with any current EIDs: Yes Symptoms: Shortness of Breath - Review of Systems Constitutional: Fatigue Eyes: No Symptoms Ears, Nose, & Throat: Nose Congestion Respiratory: Cough Cardiac: Edema Abdominal/Gastrointestinal: No Symptoms Genitourinary Symptoms: No Symptoms Musculoskeletal: Arthralgias, Back Pain Skin: No Symptoms Neurological: No Symptoms Endocrine: No Symptoms Hematologic/Lymphatic: No Symptoms - Past Medical History Pertinent Past Medical History: Yes Neurological History: No Pertinent History ENT History: No Pertinent History Cardiac History: Arrhythmia, Congestive Heart Failure, High Cholesterol Respiratory History: Bronchitis Endocrine Medical History: No Pertinent History Musculoskeletal History: Osteoarthritis, Osteoporosis GI Medical History: GERD History: No Pertinent History Psycho-Social History: No Pertinent History Female Reproductive Disorders: No Pertinent History Other Medical History: HX OF PULMONARY HTN, ASTHMA/BRONCHITIS. MULTIPLE P.T. INTERVENTIONS FOR WOUND CARE. - Past Surgical History Past Surgical History: Yes Neuro Surgical History: No Pertinent History Cardiac: No Pertinent History Respiratory: No Pertinent History Gastrointestinal: No Pertinent History Genitourinary: No Pertinent History Musculoskeletal: Orthopedic Surgery Female Surgical History: No Pertinent History Other Surgical History: back surgery. ANGIOGRAM - Social History Smoking Status: Never smoker Exposure to second hand smoke: No Drug Use: none Patient Lives Alone: No - Social Determinants of Health Will the patient participate in the screening: Yes Do you worry about a steady place to live?: No Do you have any problems with any of the following?: No known problems In the past 12 months,have you had to go without utilities?: No Transportation Issues: No Has anyone in your support network made you feel unsafe?: No Have you or anyone in your house had to go without enough: No - Nursing Vital Signs Nursing Vital Signs: Initial Vital Signs Temperature 98.3 F 02/08/24 14:29 Pulse Rate 89 02/08/24 14:29 Blood Pressure 152/72 02/08/24 14:29 O2 Sat by Pulse Oximetry 90 L 02/08/24 14:29 Pain Scale Pain Intensity 5 - Physical Exam General Appearance: no apparent distress, alert Eye Exam: PERRL/EOMI Ears, Nose, Throat Exam: hearing grossly normal Neck Exam: normal inspection, supple, full range of motion Respiratory Exam: diminished breath sounds, rhonchi, wheezing, No respiratory distress Cardiovascular/Chest Exam: normal heart sounds, regular rate/rhythm Abdominal/Gastrointestinal Exam: soft, normal bowel sounds, No tenderness Extremity Exam: normal range of motion Neurologic Exam: alert, oriented x 3, cooperative, 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 tested Skin Exam: normal color SpO2 Interpretation: borderline oxygenation SpO2: 90 O2 Delivery: Room Air - Course EKG Interpreted by Me: RATE (87), A-fib, NORMAL AXIS, NORMAL INTERVALS, Non- specific ST Changes, Other (Mild ST depression in lateral leads) Ordered Tests: Active Orders 24 hr Category Date Time Status Pyrotechnics Press Tender STAT Care 02/08/24 14:51 Active EKG-ER Only STAT Care 02/08/24 14:50 Active IV Insertion STAT Care 02/08/24 14:50 Active Oxygen-ED Only Nasal Cannula 2 lpm Care 02/08/24 14:50 Active CHEST 1 VIEW (PORTABLE) Stat Exams 02/08/24 14:51 Taken BLOOD CULTURE Stat Lab 02/08/24 15:00 Received CBC W DIFF Stat Lab 02/08/24 15:22 Completed CMP Stat Lab 02/08/24 15:22 Completed Lactic Acid Stat Lab 02/08/24 15:35 Completed MAGNESIUM Stat Lab 02/08/24 15:22 Completed NT PRO BNPII Stat Lab 02/08/24 15:22 Completed TROPONIN Q4H Lab 02/08/24 15:22 Completed TROPONIN Q4H Lab 02/08/24 19:00 Ordered TROPONIN Q4H Lab 02/08/24 23:00 Ordered UA W/RFX UR CULTURE Stat Lab 02/08/24 14:51 Ordered Respiratory Therapy Assessment DAILY RT 02/08/24 15:28 Active Transfer Order Routine Transfer 02/08/24 Ordered Medication Summary Discontinued Medications Generic Name Dose Route Start Last Admin Trade Name Freq PRN Reason Stop Dose Admin Albuterol/Ipratropium 3 ml 02/08/24 14:50 02/08/24 15:27 Ipratropium/Albuterol Sulfate 3 Ml Ampul.Neb IH 02/08/24 14:51 3 ml STAT ONE Administration Albuterol/Ipratropium Confirm 02/08/24 15:03 Ipratropium/Albuterol Sulfate 3 Ml Ampul.Neb Administered 02/08/24 15:04 Dose 3 ml IH .STK-MED ONE Dexamethasone Sodium Phosphate 6 mg 02/08/24 17:10 Dexamethasone Sod Phosphate 10 Mg/Ml IV 02/08/24 17:11 STAT ONE Lab/Rad Data: Laboratory Result Diagrams 02/08/24 15:22 02/08/24 15:22 Laboratory Results 02/08/24 02/08/24 02/08/24 Range/Units 15:35 15:22 15:22 WBC (3.98-10.04) x10^3/uL RBC (3.93-5.22) x10^6/uL Hgb (11.2-15.7) g/dL Hct (34.1-44.9) % MCV (79.4-94.8) fL MCH (25.6-32.2) pg MCHC (32.2-35.5) g/dL RDW (11.7-14.4) % Plt Count (182-369) x10^3/uL MPV (9.4-12.3) fL Gran % (34.0-71.1) % Immature Gran % (Auto) (0.001-0.429) % Nucleat RBC Rel Count (0.00-0.2) % Eos # (Auto) (0.04-0.36) x10^3/uL Immature Gran # (Auto) (0.001-0.031) x10^3u/L Absolute Lymphs (auto) (1.18-3.74) x10^3/uL Absolute Monos (auto) (0.24-0.86) x10^3/uL Absolute Nucleated RBC (0.00-0.012) x10^3u/L Lymphocytes % (19.3-51.7) % Monocytes % (4.7-12.5) % Eosinophils % (0.7-5.8) % Basophils % (0.1-1.2) % Absolute Granulocytes (1.56-6.13) x10^3/uL Basophils # (0.01-0.08) x10^3/uL Sodium (135-145) mmol/L Potassium (3.5-5.1) mmol/L Chloride (98-107) mmol/L Carbon Dioxide (22-30) mmol/L Anion Gap (5-15) MEQ/L BUN (7-17) mg/dL Creatinine (0.52-1.04) mg/dL Estimated GFR ML/MIN Glucose (74-106) mg/dL Lactic Acid 1.0 (0.4-2.0) Calcium (8.4-10.2) mg/dL Magnesium (1.6-2.3) mg/dL Total Bilirubin (0.2-1.3) mg/dL AST (14-36) U/L ALT (0-35) U/L Alkaline Phosphatase (38-126) U/L Troponin I 0.105 H* (0.000-0.033) ng/mL NT-Pro-B Natriuret Pep (<300) pg/mL Serum Total Protein (6.3-8.2) g/dL Albumin (3.5-5.0) g/dL Influenza Type A Ag NEGATIVE (NEGATIVE) Influenza Type B Ag NEGATIVE (NEGATIVE) RSV (PCR) NEGATIVE (NEGATIVE) SARS-CoV-2 (PCR) POSITIVE A (NEGATIVE) 02/08/24 02/08/24 Range/Units 15:22 15:22 WBC 8.3 (3.98-10.04) x10^3/uL RBC 4.34 (3.93-5.22) x10^6/uL Hgb 12.6 (11.2-15.7) g/dL Hct 39.5 (34.1-44.9) % MCV 91.0 (79.4-94.8) fL MCH 29.0 (25.6-32.2) pg MCHC 31.9 L (32.2-35.5) g/dL RDW 20.8 H (11.7-14.4) % Plt Count 132 L (182-369) x10^3/uL MPV 9.7 (9.4-12.3) fL Gran % 55.3 (34.0-71.1) % Immature Gran % (Auto) 0.4 (0.001-0.429) % Nucleat RBC Rel Count 0.0 (0.00-0.2) % Eos # (Auto) 0.01 L (0.04-0.36) x10^3/uL Immature Gran # (Auto) 0.03 (0.001-0.031) x10^3u/L Absolute Lymphs (auto) 2.73 (1.18-3.74) x10^3/uL Absolute Monos (auto) 0.94 H (0.24-0.86) x10^3/uL Absolute Nucleated RBC 0.00 (0.00-0.012) x10^3u/L Lymphocytes % 32.7 (19.3-51.7) % Monocytes % 11.3 (4.7-12.5) % Eosinophils % 0.1 L (0.7-5.8) % Basophils % 0.2 (0.1-1.2) % Absolute Granulocytes 4.61 (1.56-6.13) x10^3/uL Basophils # 0.02 (0.01-0.08) x10^3/uL Sodium 132 L (135-145) mmol/L Potassium 3.8 (3.5-5.1) mmol/L Chloride 96 L (98-107) mmol/L Carbon Dioxide 31 H (22-30) mmol/L Anion Gap 8.5 (5-15) MEQ/L BUN 25 H (7-17) mg/dL Creatinine 1.07 H (0.52-1.04) mg/dL Estimated GFR 50.0 ML/MIN Glucose 98 (74-106) mg/dL Lactic Acid (0.4-2.0) Calcium 8.8 (8.4-10.2) mg/dL Magnesium 1.8 (1.6-2.3) mg/dL Total Bilirubin 0.90 (0.2-1.3) mg/dL AST 27 (14-36) U/L ALT 16 (0-35) U/L Alkaline Phosphatase 55 (38-126) U/L Troponin I (0.000-0.033) ng/mL NT-Pro-B Natriuret Pep 2290 (<300) pg/mL Serum Total Protein 5.4 L (6.3-8.2) g/dL Albumin 2.9 L (3.5-5.0) g/dL Influenza Type A Ag (NEGATIVE) Influenza Type B Ag (NEGATIVE) RSV (PCR) (NEGATIVE) SARS-CoV-2 (PCR) (NEGATIVE) - Progress Progress: re-examined Air Movement: fair Progress Note: 02/08/24 17:14 88 years old with multiple medical problems including atrial fibrillation on Eliquis, congestive heart failure is evaluated in the ER for generalized weakness fatigue tiredness and cough congestion symptoms for the last 3 days. Patient has a positive COVID-19 test at home today. She is on room air around 90%, placed on 2 L oxygen and given a DuoNeb, improved to 94%. She is also given a dose of steroid. Workup showed normal white count, chemistries with mildly low sodium of 132. Patient EKG is atrial fibrillation rate controlled with mild ST depression in lateral leads but initial troponin of 0.1. Patient denies any chest pain or difficulty breathing. Will continue to trend cardiac enzyme as this could be related to COVID-19/hypoxia/demand ischemia. Chest x- ray is negative for any acute cardiopulmonary findings reviewed by me, official report is pending. With patient's age, borderline hypoxia and elevated troponin I believe it would benefit with observation admission with frequent neb treatment, monitoring of oxygen, cardiac enzymes. I have shared the results of workup with patient and family and recommended observation admission which she understands and agrees. I have discussed with Dr. James, reviewed history, workup and agreed with admission. Blood Culture(s) Obtained: Yes Antibiotics given: No Discussed with Dr.: Other (Dr. James hospitalist) Will see patient in: hospital (observation) Counseled pt/family regarding: lab results, diagnosis, need for follow-up, rad results Medical Desision Making - Discussion of managment Care discussed with:: hospitalist (:) Reviewed:: Test results Agreed on:: Treatment plan, place in obs Will see patient: in hospital - Diagnostic Testing Diagnostic test were ordered, analyzed, and reviewed by me: Yes Radiological Interpretation: Interpreted by me, Reviewed by me - Risk of complications The pt has a mod risk of morbidity or mortality based on: Need for prescription drug management The pt has a high risk of morbidity or mortality based on: Decision regarding hospitilization or escalation of hosp level of care - Departure Departure Disposition: Observation Clinical Impression: Elevated troponin, COVID-19 virus detected, Atrial fibrillation Respiratory failure Qualifiers: Chronicity: acute Respiratory failure complication: hypoxia Qualified Code(s): J96.01 - Acute respiratory failure with hypoxia Condition: Stable Critical Care Time: No Referrals: ASHLY LAMB NP [Primary Care Provider] - Follow up/PCP as directed
[2024-02-08] MEDS: DUONEB 0.5-3 MG/3 ml Neb IH ONE (15:27)
[2024-02-08 15:52] LABS: Absolute Neutrophil Ct (ANC) 4.61 x10^3/uL (1.56-6.13); BASOPHIL % 0.2 % (0.1-1.2); Basophil (Absolute #) 0.02 x10^3/uL (0.01-0.08); Eosinophil % 0.1 % (0.7-5.8); Eosinophil (Absolute #) 0.01 x10^3/uL (0.04-0.36); Hematocrit 39.5 % (34.1-44.9); Hemoglobin 12.6 g/dL (11.2-15.7); IMMATURE GRAN # 0.03 x10^3u/L (0.001-0.031); IMMATURE GRAN % 0.4 % (0.001-0.429); Lymphocyte (Absolute #) 2.73 x10^3/uL (1.18-3.74); Lymphocytes % 32.7 % (19.3-51.7); Mean Corpuscular Hgb Concent. 31.9 g/dL (32.2-35.5); Mean Platelet Volume 9.7 fL (9.4-12.3); Monocyte (Absolute #) 0.94 x10^3/uL (0.24-0.86); Monocytes % 11.3 % (4.7-12.5); Neutrophil % 55.3 % (34.0-71.1); Platelet Count 132 x10^3/uL (182-369); Red Blood Count 4.34 x10^6/uL (3.93-5.22); Red Cell Distribution Width 20.8 % (11.7-14.4); White Blood Count 8.3 x10^3/uL (3.98-10.04)
[2024-02-08 16:13] LABS: ALBUMIN 2.9 g/dL (3.5-5.0); ANION GAP 8.5 MEQ/L (5-15); BILIRUBIN,TOTAL 0.9 mg/dL (0.2-1.3); Calcium 8.8 mg/dL (8.4-10.2); Creatinine 1 1.07 mg/dL (0.52-1.04); MAGNESIUM 1.8 mg/dL (1.6-2.3); Potassium 3.8 mmol/L (3.5-5.1); Total Protein 5.4 g/dL (6.3-8.2)
[2024-02-08 16:31] LABS: INFLUENZA A NEGATIVE (NEGATIVE); INFLUENZA B NEGATIVE (NEGATIVE); RESPIRATORY SYNCTIAL VIRUS NEGATIVE (NEGATIVE)
[2024-02-08 16:39] LABS: SARS-CoV-2 Xpert Express POSITIVE (NEGATIVE)
[2024-02-08] MEDS ORDERED: DECADRON 10MG INJ. ONE (17:12)
[2024-02-08] MEDS: DECADRON 10MG INJ. IV ONE (17:14)
--- NOTE | 2024-02-08 19:33 | XRAY ---
Indication: Cough. Covid 19. Comparison: September 13, 2023 Portable chest unchanged again demonstrating cardiomegaly with tiny left effusion again concerning for cardiac decompensation/CHF. Again arteriosclerotic and tortuous descending aorta. Bony thorax intact again with osteopenia, degenerative changes, and levoscoliosis.
[2024-02-08] MEDS ORDERED: TYLENOL 325 MG PO PRN (22:57)
[2024-02-08] MEDS ORDERED: DUONEB 0.5-3 MG/3 ml Neb IH PRN (22:57)
--- NOTE | 2024-02-08 23:04 | PCM.HP ---
History of Present Illness - Chief Complaint Chief Complaint: fatigue Date: 02/08/24 History of Present Illness: 88 y/o F with h/o A-fib, HFpEF, HTn, GERD, hypothyroidism, and chronic leg wounds and stasis dermatitis, who presents with fatigue for a few days. Patient has been doing well with her CHF, maintaining her diuretics, and has her legs the smallest they have been in years, with her wounds finally healing. However, for the past few days she has had severe fatigue, with some mild cough and possible myalgias. She denies fevers, dysnpea, sore throat, rhinorrhea, nausea, or diarrhea. Her son has a cough, but has not been diagnosed. She has not had a COVID vaccine. In the ED she was found to be hypoxic, 89% on room air, improved to 93% on 2L. She was found to be positive for SARS-CoV-2, and was given Decadron and DuoNebs. - Review of Systems All Other Systems: Reviewed and Negative Medications & Allergies Home Medications: Home Medication List RX: Pregabalin [Lyrica] 50 mg PO QAM 06/01/17 [History Confirmed 02/08/24] RX: Sildenafil Citrate [Revatio] 20 mg PO TID 06/01/17 [History Confirmed 02/08/24] RX: Atorvastatin Calcium [Lipitor 20MG Tablet] 20 mg PO HS 09/06/17 [History Confirmed 02/08/24] RX: Apixaban [Eliquis] 2.5 mg PO BID 06/05/20 [History Confirmed 02/08/24] RX: Omeprazole 20 mg PO DAILY 06/05/20 [History Confirmed 02/08/24] RX: Pregabalin 200 mg PO QHS 06/05/20 [History Confirmed 02/08/24] RX: Trazodone HCl 50 mg [Desyrel 50 mg] 50 mg PO HS 06/05/20 [History Confirmed 02/08/24] RX: Prednisone 10 mg [Deltasone 10 mg] 10 mg PO DAILY 06/07/20 [History Confirmed 02/08/24] RX: Empagliflozin [Jardiance] 10 mg PO DAILY 05/17/23 [History Confirmed 02/08/24] RX: Metoprolol Tartrate 50 mg [Lopressor 50 MG] 50 mg PO BID 30 Days #60 tablet 05/19/23 [Rx Confirmed 02/08/24] RX: Bumetanide 1 mg [Bumex 1 mg] 1 mg PO DAILY 07/10/23 [History Confirmed 02/08/24] RX: Hydrocodone/Acetaminophen [Hydrocodone-Acetamin 7.5-325] 1 tab PO BID 08/10/23 [History Confirmed 02/08/24] RX: Spironolactone 25 mg PO DAILY 08/10/23 [History Confirmed 02/08/24] RX: Levothyroxine Sodium 75 Mcg [Synthroid 75 Mcg] 75 mcg PO DAILY 09/17/23 [History Confirmed 02/08/24] Denosumab 60 mg [Prolia 60 mg Injection] 60 mg SQ UD 02/08/24 [History Confirmed 02/08/24] Digoxin 0.125 mg Tablet [Lanoxin 0.125MG TABLET] 0.125 mg PO 3XW 02/08/24 [History Confirmed 02/08/24] RX: Metolazone 2.5 mg [Zaroxolyn 2.5 MG] 2.5 mg PO WEEKLY 02/08/24 [History Confirmed 02/08/24] RX: Midodrine HCl 2.5 mg PO BID 02/08/24 [History Confirmed 02/08/24] Allergies/Adverse Reactions: Allergies Allergy/AdvReac Type Severity Reaction Status Date / Time amlodipine [From Norvasc] Allergy Verified 02/08/24 14:40 cefuroxime Allergy Verified 02/08/24 14:40 cephalexin [From Keflex] Allergy Verified 02/08/24 14:40 gabapentin [From Neurontin] Allergy Verified 02/08/24 14:40 Sulfa (Sulfonamide Allergy Verified 02/08/24 14:40 Antibiotics) - Past Medical History Past Medical History: Yes Neurological History: Peripheral Neuropathy ENT History: No Pertinent History Cardiac History: Arrhythmia, Congestive Heart Failure, High Cholesterol Respiratory History: Bronchitis Endocrine Medical History: No Pertinent History Musculoskelatal History: Osteoarthritis, Osteoporosis GI Medical History: GERD History: No Pertinent History Pyscho-Social History: No Pertinent History Reproductive Disorders: No Pertinent History Comment: HX OF PULMONARY HTN, ASTHMA/BRONCHITIS. MULTIPLE P.T. INTERVENTIONS FOR WOUND CARE. - Past Surgical History Past Surgical History: Yes Neuro Surgical History: No Pertinent History Cardiac History: No Pertinent History Respiratory Surgery: No Pertinent History GI Surgical History: No Pertinent History Genitourinary Surgical Hx: No Pertinent History Musculskeletal Surgical Hx: Orthopedic Surgery Female Surgical History: No Pertinent History Other Surgical History: back surgery. ANGIOGRAM Significant Family History: no pertinent family hx - Social History Smoking Status: Never smoker Exposure to second hand smoke: No Alcohol: None Drug Use: none - Social Determinants of Health Will the patient participate in the screening: Yes Do you worry about a steady place to live?: No Do you have any problems with any of the following?: No known problems In the past 12 months,have you had to go without utilities?: No Have you or anyone in your house had to go without enough: No Transportation Issues: No Has anyone in your support network made you feel unsafe?: No Does the patient want assistance with any of the above?: No - Physical Exam Vital Signs: Vital Signs - 24 hr Temp Pulse Resp BP BP Pulse Ox 02/08/24 22:00 18 02/08/24 19:45 93.7 F 101 H 18 152/66 93 L 02/08/24 18:40 93 L 02/08/24 17:19 90 L 02/08/24 17:10 95 02/08/24 17:00 95 02/08/24 16:50 95 02/08/24 16:40 95 02/08/24 16:30 94 L 02/08/24 16:20 96 02/08/24 16:10 96 02/08/24 16:04 94 L 02/08/24 15:50 82 L 02/08/24 15:40 89 L 02/08/24 15:31 89 L 02/08/24 15:28 86 98 02/08/24 15:00 135/94 97 02/08/24 14:29 98.3 F 89 152/72 152/72 93 L General Appearance: no apparent distress Neurologic Exam: alert, oriented x 3 Eye Exam: eyes nml inspection Respiratory Exam: normal breath sounds, lungs clear, other (on 2L O2 by NC), No respiratory distress, No accessory muscle use Cardiovascular Exam: other (irregularly irregular, but normal rate. No murmurs. No pedal edema) Gastrointestinal/Abdomen Exam: No tenderness, No distention Skin Exam: other (some hyperpigmentation over legs but no open ulcers) Wound Assessment: Skin/Wound Assessment Wound/Incision Assessment Start: 02/08/24 20:12 Text: Status: Active Freq: Q6H Protocol: Document 02/08/24 20:12 MM (Rec: 02/08/24 20:27 MM [id number]) Wound/Incision Assessment Left Other Wound Assessment Admission Wound Type Abrasion Drainage Amount None Drainage Odor None/Absent Wound Photo Photo Taken No Results - Labs Lab/Micro Results: Lab Results-Last 24 Hours 02/08/24 02/08/24 02/08/24 Range/Units 15:22 15:22 15:22 WBC 8.3 (3.98-10.04) x10^3/uL RBC 4.34 (3.93-5.22) x10^6/uL Hgb 12.6 (11.2-15.7) g/dL Hct 39.5 (34.1-44.9) % MCV 91.0 (79.4-94.8) fL MCH 29.0 (25.6-32.2) pg MCHC 31.9 L (32.2-35.5) g/dL RDW 20.8 H (11.7-14.4) % Plt Count 132 L (182-369) x10^3/uL MPV 9.7 (9.4-12.3) fL Gran % 55.3 (34.0-71.1) % Immature Gran % (Auto) 0.4 (0.001-0.429) % Nucleat RBC Rel Count 0.0 (0.00-0.2) % Eos # (Auto) 0.01 L (0.04-0.36) x10^3/uL Immature Gran # (Auto) 0.03 (0.001-0.031) x10^3u/L Absolute Lymphs (auto) 2.73 (1.18-3.74) x10^3/uL Absolute Monos (auto) 0.94 H (0.24-0.86) x10^3/uL Absolute Nucleated RBC 0.00 (0.00-0.012) x10^3u/L Lymphocytes % 32.7 (19.3-51.7) % Monocytes % 11.3 (4.7-12.5) % Eosinophils % 0.1 L (0.7-5.8) % Basophils % 0.2 (0.1-1.2) % Absolute Granulocytes 4.61 (1.56-6.13) x10^3/uL Basophils # 0.02 (0.01-0.08) x10^3/uL Sodium 132 L (135-145) mmol/L Potassium 3.8 (3.5-5.1) mmol/L Chloride 96 L (98-107) mmol/L Carbon Dioxide 31 H (22-30) mmol/L Anion Gap 8.5 (5-15) MEQ/L BUN 25 H (7-17) mg/dL Creatinine 1.07 H (0.52-1.04) mg/dL Estimated GFR 50.0 ML/MIN Glucose 98 (74-106) mg/dL Lactic Acid (0.4-2.0) Calcium 8.8 (8.4-10.2) mg/dL Magnesium 1.8 (1.6-2.3) mg/dL Total Bilirubin 0.90 (0.2-1.3) mg/dL AST 27 (14-36) U/L ALT 16 (0-35) U/L Alkaline Phosphatase 55 (38-126) U/L Troponin I 0.105 H* (0.000-0.033) ng/mL NT-Pro-B Natriuret Pep 2290 (<300) pg/mL Serum Total Protein 5.4 L (6.3-8.2) g/dL Albumin 2.9 L (3.5-5.0) g/dL Influenza Type A Ag (NEGATIVE) Influenza Type B Ag (NEGATIVE) RSV (PCR) (NEGATIVE) SARS-CoV-2 (PCR) (NEGATIVE) 02/08/24 02/08/24 02/08/24 Range/Units 15:22 15:35 19:50 WBC (3.98-10.04) x10^3/uL RBC (3.93-5.22) x10^6/uL Hgb (11.2-15.7) g/dL Hct (34.1-44.9) % MCV (79.4-94.8) fL MCH (25.6-32.2) pg MCHC (32.2-35.5) g/dL RDW (11.7-14.4) % Plt Count (182-369) x10^3/uL MPV (9.4-12.3) fL Gran % (34.0-71.1) % Immature Gran % (Auto) (0.001-0.429) % Nucleat RBC Rel Count (0.00-0.2) % Eos # (Auto) (0.04-0.36) x10^3/uL Immature Gran # (Auto) (0.001-0.031) x10^3u/L Absolute Lymphs (auto) (1.18-3.74) x10^3/uL Absolute Monos (auto) (0.24-0.86) x10^3/uL Absolute Nucleated RBC (0.00-0.012) x10^3u/L Lymphocytes % (19.3-51.7) % Monocytes % (4.7-12.5) % Eosinophils % (0.7-5.8) % Basophils % (0.1-1.2) % Absolute Granulocytes (1.56-6.13) x10^3/uL Basophils # (0.01-0.08) x10^3/uL Sodium (135-145) mmol/L Potassium (3.5-5.1) mmol/L Chloride (98-107) mmol/L Carbon Dioxide (22-30) mmol/L Anion Gap (5-15) MEQ/L BUN (7-17) mg/dL Creatinine (0.52-1.04) mg/dL Estimated GFR ML/MIN Glucose (74-106) mg/dL Lactic Acid 1.0 (0.4-2.0) Calcium (8.4-10.2) mg/dL Magnesium (1.6-2.3) mg/dL Total Bilirubin (0.2-1.3) mg/dL AST (14-36) U/L ALT (0-35) U/L Alkaline Phosphatase (38-126) U/L Troponin I 0.085 H* (0.000-0.033) ng/mL NT-Pro-B Natriuret Pep (<300) pg/mL Serum Total Protein (6.3-8.2) g/dL Albumin (3.5-5.0) g/dL Influenza Type A Ag NEGATIVE (NEGATIVE) Influenza Type B Ag NEGATIVE (NEGATIVE) RSV (PCR) NEGATIVE (NEGATIVE) SARS-CoV-2 (PCR) POSITIVE A (NEGATIVE) - Radiology Impressions Radiology Exams & Impressions: Radiology Procedures Category Date Time Status CHEST 1 VIEW (PORTABLE) Stat Exams 02/08/24 14:51 Completed CXR - left pleural effusion, mild bilateral hilar infiltrates, but all unchanged from prior CXR (images reviewed) - Other Procedures and Tests Respiratory Therapy 02/08/24 15:28 Respiratory Therapy Assessment DAILY 02/08/24 18:40 Oxygen Nasal Cannula 2 lpm Respiratory Therapy Consult ONCE Assessment/Plan (1) COVID-19 Current Visit: Yes Status: Acute Assessment & Plan: 88 yo F with h/o A-Fib, HFpEF, HTN, hypothyroidism, here with COVID-19 causing mild respiratory failure. ## COVID-19, acute hypoxic respiratory failure - no obvious pneumonia on CXR, but causing hypoxia requiring oxygen supplementation. Has risk for decompensation with her CHF and pulmonary hypertension. - Decadron 6 mg IV daily x10 days - titrate oxygen to maintain SpO2 91-94% - encourage early ambulation - maintain euvolemia as below - PRN DuoNeb, although usually not necessary for COVID-19 ## Chronic diastolic heart failure - last echo was in 2021, showed preserved EF, severe TR with pulmonary hypertension. Volume status appears euvolemic at this time. ProBNP of 2290 is at her baseline. - continue home Bumex 1 mg daily, Metolazone 2.5 weekly (every Thursday), and Aldactone 25 daily - continue Jardiance 10 daily ## elevated troponin - appears to be demand in the setting of COVID. Initial repeat troponin already trending down, 0.105 -> 0.085. Per report, no EKG changes (not yet scanned in to [facility] [employer].) - repeat Tn one more time ## pulmonary hypertension - does not appear to be exacerbating her COVID at this time. - continue diuretics as above - continue Revatio 20 TID ## A-fib - currently rate-controlled - continue Eliquis 2.5 BID - continue digoxin 125 mcg, Lopressor 50 mg BID ## hypothyroidism - continue levothyroxine 75 mcg daily Code status: Full code Prophylaxis: Eliquis Diet: Regular Code(s): U07.1 - COVID-19 Telemedicine Encounter - Telemedicine Encounter Telemedicine Encounter: "The entirety of this encounter was performed via Telemedicine" This visit was performed using real-time audio and video connection between my location and thepatients locationwith the assistance of a surrogateat the patients location. Written or verbal consent was obtained from the patient/guardian to perform this visit [facility]. Any patient questions regarding the telemedicine interaction were answered.
[2024-02-09] MEDS ORDERED: DESYREL 50 MG ONE (00:18)
[2024-02-09] MEDS: DESYREL 50 MG PO SCH (00:19)
[2024-02-09 02:32] LABS: Appearance Clear (Clear); Bacteria None Seen /HPF (None Seen); Bilirubin Negative (Negative); Blood Negative (Negative); Epithelial Cells Rare /HPF (None Seen); Glucose, Urine >=1000 mg/dL (Negative); Hyaline Casts NONE SEEN /LPF (0-2); Ketones Negative (Negative); Leukocyte Esterase Negative (Negative); Nitrite Negative (Negative); Ph 7.5 (4.6-8.0); Protein,Urine Dip Trace (Negative); RBC 0-2 /HPF (0-5); Specific Gravity 1.015 (1.005-1.030); WBC 0-2 /HPF (0-5)
[2024-02-09 02:41] LABS: ADD URINE CULTURE? NO (NO)
[2024-02-09 04:24] LABS: Hemoglobin 12.9 g/dL (11.2-15.7); Mean Cell Volume 90.9 fL (79.4-94.8); Mean Corpuscular Hemoglobin 29.3 pg (25.6-32.2); Mean Corpuscular Hgb Concent. 32.3 g/dL (32.2-35.5); Mean Platelet Volume 9.7 fL (9.4-12.3); Platelet Count 134 x10^3/uL (182-369); Red Cell Distribution Width 20.4 % (11.7-14.4); White Blood Count 5.7 x10^3/uL (3.98-10.04)
[2024-02-09 04:37] LABS: ANION GAP 10.5 MEQ/L (5-15); Calcium 9.2 mg/dL (8.4-10.2); Creatinine 1 0.94 mg/dL (0.52-1.04); EST GLOMERULAR FILTRATION RATE 58.4 ML/MIN; Potassium 4.4 mmol/L (3.5-5.1)
[2024-02-09 05:11] LABS: Slide Review YES
--- NOTE | 2024-02-09 05:22 | PCM.NOTE ---
Date and Time: 02/09/24516 Subjective Assessment: 88 y/o F with h/o A-fib, HFpEF, HTn, GERD, hypothyroidism, and chronic leg wounds and stasis dermatitis, who presents with fatigue for a few days. Patient has been doing well with her CHF, maintaining her diuretics, and has her legs the smallest they have been in years, with her wounds finally healing admitted 02/08/24 with Covid. In the ED she was found to be hypoxic, 89% on room air, improved to 93% on 2L. She was found to be positive for SARS-CoV-2, and was given Decadron and DuoNebs. Objective Exam Wound Assessment: Skin/Wound Assessment Wound/Incision Assessment Start: 02/08/24 20:12 Text: Status: Active Freq: Q6H Protocol: Document 02/09/24 02:12 MM (Rec: 02/09/24 02:41 MM [id number]) Wound/Incision Assessment Left Other Wound Assessment Admission Wound Type Abrasion Drainage Amount None Drainage Odor None/Absent Comment OPEN TO AIR Wound Photo Photo Taken No Objective Data Vital Signs: Vital Signs - 24 hr Temp Pulse Resp BP BP Pulse Ox 02/09/24 04:00 98.0 F 80 16 132/67 02/09/24 02:00 14 02/09/24 00:00 98.0 F 81 14 105/63 95 02/08/24 22:00 18 02/08/24 19:45 93.7 F 101 H 18 152/66 93 L 02/08/24 19:05 99 H 18 93 L 02/08/24 18:40 93 L 02/08/24 17:19 90 L 02/08/24 17:10 95 02/08/24 17:00 95 02/08/24 16:50 95 02/08/24 16:40 95 02/08/24 16:30 94 L 02/08/24 16:20 96 02/08/24 16:10 96 02/08/24 16:04 94 L 02/08/24 15:50 82 L 02/08/24 15:40 89 L 02/08/24 15:31 89 L 02/08/24 15:28 86 98 02/08/24 15:00 135/94 97 02/08/24 14:29 98.3 F 89 152/72 152/72 93 L Pain Assessment - Last Documented Pain Intensity 5 Intake and Output: Intake & Output 02/06/24 02/07/24 02/08/24 02/09/24 11:59 11:59 11:59 11:59 Weight 58.4 kg Lab Results: Lab Results-Last 24 Hours 02/08/24 02/08/24 02/08/24 Range/Units 02:23 15:22 15:22 WBC 8.3 (3.98-10.04) x10^3/uL RBC 4.34 (3.93-5.22) x10^6/uL Hgb 12.6 (11.2-15.7) g/dL Hct 39.5 (34.1-44.9) % MCV 91.0 (79.4-94.8) fL MCH 29.0 (25.6-32.2) pg MCHC 31.9 L (32.2-35.5) g/dL RDW 20.8 H (11.7-14.4) % Plt Count 132 L (182-369) x10^3/uL MPV 9.7 (9.4-12.3) fL Gran % 55.3 (34.0-71.1) % Immature Gran % (Auto) 0.4 (0.001-0.429) % Nucleat RBC Rel Count 0.0 (0.00-0.2) % Eos # (Auto) 0.01 L (0.04-0.36) x10^3/uL Immature Gran # (Auto) 0.03 (0.001-0.031) x10^3u/L Absolute Lymphs (auto) 2.73 (1.18-3.74) x10^3/uL Absolute Monos (auto) 0.94 H (0.24-0.86) x10^3/uL Absolute Nucleated RBC 0.00 (0.00-0.012) x10^3u/L Lymphocytes % 32.7 (19.3-51.7) % Monocytes % 11.3 (4.7-12.5) % Eosinophils % 0.1 L (0.7-5.8) % Basophils % 0.2 (0.1-1.2) % Absolute Granulocytes 4.61 (1.56-6.13) x10^3/uL Basophils # 0.02 (0.01-0.08) x10^3/uL Sodium 132 L (135-145) mmol/L Potassium 3.8 (3.5-5.1) mmol/L Chloride 96 L (98-107) mmol/L Carbon Dioxide 31 H (22-30) mmol/L Anion Gap 8.5 (5-15) MEQ/L BUN 25 H (7-17) mg/dL Creatinine 1.07 H (0.52-1.04) mg/dL Estimated GFR 50.0 ML/MIN Glucose 98 (74-106) mg/dL Lactic Acid (0.4-2.0) Calcium 8.8 (8.4-10.2) mg/dL Magnesium 1.8 (1.6-2.3) mg/dL Total Bilirubin 0.90 (0.2-1.3) mg/dL AST 27 (14-36) U/L ALT 16 (0-35) U/L Alkaline Phosphatase 55 (38-126) U/L Troponin I (0.000-0.033) ng/mL NT-Pro-B Natriuret Pep 2290 (<300) pg/mL Serum Total Protein 5.4 L (6.3-8.2) g/dL Albumin 2.9 L (3.5-5.0) g/dL Urine Color Yellow (Yellow) Urine Appearance Clear (Clear) Urine pH 7.5 (4.6-8.0) Ur Specific Ione 1.015 (1.005-1.030) Urine Protein Trace A (Negative) Urine Glucose (UA) >=1000 A (Negative) mg/dL Urine Ketones Negative (Negative) Urine Blood Negative (Negative) Urine Nitrite Negative (Negative) Urine Bilirubin Negative (Negative) Urine Urobilinogen 1.0 A (0.2) mg/dL Ur Leukocyte Esterase Negative (Negative) U Hyaline Cast (Auto) NONE SEEN (0-2) /LPF Urine Microscopic RBC 0-2 (0-5) /HPF Urine Microscopic WBC 0-2 (0-5) /HPF Ur Epithelial Cells Rare (None Seen) /HPF Urine Bacteria None Seen (None Seen) /HPF Urine Culture Reflexed NO (NO) Influenza Type A Ag (NEGATIVE) Influenza Type B Ag (NEGATIVE) RSV (PCR) (NEGATIVE) SARS-CoV-2 (PCR) (NEGATIVE) Slides for Path Review 02/08/24 02/08/24 02/08/24 Range/Units 15:22 15:22 15:35 WBC (3.98-10.04) x10^3/uL RBC (3.93-5.22) x10^6/uL Hgb (11.2-15.7) g/dL Hct (34.1-44.9) % MCV (79.4-94.8) fL MCH (25.6-32.2) pg MCHC (32.2-35.5) g/dL RDW (11.7-14.4) % Plt Count (182-369) x10^3/uL MPV (9.4-12.3) fL Gran % (34.0-71.1) % Immature Gran % (Auto) (0.001-0.429) % Nucleat RBC Rel Count (0.00-0.2) % Eos # (Auto) (0.04-0.36) x10^3/uL Immature Gran # (Auto) (0.001-0.031) x10^3u/L Absolute Lymphs (auto) (1.18-3.74) x10^3/uL Absolute Monos (auto) (0.24-0.86) x10^3/uL Absolute Nucleated RBC (0.00-0.012) x10^3u/L Lymphocytes % (19.3-51.7) % Monocytes % (4.7-12.5) % Eosinophils % (0.7-5.8) % Basophils % (0.1-1.2) % Absolute Granulocytes (1.56-6.13) x10^3/uL Basophils # (0.01-0.08) x10^3/uL Sodium (135-145) mmol/L Potassium (3.5-5.1) mmol/L Chloride (98-107) mmol/L Carbon Dioxide (22-30) mmol/L Anion Gap (5-15) MEQ/L BUN (7-17) mg/dL Creatinine (0.52-1.04) mg/dL Estimated GFR ML/MIN Glucose (74-106) mg/dL Lactic Acid 1.0 (0.4-2.0) Calcium (8.4-10.2) mg/dL Magnesium (1.6-2.3) mg/dL Total Bilirubin (0.2-1.3) mg/dL AST (14-36) U/L ALT (0-35) U/L Alkaline Phosphatase (38-126) U/L Troponin I 0.105 H* (0.000-0.033) ng/mL NT-Pro-B Natriuret Pep (<300) pg/mL Serum Total Protein (6.3-8.2) g/dL Albumin (3.5-5.0) g/dL Urine Color (Yellow) Urine Appearance (Clear) Urine pH (4.6-8.0) Ur Specific Ione (1.005-1.030) Urine Protein (Negative) Urine Glucose (UA) (Negative) mg/dL Urine Ketones (Negative) Urine Blood (Negative) Urine Nitrite (Negative) Urine Bilirubin (Negative) Urine Urobilinogen (0.2) mg/dL Ur Leukocyte Esterase (Negative) U Hyaline Cast (Auto) (0-2) /LPF Urine Microscopic RBC (0-5) /HPF Urine Microscopic WBC (0-5) /HPF Ur Epithelial Cells (None Seen) /HPF Urine Bacteria (None Seen) /HPF Urine Culture Reflexed (NO) Influenza Type A Ag NEGATIVE (NEGATIVE) Influenza Type B Ag NEGATIVE (NEGATIVE) RSV (PCR) NEGATIVE (NEGATIVE) SARS-CoV-2 (PCR) POSITIVE A (NEGATIVE) Slides for Path Review 02/08/24 02/08/24 02/09/24 Range/Units 19:50 23:33 04:15 WBC 5.7 (3.98-10.04) x10^3/uL RBC 4.40 (3.93-5.22) x10^6/uL Hgb 12.9 (11.2-15.7) g/dL Hct 40.0 (34.1-44.9) % MCV 90.9 (79.4-94.8) fL MCH 29.3 (25.6-32.2) pg MCHC 32.3 (32.2-35.5) g/dL RDW 20.4 H (11.7-14.4) % Plt Count 134 L (182-369) x10^3/uL MPV 9.7 (9.4-12.3) fL Gran % (34.0-71.1) % Immature Gran % (Auto) (0.001-0.429) % Nucleat RBC Rel Count (0.00-0.2) % Eos # (Auto) (0.04-0.36) x10^3/uL Immature Gran # (Auto) (0.001-0.031) x10^3u/L Absolute Lymphs (auto) (1.18-3.74) x10^3/uL Absolute Monos (auto) (0.24-0.86) x10^3/uL Absolute Nucleated RBC (0.00-0.012) x10^3u/L Lymphocytes % (19.3-51.7) % Monocytes % (4.7-12.5) % Eosinophils % (0.7-5.8) % Basophils % (0.1-1.2) % Absolute Granulocytes (1.56-6.13) x10^3/uL Basophils # (0.01-0.08) x10^3/uL Sodium (135-145) mmol/L Potassium (3.5-5.1) mmol/L Chloride (98-107) mmol/L Carbon Dioxide (22-30) mmol/L Anion Gap (5-15) MEQ/L BUN (7-17) mg/dL Creatinine (0.52-1.04) mg/dL Estimated GFR ML/MIN Glucose (74-106) mg/dL Lactic Acid (0.4-2.0) Calcium (8.4-10.2) mg/dL Magnesium (1.6-2.3) mg/dL Total Bilirubin (0.2-1.3) mg/dL AST (14-36) U/L ALT (0-35) U/L Alkaline Phosphatase (38-126) U/L Troponin I 0.085 H* 0.067 H* (0.000-0.033) ng/mL NT-Pro-B Natriuret Pep (<300) pg/mL Serum Total Protein (6.3-8.2) g/dL Albumin (3.5-5.0) g/dL Urine Color (Yellow) Urine Appearance (Clear) Urine pH (4.6-8.0) Ur Specific Ione (1.005-1.030) Urine Protein (Negative) Urine Glucose (UA) (Negative) mg/dL Urine Ketones (Negative) Urine Blood (Negative) Urine Nitrite (Negative) Urine Bilirubin (Negative) Urine Urobilinogen (0.2) mg/dL Ur Leukocyte Esterase (Negative) U Hyaline Cast (Auto) (0-2) /LPF Urine Microscopic RBC (0-5) /HPF Urine Microscopic WBC (0-5) /HPF Ur Epithelial Cells (None Seen) /HPF Urine Bacteria (None Seen) /HPF Urine Culture Reflexed (NO) Influenza Type A Ag (NEGATIVE) Influenza Type B Ag (NEGATIVE) RSV (PCR) (NEGATIVE) SARS-CoV-2 (PCR) (NEGATIVE) Slides for Path Review YES 02/09/24 Range/Units 04:15 WBC (3.98-10.04) x10^3/uL RBC (3.93-5.22) x10^6/uL Hgb (11.2-15.7) g/dL Hct (34.1-44.9) % MCV (79.4-94.8) fL MCH (25.6-32.2) pg MCHC (32.2-35.5) g/dL RDW (11.7-14.4) % Plt Count (182-369) x10^3/uL MPV (9.4-12.3) fL Gran % (34.0-71.1) % Immature Gran % (Auto) (0.001-0.429) % Nucleat RBC Rel Count (0.00-0.2) % Eos # (Auto) (0.04-0.36) x10^3/uL Immature Gran # (Auto) (0.001-0.031) x10^3u/L Absolute Lymphs (auto) (1.18-3.74) x10^3/uL Absolute Monos (auto) (0.24-0.86) x10^3/uL Absolute Nucleated RBC (0.00-0.012) x10^3u/L Lymphocytes % (19.3-51.7) % Monocytes % (4.7-12.5) % Eosinophils % (0.7-5.8) % Basophils % (0.1-1.2) % Absolute Granulocytes (1.56-6.13) x10^3/uL Basophils # (0.01-0.08) x10^3/uL Sodium 135 (135-145) mmol/L Potassium 4.4 (3.5-5.1) mmol/L Chloride 97 L (98-107) mmol/L Carbon Dioxide 31 H (22-30) mmol/L Anion Gap 10.5 (5-15) MEQ/L BUN 28 H (7-17) mg/dL Creatinine 0.94 (0.52-1.04) mg/dL Estimated GFR 58.4 ML/MIN Glucose 131 H (74-106) mg/dL Lactic Acid (0.4-2.0) Calcium 9.2 (8.4-10.2) mg/dL Magnesium (1.6-2.3) mg/dL Total Bilirubin (0.2-1.3) mg/dL AST (14-36) U/L ALT (0-35) U/L Alkaline Phosphatase (38-126) U/L Troponin I (0.000-0.033) ng/mL NT-Pro-B Natriuret Pep (<300) pg/mL Serum Total Protein (6.3-8.2) g/dL Albumin (3.5-5.0) g/dL Urine Color (Yellow) Urine Appearance (Clear) Urine pH (4.6-8.0) Ur Specific Ione (1.005-1.030) Urine Protein (Negative) Urine Glucose (UA) (Negative) mg/dL Urine Ketones (Negative) Urine Blood (Negative) Urine Nitrite (Negative) Urine Bilirubin (Negative) Urine Urobilinogen (0.2) mg/dL Ur Leukocyte Esterase (Negative) U Hyaline Cast (Auto) (0-2) /LPF Urine Microscopic RBC (0-5) /HPF Urine Microscopic WBC (0-5) /HPF Ur Epithelial Cells (None Seen) /HPF Urine Bacteria (None Seen) /HPF Urine Culture Reflexed (NO) Influenza Type A Ag (NEGATIVE) Influenza Type B Ag (NEGATIVE) RSV (PCR) (NEGATIVE) SARS-CoV-2 (PCR) (NEGATIVE) Slides for Path Review Radiology Exams: Radiology Procedures Category Date Time Status CHEST 1 VIEW (PORTABLE) Stat Exams 02/08/24 14:51 Completed Assessment/Plan (1) COVID-19 Current Visit: Yes Status: Acute Assessment & Plan: -Decadron 6mg x 10 days -supplemental oxygen with goal spo2 >91% -RT eval -Nebs prn Code(s): U07.1 - COVID-19 (2) Chronic diastolic (congestive) heart failure Current Visit: Yes Status: Acute Assessment & Plan: -Continue bumex/metolazone/aldactone/Jardiance Code(s): I50.32 - CHRONIC DIASTOLIC (CONGESTIVE) HEART FAILURE (3) Elevated troponin Current Visit: Yes Status: Acute Assessment & Plan: -Downtrending- most likely demand due to COVID - no EKG changes Code(s): R79.89 - OTHER SPECIFIED ABNORMAL FINDINGS OF BLOOD CHEMISTRY (4) Pulmonary hypertension Current Visit: Yes Status: Acute Assessment & Plan: - continue diuretics as above - continue Revatio 20 TID Code(s): I27.20 - PULMONARY HYPERTENSION, UNSPECIFIED (5) Atrial fibrillation Current Visit: Yes Status: Acute Assessment & Plan: -Rate controlled on tele -Continue home meds Eliquis/digoxin/lopressor Code(s): I48.91 - UNSPECIFIED ATRIAL FIBRILLATION (6) Hypothyroidism Current Visit: Yes Status: Acute Assessment & Plan: -continue levothyroxine Code status: Full code Prophylaxis: Eliquis Diet: Regular Code(s): E03.9 - HYPOTHYROIDISM, UNSPECIFIED
[2024-02-09 07:39] VITALS: O2SAT 92
[2024-02-09] MEDS ORDERED: SILDENAFIL CITRATE 20 MG PO SCH (10:00)
[2024-02-09] MEDS ORDERED: NON-FORMULARY ITEM (Omeprazole [Omeprazole] 20 MG Capsule.Dr) PO SCH (10:00)
[2024-02-09] MEDS ORDERED: NON-FORMULARY ITEM (Apixaban [Eliquis] 5 MG Tablet) PO SCH (10:00)
[2024-02-09] MEDS ORDERED: MIDODRINE HCL 2.5 MG PO SCH (10:00)
[2024-02-09] MEDS: Lyrica 50MG PO SCH (10:26)
[2024-02-09] MEDS: SYNTHROID 75 MCG PO SCH (10:26)
[2024-02-09] MEDS: NORCO 7.5/325 MG TAB PO SCH (10:26)
[2024-02-09] MEDS: Protonix 40MG Tablet PO SCH (10:26)
[2024-02-09] MEDS: BUMEX 1 MG PO SCH (10:26)
[2024-02-09] MEDS: Lopressor 50 MG PO SCH (10:26)
[2024-02-09] MEDS: JARDIANCE PO SCH (10:27)
[2024-02-09] MEDS: ELIQUIS 2.5 MG TABLET PO SCH (10:27)
[2024-02-09] MEDS: Decadron 4 MG INJ IV SCH (10:27)
[2024-02-09] MEDS: SILDENAFIL CITRATE PO SCH (10:27)
[2024-02-09] MEDS: PROAMATINE PO SCH (10:28)
[2024-02-09] MEDS: Zaroxolyn 2.5 MG PO SCH (10:28)
[2024-02-09] MEDS: Aldactone 25 MG PO SCH (10:36)
--- NOTE | 2024-02-09 11:44 | PCM.DS ---
Discharge Summary Date of Admission: 02/08/24 18:25 Date of Discharge: 02/09/24 Admitting Physician: TARSHA CANALES MD Primary Care Provider: ASHLY LAMB Allergies Allergies amlodipine [From Norvasc] Allergy (Verified 02/08/24 14:40) cefuroxime Allergy (Verified 02/08/24 14:40) cephalexin [From Keflex] Allergy (Verified 02/08/24 14:40) gabapentin [From Neurontin] Allergy (Verified 02/08/24 14:40) Sulfa (Sulfonamide Antibiotics) Allergy (Verified 02/08/24 14:40) Hospital Summary - Hospital Course Hospital Course: 88 y/o F with h/o A-fib, HFpEF, HTn, GERD, hypothyroidism, and chronic leg wounds and stasis dermatitis, who presents with fatigue for a few days. Patient has been doing well with her CHF, maintaining her diuretics, and has her legs the smallest they have been in years, with her wounds finally healing admitted 02/08/24 with Covid. In the ED she was found to be hypoxic, 89% on room air, improved to 93% on 2L. CXR with tiny left effusion. She was found to be positive for SARS-CoV-2, and was given Decadron and DuoNebs. Labs and vitals stable. Dyspnea improved, now on RA. Patient is stable and requesting discharge. Discharge Note New Diagnosis: COVID New Medications: none Follow Up: pcp Latest Assessment & Plan (1) COVID-19 Current Visit: Yes Status: Acute Assessment & Plan: -Decadron 6mg x 10 days -supplemental oxygen with goal spo2 >91% -RT eval -Nebs prn Code(s): U07.1 - COVID-19 (2) Chronic diastolic (congestive) heart failure Current Visit: Yes Status: Acute Assessment & Plan: -Continue bumex/metolazone/aldactone/Jardiance Code(s): I50.32 - CHRONIC DIASTOLIC (CONGESTIVE) HEART FAILURE (3) Elevated troponin Current Visit: Yes Status: Acute Assessment & Plan: -Downtrending- most likely demand due to COVID - no EKG changes Code(s): R79.89 - OTHER SPECIFIED ABNORMAL FINDINGS OF BLOOD CHEMISTRY (4) Pulmonary hypertension Current Visit: Yes Status: Acute Assessment & Plan: - continue diuretics as above - continue Revatio 20 TID Code(s): I27.20 - PULMONARY HYPERTENSION, UNSPECIFIED (5) Atrial fibrillation Current Visit: Yes Status: Acute Assessment & Plan: -Rate controlled on tele -Continue home meds Eliquis/digoxin/lopressor Code(s): I48.91 - UNSPECIFIED ATRIAL FIBRILLATION (6) Hypothyroidism Current Visit: Yes Status: Acute Assessment & Plan: -continue levothyroxine I spent 35 minutes [id number] with the patient on the day of discharge performing discharge exam, discussing hospital stay and discharge instructions with patient and caregivers, preparation of discharge records, prescriptions & referral forms and addressing any questions/concerns the patient had as documented above. - Vitals & Intake/Output Vital Signs: Vital Signs Temperature 98.0 F 02/09/24 07:38 Pulse Rate 84 02/09/24 07:38 Respiratory Rate 15 02/09/24 07:38 Blood Pressure 164/75 02/09/24 07:38 O2 Sat by Pulse Oximetry 92 L 02/09/24 07:38 Intake & Output: Intake & Output 02/06/24 02/07/24 02/08/24 02/09/24 11:59 11:59 11:59 11:59 Intake Total 360 Output Total 400 Balance -40 Weight 58.4 kg - Lab Result Diagrams: 02/09/24 04:15 02/09/24 04:15 Lab Results-Last 24 Hrs: Lab Results-Last 24 Hours 02/08/24 02/08/24 02/08/24 Range/Units 02:23 15:22 15:22 WBC 8.3 (3.98-10.04) x10^3/uL RBC 4.34 (3.93-5.22) x10^6/uL Hgb 12.6 (11.2-15.7) g/dL Hct 39.5 (34.1-44.9) % MCV 91.0 (79.4-94.8) fL MCH 29.0 (25.6-32.2) pg MCHC 31.9 L (32.2-35.5) g/dL RDW 20.8 H (11.7-14.4) % Plt Count 132 L (182-369) x10^3/uL MPV 9.7 (9.4-12.3) fL Gran % 55.3 (34.0-71.1) % Immature Gran % (Auto) 0.4 (0.001-0.429) % Nucleat RBC Rel Count 0.0 (0.00-0.2) % Eos # (Auto) 0.01 L (0.04-0.36) x10^3/uL Immature Gran # (Auto) 0.03 (0.001-0.031) x10^3u/L Absolute Lymphs (auto) 2.73 (1.18-3.74) x10^3/uL Absolute Monos (auto) 0.94 H (0.24-0.86) x10^3/uL Absolute Nucleated RBC 0.00 (0.00-0.012) x10^3u/L Lymphocytes % 32.7 (19.3-51.7) % Monocytes % 11.3 (4.7-12.5) % Eosinophils % 0.1 L (0.7-5.8) % Basophils % 0.2 (0.1-1.2) % Absolute Granulocytes 4.61 (1.56-6.13) x10^3/uL Basophils # 0.02 (0.01-0.08) x10^3/uL Sodium 132 L (135-145) mmol/L Potassium 3.8 (3.5-5.1) mmol/L Chloride 96 L (98-107) mmol/L Carbon Dioxide 31 H (22-30) mmol/L Anion Gap 8.5 (5-15) MEQ/L BUN 25 H (7-17) mg/dL Creatinine 1.07 H (0.52-1.04) mg/dL Estimated GFR 50.0 ML/MIN Glucose 98 (74-106) mg/dL Lactic Acid (0.4-2.0) Calcium 8.8 (8.4-10.2) mg/dL Magnesium 1.8 (1.6-2.3) mg/dL Total Bilirubin 0.90 (0.2-1.3) mg/dL AST 27 (14-36) U/L ALT 16 (0-35) U/L Alkaline Phosphatase 55 (38-126) U/L Troponin I (0.000-0.033) ng/mL NT-Pro-B Natriuret Pep 2290 (<300) pg/mL Serum Total Protein 5.4 L (6.3-8.2) g/dL Albumin 2.9 L (3.5-5.0) g/dL Urine Color Yellow (Yellow) Urine Appearance Clear (Clear) Urine pH 7.5 (4.6-8.0) Ur Specific [place] 1.015 (1.005-1.030) Urine Protein Trace A (Negative) Urine Glucose (UA) >=1000 A (Negative) mg/dL Urine Ketones Negative (Negative) Urine Blood Negative (Negative) Urine Nitrite Negative (Negative) Urine Bilirubin Negative (Negative) Urine Urobilinogen 1.0 A (0.2) mg/dL Ur Leukocyte Esterase Negative (Negative) U Hyaline Cast (Auto) NONE SEEN (0-2) /LPF Urine Microscopic RBC 0-2 (0-5) /HPF Urine Microscopic WBC 0-2 (0-5) /HPF Ur Epithelial Cells Rare (None Seen) /HPF Urine Bacteria None Seen (None Seen) /HPF Urine Culture Reflexed NO (NO) Influenza Type A Ag (NEGATIVE) Influenza Type B Ag (NEGATIVE) RSV (PCR) (NEGATIVE) SARS-CoV-2 (PCR) (NEGATIVE) Slides for Path Review 02/08/24 02/08/24 02/08/24 Range/Units 15:22 15:22 15:35 WBC (3.98-10.04) x10^3/uL RBC (3.93-5.22) x10^6/uL Hgb (11.2-15.7) g/dL Hct (34.1-44.9) % MCV (79.4-94.8) fL MCH (25.6-32.2) pg MCHC (32.2-35.5) g/dL RDW (11.7-14.4) % Plt Count (182-369) x10^3/uL MPV (9.4-12.3) fL Gran % (34.0-71.1) % Immature Gran % (Auto) (0.001-0.429) % Nucleat RBC Rel Count (0.00-0.2) % Eos # (Auto) (0.04-0.36) x10^3/uL Immature Gran # (Auto) (0.001-0.031) x10^3u/L Absolute Lymphs (auto) (1.18-3.74) x10^3/uL Absolute Monos (auto) (0.24-0.86) x10^3/uL Absolute Nucleated RBC (0.00-0.012) x10^3u/L Lymphocytes % (19.3-51.7) % Monocytes % (4.7-12.5) % Eosinophils % (0.7-5.8) % Basophils % (0.1-1.2) % Absolute Granulocytes (1.56-6.13) x10^3/uL Basophils # (0.01-0.08) x10^3/uL Sodium (135-145) mmol/L Potassium (3.5-5.1) mmol/L Chloride (98-107) mmol/L Carbon Dioxide (22-30) mmol/L Anion Gap (5-15) MEQ/L BUN (7-17) mg/dL Creatinine (0.52-1.04) mg/dL Estimated GFR ML/MIN Glucose (74-106) mg/dL Lactic Acid 1.0 (0.4-2.0) Calcium (8.4-10.2) mg/dL Magnesium (1.6-2.3) mg/dL Total Bilirubin (0.2-1.3) mg/dL AST (14-36) U/L ALT (0-35) U/L Alkaline Phosphatase (38-126) U/L Troponin I 0.105 H* (0.000-0.033) ng/mL NT-Pro-B Natriuret Pep (<300) pg/mL Serum Total Protein (6.3-8.2) g/dL Albumin (3.5-5.0) g/dL Urine Color (Yellow) Urine Appearance (Clear) Urine pH (4.6-8.0) Ur Specific [place] (1.005-1.030) Urine Protein (Negative) Urine Glucose (UA) (Negative) mg/dL Urine Ketones (Negative) Urine Blood (Negative) Urine Nitrite (Negative) Urine Bilirubin (Negative) Urine Urobilinogen (0.2) mg/dL Ur Leukocyte Esterase (Negative) U Hyaline Cast (Auto) (0-2) /LPF Urine Microscopic RBC (0-5) /HPF Urine Microscopic WBC (0-5) /HPF Ur Epithelial Cells (None Seen) /HPF Urine Bacteria (None Seen) /HPF Urine Culture Reflexed (NO) Influenza Type A Ag NEGATIVE (NEGATIVE) Influenza Type B Ag NEGATIVE (NEGATIVE) RSV (PCR) NEGATIVE (NEGATIVE) SARS-CoV-2 (PCR) POSITIVE A (NEGATIVE) Slides for Path Review 02/08/24 02/08/24 02/09/24 Range/Units 19:50 23:33 04:15 WBC 5.7 (3.98-10.04) x10^3/uL RBC 4.40 (3.93-5.22) x10^6/uL Hgb 12.9 (11.2-15.7) g/dL Hct 40.0 (34.1-44.9) % MCV 90.9 (79.4-94.8) fL MCH 29.3 (25.6-32.2) pg MCHC 32.3 (32.2-35.5) g/dL RDW 20.4 H (11.7-14.4) % Plt Count 134 L (182-369) x10^3/uL MPV 9.7 (9.4-12.3) fL Gran % (34.0-71.1) % Immature Gran % (Auto) (0.001-0.429) % Nucleat RBC Rel Count (0.00-0.2) % Eos # (Auto) (0.04-0.36) x10^3/uL Immature Gran # (Auto) (0.001-0.031) x10^3u/L Absolute Lymphs (auto) (1.18-3.74) x10^3/uL Absolute Monos (auto) (0.24-0.86) x10^3/uL Absolute Nucleated RBC (0.00-0.012) x10^3u/L Lymphocytes % (19.3-51.7) % Monocytes % (4.7-12.5) % Eosinophils % (0.7-5.8) % Basophils % (0.1-1.2) % Absolute Granulocytes (1.56-6.13) x10^3/uL Basophils # (0.01-0.08) x10^3/uL Sodium (135-145) mmol/L Potassium (3.5-5.1) mmol/L Chloride (98-107) mmol/L Carbon Dioxide (22-30) mmol/L Anion Gap (5-15) MEQ/L BUN (7-17) mg/dL Creatinine (0.52-1.04) mg/dL Estimated GFR ML/MIN Glucose (74-106) mg/dL Lactic Acid (0.4-2.0) Calcium (8.4-10.2) mg/dL Magnesium (1.6-2.3) mg/dL Total Bilirubin (0.2-1.3) mg/dL AST (14-36) U/L ALT (0-35) U/L Alkaline Phosphatase (38-126) U/L Troponin I 0.085 H* 0.067 H* (0.000-0.033) ng/mL NT-Pro-B Natriuret Pep (<300) pg/mL Serum Total Protein (6.3-8.2) g/dL Albumin (3.5-5.0) g/dL Urine Color (Yellow) Urine Appearance (Clear) Urine pH (4.6-8.0) Ur Specific [place] (1.005-1.030) Urine Protein (Negative) Urine Glucose (UA) (Negative) mg/dL Urine Ketones (Negative) Urine Blood (Negative) Urine Nitrite (Negative) Urine Bilirubin (Negative) Urine Urobilinogen (0.2) mg/dL Ur Leukocyte Esterase (Negative) U Hyaline Cast (Auto) (0-2) /LPF Urine Microscopic RBC (0-5) /HPF Urine Microscopic WBC (0-5) /HPF Ur Epithelial Cells (None Seen) /HPF Urine Bacteria (None Seen) /HPF Urine Culture Reflexed (NO) Influenza Type A Ag (NEGATIVE) Influenza Type B Ag (NEGATIVE) RSV (PCR) (NEGATIVE) SARS-CoV-2 (PCR) (NEGATIVE) Slides for Path Review YES 02/09/24 Range/Units 04:15 WBC (3.98-10.04) x10^3/uL RBC (3.93-5.22) x10^6/uL Hgb (11.2-15.7) g/dL Hct (34.1-44.9) % MCV (79.4-94.8) fL MCH (25.6-32.2) pg MCHC (32.2-35.5) g/dL RDW (11.7-14.4) % Plt Count (182-369) x10^3/uL MPV (9.4-12.3) fL Gran % (34.0-71.1) % Immature Gran % (Auto) (0.001-0.429) % Nucleat RBC Rel Count (0.00-0.2) % Eos # (Auto) (0.04-0.36) x10^3/uL Immature Gran # (Auto) (0.001-0.031) x10^3u/L Absolute Lymphs (auto) (1.18-3.74) x10^3/uL Absolute Monos (auto) (0.24-0.86) x10^3/uL Absolute Nucleated RBC (0.00-0.012) x10^3u/L Lymphocytes % (19.3-51.7) % Monocytes % (4.7-12.5) % Eosinophils % (0.7-5.8) % Basophils % (0.1-1.2) % Absolute Granulocytes (1.56-6.13) x10^3/uL Basophils # (0.01-0.08) x10^3/uL Sodium 135 (135-145) mmol/L Potassium 4.4 (3.5-5.1) mmol/L Chloride 97 L (98-107) mmol/L Carbon Dioxide 31 H (22-30) mmol/L Anion Gap 10.5 (5-15) MEQ/L BUN 28 H (7-17) mg/dL Creatinine 0.94 (0.52-1.04) mg/dL Estimated GFR 58.4 ML/MIN Glucose 131 H (74-106) mg/dL Lactic Acid (0.4-2.0) Calcium 9.2 (8.4-10.2) mg/dL Magnesium (1.6-2.3) mg/dL Total Bilirubin (0.2-1.3) mg/dL AST (14-36) U/L ALT (0-35) U/L Alkaline Phosphatase (38-126) U/L Troponin I (0.000-0.033) ng/mL NT-Pro-B Natriuret Pep (<300) pg/mL Serum Total Protein (6.3-8.2) g/dL Albumin (3.5-5.0) g/dL Urine Color (Yellow) Urine Appearance (Clear) Urine pH (4.6-8.0) Ur Specific [place] (1.005-1.030) Urine Protein (Negative) Urine Glucose (UA) (Negative) mg/dL Urine Ketones (Negative) Urine Blood (Negative) Urine Nitrite (Negative) Urine Bilirubin (Negative) Urine Urobilinogen (0.2) mg/dL Ur Leukocyte Esterase (Negative) U Hyaline Cast (Auto) (0-2) /LPF Urine Microscopic RBC (0-5) /HPF Urine Microscopic WBC (0-5) /HPF Ur Epithelial Cells (None Seen) /HPF Urine Bacteria (None Seen) /HPF Urine Culture Reflexed (NO) Influenza Type A Ag (NEGATIVE) Influenza Type B Ag (NEGATIVE) RSV (PCR) (NEGATIVE) SARS-CoV-2 (PCR) (NEGATIVE) Slides for Path Review - Radiology Exams Ordered Rad Exams-Entire Visit: Radiology Procedures Category Date Time Status CHEST 1 VIEW (PORTABLE) Stat Exams 02/08/24 14:51 Completed - Procedures and Test Procedures and Tests throughout Hospitalization: Therapy Orders & Screens 02/08/24 15:28 Respiratory Therapy Assessment DAILY Comment: 02/08/24 18:40 Oxygen Nasal Cannula 2 lpm Comment: Respiratory Therapy Consult ONCE Comment: Reason For Exam: Discharge Exam General Appearance: no apparent distress Neurologic Exam: alert, oriented x 3, cooperative Eye Exam: PERRL Ears, Nose, Throat Exam: normal ENT inspection Neck Exam: normal inspection Respiratory Exam: normal breath sounds, lungs clear Cardiovascular Exam: regular rate/rhythm, normal heart sounds Gastrointestinal/Abdomen Exam: soft, normal bowel sounds Pelvic Exam: deferred Rectal Exam: deferred Back Exam: normal inspection Extremity Exam: normal inspection Skin Exam: normal color Wound Assessment: Skin/Wound Assessment Wound/Incision Assessment Start: 02/08/24 20:12 Text: Status: Active Freq: Q6H Protocol: Document 02/09/24 02:12 MM (Rec: 02/09/24 02:41 MM [id number]) Wound/Incision Assessment Left Other Wound Assessment Admission Wound Type Abrasion Drainage Amount None Drainage Odor None/Absent Comment OPEN TO AIR Wound Photo Photo Taken No Final Diagnosis/Problem List - Final Discharge Diagnosis/Problem (1) COVID-19 Current Visit: Yes Status: Acute Code(s): U07.1 - COVID-19 (2) Chronic diastolic (congestive) heart failure Current Visit: Yes Status: Acute Code(s): I50.32 - CHRONIC DIASTOLIC (CONGESTIVE) HEART FAILURE (3) Elevated troponin Current Visit: Yes Status: Acute Code(s): R79.89 - OTHER SPECIFIED ABNORMAL FINDINGS OF BLOOD CHEMISTRY (4) Pulmonary hypertension Current Visit: Yes Status: Acute Code(s): I27.20 - PULMONARY HYPERTENSION, UNSPECIFIED (5) Atrial fibrillation Current Visit: Yes Status: Acute Code(s): I48.91 - UNSPECIFIED ATRIAL FIBRILLATION (6) Hypothyroidism Current Visit: Yes Status: Acute Code(s): E03.9 - HYPOTHYROIDISM, UNSPECIFIED - Discharge Disposition: Home, Self-Care Condition: Stable Prescriptions: Continue Sildenafil Citrate [Revatio] 20 mg PO TID Pregabalin [Lyrica] 50 mg PO QAM Atorvastatin Calcium [Lipitor 20MG Tablet] 20 mg PO HS Pregabalin 200 mg PO QHS Omeprazole 20 mg PO DAILY Apixaban [Eliquis] 2.5 mg PO BID Trazodone HCl 50 mg [Desyrel 50 mg] 50 mg PO HS Prednisone 10 mg [Deltasone 10 mg] 10 mg PO DAILY Empagliflozin [Jardiance] 10 mg PO DAILY Metoprolol Tartrate 50 mg [Lopressor 50 MG] 50 mg PO BID 30 Days #60 tablet Bumetanide 1 mg [Bumex 1 mg] 1 mg PO DAILY Hydrocodone/Acetaminophen [Hydrocodone-Acetamin 7.5-325] 1 tab PO BID Spironolactone 25 mg PO DAILY Levothyroxine Sodium 75 Mcg [Synthroid 75 Mcg] 75 mcg PO DAILY Midodrine HCl 2.5 mg PO BID Digoxin 0.125 mg Tablet [Lanoxin 0.125MG TABLET] 0.125 mg PO 3XW Denosumab 60 mg [Prolia 60 mg Injection] 60 mg SQ UD Metolazone 2.5 mg [Zaroxolyn 2.5 MG] 2.5 mg PO WEEKLY Follow up with: ASHLY LAMB NP [Primary Care Provider] - 02/16/24 9:30 am
[2024-02-09 12:05] VITALS: BP 130/72; PULSE 81; TEMP 98.3
[2024-02-09 13:33] VITALS: RESP 20
[2024-02-09] MEDS ORDERED: NON-FORMULARY ITEM (Atorvastatin Calcium 20 MG Tab) PO SCH (22:00)
[2024-02-09] MEDS ORDERED: ZOCOR 20MG PO SCH (22:00)
[2024-02-09] MEDS ORDERED: PREGABALIN 200 MG PO SCH (22:00)
[2024-02-09] MEDS ORDERED: LYRICA 100MG PO SCH (22:00)
[2024-02-10] MEDS ORDERED: Lanoxin 0.125MG TABLET PO SCH (10:00)
== END 2024-02-09 13:28 | disposition home or self-care (01) ==
LOC: ED 13:56 → MED SURG 18:25
PROVIDERS: ADMIT Internal Medicine; ATTEND Internal Medicine
DX: U07.1 COVID-19 (principal); I48.20 Chronic atrial fibrillation, unspecified; I11.0 Hypertensive heart disease with heart failure; I50.32 Chronic diastolic (congestive) heart failure; E03.9 Hypothyroidism, unspecified; R79.89 Other specified abnormal findings of blood chemistry; I27.20 Pulmonary hypertension, unspecified; Z79.01 Long term (current) use of anticoagulants; Z79.899 Other long term (current) drug therapy
CPT/HCPCS: 0241U; 36000; 36415; 71045; 80048; 80053; 81001; 83605; 83735; 83880; 84484; 85025; 85027; 87040; 93005; 93041; 94640; 94762; 96374; 99284; J1100; A9270-GY

== ENCOUNTER 2024-05-23 08:43 | Observation (INO) | payer MEDICARE ==
[2024-05-23] MEDS ORDERED: DUONEB 0.5-3 MG/3 ml Neb IH ONE ×2 (10:03→11:40)
[2024-05-23] MEDS: DUONEB 0.5-3 MG/3 ml Neb IH ONE ×2 (10:13→11:50)
[2024-05-23] MEDS ORDERED: solu-MEDROL ONE (10:24)
[2024-05-23] MEDS ORDERED: Sterile H2O 10 ml IJ ONE (10:24)
[2024-05-23] MEDS: solu-MEDROL 125 MG, Sterile H2O 10 ml 2 ML IV ONE (10:32)
[2024-05-23 10:35] LABS: Absolute Neutrophil Ct (ANC) 7.97 x10^3/uL (1.56-6.13); BASOPHIL % 0.1 % (0.1-1.2); Basophil (Absolute #) 0.01 x10^3/uL (0.01-0.08); Eosinophil (Absolute #) 0 x10^3/uL (0.04-0.36); Hemoglobin 12.1 g/dL (11.2-15.7); IMMATURE GRAN # 0.08 x10^3u/L (0.001-0.031); IMMATURE GRAN % 0.7 % (0.001-0.429); Lymphocyte (Absolute #) 1.83 x10^3/uL (1.18-3.74); Lymphocytes % 16.8 % (19.3-51.7); Mean Cell Volume 95.7 fL (79.4-94.8); Mean Corpuscular Hemoglobin 30.5 pg (25.6-32.2); Mean Corpuscular Hgb Concent. 31.8 g/dL (32.2-35.5); Mean Platelet Volume 9.7 fL (9.4-12.3); Monocyte (Absolute #) 0.98 x10^3/uL (0.24-0.86); Neutrophil % 73.4 % (34.0-71.1); Platelet Count 126 x10^3/uL (182-369); Red Blood Count 3.97 x10^6/uL (3.93-5.22); White Blood Count 10.9 x10^3/uL (3.98-10.04)
--- NOTE | 2024-05-23 10:49 | XRAY ---
Indication: Pneumonia. Comparison: February 08, 2024 Portable chest unchanged again demonstrating cardiomegaly with tiny left effusion again favoring cardiac decompensation/CHF. Remaining lungs clear. Stable incidental paratracheal calcified node and arteriosclerotic aorta. Bony thorax intact again with osteopenia, degenerative changes, and levoscoliosis.
[2024-05-23 10:53] LABS: ALBUMIN 3.4 g/dL (3.5-5.0); ANION GAP 10.4 MEQ/L (5-15); BILIRUBIN,TOTAL 0.9 mg/dL (0.2-1.3); Calcium 7.6 mg/dL (8.4-10.2); Creatinine 1 1.12 mg/dL (0.52-1.04); EST GLOMERULAR FILTRATION RATE 47.3 ML/MIN; Potassium 4.1 mmol/L (3.5-5.1); Total Protein 6.2 g/dL (6.3-8.2)
[2024-05-23 11:16] LABS: INFLUENZA B NEGATIVE (NEGATIVE); RESPIRATORY SYNCTIAL VIRUS NEGATIVE (NEGATIVE); SARS-CoV-2 Xpert Express NEGATIVE (NEGATIVE)
[2024-05-23 11:19] LABS: INFLUENZA A POSITIVE (NEGATIVE)
--- NOTE | 2024-05-23 11:57 | ERPHSYRPT ---
- History of Present Illness Time Seen by Provider: 05/23/24 10:23 Source: patient Exam Limitations: no limitations Patient Subjective Stated Complaint: Cough Triage Nursing Assessment: Patient brought into ED per w/c and transferred to bed with assist of 1. Patient A+O X3. Patient's skin pink, warm and dry. Patient complains of intermittent cough with SOB. Patient wears home O2 at 2 liters per N/C. Patient initial O2 noted to be 88%. Patient placed on O2 at 2 liters per N/C. Lungs noted to be wheezy throughout. Patient complains of pain to BLE wounds 09/15. Physician History: Patient is here with cough, wheezing, congestion. Typically wears 2 L of O2 at home. However placed on O2 by family given 88% at home. Lungs are wheezy throughout. Started earlier today. Patient has bilateral leg edema. This is chronic. Patient does follow with Dr. Moise here at [place]. Patient has no chest pain. She does have some mild shortness of breath, coughing, crackles. Allergies/Adverse Reactions: amlodipine [From Norvasc] Allergy (Verified 05/23/24 10:29) cefuroxime Allergy (Verified 05/23/24 10:29) cephalexin [From Keflex] Allergy (Verified 05/23/24 10:29) gabapentin [From Neurontin] Allergy (Verified 05/23/24 10:29) Sulfa (Sulfonamide Antibiotics) Allergy (Verified 05/23/24 10:29) Home Medications: Pregabalin [Lyrica] 50 mg PO QAM 06/01/17 [History] Sildenafil Citrate [Revatio] 20 mg PO TID 06/01/17 [History] Atorvastatin Calcium [Lipitor 20MG Tablet] 20 mg PO HS 09/06/17 [History] Apixaban [Eliquis] 2.5 mg PO BID 06/05/20 [History] Omeprazole 20 mg PO DAILY 06/05/20 [History] Pregabalin 200 mg PO QHS 06/05/20 [History] Trazodone HCl 50 mg [Desyrel 50 mg] 50 mg PO HS 06/05/20 [History] Prednisone 10 mg [Deltasone 10 mg] 10 mg PO DAILY 06/07/20 [History] Empagliflozin [Jardiance] 10 mg PO DAILY 05/17/23 [History] Bumetanide 1 mg [Bumex 1 mg] 1 mg PO DAILY 07/10/23 [History] Hydrocodone/Acetaminophen [Hydrocodone-Acetamin 7.5-325] 1 tab PO BID 08/10/23 [History] Spironolactone 25 mg PO DAILY 08/10/23 [History] Levothyroxine Sodium 75 Mcg [Synthroid 75 Mcg] 75 mcg PO DAILY 09/17/23 [History] Denosumab 60 mg [Prolia 60 mg Injection] 60 mg SQ UD 02/08/24 [History] Digoxin 0.125 mg Tablet [Lanoxin 0.125MG TABLET] 0.125 mg PO 3XW 02/08/24 [History] Metolazone 2.5 mg [Zaroxolyn 2.5 MG] 2.5 mg PO WEEKLY 02/08/24 [History] Midodrine HCl 2.5 mg PO BID 02/08/24 [History] Hx Tetanus, Diphtheria Vaccination/Date Given: No Hx Influenza Vaccination/Date Given: No Hx Pneumococcal Vaccination/Date Given: No Immunizations Up to Date: Yes Travel Risk - International Travel Have you traveled outside of the country in past 3 weeks: No - Emerging Infectious Disease Are you exhibiting symptoms associated with any current EIDs: Yes Symptoms: Cough: New Onset, Shortness of Breath - Past Medical History Pertinent Past Medical History: Yes Neurological History: Peripheral Neuropathy ENT History: No Pertinent History Cardiac History: Arrhythmia, Congestive Heart Failure, High Cholesterol Respiratory History: Bronchitis Endocrine Medical History: No Pertinent History Musculoskeletal History: Osteoarthritis, Osteoporosis GI Medical History: GERD History: No Pertinent History Psycho-Social History: No Pertinent History Female Reproductive Disorders: No Pertinent History Other Medical History: HX OF PULMONARY HTN, ASTHMA/BRONCHITIS. MULTIPLE P.T. INTERVENTIONS FOR WOUND CARE. - Past Surgical History Past Surgical History: Yes Neuro Surgical History: No Pertinent History Cardiac: No Pertinent History Respiratory: No Pertinent History Gastrointestinal: No Pertinent History Genitourinary: No Pertinent History Musculoskeletal: Orthopedic Surgery Female Surgical History: No Pertinent History Other Surgical History: back surgery. ANGIOGRAM Significant Family History: no pertinent family hx - Social History Smoking Status: Never smoker Exposure to second hand smoke: No Drug Use: none Patient Lives Alone: No - Social Determinants of Health Will the patient participate in the screening: Yes Do you worry about a steady place to live?: No Do you have any problems with any of the following?: No known problems In the past 12 months,have you had to go without utilities?: No Transportation Issues: No Has anyone in your support network made you feel unsafe?: No Have you or anyone in your house had to go without enough: No - Nursing Vital Signs Nursing Vital Signs: Initial Vital Signs Pulse Rate 71 05/23/24 10:05 Respiratory Rate 22 05/23/24 10:05 O2 Sat by Pulse Oximetry 88 L 05/23/24 10:05 Pain Scale Pain Intensity 0 - Physical Exam SpO2: 95 Comments: 05/23/24 12:55 Review of Systems Constitutional: Negative for fever. HENT: Cough, cold, congestion Respiratory: Shortness of breath Cardiovascular: Negative for chest pain. Gastrointestinal: Negative for abdominal pain. Genitourinary: Negative for dysuria. Musculoskeletal: Negative for back pain. Skin: Negative for rash. Neurological: Negative for headaches. Psychiatric/Behavioral: Negative for behavioral problems. All other systems reviewed and are negative. Physical Exam Vitals signs and nursing note reviewed. Constitutional: Appearance: Patient is well-developed. HENT: Head: Normocephalic and atraumatic. Eyes: Conjunctiva/sclera: Conjunctivae normal. Neck: Musculoskeletal: Normal range of motion. Trachea: No tracheal deviation. Cardiovascular: Rate and Rhythm: Normal rate. Pulmonary: Effort: Crackles, wheezes throughout Abdominal: Palpations: Abdomen is soft. Musculoskeletal: General: No deformity. Well-healing lower extremity wounds from chronic venous stasis. 1+ lower extremity edema. Does appear improved compared to previous photos that family shows me. Skin: General: Skin is warm and dry. Neurological/ Psychiatric: Mental Status: Mental status, behavior, interaction with environment is appropriate for patient's age and condition 05/23/24 13:00 - Course Nursing assessment & vital signs reviewed: Yes EKG Interpreted by Me: Sinus Rhythm (A-fib, rate of 81, patient does have ST de pression through many of the leads, inverted T waves in 2 [address]VF V[address] through V6[address] wave depression in V6-however, this appears unchanged from a previous EKG) Ordered Tests: Active Orders 24 hr Category Date Time Status Call Admit Doctor for Orders ON ADMISSION Care 05/23/24 11:57 Active Code Status Order ROUTINE Care 05/23/24 11:57 Active EKG-ER Only STAT Care 05/23/24 10:02 Active IV Insertion STAT Care 05/23/24 10:[address] in Observation ROUTINE Care 05/23/24 11:57 Active Telemetry q6h Care 05/23/24 11:58 Active CHEST 1 VIEW (PORTABLE) Stat Exams 05/23/24 10:03 Completed CBC W DIFF Stat Lab 05/23/24 10:35 Completed CMP Stat Lab 05/23/24 10:35 Completed NT PRO BNPII Stat Lab 05/23/24 10:35 Completed TROPONIN Q4H Lab 05/23/24 10:35 Completed TROPONIN Q4H Lab 05/23/24 14:15 Ordered TROPONIN Q4H Lab 05/23/24 18:15 Ordered Pulse Oximetry CONTINUOUS RT 05/23/24 11:58 Active Respiratory Therapy Assessment DAILY RT 05/23/24 10:48 Active Respiratory Therapy Consult ONCE RT 05/23/24 11:58 Active Transfer Order Routine Transfer 05/23/24 Ordered Medication Summary Discontinued Medications Generic Name Dose Route Start Last Admin Trade Name Freq PRN Reason Stop Dose Admin Albuterol/Ipratropium 3 ml 05/23/24 10:02 05/23/24 10:13 Ipratropium/Albuterol Sulfate 3 Ml Ampul.Neb IH 05/23/24 10:03 3 ml STAT ONE Administration Albuterol/Ipratropium Confirm 05/23/24 10:03 Ipratropium/Albuterol Sulfate 3 Ml Ampul.Neb Administered 05/23/24 10:04 Dose 3 ml IH .STK-MED ONE Albuterol/Ipratropium Confirm 05/23/24 11:40 Ipratropium/Albuterol Sulfate 3 Ml Ampul.Neb Administered 05/23/24 11:41 Dose 3 ml IH .STK-MED ONE Albuterol/Ipratropium 3 ml 05/23/24 11:48 05/23/24 11:50 Ipratropium/Albuterol Sulfate 3 Ml Ampul.Neb IH 05/23/24 11:49 3 ml STAT ONE Administration Methylprednisolone Sodium 0 mg 05/23/24 10:02 05/23/24 10:32 Succinate 125 mg/ Sterile IV 05/23/24 10:03 125 mg Water 2 ml STAT ONE Administration Methylprednisolone Sodium Succinate Confirm 05/23/24 10:24 Methylprednis Sod Succ 125 Mg/2 Ml Vial Administered 05/23/24 10:25 Dose 125 mg .ROUTE .Swapferit-MED ONE Sterile Water Confirm 05/23/24 10:24 Water For Injection,Sterile 10 Ml Vial Administered 05/23/24 10:25 Dose 10 ml IJ .STK-MED ONE Lab/Rad Data: Laboratory Result Diagrams 05/23/24 10:35 05/23/24 10:35 Laboratory Results 05/23/24 05/23/24 05/23/24 Range/Units 10:35 10:35 10:35 WBC (3.98-10.04) x10^3/uL RBC (3.93-5.22) x10^6/uL Hgb (11.2-15.7) g/dL Hct (34.1-44.9) % MCV (79.4-94.8) fL MCH (25.6-32.2) pg MCHC (32.2-35.5) g/dL RDW (11.7-14.4) % Plt Count (182-369) x10^3/uL MPV (9.4-12.3) fL Gran % (34.0-71.1) % Immature Gran % (Auto) (0.001-0.429) % Nucleat RBC Rel Count (0.00-0.2) % Eos # (Auto) (0.04-0.36) x10^3/uL Immature Gran # (Auto) (0.001-0.031) x10^3u/L Absolute Lymphs (auto) (1.18-3.74) x10^3/uL Absolute Monos (auto) (0.24-0.86) x10^3/uL Absolute Nucleated RBC (0.00-0.012) x10^3u/L Lymphocytes % (19.3-51.7) % Monocytes % (4.7-12.5) % Eosinophils % (0.7-5.8) % Basophils % (0.1-1.2) % Absolute Granulocytes (1.56-6.13) x10^3/uL Basophils # (0.01-0.08) x10^3/uL Sodium 137 (135-145) mmol/L Potassium 4.1 (3.5-5.1) mmol/L Chloride 103 (98-107) mmol/L Carbon Dioxide 28 (22-30) mmol/L Anion Gap 10.4 (5-15) MEQ/L BUN 33 H (7-17) mg/dL Creatinine 1.12 H (0.52-1.04) mg/dL Estimated GFR 47.3 ML/MIN Glucose 117 H (74-106) mg/dL Calcium 7.6 L (8.4-10.2) mg/dL Total Bilirubin 0.90 (0.2-1.3) mg/dL AST 27 (14-36) U/L ALT 18 (0-35) U/L Alkaline Phosphatase 71 (38-126) U/L Troponin I 0.075 H* (0.000-0.033) ng/mL NT-Pro-B Natriuret Pep 5050 (<300) pg/mL Serum Total Protein 6.2 L (6.3-8.2) g/dL Albumin 3.4 L (3.5-5.0) g/dL Influenza Type A Ag POSITIVE A (NEGATIVE) Influenza Type B Ag NEGATIVE (NEGATIVE) RSV (PCR) NEGATIVE (NEGATIVE) SARS-CoV-2 (PCR) NEGATIVE (NEGATIVE) 05/23/24 Range/Units 10:35 WBC 10.9 H (3.98-10.04) x10^3/uL RBC 3.97 (3.93-5.22) x10^6/uL Hgb 12.1 (11.2-15.7) g/dL Hct 38.0 (34.1-44.9) % MCV 95.7 H (79.4-94.8) fL MCH 30.5 (25.6-32.2) pg MCHC 31.8 L (32.2-35.5) g/dL RDW 16.0 H (11.7-14.4) % Plt Count 126 L (182-369) x10^3/uL MPV 9.7 (9.4-12.3) fL Gran % 73.4 H (34.0-71.1) % Immature Gran % (Auto) 0.7 H (0.001-0.429) % Nucleat RBC Rel Count 0.0 (0.00-0.2) % Eos # (Auto) 0 L (0.04-0.36) x10^3/uL Immature Gran # (Auto) 0.08 H (0.001-0.031) x10^3u/L Absolute Lymphs (auto) 1.83 (1.18-3.74) x10^3/uL Absolute Monos (auto) 0.98 H (0.24-0.86) x10^3/uL Absolute Nucleated RBC 0.00 (0.00-0.012) x10^3u/L Lymphocytes % 16.8 L (19.3-51.7) % Monocytes % 9.0 (4.7-12.5) % Eosinophils % 0.0 L (0.7-5.8) % Basophils % 0.1 (0.1-1.2) % Absolute Granulocytes 7.97 H (1.56-6.13) x10^3/uL Basophils # 0.01 (0.01-0.08) x10^3/uL Sodium (135-145) mmol/L Potassium (3.5-5.1) mmol/L Chloride (98-107) mmol/L Carbon Dioxide (22-30) mmol/L Anion Gap (5-15) MEQ/L BUN (7-17) mg/dL Creatinine (0.52-1.04) mg/dL Estimated GFR ML/MIN Glucose (74-106) mg/dL Calcium (8.4-10.2) mg/dL Total Bilirubin (0.2-1.3) mg/dL AST (14-36) U/L ALT (0-35) U/L Alkaline Phosphatase (38-126) U/L Troponin I (0.000-0.033) ng/mL NT-Pro-B Natriuret Pep (<300) pg/mL Serum Total Protein (6.3-8.2) g/dL Albumin (3.5-5.0) g/dL Influenza Type A Ag (NEGATIVE) Influenza Type B Ag (NEGATIVE) RSV (PCR) (NEGATIVE) SARS-CoV-2 (PCR) (NEGATIVE) - Progress Progress: improved Progress Note: 05/23/24 13:02 Differential diagnosis includes: PNA, STEMI, NSTEMI, other infection, musculoskeletal pain, pneumothorax - We'll obtain basic labs, fluids, EKG, troponin, chest x-ray - EKG shows flipped T waves and ST depression, similar to previous - O2 saturations consistently greater than 95% on 2L - CXR shows no pneumonia, pneumothorax, some chronic CHF changes my read Reevaluation: Patient found to be influenza A positive. Most likely the source of her new hypoxia, wheezes, crackles. We also gave steroids, 2 breathing treatments in the emergency department. She does appear overall hemodynamically stable. However given that she has new hypoxia, this weakness, not feeling well I do believe we should admit her to the hospital. She is an excellent candidate for Tamiflu given symptoms started this morning. I did discuss all this with the patient and adult daughter at bedside. They are in agreement the patient should be admitted. I spoke over the phone to on-call physician, Dr. Armenta. He did accept the patient to his service. We had an in-depth conversation, plans moving forward. Discussed with : Emmie Will see patient in: hospital (observation) Counseled pt/family regarding: lab results, diagnosis, need for follow-up, rad results - Departure Departure Disposition: Observation Clinical Impression: Influenza A, Elevated troponin, Hypoxia, Wheezing Condition: Stable Critical Care Time: No Referrals: ASHLY LAMB NP [Primary Care Provider] - Follow up/PCP as directed
--- NOTE | 2024-05-23 14:14 | PCM.HP ---
History of Present Illness - Chief Complaint Chief Complaint: influenza A Date: 05/23/24 History of Present Illness: is a 88 year old female with pmhx of A-fib, HFpEF, HTN, GERD, hypothyroidism, and chronic leg wounds and stasis dermatitis. Patient is here wi th cough, wheezing, congestion. Typically wears 2 L of O2 at home at bedtime. However, placed on O2 by family as 88% at home RA. Lungs are wheezy throughout and started earlier today. Patient has bilateral leg edema with 2 wounds of RLE that is chronic. Patient does follow with Dr. Moise here at [facility] and will consult. Patient has no chest pain. She does have some mild shortness of breat h, coughing. O2 now 95 % on 2lNC. She tested positive for Flu A in ER, will start tamiflu. She has some VIVEK and will hold meds that affect renal function. She has increased SOB with walking. She denies any further concerns at this time. - Review of Systems Constitutional: Weakness, No Fever, No Chills Eyes: No Symptoms Ears, Nose, & Throat: No Symptoms Respiratory: Cough, Short Of Breath, Wheezing Cardiac: No Chest Pain, No Edema, No Syncope Abdominal/Gastrointestinal: No Abdominal Pain, No Nausea, No Vomiting, No Diarrhea Genitourinary Symptoms: No Dysuria Musculoskeletal: No Back Pain, No Neck Pain Skin: No Rash Neurological: No Dizziness, No Focal Weakness, No Sensory Changes Psychological: No Symptoms Endocrine: No Symptoms Hematologic/Lymphatic: No Symptoms Immunological/Allergic: No Symptoms Medications & Allergies Home Medications: Home Medication List Pregabalin [Lyrica] 50 mg PO QAM 06/01/17 [History Confirmed 05/23/24] Sildenafil Citrate [Revatio] 20 mg PO TID 06/01/17 [History Confirmed 05/23/24] Atorvastatin Calcium [Lipitor 20MG Tablet] 20 mg PO HS 09/06/17 [History Confirmed 05/23/24] Apixaban [Eliquis] 2.5 mg PO BID 06/05/20 [History Confirmed 05/23/24] Omeprazole 20 mg PO DAILY 06/05/20 [History Confirmed 05/23/24] Pregabalin 200 mg PO QHS 06/05/20 [History Confirmed 05/23/24] Trazodone HCl 50 mg [Desyrel 50 mg] 50 mg PO HS 06/05/20 [History Conf irmed 05/23/24] Prednisone 10 mg [Deltasone 10 mg] 10 mg PO DAILY 06/07/20 [History Confirmed 05/23/24] Empagliflozin [Jardiance] 10 mg PO DAILY 05/17/23 [History Confirmed 05/23/24] Metoprolol Tartrate 50 mg [Lopressor 50 MG] 50 mg PO BID 30 Days #60 tablet 05/19/23 [Rx Confirmed 05/23/24] Bumetanide 1 mg [Bumex 1 mg] 1 mg PO DAILY 07/10/23 [History Confirmed 05/23/24] Hydrocodone/Acetaminophen [Hydrocodone-Acetamin 7.5-325] 1 tab PO BID 08/10/23 [History Confirmed 05/23/24] Spironolactone 25 mg PO DAILY 08/10/23 [History Confirmed 05/23/24] Levothyroxine Sodium 75 Mcg [Synthroid 75 Mcg] 75 mcg PO DAILY 09/17/23 [History Confirmed 05/23/24] Denosumab 60 mg [Prolia 60 mg Injection] 60 mg SQ UD 02/08/24 [History Confirmed 05/23/24] Digoxin 0.125 mg Tablet [Lanoxin 0.125MG TABLET] 0.125 mg PO 3XW 02/08/24 [History Confirmed 05/23/24] Metolazone 2.5 mg [Zaroxolyn 2.5 MG] 2.5 mg PO WEEKLY 02/08/24 [History Confirmed 05/23/24] Midodrine HCl 2.5 mg PO BID 02/08/24 [History Confirmed 05/23/24] Allergies/Adverse Reactions: Allergies Allergy/AdvReac Type Severity Reaction Status Date / Time amlodipine [From Norvasc] Allergy Verified 05/23/24 10:29 cefuroxime Allergy Verified 05/23/24 10:29 cephalexin [From Keflex] Allergy Verified 05/23/24 10:29 gabapentin [From Neurontin] Allergy Verified 05/23/24 10:29 Sulfa (Sulfonamide Allergy Verified 05/23/24 10:29 Antibiotics) - Past Medical History Past Medical History: Yes Neurological History: Peripheral Neuropathy ENT History: No Pertinent History Cardiac History: Arrhythmia, Congestive Heart Failure, High Cholesterol Respiratory History: Bronchitis Endocrine Medical History: No Pertinent History Musculoskelatal History: Osteoarthritis, Osteoporosis GI Medical History: GERD History: No Pertinent History Pyscho-Social History: No Pertinent History Reproductive Disorders: No Pertinent History Comment: HX OF PULMONARY HTN, ASTHMA/BRONCHITIS. MULTIPLE P.T. INTERVENTIONS FOR WOUND CARE. CHronic Afib - Past Surgical History Past Surgical History: Yes Neuro Surgical History: No Pertinent History Cardiac History: No Pertinent History Respiratory Surgery: No Pertinent History GI Surgical History: No Pertinent History Genitourinary Surgical Hx: No Pertinent History Musculskeletal Surgical Hx: Orthopedic Surgery Female Surgical History: No Pertinent History Other Surgical History: back surgery. ANGIOGRAM Significant Family History: no pertinent family hx - Social History Smoking Status: Never smoker Exposure to second hand smoke: No Alcohol: None Drug Use: none - Social Determinants of Health Will the patient participate in the screening: Yes Do you worry about a steady place to live?: No Do you have any problems with any of the following?: No known problems In the past 12 months,have you had to go without utilities?: No Have you or anyone in your house had to go without enough: No Transportation Issues: No Has anyone in your support network made you feel unsafe?: No Does the patient want assistance with any of the above?: No - Physical Exam Vital Signs: Vital Signs - 24 hr Temp Pulse Resp BP Pulse Ox 05/23/24 13:26 98 H 22 118/75 95 05/23/24 13:04 95 05/23/24 12:49 86 20 98 05/23/24 11:50 95 05/23/24 10:30 98.4 F 87 25 H 125/56 88 L 05/23/24 10:05 71 22 88 L General Appearance: no apparent distress, alert Neurologic Exam: alert, oriented x 3, cooperative, normal mood/affect, nml cerebellar function, nml station & gait, sensation nml, No motor deficits Eye Exam: PERRL/EOMI, eyes nml inspection Ears, Nose, Throat Exam: normal ENT inspection, TMs normal, pharynx normal, moist mucous membranes Neck Exam: normal inspection, non-tender, supple, full range of motion Respiratory Exam: normal breath sounds, lungs clear, wheezing (JEANINE), No respiratory distress Cardiovascular Exam: regular rate/rhythm, normal heart sounds, normal peripheral pulses Gastrointestinal/Abdomen Exam: soft, normal bowel sounds, No tenderness, No mass Back Exam: normal inspection, normal range of motion, No CVA tenderness, No vertebral tenderness Extremity Exam: normal inspection, normal range of motion, pelvis stable Skin Exam: normal color, warm, dry, No rash Lymphatic Exam: No adenopathy Results - Labs Lab/Micro Results: Lab Results-Last 24 Hours 05/23/24 05/23/24 05/23/24 Range/Units 10:35 10:35 10:35 WBC 10.9 H (3.98-10.04) x10^3/uL RBC 3.97 (3.93-5.22) x10^6/uL Hgb 12.1 (11.2-15.7) g/dL Hct 38.0 (34.1-44.9) % MCV 95.7 H (79.4-94.8) fL MCH 30.5 (25.6-32.2) pg MCHC 31.8 L (32.2-35.5) g/dL RDW 16.0 H (11.7-14.4) % Plt Count 126 L (182-369) x10^3/uL MPV 9.7 (9.4-12.3) fL Gran % 73.4 H (34.0-71.1) % Immature Gran % (Auto) 0.7 H (0.001-0.429) % Nucleat RBC Rel Count 0.0 (0.00-0.2) % Eos # (Auto) 0 L (0.04-0.36) x10^3/uL Immature Gran # (Auto) 0.08 H (0.001-0.031) x10^3u/L Absolute Lymphs (auto) 1.83 (1.18-3.74) x10^3/uL Absolute Monos (auto) 0.98 H (0.24-0.86) x10^3/uL Absolute Nucleated RBC 0.00 (0.00-0.012) x10^3u/L Lymphocytes % 16.8 L (19.3-51.7) % Monocytes % 9.0 (4.7-12.5) % Eosinophils % 0.0 L (0.7-5.8) % Basophils % 0.1 (0.1-1.2) % Absolute Granulocytes 7.97 H (1.56-6.13) x10^3/uL Basophils # 0.01 (0.01-0.08) x10^3/uL Sodium 137 (135-145) mmol/L Potassium 4.1 (3.5-5.1) mmol/L Chloride 103 (98-107) mmol/L Carbon Dioxide 28 (22-30) mmol/L Anion Gap 10.4 (5-15) MEQ/L BUN 33 H (7-17) mg/dL Creatinine 1.12 H (0.52-1.04) mg/dL Estimated GFR 47.3 ML/MIN Glucose 117 H (74-106) mg/dL Calcium 7.6 L (8.4-10.2) mg/dL Total Bilirubin 0.90 (0.2-1.3) mg/dL AST 27 (14-36) U/L ALT 18 (0-35) U/L Alkaline Phosphatase 71 (38-126) U/L Troponin I 0.075 H* (0.000-0.033) ng/mL NT-Pro-B Natriuret Pep 5050 (<300) pg/mL Serum Total Protein 6.2 L (6.3-8.2) g/dL Albumin 3.4 L (3.5-5.0) g/dL Influenza Type A Ag (NEGATIVE) Influenza Type B Ag (NEGATIVE) RSV (PCR) (NEGATIVE) SARS-CoV-2 (PCR) (NEGATIVE) 05/23/24 Range/Units 10:35 WBC (3.98-10.04) x10^3/uL RBC (3.93-5.22) x10^6/uL Hgb (11.2-15.7) g/dL Hct (34.1-44.9) % MCV (79.4-94.8) fL MCH (25.6-32.2) pg MCHC (32.2-35.5) g/dL RDW (11.7-14.4) % Plt Count (182-369) x10^3/uL MPV (9.4-12.3) fL Gran % (34.0-71.1) % Immature Gran % (Auto) (0.001-0.429) % Nucleat RBC Rel Count (0.00-0.2) % Eos # (Auto) (0.04-0.36) x10^3/uL Immature Gran # (Auto) (0.001-0.031) x10^3u/L Absolute Lymphs (auto) (1.18-3.74) x10^3/uL Absolute Monos (auto) (0.24-0.86) x10^3/uL Absolute Nucleated RBC (0.00-0.012) x10^3u/L Lymphocytes % (19.3-51.7) % Monocytes % (4.7-12.5) % Eosinophils % (0.7-5.8) % Basophils % (0.1-1.2) % Absolute Granulocytes (1.56-6.13) x10^3/uL Basophils # (0.01-0.08) x10^3/uL Sodium (135-145) mmol/L Potassium (3.5-5.1) mmol/L Chloride (98-107) mmol/L Carbon Dioxide (22-30) mmol/L Anion Gap (5-15) MEQ/L BUN (7-17) mg/dL Creatinine (0.52-1.04) mg/dL Estimated GFR ML/MIN Glucose (74-106) mg/dL Calcium (8.4-10.2) mg/dL Total Bilirubin (0.2-1.3) mg/dL AST (14-36) U/L ALT (0-35) U/L Alkaline Phosphatase (38-126) U/L Troponin I (0.000-0.033) ng/mL NT-Pro-B Natriuret Pep (<300) pg/mL Serum Total Protein (6.3-8.2) g/dL Albumin (3.5-5.0) g/dL Influenza Type A Ag POSITIVE A (NEGATIVE) Influenza Type B Ag NEGATIVE (NEGATIVE) RSV (PCR) NEGATIVE (NEGATIVE) SARS-CoV-2 (PCR) NEGATIVE (NEGATIVE) - Radiology Impressions Radiology Exams & Impressions: Radiology Procedures Category Date Time Status CHEST 1 VIEW (PORTABLE) Stat Exams 05/23/24 10:03 Completed - Other Procedures and Tests Respiratory Therapy 05/23/24 10:48 Respiratory Therapy Assessment DAILY 05/23/24 11:58 Respiratory Therapy Consult ONCE Assessment/Plan (1) Influenza A Current Visit: Yes Status: Acute Assessment & Plan: - + flu A test in ER - CBC, CMP reviewed - CXR: Portable chest unchanged again demonstrating cardiomegaly with tiny left effusion again favoring cardiac decompensation/CHF. Remaining lungs clear. Stable incidental paratracheal calcified node and arteriosclerotic aorta. Bony thorax intact again with osteopenia, degenerative changes, and levoscoliosis. - Tamiflu at lower dose d/t kidney function - O2 keep oxygen > 92% Code(s): J10.1 - FLU DUE TO OTH IDENT INFLUENZA VIRUS W OTH RESP MANIFEST (2) Elevated troponin Current Visit: Yes Status: Acute Assessment & Plan: - denies CP - Likely 2:2 flu A - Trop 0.075- trend - tele - EKG Code(s): R79.89 - OTHER SPECIFIED ABNORMAL FINDINGS OF BLOOD CHEMISTRY (3) Hypoxia Current Visit: Yes Status: Acute Assessment & Plan: - on 2lNC 95%- baseline 2LNC at night only - Xoponex PRN - see plan for Flu A - RT eval and treat Code(s): R09.02 - HYPOXEMIA (4) VIVEK (acute kidney injury) Current Visit: No Status: Acute Assessment & Plan: - Creat 1.12- baseline 0.94 - Hold meds that affect kidney function Code(s): N17.9 - ACUTE KIDNEY FAILURE, UNSPECIFIED (5) Hypocalcemia Current Visit: Yes Status: Acute Assessment & Plan: - Corrected calcium 7.7 - Start Tums tab BID Code(s): E83.51 - HYPOCALCEMIA (6) Chronic atrial fibrillation Current Visit: No Status: Chronic Assessment & Plan: - tele - Continue digoxin, Eliquis Code(s): I48.20 - CHRONIC ATRIAL FIBRILLATION, UNSPECIFIED (7) HLD (hyperlipidemia) Current Visit: No Status: Chronic Assessment & Plan: - continue statin Code(s): E78.5 - HYPERLIPIDEMIA, UNSPECIFIED (8) HTN (hypertension) Current Visit: No Status: Chronic Assessment & Plan: - BP stable- continue home meds Code(s): I10 - ESSENTIAL (PRIMARY) HYPERTENSION (9) Hypothyroid Current Visit: No Status: Chronic Assessment & Plan: - Continue synthroid Code(s): E03.9 - HYPOTHYROIDISM, UNSPECIFIED (10) Pulmonary hypertension Current Visit: No Status: Chronic Assessment & Plan: - Continue home meds Code(s): I27.20 - PULMONARY HYPERTENSION, UNSPECIFIED (11) Chronic diastolic (congestive) heart failure Current Visit: No Status: Chronic Assessment & Plan: - Continue home meds - Hold lasix until VIVEK improved - CXR: Portable chest unchanged again demonstrating cardiomegaly with tiny left effusion again favoring cardiac decompensation/CHF. Remaining lungs clear. Stable incidental paratracheal calcified node and arteriosclerotic aorta. Bony thorax intact again with osteopenia, degenerative changes, and levoscoliosis. - Echo 05/18/23: EF 55% IMPRESSION: 1) TECHNICALLY DIFFICULT STUDY BECAUSE POOR ACOUSTIC WINDOW. 2) NORMAL LEFT VENTRICLE SIZE WITH MOST LIKELY NORMAL LEFT VENTRICULAR SYSTOLIC FUNCTION. 3) MILD CONCENTRIC LEFT VENTRICULAR HYPERTROPHY. 4) SIGNIFICANT ATRIAL ENLARGEMENT. 5) CALCIFIC AORTIC SCLEROSIS WITH EVIDENCE OF MILD TO MODERATE AORTIC STENOSIS. 6) MILD TO MODERATE MITRAL REGURGITATION. 7) MILD TO MODERATE TRICUSPID REGURGITATION WITH EVIDENCE OF MILD TO MODERATE PULMONARY HYPERTENSION. Code(s): I50.32 - CHRONIC DIASTOLIC (CONGESTIVE) HEART FAILURE (12) Thrombocytopenia Current Visit: Yes Status: Chronic Assessment & Plan: - PLT 126- appears ongoing and worsening- trend - Consider OP f/u with hematology at d/c for further evaluation. (13) Venous stasis of both lower extremities Current Visit: No Status: Chronic Assessment & Plan: - podiatry consult - likely will need unna boots placed. - 2 wounds of RLE appear to be healing- Dr. Moise follows VTE: eliquis PPI: omeprazole Next of KIN: Emely Amorhing [phone] D/C plan: 1-2 days Code status: SCo/ DNR Code(s): I87.8 - OTHER SPECIFIED DISORDERS OF VEINS
[2024-05-23] MEDS ORDERED: DENOSUMAB SQ SCH (15:00)
[2024-05-23] MEDS ORDERED: MEDICATION INTERVENTION MC SCH (15:15)
[2024-05-23] MEDS: Sodium Chloride 3 ML UD NEBULES IH PRN (16:16)
[2024-05-23] MEDS: Xopenex 1.25 MG/0.5 ML UD NEBULE IH PRN (16:17)
[2024-05-23] MEDS: SILDENAFIL CITRATE PO SCH (17:27)
[2024-05-23] MEDS: OSELTAMIVIR PHOSPHATE 30 MG CAP PO SCH (17:27)
[2024-05-23] MEDS: Tums EX 750 MG PO SCH (17:28)
[2024-05-23] MEDS ORDERED: Miralax Powder 17GM PACKET ONE (21:03)
[2024-05-23] MEDS: LYRICA 100MG PO SCH (21:38)
[2024-05-23] MEDS: NORCO 7.5/325 MG TAB PO SCH (21:38)
[2024-05-23] MEDS: Miralax Powder 17GM PACKET PO SCH (21:38)
[2024-05-23] MEDS: Lopressor 50 MG PO SCH (21:39)
[2024-05-23] MEDS: DESYREL 50 MG PO SCH (21:39)
[2024-05-23] MEDS: ZOCOR 20MG PO SCH (21:39)
[2024-05-23] MEDS: ELIQUIS 2.5 MG TABLET PO SCH (21:39)
[2024-05-24 06:01] LABS: Hematocrit 35.9 % (34.1-44.9); Hemoglobin 11.3 g/dL (11.2-15.7); Mean Cell Volume 95.7 fL (79.4-94.8); Mean Corpuscular Hemoglobin 30.1 pg (25.6-32.2); Mean Corpuscular Hgb Concent. 31.5 g/dL (32.2-35.5); Mean Platelet Volume 10.1 fL (9.4-12.3); Platelet Count 130 x10^3/uL (182-369); Red Blood Count 3.75 x10^6/uL (3.93-5.22); Red Cell Distribution Width 16.2 % (11.7-14.4); White Blood Count 9.9 x10^3/uL (3.98-10.04)
[2024-05-24 07:20] LABS: ALBUMIN 3.2 g/dL (3.5-5.0); BILIRUBIN,TOTAL 0.7 mg/dL (0.2-1.3); Calcium 7.1 mg/dL (8.4-10.2); Creatinine 1 1.02 mg/dL (0.52-1.04); EST GLOMERULAR FILTRATION RATE 52.9 ML/MIN; PREALBUMIN 14.24 mg/dL (17.6-36.0); Potassium 3.7 mmol/L (3.5-5.1); Total Protein 5.6 g/dL (6.3-8.2)
[2024-05-24] MEDS: Protonix 40MG Tablet PO SCH (09:44)
[2024-05-24] MEDS: SYNTHROID 75 MCG PO SCH (09:44)
[2024-05-24] MEDS: DELTASONE 10 MG PO SCH (09:45)
[2024-05-24] MEDS: Lyrica 50MG PO SCH (09:45)
--- NOTE | 2024-05-24 13:55 | PCM.NOTE ---
Date and Time: 05/24/24 1345 Subjective Assessment: 05/23/24 is a 88 year old female with pmhx of A-fib, HFpEF, HTN, GERD, hypothyroidism, and chronic leg wounds and stasis dermatitis. Patient is here with cough, wheezing, congestion. Typically wears 2 L of O2 at home at bedtime. However, placed on O2 by family as 88% at home RA. Lungs are wheezy throughout and started earlier today. Patient has bilateral leg edema with 2 wounds of RLE that is chronic. Patient does follow with Dr. Wilkerson here at [place] and will consult. Patient has no chest pain. She does have some mild shortness of breath, coughing. O2 now 95 % on 2lNC. She tested positive for Flu A in ER, will start tamiflu. She has some VIVEK and will hold meds that affect renal function. She has increased SOB with walking. She denies any further concerns at this time. 05/24/24 Pt resting in bed. She continues to have occasional wheezing. Steroids increased per daughters request ( RT Emely). Lung sounds improved form yesterday. Pt would like to stay another day. Podiatry placed BL unna boots on LE. VIVEK resolved. Corrected Ca= 7.3 and tums BID started. Continue tamiflu, steriods, and breathing treatments. She denies CP, Abd. pain, N/V/D. - Review of Systems Constitutional: No Fever, No Chills Eyes: No Symptoms Ears, Nose, & Throat: No Symptoms Respiratory: Wheezing, No Cough, No Short Of Breath Cardiac: No Chest Pain, No Edema, No Syncope Abdominal/Gastrointestinal: No Abdominal Pain, No Nausea, No Vomiting, No Diarrhea Genitourinary Symptoms: No Dysuria Musculoskeletal: No Back Pain, No Neck Pain Skin: Other (BLLE wrapped), No Rash Neurological: No Dizziness, No Focal Weakness, No Sensory Changes Psychological: No Symptoms Endocrine: No Symptoms Hematologic/Lymphatic: No Symptoms Immunological/Allergic: No Symptoms Objective Exam General Appearance: no apparent distress, alert Neurologic Exam: alert, oriented x 3, cooperative, normal mood/affect, nml cerebellar function, sensation nml, No motor deficits Skin Exam: normal color, warm, dry Wound Assessment: Skin/Wound Assessment Wound/Incision Assessment Start: 05/23/24 14:51 Text: Status: Active Freq: Q6H Protocol: Document 05/24/24 08:00 RB (Rec: 05/24/24 08:11 RB [id number]) Wound/Incision Assessment right lower lateral leg. Wound Assessment Shift Assessment Wound Type cellulitis Dressing Status Dry & Intact Drainage Amount None Drainage Odor None/Absent Surrounding Tissue [place] Primary Dressing hernan boots Comment unable to assess due to hernan boots in place per dr wilkerson, Wound Photo Photo Taken No Eye Exam: PERRL, EOMI, eyes nml inspection Ears, Nose, Throat Exam: normal ENT inspection, pharynx normal, moist mucous membranes Neck Exam: normal inspection, non-tender, supple, full range of motion Respiratory Exam: normal breath sounds, lungs clear, wheezing (occasional), No respiratory distress Cardiovascular Exam: regular rate/rhythm, normal heart sounds Gastrointestinal/Abdomen Exam: soft, No tenderness, No mass Extremity Exam: normal inspection, normal range of motion, other (BLLE wrapped by podiatry) Back Exam: normal inspection, normal range of motion, No CVA tenderness, No vertebral tenderness Pelvic Exam: deferred Rectal Exam: deferred Objective Data Vital Signs: Vital Signs - 24 hr Temp Pulse Resp BP Pulse Ox 05/24/24 11:56 97.8 F 78 18 123/73 96 05/24/24 08:00 98.2 F 86 18 151/80 98 05/24/24 07:23 95 05/24/24 04:00 84 05/24/24 00:00 98.5 F 82 21 105/51 95 05/23/24 19:18 96 H 18 92 L 05/23/24 19:17 97.8 F 99 H 18 114/57 90 L 05/23/24 16:18 78 18 95 05/23/24 16:00 97.8 F 110 H 20 113/58 94 L 05/23/24 15:06 116 H 22 94 L 05/23/24 14:05 97.5 F 116 H 22 137/58 94 L Pain Assessment - Last Documented Pain Intensity 0 Pain Scale Used 0-10 Pain Scale Intake and Output: Intake & Output 05/22/24 05/23/24 05/24/24 05/25/24 11:59 11:59 11:59 11:59 Intake Total 120 Balance 120 Weight 55.7 kg 61.6 kg Lab Results: Lab Results-Last 24 Hours 05/23/24 05/23/24 05/24/24 Range/Units 14:25 17:57 05:49 WBC 9.9 (3.98-10.04) x10^3/uL RBC 3.75 L (3.93-5.22) x10^6/uL Hgb 11.3 (11.2-15.7) g/dL Hct 35.9 (34.1-44.9) % MCV 95.7 H (79.4-94.8) fL MCH 30.1 (25.6-32.2) pg MCHC 31.5 L (32.2-35.5) g/dL RDW 16.2 H (11.7-14.4) % Plt Count 130 L (182-369) x10^3/uL MPV 10.1 (9.4-12.3) fL Sodium (135-145) mmol/L Potassium (3.5-5.1) mmol/L Chloride (98-107) mmol/L Carbon Dioxide (22-30) mmol/L Anion Gap (5-15) MEQ/L BUN (7-17) mg/dL Creatinine (0.52-1.04) mg/dL Estimated GFR ML/MIN Glucose (74-106) mg/dL Calcium (8.4-10.2) mg/dL Total Bilirubin (0.2-1.3) mg/dL AST (14-36) U/L ALT (0-35) U/L Alkaline Phosphatase (38-126) U/L Troponin I 0.066 H* 0.059 H* (0.000-0.033) ng/mL Serum Total Protein (6.3-8.2) g/dL Albumin (3.5-5.0) g/dL Prealbumin (17.6-36.0) mg/dL 05/24/24 Range/Units 05:49 WBC (3.98-10.04) x10^3/uL RBC (3.93-5.22) x10^6/uL Hgb (11.2-15.7) g/dL Hct (34.1-44.9) % MCV (79.4-94.8) fL MCH (25.6-32.2) pg MCHC (32.2-35.5) g/dL RDW (11.7-14.4) % Plt Count (182-369) x10^3/uL MPV (9.4-12.3) fL Sodium 136 (135-145) mmol/L Potassium 3.7 (3.5-5.1) mmol/L Chloride 103 (98-107) mmol/L Carbon Dioxide 26 (22-30) mmol/L Anion Gap 10.0 (5-15) MEQ/L BUN 39 H (7-17) mg/dL Creatinine 1.02 (0.52-1.04) mg/dL Estimated GFR 52.9 ML/MIN Glucose 139 H (74-106) mg/dL Calcium 7.1 L (8.4-10.2) mg/dL Total Bilirubin 0.70 (0.2-1.3) mg/dL AST 28 (14-36) U/L ALT 17 (0-35) U/L Alkaline Phosphatase 59 (38-126) U/L Troponin I (0.000-0.033) ng/mL Serum Total Protein 5.6 L (6.3-8.2) g/dL Albumin 3.2 L (3.5-5.0) g/dL Prealbumin 14.24 L (17.6-36.0) mg/dL Radiology Exams: Radiology Procedures Category Date Time Status CHEST 1 VIEW (PORTABLE) Stat Exams 05/23/24 10:03 Completed Multi-Disciplinary Progress Notes: Multi-Disciplinary Progress Notes 05/24/24 13:28 Case Management Note by Abby Fofana PATIENT HAS [facility]. THEY WERE NOTIFIED PATIENT HERE OBS. THEY WILL NEED NOTIFIED AT TIME OF DC AT [phone]. THEY WILL NEED FAXED THE DC INSTRUCTIONS, DC MED LIST AND DC SUMMARY (IF AVAILABLE) TO [phone]. Initialized on 05/24/24 13:28 - END OF NOTE Assessment/Plan (1) Influenza A Current Visit: Yes Status: Acute Code(s): J10.1 - FLU DUE TO OTH IDENT INFLUENZA VIRUS W OTH RESP MANIFEST (2) Elevated troponin Current Visit: Yes Status: Acute Code(s): R79.89 - OTHER SPECIFIED ABNORMAL FINDINGS OF BLOOD CHEMISTRY (3) Hypoxia Current Visit: Yes Status: Acute Code(s): R09.02 - HYPOXEMIA (4) VIVEK (acute kidney injury) Current Visit: No Status: Acute Code(s): N17.9 - ACUTE KIDNEY FAILURE, UNSPECIFIED (5) Hypocalcemia Current Visit: Yes Status: Acute Code(s): E83.51 - HYPOCALCEMIA (6) Chronic atrial fibrillation Current Visit: No Status: Chronic Code(s): I48.20 - CHRONIC ATRIAL FIBRILLATION, UNSPECIFIED (7) HLD (hyperlipidemia) Current Visit: No Status: Chronic Code(s): E78.5 - HYPERLIPIDEMIA, UNSPECIFIED (8) HTN (hypertension) Current Visit: No Status: Chronic Code(s): I10 - ESSENTIAL (PRIMARY) HYPERTENSION (9) Hypothyroid Current Visit: No Status: Chronic Code(s): E03.9 - HYPOTHYROIDISM, UNSPECIFIED (10) Pulmonary hypertension Current Visit: No Status: Chronic Code(s): I27.20 - PULMONARY HYPERTENSION, UNSPECIFIED (11) Chronic diastolic (congestive) heart failure Current Visit: No Status: Chronic Code(s): I50.32 - CHRONIC DIASTOLIC (CONGESTIVE) HEART FAILURE (12) Thrombocytopenia Current Visit: Yes Status: Chronic (13) Venous stasis of both lower extremities Current Visit: No Status: Chronic Assessment & Plan: 1) Influenza A Current Visit: Yes Status: Acute Assessment & Plan: - + flu A test in ER - CBC, CMP reviewed - CXR: Portable chest unchanged again demonstrating cardiomegaly with tiny left effusion again favoring cardiac decompensation/CHF. Remaining lungs clear. Stable incidental paratracheal calcified node and arteriosclerotic aorta. Bony thorax intact again with osteopenia, degenerative changes, and levoscoliosis. - Tamiflu at lower dose d/t kidney function - O2 keep oxygen > 92% 05/24 - 2lNC 96%- baseline RA while awake and 2lNC at night - RT wean O2 - CBC reviewed, WBC OK - Steroids increased per daughter request for wheezing Code(s): J10.1 - FLU DUE TO OTH IDENT INFLUENZA VIRUS W OTH RESP MANIFEST (2) Elevated troponin Current Visit: Yes Status: Acute Assessment & Plan: - denies CP - Likely 2:2 flu A - Trops trended down- likely 2:2 Flu and SOB - tele - EKG Code(s): R79.89 - OTHER SPECIFIED ABNORMAL FINDINGS OF BLOOD CHEMISTRY (3) Hypoxia Current Visit: Yes Status: Acute Assessment & Plan: - on 2lNC 95%- baseline 2LNC at night only - Xoponex PRN - see plan for Flu A - RT eval and treat 05/24 on 2lC 96%- wean o2 - increased steroids Code(s): R09.02 - HYPOXEMIA (4) VIVEK (acute kidney injury) Current Visit: No Status: Acute Assessment & Plan: - Creat 1.12- baseline 0.94 - Hold meds that affect kidney function 05/24 - VIVEK resolved - Continue all meds that were held Code(s): N17.9 - ACUTE KIDNEY FAILURE, UNSPECIFIED (5) Hypocalcemia Current Visit: Yes Status: Acute Assessment & Plan: - Corrected calcium 7.7 - Start Tums tab BID 05/24 - corrected calcium 7.3- continue TUMS BID Code(s): E83.51 - HYPOCALCEMIA (6) Chronic atrial fibrillation Current Visit: No Status: Chronic Assessment & Plan: - tele - Continue digoxin, Eliquis Code(s): I48.20 - CHRONIC ATRIAL FIBRILLATION, UNSPECIFIED (7) HLD (hyperlipidemia) Current Visit: No Status: Chronic Assessment & Plan: - continue statin Code(s): E78.5 - HYPERLIPIDEMIA, UNSPECIFIED (8) HTN (hypertension) Current Visit: No Status: Chronic Assessment & Plan: - BP stable- continue home meds Code(s): I10 - ESSENTIAL (PRIMARY) HYPERTENSION (9) Hypothyroid Current Visit: No Status: Chronic Assessment & Plan: - Continue synthroid Code(s): E03.9 - HYPOTHYROIDISM, UNSPECIFIED (10) Pulmonary hypertension Current Visit: No Status: Chronic Assessment & Plan: - Continue home meds Code(s): I27.20 - PULMONARY HYPERTENSION, UNSPECIFIED (11) Chronic diastolic (congestive) heart failure Current Visit: No Status: Chronic Assessment & Plan: - Continue home meds - Hold lasix until VIVEK improved - CXR: Portable chest unchanged again demonstrating cardiomegaly with tiny left effusion again favoring cardiac decompensation/CHF. Remaining lungs clear. Stable incidental paratracheal calcified node and arteriosclerotic aorta. Bony thorax intact again with osteopenia, degenerative changes, and levoscoliosis. - Echo 05/18/23: EF 55% IMPRESSION: 1) TECHNICALLY DIFFICULT STUDY BECAUSE POOR ACOUSTIC WINDOW. 2) NORMAL LEFT VENTRICLE SIZE WITH MOST LIKELY NORMAL LEFT VENTRICULAR SYSTOLIC FUNCTION. 3) MILD CONCENTRIC LEFT VENTRICULAR HYPERTROPHY. 4) SIGNIFICANT ATRIAL ENLARGEMENT. 5) CALCIFIC AORTIC SCLEROSIS WITH EVIDENCE OF MILD TO MODERATE AORTIC STENOSIS. 6) MILD TO MODERATE MITRAL REGURGITATION. 7) MILD TO MODERATE TRICUSPID REGURGITATION WITH EVIDENCE OF MILD TO MODERATE PULMONARY HYPERTENSION. Code(s): I50.32 - CHRONIC DIASTOLIC (CONGESTIVE) HEART FAILURE (12) Thrombocytopenia Current Visit: Yes Status: Chronic Assessment & Plan: - PLT 126- appears ongoing and worsening- trend - Consider OP f/u with hematology at d/c for further evaluation. 05/24 - PLt 130 - trend (13) Venous stasis of both lower extremities Current Visit: No Status: Chronic Assessment & Plan: - podiatry consult - likely will need unna boots placed. - 2 wounds of RLE appear to be healing- Dr. Wilkerson follows 05/24 - BLLE wrapped in UNNA boots by podiatry VTE: eliquis PPI: omeprazole Next of KIN: Emely Murphy [phone] D/C plan: tomorrow Code status: SCO/ DNR Code(s): I87.8 - OTHER SPECIFIED DISORDERS OF VEINS Code(s): I87.8 - OTHER SPECIFIED DISORDERS OF VEINS
[2024-05-24] MEDS: PROAMATINE PO SCH (14:42)
[2024-05-24] MEDS: JARDIANCE PO SCH (14:42)
[2024-05-24] MEDS: BUMEX 1 MG PO SCH (14:42)
[2024-05-24] MEDS: Aldactone 25 MG PO SCH (14:42)
[2024-05-24] MEDS: Tums EX 750 MG PO ONE (15:17)
[2024-05-24] MEDS: Zaroxolyn 2.5 MG PO SCH (17:16)
[2024-05-24] MEDS ORDERED: MIDODRINE HCL 2.5 MG PO SCH (22:00)
[2024-05-24] MEDS: solu-MEDROL 40 MG, Sterile H2O 10 ml 1 ML IV SCH (22:54)
[2024-05-25 05:52] LABS: Hematocrit 35.6 % (34.1-44.9); Mean Cell Volume 96.7 fL (79.4-94.8); Mean Corpuscular Hemoglobin 29.9 pg (25.6-32.2); Mean Corpuscular Hgb Concent. 30.9 g/dL (32.2-35.5); Mean Platelet Volume 10.3 fL (9.4-12.3); Platelet Count 136 x10^3/uL (182-369); Red Blood Count 3.68 x10^6/uL (3.93-5.22); Red Cell Distribution Width 16.1 % (11.7-14.4); White Blood Count 8.2 x10^3/uL (3.98-10.04)
[2024-05-25 06:11] LABS: ALBUMIN 3.1 g/dL (3.5-5.0); ANION GAP 8.8 MEQ/L (5-15); BILIRUBIN,TOTAL 0.5 mg/dL (0.2-1.3); Creatinine 1 1.05 mg/dL (0.52-1.04); EST GLOMERULAR FILTRATION RATE 51.1 ML/MIN; Potassium 3.8 mmol/L (3.5-5.1); Total Protein 5.4 g/dL (6.3-8.2)
[2024-05-25] MEDS: Lanoxin 0.125MG TABLET PO SCH (09:04)
[2024-05-25 12:24] VITALS: BP 106/74; PULSE 81; RESP 18; TEMP 97.4; O2SAT 97
--- NOTE | 2024-05-25 12:48 | PCM.DS ---
Discharge Summary Date of Admission: 05/23/24 13:47 Date of Discharge: 05/25/24 Admitting Physician: DANIELLE MACEDO MD Consults: Consults on Case 05/23/24 14:07 Consult Podiatry ROUTINE Primary Care Provider: ASHLY LAMB Allergies Allergies amlodipine [From Norvasc] Allergy (Verified 05/23/24 10:29) cefuroxime Allergy (Verified 05/23/24 10:29) cephalexin [From Keflex] Allergy (Verified 05/23/24 10:29) gabapentin [From Neurontin] Allergy (Verified 05/23/24 10:29) Sulfa (Sulfonamide Antibiotics) Allergy (Verified 05/23/24 10:29) Hospital Summary - Hospital Course Hospital Course: 05/23/24 is a 88 year old female with pmhx of A-fib, HFpEF, HTN, GERD, hypothyroidism, and chronic leg wounds and stasis dermatitis. Patient is here with cough, wheezing, congestion. Typically wears 2 L of O2 at home at bedtime. However, placed on O2 by family as 88% at home RA. Lungs are wheezy throughout and started earlier today. Patient has bilateral leg edema with 2 wounds of RLE that is chronic. Patient does follow with Dr. Moise here at [facility] and will consult. Patient has no chest pain. She does have some mild shortness of breath, coughing. O2 now 95 % on 2lNC. She tested positive for Flu A in ER, will start tamiflu. She has some VIVEK and will hold meds that affect renal function. She has increased SOB with walking. She denies any further concerns at this time. 05/24/24 Pt resting in bed. She continues to have occasional wheezing. Steroids increased per daughters request ( RT Emely). Lung sounds improved form yesterday. Pt would like to stay another day. Podiatry placed BL unna boots on LE. VIVEK resolved. Corrected Ca= 7.3 and tums BID started. Continue tamiflu, steriods, and breathing treatments. She denies CP, Abd. pain, N/V/D. 05/25/24 Pt resting in bed. She would like to d/c home today. She states she is feeling better today. She continues to have wheezing throughout lung sounds. Will d/c with steroids and duonebs. Discussed with pt about her low Ca+ and she will need to continue tums tabs BID until she has labs repeated. Podiatry to replace Unna Boots prior to d/c today. She denies any further concerns at this time. - Vitals & Intake/Output Vital Signs: Vital Signs Temperature 97.4 F 05/25/24 12:00 Pulse Rate 81 05/25/24 12:00 Respiratory Rate 18 05/25/24 12:00 Blood Pressure 106/74 05/25/24 12:00 O2 Sat by Pulse Oximetry 97 05/25/24 12:00 Intake & Output: Intake & Output 05/23/24 05/24/24 05/25/24 05/26/24 11:59 11:59 11:59 11:59 Intake Total 120 940 Balance 120 940 Weight 55.7 kg 61.6 kg - Lab Result Diagrams: 05/25/24 05:46 05/25/24 05:46 Lab Results-Last 24 Hrs: Lab Results-Last 24 Hours 05/25/24 05/25/24 Range/Units 05:46 05:46 WBC 8.2 (3.98-10.04) x10^3/uL RBC 3.68 L (3.93-5.22) x10^6/uL Hgb 11.0 L (11.2-15.7) g/dL Hct 35.6 (34.1-44.9) % MCV 96.7 H (79.4-94.8) fL MCH 29.9 (25.6-32.2) pg MCHC 30.9 L (32.2-35.5) g/dL RDW 16.1 H (11.7-14.4) % Plt Count 136 L (182-369) x10^3/uL MPV 10.3 (9.4-12.3) fL Sodium 136 (135-145) mmol/L Potassium 3.8 (3.5-5.1) mmol/L Chloride 102 (98-107) mmol/L Carbon Dioxide 29 (22-30) mmol/L Anion Gap 8.8 (5-15) MEQ/L BUN 40 H (7-17) mg/dL Creatinine 1.05 H (0.52-1.04) mg/dL Estimated GFR 51.1 ML/MIN Glucose 149 H (74-106) mg/dL Calcium 7.0 L (8.4-10.2) mg/dL Total Bilirubin 0.50 (0.2-1.3) mg/dL AST 34 (14-36) U/L ALT 19 (0-35) U/L Alkaline Phosphatase 55 (38-126) U/L Serum Total Protein 5.4 L (6.3-8.2) g/dL Albumin 3.1 L (3.5-5.0) g/dL - Procedures and Test Procedures and Tests throughout Hospitalization: Therapy Orders & Screens 05/23/24 10:48 Respiratory Therapy Assessment DAILY Comment: 05/23/24 11:58 Respiratory Therapy Consult ONCE Comment: Reason For Exam: 05/23/24 14:13 PT Eval & Treat ( Order) ONCE Reason for Eval:: activity intolerence Diagnosis: influenza A 05/23/24 14:51 OT Screen per Nursing Assess ONCE Comment: Protocol Order Physician Instructions: Greater than 3 points order OT Admission Screening Reason For Exam: Triggered on Admission Diagnosis: influenza A Open Wound/Cellutlitis/Pressure Ulcers: Yes Acute Fx/ORIF/Change in wt bearing status: No Severe MUSCULOSKELETAL pain: No ADL Dysfunction: No Acute CVA w/Hemiparesis/Hemiplegia: No Decreased Functional Mobility/Strength: No Sprain/Strain: No Acute Post-op Mobility Dysfunction: No Total Points: 5 PT Screen per Nursing Assess ONCE Comment: Protocol Order Physician Instructions: Greater than 3 points order PT Admission Screenin Reason For Exam: Triggered on Admission Diagnosis: influenza A Open Wound/Cellutlitis/Pressure Ulcers: Yes Acute Fx/ORIF/Change in wt bearing status: No Severe MUSCULOSKELETAL pain: No ADL Dysfunction: No Acute CVA w/Hemiparesis/Hemiplegia: No Decreased Functional Mobility/Strength: No Sprain/Strain: No Acute Post-op Mobility Dysfunction: No Total Points: 5 05/23/24 15:05 Oxygen NASAL CANNULA 2 lpm Comment: Diagnosis: influenza A 05/24/24 13:50 RT Miscellaneous Order ROUTINE Comment: Physician Instructions: Reason For Exam: wean O2 while awake- BL 2lNC at night Diagnosis: influenza A Discharge Exam General Appearance: no apparent distress, alert Neurologic Exam: alert, oriented x 3, cooperative, normal mood/affect, nml c erebellar function, sensation nml, No motor deficits Eye Exam: PERRL, EOMI, eyes nml inspection Ears, Nose, Throat Exam: normal ENT inspection, pharynx normal, moist mucous membranes Neck Exam: normal inspection, non-tender, supple, full range of motion Respiratory Exam: normal breath sounds, lungs clear, wheezing, No respiratory distress Cardiovascular Exam: regular rate/rhythm, normal heart sounds Gastrointestinal/Abdomen Exam: soft, No tenderness, No mass Pelvic Exam: deferred Rectal Exam: deferred Back Exam: normal inspection, normal range of motion, No CVA tenderness, No vertebral tenderness Extremity Exam: normal inspection, normal range of motion Skin Exam: normal color, warm, dry Wound Assessment: Skin/Wound Assessment Wound/Incision Assessment Start: 05/23/24 14:51 Text: Status: Active Freq: Q6H Protocol: Document 05/25/24 02:00 MP (Rec: 05/25/24 03:18 MP [id number]) Wound/Incision Assessment right lower lateral leg. Wound Assessment Shift Assessment Wound Type cellulitis Wound Stage Non Pressure Wound Dressing Status Dry & Intact Drainage Amount None Drainage Odor None/Absent Primary Dressing hernan boots Comment unable to assess. hernan boots in place, no shadowing noted , skin wpd above drsg Wound Photo Photo Taken No Final Diagnosis/Problem List - Final Discharge Diagnosis/Problem (1) Influenza A Current Visit: Yes Status: Acute Code(s): J10.1 - FLU DUE TO OTH IDENT INFLUENZA VIRUS W OTH RESP MANIFEST (2) Elevated troponin Current Visit: Yes Status: Acute Code(s): R79.89 - OTHER SPECIFIED ABNORMAL FINDINGS OF BLOOD CHEMISTRY (3) Hypoxia Current Visit: Yes Status: Acute Code(s): R09.02 - HYPOXEMIA (4) VIVEK (acute kidney injury) Current Visit: No Status: Acute Code(s): N17.9 - ACUTE KIDNEY FAILURE, UNSPECIFIED (5) Hypocalcemia Current Visit: Yes Status: Acute Code(s): E83.51 - HYPOCALCEMIA (6) Chronic atrial fibrillation Current Visit: No Status: Chronic Code(s): I48.20 - CHRONIC ATRIAL FIBRILLATION, UNSPECIFIED (7) HLD (hyperlipidemia) Current Visit: No Status: Chronic Code(s): E78.5 - HYPERLIPIDEMIA, UNSPECIFIED (8) HTN (hypertension) Current Visit: No Status: Chronic Code(s): I10 - ESSENTIAL (PRIMARY) HYPERTENSION (9) Hypothyroid Current Visit: No Status: Chronic Code(s): E03.9 - HYPOTHYROIDISM, UNSPEC IFIED (10) Pulmonary hypertension Current Visit: No Status: Chronic Code(s): I27.20 - PULMONARY HYPERTENSION, UNSPECIFIED (11) Chronic diastolic (congestive) heart failure Current Visit: No Status: Chronic Code(s): I50.32 - CHRONIC DIASTOLIC (CONGESTIVE) HEART FAILURE (12) Thrombocytopenia Current Visit: Yes Status: Chronic (13) Venous stasis of both lower extremities Current Visit: No Status: Chronic Assessment & Plan: 1) Influenza A Current Visit: Yes Status: Acute Assessment & Plan: - + flu A test in ER - CBC, CMP reviewed - CXR: Portable chest unchanged again demonstrating cardiomegaly with tiny left effusion again favoring cardiac decompensation/CHF. Remaining lungs clear. Stable incidental paratracheal calcified node and arteriosclerotic aorta. Bony thorax intact again with osteopenia, degenerative changes, and levoscoliosis. - Tamiflu at lower dose d/t kidney function - O2 keep oxygen > 92% 05/24 - 2lNC 96%- baseline RA while awake and 2lNC at night - RT wean O2 - CBC reviewed, WBC OK - Steroids increased per daughter request for wheezing 05/25 - RA 97% - CBC reviewed - Continue OP tamiflu, steroids, and duonebs Code(s): J10.1 - FLU DUE TO OTH IDENT INFLUENZA VIRUS W OTH RESP MANIFEST (2) Elevated troponin Current Visit: Yes Status: Acute Assessment & Plan: - denies CP - Likely 2:2 flu A - Trops trended down- likely 2:2 Flu and SOB - tele - EKG Code(s): R79.89 - OTHER SPECIFIED ABNORMAL FINDINGS OF BLOOD CHEMISTRY (3) Hypoxia Current Visit: Yes Status: Acute Assessment & Plan: - on 2lNC 95%- baseline 2LNC at night only - Xoponex PRN - see plan for Flu A - RT eval and treat 05/24 on 2lC 96%- wean o2 - increased steroids 05/25 - RA 97% - Continue O2 at night Code(s): R09.02 - HYPOXEMIA (4) VIVEK (acute kidney injury) Current Visit: No Status: Acute Assessment & Plan: - Creat 1.12- baseline 0.94 - Hold meds that affect kidney function 05/24 - VIVEK resolved - Continue all meds that were held Code(s): N17.9 - ACUTE KIDNEY FAILURE, UNSPECIFIED (5) Hypocalcemia Current Visit: Yes Status: Acute Assessment & Plan: - Corrected calcium 7.7 - Start Tums tab BID 05/24 - corrected calcium 7.3- continue TUMS BID 05/25 - Ca+ 7.3- continue TUMS BID OP- f/u for labs with PCP- will likely need further workup OP Code(s): E83.51 - HYPOCALCEMIA (6) Chronic atrial fibrillation Current Visit: No Status: Chronic Assessment & Plan: - tele - Continue digoxin, Eliquis Code(s): I48.20 - CHRONIC ATRIAL FIBRILLATION, UNSPECIFIED (7) HLD (hyperlipidemia) Current Visit: No Status: Chronic Assessment & Plan: - continue statin Code(s): E78.5 - HYPERLIPIDEMIA, UNSPECIFIED (8) HTN (hypertension) Current Visit: No Status: Chronic Assessment & Plan: - BP stable- continue home meds Code(s): I10 - ESSENTIAL (PRIMARY) HYPERTENSION (9) Hypothyroid Current Visit: No Status: Chronic Assessment & Plan: - Continue synthroid Code(s): E03.9 - HYPOTHYROIDISM, UNSPECIFIED (10) Pulmonary hypertension Current Visit: No Status: Chronic Assessment & Plan: - Continue home meds Code(s): I27.20 - PULMONARY HYPERTENSION, UNSPECIFIED (11) Chronic diastolic (congestive) heart failure Current Visit: No Status: Chronic Assessment & Plan: - Continue home meds - Hold lasix until VIVEK improved - CXR: Portable chest unchanged again demonstrating cardiomegaly with tiny left effusion again favoring cardiac decompensation/CHF. Remaining lungs clear. Stable incidental paratracheal calcified node and arteriosclerotic aorta. Bony thorax intact again with osteopenia, degenerative changes, and levoscoliosis. - Echo 05/18/23: EF 55% IMPRESSION: 1) TECHNICALLY DIFFICULT STUDY BECAUSE POOR ACOUSTIC WINDOW. 2) NORMAL LEFT VENTRICLE SIZE WITH MOST LIKELY NORMAL LEFT VENTRICULAR SYSTOLIC FUNCTION. 3) MILD CONCENTRIC LEFT VENTRICULAR HYPERTROPHY. 4) SIGNIFICANT ATRIAL ENLARGEMENT. 5) CALCIFIC AORTIC SCLEROSIS WITH EVIDENCE OF MILD TO MODERATE AORTIC STENOSIS. 6) MILD TO MODERATE MITRAL REGURGITATION. 7) MILD TO MODERATE TRICUSPID REGURGITATION WITH EVIDENCE OF MILD TO MODERATE PULMONARY HYPERTENSION. Code(s): I50.32 - CHRONIC DIASTOLIC (CONGESTIVE) HEART FAILURE (12) Thrombocytopenia Current Visit: Yes Status: Chronic Assessment & Plan: - PLT 126- appears ongoing and worsening- trend - Consider OP f/u with hematology at d/c for further evaluation. 05/24 - PLt 130 - trend (13) Venous stasis of both lower extremities Current Visit: No Status: Chronic Assessment & Plan: - podiatry consult - likely will need unna boots placed. - 2 wounds of RLE appear to be healing- Dr. Moise follows 05/24 - BLLE wrapped in UNNA boots by podiatry 05/25 - Unna boots to be redone prior to d/c. Code(s): I87.8 - OTHER SPECIFIED DISORDERS OF VEINS - Discharge Discharge Date: 05/25/24 Disposition: Home, Self-Care Condition: Stable Prescriptions: New Oseltamivir Phosphate [Oseltamivir Phosphate 30 mg Cap] 30 mg PO BIDWM 3 Days #5 cap levalbuterol HCl [Xopenex 1.25 MG/0.5 ML UD NEBULE] 1.25 mg IH TID PRN PRN 20 Days #60 units PRN Reason: Shortness Of Breath Continue Sildenafil Citrate [Revatio] 20 mg PO TID Pregabalin [Lyrica] 50 mg PO QAM Atorvastatin Calcium [Lipitor 20MG Tablet] 20 mg PO HS Pregabalin 200 mg PO QHS Omeprazole 20 mg PO DAILY Apixaban [Eliquis] 2.5 mg PO BID Trazodone HCl 50 mg [Desyrel 50 mg] 50 mg PO HS Prednisone 10 mg [Deltasone 10 mg] 10 mg PO DAILY Empagliflozin [Jardiance] 10 mg PO DAILY Metoprolol Tartrate 50 mg [Lopressor 50 MG] 50 mg PO BID 30 Days #60 tablet Bumetanide 1 mg [Bumex 1 mg] 1 mg PO DAILY Hydrocodone/Acetaminophen [Hydrocodone-Acetamin 7.5-325] 1 tab PO BID Spironolactone 25 mg PO DAILY Levothyroxine Sodium 75 Mcg [Synthroid 75 Mcg] 75 mcg PO DAILY Midodrine HCl 2.5 mg PO BID Digoxin 0.125 mg Tablet [Lanoxin 0.125MG TABLET] 0.125 mg PO 3XW Denosumab 60 mg [Prolia 60 mg Injection] 60 mg SQ UD Metolazone 2.5 mg [Zaroxolyn 2.5 MG] 2.5 mg PO WEEKLY Additional Instructions: Take OTC tums tabs twice daily until you have your calcium rechecked with PCP. Follow up with: BONNIE NUR DPM [ACTIVE STAFF] - 05/30/24 9:30 am AROLDO REYES [ACTIVE STAFF] - 07/21/24 11:00 am ([facility]) ASHLY LAMB NP [Primary Care Provider] - 06/10/24 11:00 am
--- NOTE | 2024-05-25 12:57 | PCM.CONS ---
Podiatry HPI - Consult Consulting Provider: BONNIE NUR DPM - HPI History of Present Illness: is a 88 year old female with pmhx of A-fib, HFpEF, HTN, GERD, hypothyroidism, and chronic leg wounds and stasis dermatitis. Patient is here with cough, wheezing, congestion. Typically wears 2 L of O2 at home at bedtime. However, placed on O2 by family as 88% at home RA. Lungs are wheezy throughout and started earlier today. Patient has bilateral leg edema with 2 wounds of RLE that is chronic. Patient has no chest pain. She does have some mild shortness of breath, coughing. O2 now 95 % on 2lNC. She tested positive for Flu A in ER, will start tamiflu. She has some VIVEK and will hold meds that affect renal function. She has increased SOB with walking. She denies any further concerns at this time. Medications & Allergies Home Medications: Home Medication List Pregabalin [Lyrica] 50 mg PO QAM 06/01/17 [History Confirmed 05/23/24] Sildenafil Citrate [Revatio] 20 mg PO TID 06/01/17 [History Confirmed 05/23/24] Atorvastatin Calcium [Lipitor 20MG Tablet] 20 mg PO HS 09/06/17 [History Confirmed 05/23/24] Apixaban [Eliquis] 2.5 mg PO BID 06/05/20 [History Confirmed 05/23/24] Omeprazole 20 mg PO DAILY 06/05/20 [History Confirmed 05/23/24] Pregabalin 200 mg PO QHS 06/05/20 [History Confirmed 05/23/24] Trazodone HCl 50 mg [Desyrel 50 mg] 50 mg PO HS 06/05/20 [History Confirmed 05/23/24] Prednisone 10 mg [Deltasone 10 mg] 10 mg PO DAILY 06/07/20 [History Confirmed 05/23/24] Empagliflozin [Jardiance] 10 mg PO DAILY 05/17/23 [History Confirmed 05/23/24] Metoprolol Tartrate 50 mg [Lopressor 50 MG] 50 mg PO BID 30 Days #60 tablet 05/19/23 [Rx Confirmed 05/23/24] Bumetanide 1 mg [Bumex 1 mg] 1 mg PO DAILY 07/10/23 [History Confirmed 05/23/24] Hydrocodone/Acetaminophen [Hydrocodone-Acetamin 7.5-325] 1 tab PO BID 08/10/23 [History Confirmed 05/23/24] Spironolactone 25 mg PO DAILY 08/10/23 [History Confirmed 05/23/24] Levothyroxine Sodium 75 Mcg [Synthroid 75 Mcg] 75 mcg PO DAILY 09/17/23 [History Confirmed 05/23/24] Denosumab 60 mg [Prolia 60 mg Injection] 60 mg SQ UD 02/08/24 [History Confirmed 05/23/24] Digoxin 0.125 mg Tablet [Lanoxin 0.125MG TABLET] 0.125 mg PO 3XW 02/08/24 [History Confirmed 05/23/24] Metolazone 2.5 mg [Zaroxolyn 2.5 MG] 2.5 mg PO WEEKLY 02/08/24 [History Confirmed 05/23/24] Midodrine HCl 2.5 mg PO BID 02/08/24 [History Confirmed 05/23/24] Oseltamivir Phosphate [Oseltamivir Phosphate 30 mg Cap] 30 mg PO BIDWM 3 Days #5 cap 05/25/24 [Rx] Prednisone 20 mg [Deltasone 20 mg] 20 mg PO BID 5 Days #10 tablet 05/25/24 [Rx] levalbuterol HCl [Xopenex 1.25 MG/0.5 ML UD NEBULE] 1.25 mg IH TID PRN PRN 20 Days #60 units 05/25/24 [Rx] Allergies/Adverse Reactions: Allergies Allergy/AdvReac Type Severity Reaction Status Date / Time amlodipine [From Norvasc] Allergy Verified 05/23/24 10:29 cefuroxime Allergy Verified 05/23/24 10:29 cephalexin [From Keflex] Allergy Verified 05/23/24 10:29 gabapentin [From Neurontin] Allergy Verified 05/23/24 10:29 Sulfa (Sulfonamide Allergy Verified 05/23/24 10:29 Antibiotics) - Past Medical History Past Medical History: Yes Neurological History: Peripheral Neuropathy ENT History: No Pertinent History Cardiac History: Arrhythmia, Congestive Heart Failure, High Cholesterol Respiratory History: Bronchitis Endocrine Medical History: No Pertinent History Musculoskelatal History: Osteoarthritis, Osteoporosis GI Medical History: GERD History: No Pertinent History Pyscho-Social History: No Pertinent History Reproductive Disorders: No Pertinent History Comment: HX OF PULMONARY HTN, ASTHMA/BRONCHITIS. MULTIPLE P.T. INTERVENTIONS FOR WOUND CARE. CHronic Afib - Past Surgical History Past Surgical History: Yes Neuro Surgical History: No Pertinent History Cardiac History: No Pertinent History Respiratory Surgery: No Pertinent History GI Surgical History: No Pertinent History Genitourinary Surgical Hx: No Pertinent History Musculskeletal Surgical Hx: Orthopedic Surgery Female Surgical History: No Pertinent History Other Surgical History: back surgery. ANGIOGRAM Significant Family History: no pertinent family hx - Social History Smoking Status: Never smoker Exposure to second hand smoke: No Alcohol: None Drug Use: none - Social Determinants of Health Will the patient participate in the screening: Yes Do you worry about a steady place to live?: No Do you have any problems with any of the following?: No known problems In the past 12 months,have you had to go without utilities?: No Have you or anyone in your house had to go without enough: No Transportation Issues: No Has anyone in your support network made you feel unsafe?: No Does the patient want assistance with any of the above?: No Physical Exam - Narrative Narrative Physical Exam: Podiatry Physical Exam Results - Labs Lab/Micro Results: Lab Results-Last 24 Hours 05/25/24 05/25/24 Range/Units 05:46 05:46 WBC 8.2 (3.98-10.04) x10^3/uL RBC 3.68 L (3.93-5.22) x10^6/uL Hgb 11.0 L (11.2-15.7) g/dL Hct 35.6 (34.1-44.9) % MCV 96.7 H (79.4-94.8) fL MCH 29.9 (25.6-32.2) pg MCHC 30.9 L (32.2-35.5) g/dL RDW 16.1 H (11.7-14.4) % Plt Count 136 L (182-369) x10^3/uL MPV 10.3 (9.4-12.3) fL Sodium 136 (135-145) mmol/L Potassium 3.8 (3.5-5.1) mmol/L Chloride 102 (98-107) mmol/L Carbon Dioxide 29 (22-30) mmol/L Anion Gap 8.8 (5-15) MEQ/L BUN 40 H (7-17) mg/dL Creatinine 1.05 H (0.52-1.04) mg/dL Estimated GFR 51.1 ML/MIN Glucose 149 H (74-106) mg/dL Calcium 7.0 L (8.4-10.2) mg/dL Total Bilirubin 0.50 (0.2-1.3) mg/dL AST 34 (14-36) U/L ALT 19 (0-35) U/L Alkaline Phosphatase 55 (38-126) U/L Serum Total Protein 5.4 L (6.3-8.2) g/dL Albumin 3.1 L (3.5-5.0) g/dL - Other Procedures and Tests Respiratory Therapy 05/24/24 13:50 RT Miscellaneous Order ROUTINE Assessment/Plan (1) Blister of leg without infection Current Visit: No Status: Acute Code(s): S80.829A - BLISTER (NONTHERMAL), UNSPECIFIED LOWER LEG, INIT ENCNTR (2) Ischemia of left lower extremity Current Visit: No Status: Acute Code(s): I99.8 - OTHER DISORDER OF CIRCULATORY SYSTEM (3) Localized edema due to fluid overload Current Visit: No Status: Acute Assessment & Plan: Inital patient examination and evaluation Ultrasound arterial and venous obtained demonstrating no obvious occlusions or significant restrictions in bloodflow. Patient has wound to lateral aspect and anterior lateral aspect of the right leg with fibrotic margins. Plan for compression therapy to the bilateral lower extremity. Will discuss care with Dr. Wilson as just increased metolazone and diaeresis. Will follow while inpatient. Code(s): E87.70 - FLUID OVERLOAD, UNSPECIFIED (4) Mild congestive heart failure Current Visit: No Status: Acute Code(s): I50.9 - HEART FAILURE, UNSPECIFIED (5) CHF (congestive heart failure) Current Visit: No Status: Chronic Qualifiers: Heart failure type: right-sided Heart failure chronicity: acute on chronic Qualified Code(s): I50.813 - Acute on chronic right heart failure Code(s): I50.9 - HEART FAILURE, UNSPECIFIED
--- NOTE | 2024-05-25 16:30 | PCM.NOTE ---
Date and Time: 05/25/24 1629 Subjective Assessment: Progressing well. Physical Exam - Narrative Narrative Physical Exam: Podiatry Physical Exam Objective Data Vital Signs: Vital Signs - 24 hr Temp Pulse Resp BP BP Pulse Ox 05/25/24 12:00 97.4 F 81 18 106/74 97 05/25/24 10:15 95 05/25/24 09:04 93 H 134/77 05/25/24 08:00 93 H 134/77 97 05/25/24 04:00 97.7 F 76 17 97 05/24/24 23:50 90 24 94 L 05/24/24 20:00 98.4 F 87 22 133/59 93 L 05/24/24 19:31 91 H 20 93 L Pain Assessment - Last Documented Pain Intensity 10 Pain Scale Used 0-10 Pain Scale Intake and Output: Intake & Output 05/23/24 05/24/24 05/25/24 05/26/24 11:59 11:59 11:59 11:59 Intake Total 120 940 120 Balance 120 940 120 Weight 55.7 kg 61.6 kg Lab Results: Lab Results-Last 24 Hours 05/25/24 05/25/24 Range/Units 05:46 05:46 WBC 8.2 (3.98-10.04) x10^3/uL RBC 3.68 L (3.93-5.22) x10^6/uL Hgb 11.0 L (11.2-15.7) g/dL Hct 35.6 (34.1-44.9) % MCV 96.7 H (79.4-94.8) fL MCH 29.9 (25.6-32.2) pg MCHC 30.9 L (32.2-35.5) g/dL RDW 16.1 H (11.7-14.4) % Plt Count 136 L (182-369) x10^3/uL MPV 10.3 (9.4-12.3) fL Sodium 136 (135-145) mmol/L Potassium 3.8 (3.5-5.1) mmol/L Chloride 102 (98-107) mmol/L Carbon Dioxide 29 (22-30) mmol/L Anion Gap 8.8 (5-15) MEQ/L BUN 40 H (7-17) mg/dL Creatinine 1.05 H (0.52-1.04) mg/dL Estimated GFR 51.1 ML/MIN Glucose 149 H (74-106) mg/dL Calcium 7.0 L (8.4-10.2) mg/dL Total Bilirubin 0.50 (0.2-1.3) mg/dL AST 34 (14-36) U/L ALT 19 (0-35) U/L Alkaline Phosphatase 55 (38-126) U/L Serum Total Protein 5.4 L (6.3-8.2) g/dL Albumin 3.1 L (3.5-5.0) g/dL Assessment/Plan (1) Blister of leg without infection Current Visit: No Status: Acute Assessment & Plan: Initial patient examination and evaluation Ultrasound arterial and venous obtained demonstrating no obvious occlusions or significant restrictions in bloodflow. Patient has wound to lateral aspect and anterior lateral aspect of the right leg with fibrotic margins. Plan for compression therapy to the bilateral lower extremity. Will discuss care with Dr. Wilson as just increased metolazone and diaeresis. will follow outpatient. Code(s): S80.829A - BLISTER (NONTHERMAL), UNSPECIFIED LOWER LEG, INIT ENCNTR (2) Ischemia of left lower extremity Current Visit: No Status: Acute Code(s): I99.8 - OTHER DISORDER OF CIRCULATORY SYSTEM (3) Localized edema due to fluid overload Current Visit: No Status: Acute Code(s): E87.70 - FLUID OVERLOAD, UNSPECIFI ED (4) Mild congestive heart failure Current Visit: No Status: Acute Code(s): I50.9 - HEART FAILURE, UNSPECIFIED (5) CHF (congestive heart failure) Current Visit: No Status: Chronic Qualifiers: Heart failure type: right-sided Heart failure chronicity: acute on chronic Qualified Code(s): I50.813 - Acute on chronic right heart failure Code(s): I50.9 - HEART FAILURE, UNSPECIFIED
== END 2024-05-25 16:00 | disposition home or self-care (01) ==
LOC: ED 08:43 → MED SURG 13:47
PROVIDERS: ADMIT Internal Medicine; ATTEND Internal Medicine
DX: J10.1 Influenza due to other identified influenza virus with other respiratory manifestations (principal); R79.89 Other specified abnormal findings of blood chemistry; R09.02 Hypoxemia; N17.9 Acute kidney failure, unspecified; E83.51 Hypocalcemia; I48.20 Chronic atrial fibrillation, unspecified; E78.5 Hyperlipidemia, unspecified; E03.9 Hypothyroidism, unspecified; I27.20 Pulmonary hypertension, unspecified; I11.0 Hypertensive heart disease with heart failure; I50.32 Chronic diastolic (congestive) heart failure; D69.6 Thrombocytopenia, unspecified; I87.8 Other specified disorders of veins; R60.0 Localized edema; Z79.899 Other long term (current) drug therapy; Z79.01 Long term (current) use of anticoagulants
CPT/HCPCS: 0241U; 29580; 36415; 71045; 80053; 83880; 84134; 84484; 85025; 85027; 87070; 93005; 94640; 94760; 94762; 96374; 97161; 99285; Q3014; J2919; A9270-GY

== ENCOUNTER 2024-07-22 11:34 | Emergency (ER) | payer MEDICARE ==
[2024-07-22 11:45] VITALS: TEMP 98.8
--- NOTE | 2024-07-22 12:15 | ERPHSYRPT ---
- History of Present Illness Time Seen by Provider: 07/22/24 11:43 Source: patient, family Exam Limitations: no limitations Patient Subjective Stated Complaint: pt here for increase sob today. she is being treated for a right leg infection, and is on antibiotics, she had an echo and halter monitor this week. she states she just did not want to get out of bed today Triage Nursing Assessment: pt alert, arrived per wc,able to get from wc to cart, resp easy at rest, sob with excertion, no cough, has ulcers to lower right leg with bandages in place, has swelling to lower legs, family states swelling looks better than it has,, chest diminshed Physician History: Patient is an 88-year-old female who has a history of atrial fibrillation that she is currently taking Eliquis twice daily for, pulmonary hypertension, lower extremity edema with peripheral vascular disease who currently has been on 1 week of doxycycline for right lower leg infection from one of her wounds as well as takes twice weekly metolazone for her edema in her legs who comes in with worsening exertional dyspnea over the last 2 weeks. Patient has been evaluated in the last 3 weeks by her strategic sourcing consultant at [facility] in [place], [place] with both a Holter monitor to check if she was dropping any beats or having runs of V. tach which were negative per patient's daughter's history, as well as a 2D echo that the strategic sourcing consultant told the patient and patient's daughter that it was negative for any causes of her dyspnea. Patient denies any fever any recent congestion runny nose, any recent chest pain, recent abdominal pain, any recent nausea vomiting, any new skin rash, any black or red stools, new blood in her urine, or any painful urination. Patient has not required any hospitalizations over the last 2 weeks and has not been evaluated or treated by 1 in the last 2 weeks but did had the testing done through her strategic sourcing consultant for the Holter monitor as well as a 2D echo. Timing/Duration: week(s) (two) Activities at Onset: activity Severity of Dyspnea-Max: moderate Severity of Dyspnea-Current: none Possible Cause: frequent episodes Modifying Factors: Improves With: rest. Worsens With: activity, exertion Associated Symptoms: intermittent, lightheadedness, dizziness, heart racing, lightheadedness, leg swelling, No cough, No chest pain/discomfort, No fever, No loss of appetite, No weakness, No heaviness, No painful breathing, No productive cough, No tightness Allergies/Adverse Reactions: amlodipine [From Norvasc] Allergy (Verified 07/22/24 11:40) cefuroxime Allergy (Verified 07/22/24 11:40) cephalexin [From Keflex] Allergy (Verified 07/22/24 11:40) gabapentin [From Neurontin] Allergy (Verified 07/22/24 11:40) Sulfa (Sulfonamide Antibiotics) Allergy (Verified 07/22/24 11:40) Home Medications: Pregabalin [Lyrica] 50 mg PO QAM 06/01/17 [History] Sildenafil Citrate [Revatio] 20 mg PO TID 06/01/17 [History] Atorvastatin Calcium [Lipitor 20MG Tablet] 20 mg PO HS 09/06/17 [History] Apixaban [Eliquis] 2.5 mg PO BID 06/05/20 [History] Omeprazole 20 mg PO DAILY 06/05/20 [History] Pregabalin 200 mg PO QHS 06/05/20 [History] Trazodone HCl 50 mg [Desyrel 50 mg] 50 mg PO HS 06/05/20 [History] Prednisone 10 mg [Deltasone 10 mg] 10 mg PO DAILY 06/07/20 [History] Empagliflozin [Jardiance] 10 mg PO DAILY 05/17/23 [History] Bumetanide 1 mg [Bumex 1 mg] 1 mg PO DAILY 07/10/23 [History] Hydrocodone/Acetaminophen [Hydrocodone-Acetamin 7.5-325] 1 tab PO BID 08/10/23 [History] Spironolactone 25 mg PO DAILY 08/10/23 [History] Levothyroxine Sodium 75 Mcg [Synthroid 75 Mcg] 75 mcg PO DAILY 09/17/23 [History] Denosumab 60 mg [Prolia 60 mg Injection] 60 mg SQ UD 02/08/24 [History] Digoxin 0.125 mg Tablet [Lanoxin 0.125MG TABLET] 0.125 mg PO 3XW 02/08/24 [History] Metolazone 2.5 mg [Zaroxolyn 2.5 MG] 2.5 mg PO UD 02/08/24 [History] Midodrine HCl 2.5 mg PO TID 02/08/24 [History] Doxycycline Hyclate 100 mg [Vibramycin 100 MG] 100 mg PO BID 07/22/24 [History] Hx Tetanus, Diphtheria Vaccination/Date Given: No Hx Influenza Vaccination/Date Given: No Hx Pneumococcal Vaccination/Date Given: Yes Immunizations Up to Date: Yes Travel Risk - International Travel Have you traveled outside of the country in past 3 weeks: No - Emerging Infectious Disease Are you exhibiting symptoms associated with any current EIDs: No Symptoms: Cough: New Onset, Shortness of Breath - Review of Systems Constitutional: Fatigue, No Fever, No Chills Eyes: No Symptoms, No Eye Pain, No Vision Changes Ears, Nose, & Throat: No Symptoms, No Ear Pain, No Nose Pain, No Nose Congestion, No Painful Swallowing Respiratory: Dyspnea, Dyspnea on Exertion (VELIZ), No Cough Cardiac: Edema, Palpitations, No Chest Pain, No Syncope Abdominal/Gastrointestinal: No Abdominal Pain, No Nausea, No Vomiting, No Diarrhea Genitourinary Symptoms: No Dysuria, No Hematuria, No Flank Pain Musculoskeletal: No Back Pain, No Neck Pain Skin: No Rash Neurological: Vertigo, No Dizziness, No Focal Weakness, No Headache, No Parasthesia, No Sensory Changes Psychological: No Symptoms Endocrine: No Symptoms Hematologic/Lymphatic: No Easy Bleeding, No Easy Bruising All Other Systems: Reviewed and Negative - Past Medical History Pertinent Past Medical History: Yes Neurological History: Peripheral Neuropathy ENT History: No Pertinent History Cardiac History: Arrhythmia, Congestive Heart Failure, High Cholesterol Respiratory History: Bronchitis Endocrine Medical History: No Pertinent History Musculoskeletal History: Osteoarthritis, Osteoporosis GI Medical History: GERD History: No Pertinent History Psycho-Social History: No Pertinent History Female Reproductive Disorders: No Pertinent History Other Medical History: HX OF PULMONARY HTN, ASTHMA/BRONCHITIS. MULTIPLE P.T. INTERVENTIONS FOR WOUND CARE. CHronic Afib - Past Surgical History Past Surgical History: Yes Neuro Surgical History: No Pertinent History Cardiac: No Pertinent History Respiratory: No Pertinent History Gastrointestinal: No Pertinent History Genitourinary: No Pertinent History Musculoskeletal: Orthopedic Surgery Female Surgical History: No Pertinent History Other Surgical History: back surgery. ANGIOGRAM Significant Family History: no pertinent family hx - Social History Smoking Status: Never smoker Exposure to second hand smoke: No Drug Use: none - Social Determinants of Health Will the patient participate in the screening: Yes Do you worry about a steady place to live?: No Do you have any problems with any of the following?: No known problems In the past 12 months,have you had to go without utilities?: No Transportation Issues: No Has anyone in your support network made you feel unsafe?: No Have you or anyone in your house had to go w/o enough food: No - Nursing Vital Signs Nursing Vital Signs: Initial Vital Signs Pulse Rate 88 07/22/24 11:37 Respiratory Rate 23 07/22/24 11:37 Blood Pressure 126/79 07/22/24 11:37 O2 Sat by Pulse Oximetry 93 L 07/22/24 11:37 Pain Scale Pain Intensity 0 - Physical Exam General Appearance: no apparent distress, alert Eye Exam: PERRL/EOMI, eyes nml inspection Ears, Nose, Throat Exam: normal ENT inspection Neck Exam: normal inspection, supple, full range of motion, Kernig's, No Brudzinski, No meningismus, No JVD Respiratory Exam: normal breath sounds, lungs clear, airway intact, No respiratory distress, No diminished breath sounds, No accessory muscle use, No crackles/rales, No rhonchi, No wheezing, No stridor Cardiovascular/Chest Exam: murmur, normal peripheral pulses, edema, irregular, No JVD Abdominal/Gastrointestinal Exam: soft, normal bowel sounds, No tenderness, No distention, No mass, No guarding, No rebound Extremity Exam: non-tender, normal range of motion, pelvis stable, swelling Neurologic Exam: alert, oriented x 3, cooperative, 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, normal mood/affect, sensation nml, No motor deficits Skin Exam: normal color, warm, No dry, No rash, No jaundice, No cyanosis SpO2 Interpretation: normal SpO2: 98 O2 Delivery: Room Air - Course Nursing assessment & vital signs reviewed: Yes EKG Interpreted by Me: RATE (81), A-fib, NORMAL AXIS, NORMAL INTERVALS, Right Bundle Branch Block, Other (Signs of nonspecific T wave changes in the limb and precordial leads but unchanged comparison to EKG from May 09, 2024 with side to potential left posterior fascicular block but also could be from the quality of the EKG but otherwise there is no significant change comparison to the EKG of 05/31) - CT Exams Head CT Interpretation: Tele-radiologist Report, No/Intracranial Hemorrhag, [facility] - Radiology Ultrasound Exam Abdomen Ultrasound: tele radiology report, negative Ordered Tests: Active Orders 24 hr Category Date Time Status Valve Grinder STAT Care 07/22/24 12:07 Active EKG-ER Only STAT Care 07/22/24 12:06 Active IV Insertion STAT Care 07/22/24 12:06 Active Pulse Oximetry (ED) STAT Care 07/22/24 12:06 Active CHEST 1 VIEW (PORTABLE) Stat Exams 07/22/24 12:07 Completed HEAD WITHOUT CONTRAST [CT] Stat Exams 07/22/24 12:14 Completed US ABDOMEN LIMITED [ABDOMINAL-LIMITED] [US] Stat Exams 07/22/24 14:05 Completed BLOOD CULTURE Stat Lab 07/22/24 12:07 Received CBC W DIFF Stat Lab 07/22/24 12:50 Completed CK-Creatinine Phosphokinase Stat Lab 07/22/24 12:50 Completed CMP Stat Lab 07/22/24 12:50 Completed LIPASE Stat Lab 07/22/24 14:20 Completed Lactic Acid Stat Lab 07/22/24 12:50 Completed MAGNESIUM Stat Lab 07/22/24 12:50 Completed NT PRO BNPII Stat Lab 07/22/24 12:50 Completed PROCALCITONIN Stat Lab 07/22/24 12:50 Completed PROTIME WITH INR Stat Lab 07/22/24 12:50 Completed TROPONIN Q4H Lab 07/22/24 14:20 Completed TROPONIN Q4H Lab 07/22/24 18:15 Ordered TROPONIN Q4H Lab 07/22/24 22:15 Ordered TSH, 3RD Generation Stat Lab 07/22/24 12:50 Completed UA W/RFX UR CULTURE Stat Lab 07/22/24 12:48 Completed VENOUS BLOOD GAS Stat Lab 07/22/24 12:50 Completed Lab/Rad Data: Laboratory Result Diagrams 07/22/24 12:50 07/22/24 12:50 Laboratory Results 07/22/24 07/22/24 07/22/24 Range/Units 14:20 14:20 12:50 WBC (3.98-10.04) x10^3/uL RBC (3.93-5.22) x10^6/uL Hgb (11.2-15.7) g/dL Hct (34.1-44.9) % MCV (79.4-94.8) fL MCH (25.6-32.2) pg MCHC (32.2-35.5) g/dL RDW (11.7-14.4) % Plt Count (182-369) x10^3/uL MPV (9.4-12.3) fL Gran % (34.0-71.1) % Immature Gran % (Auto) (0.001-0.429) % Nucleat RBC Rel Count (0.00-0.2) % Eos # (Auto) (0.04-0.36) x10^3/uL Immature Gran # (Auto) (0.001-0.031) x10^3u/L Absolute Lymphs (auto) (1.18-3.74) x10^3/uL Absolute Monos (auto) (0.24-0.86) x10^3/uL Absolute Nucleated RBC (0.00-0.012) x10^3u/L Lymphocytes % (19.3-51.7) % Monocytes % (4.7-12.5) % Eosinophils % (0.7-5.8) % Basophils % (0.1-1.2) % Absolute Granulocytes (1.56-6.13) x10^3/uL Basophils # (0.01-0.08) x10^3/uL PT (9.4-12.5) SECONDS INR (0.8-3.0) pO2/FiO2 Ratio % VBG pH (7.32-7.42) VBG pCO2 at Pat Temp (42-55) mm/Hg VBG pO2 at Pat Temp (25-40) mm/Hg VBG HCO3 (22-28) meq/L VBG O2 Sat (Gonzalo) (95-100) VBG Base Excess (-2.0-2.0) VBG Hemoglobin VBG Carboxyhemoglobin (0.0-6.9) % T HGB POC Potassium (3.5-5.1) Sodium (135-145) mmol/L Potassium (3.5-5.1) mmol/L Chloride (98-107) mmol/L Carbon Dioxide (22-30) mmol/L Anion Gap (5-15) MEQ/L BUN (7-17) mg/dL Creatinine (0.52-1.04) mg/dL Estimated GFR ML/MIN Glucose (74-106) mg/dL Lactic Acid (0.4-2.0) Calcium (8.4-10.2) mg/dL Magnesium (1.6-2.3) mg/dL Total Bilirubin (0.2-1.3) mg/dL AST (14-36) U/L ALT (0-35) U/L Alkaline Phosphatase (38-126) U/L Creatine Kinase (30-135) U/L Troponin I 0.038 H* (0.000-0.033) ng/mL NT-Pro-B Natriuret Pep (<300) pg/mL Serum Total Protein (6.3-8.2) g/dL Albumin (3.5-5.0) g/dL Lipase 93 (23-300) U/L Procalcitonin 0.129 H (0.030-0.080) ng/mL TSH 3rd Generation (0.470-4.680) mIU/L Urine Color (Yellow) Urine Appearance (Clear) Urine pH (4.6-8.0) Ur Specific [place] (1.005-1.030) Urine Protein (Negative) Urine Glucose (UA) (Negative) mg/dL Urine Ketones (Negative) Urine Blood (Negative) Urine Nitrite (Negative) Urine Bilirubin (Negative) Urine Urobilinogen (0.2) mg/dL Ur Leukocyte Esterase (Negative) U Hyaline Cast (Auto) (0-2) /LPF Urine Microscopic RBC (0-5) /HPF Urine Microscopic WBC (0-5) /HPF Ur Epithelial Cells (None Seen) /HPF Urine Bacteria (None Seen) /HPF Urine Culture Reflexed (NO) Influenza Type A Ag (NEGATIVE) Influenza Type B Ag (NEGATIVE) RSV (PCR) (NEGATIVE) SARS-CoV-2 (PCR) (NEGATIVE) 07/22/24 07/22/24 07/22/24 Range/Units 12:50 12:50 12:50 WBC 13.1 H (3.98-10.04) x10^3/uL RBC 4.18 (3.93-5.22) x10^6/uL Hgb 12.3 (11.2-15.7) g/dL Hct 38.9 (34.1-44.9) % MCV 93.1 (79.4-94.8) fL MCH 29.4 (25.6-32.2) pg MCHC 31.6 L (32.2-35.5) g/dL RDW 16.1 H (11.7-14.4) % Plt Count 191 (182-369) x10^3/uL MPV 9.9 (9.4-12.3) fL Gran % 75.4 H (34.0-71.1) % Immature Gran % (Auto) 0.5 H (0.001-0.429) % Nucleat RBC Rel Count 0.0 (0.00-0.2) % Eos # (Auto) 0 L (0.04-0.36) x10^3/uL Immature Gran # (Auto) 0.06 H (0.001-0.031) x10^3u/L Absolute Lymphs (auto) 2.38 (1.18-3.74) x10^3/uL Absolute Monos (auto) 0.74 (0.24-0.86) x10^3/uL Absolute Nucleated RBC 0.00 (0.00-0.012) x10^3u/L Lymphocytes % 18.2 L (19.3-51.7) % Monocytes % 5.7 (4.7-12.5) % Eosinophils % 0.0 L (0.7-5.8) % Basophils % 0.2 (0.1-1.2) % Absolute Granulocytes 9.89 H (1.56-6.13) x10^3/uL Basophils # 0.02 (0.01-0.08) x10^3/uL PT 12.2 (9.4-12.5) SECONDS INR 1.13 (0.8-3.0) pO2/FiO2 Ratio % VBG pH (7.32-7.42) VBG pCO2 at Pat Temp (42-55) mm/Hg VBG pO2 at Pat Temp (25-40) mm/Hg VBG HCO3 (22-28) meq/L VBG O2 Sat (Gonzalo) (95-100) VBG Base Excess (-2.0-2.0) VBG Hemoglobin VBG Carboxyhemoglobin (0.0-6.9) % T HGB POC Potassium (3.5-5.1) Sodium 133 L (135-145) mmol/L Potassium 4.7 (3.5-5.1) mmol/L Chloride 101 (98-107) mmol/L Carbon Dioxide 25 (22-30) mmol/L Anion Gap 10.9 (5-15) MEQ/L BUN 32 H (7-17) mg/dL Creatinine 0.97 (0.52-1.04) mg/dL Estimated GFR 56.2 ML/MIN Glucose 110 H (74-106) mg/dL Lactic Acid (0.4-2.0) Calcium 8.4 (8.4-10.2) mg/dL Magnesium 2.1 (1.6-2.3) mg/dL Total Bilirubin 1.70 H (0.2-1.3) mg/dL AST 36 (14-36) U/L ALT 21 (0-35) U/L Alkaline Phosphatase 70 (38-126) U/L Creatine Kinase 162 H (30-135) U/L Troponin I (0.000-0.033) ng/mL NT-Pro-B Natriuret Pep 1990 (<300) pg/mL Serum Total Protein 6.0 L (6.3-8.2) g/dL Albumin 3.4 L (3.5-5.0) g/dL Lipase (23-300) U/L Procalcitonin (0.030-0.080) ng/mL TSH 3rd Generation 12.912 H (0.470-4.680) mIU/L Urine Color (Yellow) Urine Appearance (Clear) Urine pH (4.6-8.0) Ur Specific [place] (1.005-1.030) Urine Protein (Negative) Urine Glucose (UA) (Negative) mg/dL Urine Ketones (Negative) Urine Blood (Negative) Urine Nitrite (Negative) Urine Bilirubin (Negative) Urine Urobilinogen (0.2) mg/dL Ur Leukocyte Esterase (Negative) U Hyaline Cast (Auto) (0-2) /LPF Urine Microscopic RBC (0-5) /HPF Urine Microscopic WBC (0-5) /HPF Ur Epithelial Cells (None Seen) /HPF Urine Bacteria (None Seen) /HPF Urine Culture Reflexed (NO) Influenza Type A Ag (NEGATIVE) Influenza Type B Ag (NEGATIVE) RSV (PCR) (NEGATIVE) SARS-CoV-2 (PCR) (NEGATIVE) 07/22/24 07/22/24 07/22/24 Range/Units 12:50 12:50 12:48 WBC (3.98-10.04) x10^3/uL RBC (3.93-5.22) x10^6/uL Hgb (11.2-15.7) g/dL Hct (34.1-44.9) % MCV (79.4-94.8) fL MCH (25.6-32.2) pg MCHC (32.2-35.5) g/dL RDW (11.7-14.4) % Plt Count (182-369) x10^3/uL MPV (9.4-12.3) fL Gran % (34.0-71.1) % Immature Gran % (Auto) (0.001-0.429) % Nucleat RBC Rel Count (0.00-0.2) % Eos # (Auto) (0.04-0.36) x10^3/uL Immature Gran # (Auto) (0.001-0.031) x10^3u/L Absolute Lymphs (auto) (1.18-3.74) x10^3/uL Absolute Monos (auto) (0.24-0.86) x10^3/uL Absolute Nucleated RBC (0.00-0.012) x10^3u/L Lymphocytes % (19.3-51.7) % Monocytes % (4.7-12.5) % Eosinophils % (0.7-5.8) % Basophils % (0.1-1.2) % Absolute Granulocytes (1.56-6.13) x10^3/uL Basophils # (0.01-0.08) x10^3/uL PT (9.4-12.5) SECONDS INR (0.8-3.0) pO2/FiO2 Ratio 21.0 % VBG pH 7.52 H (7.32-7.42) VBG pCO2 at Pat Temp 33 L (42-55) mm/Hg VBG pO2 at Pat Temp 44 H (25-40) mm/Hg VBG HCO3 26.9 (22-28) meq/L VBG O2 Sat (Gonzalo) 76.0 L (95-100) VBG Base Excess 4.3 H (-2.0-2.0) VBG Hemoglobin 13.1 VBG Carboxyhemoglobin 4.1 (0.0-6.9) % T HGB POC Potassium 4.8 (3.5-5.1) Sodium (135-145) mmol/L Potassium (3.5-5.1) mmol/L Chloride (98-107) mmol/L Carbon Dioxide (22-30) mmol/L Anion Gap (5-15) MEQ/L BUN (7-17) mg/dL Creatinine (0.52-1.04) mg/dL Estimated GFR ML/MIN Glucose (74-106) mg/dL Lactic Acid 1.6 (0.4-2.0) Calcium (8.4-10.2) mg/dL Magnesium (1.6-2.3) mg/dL Total Bilirubin (0.2-1.3) mg/dL AST (14-36) U/L ALT (0-35) U/L Alkaline Phosphatase (38-126) U/L Creatine Kinase (30-135) U/L Troponin I (0.000-0.033) ng/mL NT-Pro-B Natriuret Pep (<300) pg/mL Serum Total Protein (6.3-8.2) g/dL Albumin (3.5-5.0) g/dL Lipase (23-300) U/L Procalcitonin (0.030-0.080) ng/mL TSH 3rd Generation (0.470-4.680) mIU/L Urine Color (Yellow) Urine Appearance (Clear) Urine pH (4.6-8.0) Ur Specific [place] (1.005-1.030) Urine Protein (Negative) Urine Glucose (UA) (Negative) mg/dL Urine Ketones (Negative) Urine Blood (Negative) Urine Nitrite (Negative) Urine Bilirubin (Negative) Urine Urobilinogen (0.2) mg/dL Ur Leukocyte Esterase (Negative) U Hyaline Cast (Auto) (0-2) /LPF Urine Microscopic RBC (0-5) /HPF Urine Microscopic WBC (0-5) /HPF Ur Epithelial Cells (None Seen) /HPF Urine Bacteria (None Seen) /HPF Urine Culture Reflexed (NO) Influenza Type A Ag NEGATIVE (NEGATIVE) Influenza Type B Ag NEGATIVE (NEGATIVE) RSV (PCR) NEGATIVE (NEGATIVE) SARS-CoV-2 (PCR) NEGATIVE (NEGATIVE) 07/22/24 Range/Units 12:48 WBC (3.98-10.04) x10^3/uL RBC (3.93-5.22) x10^6/uL Hgb (11.2-15.7) g/dL Hct (34.1-44.9) % MCV (79.4-94.8) fL MCH (25.6-32.2) pg MCHC (32.2-35.5) g/dL RDW (11.7-14.4) % Plt Count (182-369) x10^3/uL MPV (9.4-12.3) fL Gran % (34.0-71.1) % Immature Gran % (Auto) (0.001-0.429) % Nucleat RBC Rel Count (0.00-0.2) % Eos # (Auto) (0.04-0.36) x10^3/uL Immature Gran # (Auto) (0.001-0.031) x10^3u/L Absolute Lymphs (auto) (1.18-3.74) x10^3/uL Absolute Monos (auto) (0.24-0.86) x10^3/uL Absolute Nucleated RBC (0.00-0.012) x10^3u/L Lymphocytes % (19.3-51.7) % Monocytes % (4.7-12.5) % Eosinophils % (0.7-5.8) % Basophils % (0.1-1.2) % Absolute Granulocytes (1.56-6.13) x10^3/uL Basophils # (0.01-0.08) x10^3/uL PT (9.4-12.5) SECONDS INR (0.8-3.0) pO2/FiO2 Ratio % VBG pH (7.32-7.42) VBG pCO2 at Pat Temp (42-55) mm/Hg VBG pO2 at Pat Temp (25-40) mm/Hg VBG HCO3 (22-28) meq/L VBG O2 Sat (Gonzalo) (95-100) VBG Base Excess (-2.0-2.0) VBG Hemoglobin VBG Carboxyhemoglobin (0.0-6.9) % T HGB POC Potassium (3.5-5.1) Sodium (135-145) mmol/L Potassium (3.5-5.1) mmol/L Chloride (98-107) mmol/L Carbon Dioxide (22-30) mmol/L Anion Gap (5-15) MEQ/L BUN (7-17) mg/dL Creatinine (0.52-1.04) mg/dL Estimated GFR ML/MIN Glucose (74-106) mg/dL Lactic Acid (0.4-2.0) Calcium (8.4-10.2) mg/dL Magnesium (1.6-2.3) mg/dL Total Bilirubin (0.2-1.3) mg/dL AST (14-36) U/L ALT (0-35) U/L Alkaline Phosphatase (38-126) U/L Creatine Kinase (30-135) U/L Troponin I (0.000-0.033) ng/mL NT-Pro-B Natriuret Pep (<300) pg/mL Serum Total Protein (6.3-8.2) g/dL Albumin (3.5-5.0) g/dL Lipase (23-300) U/L Procalcitonin (0.030-0.080) ng/mL TSH 3rd Generation (0.470-4.680) mIU/L Urine Color Yellow (Yellow) Urine Appearance Clear (Clear) Urine pH 7.0 (4.6-8.0) Ur Specific [place] 1.010 (1.005-1.030) Urine Protein Negative (Negative) Urine Glucose (UA) 500 A (Negative) mg/dL Urine Ketones Negative (Negative) Urine Blood Negative (Negative) Urine Nitrite Negative (Negative) Urine Bilirubin Negative (Negative) Urine Urobilinogen 0.2 (0.2) mg/dL Ur Leukocyte Esterase Negative (Negative) U Hyaline Cast (Auto) 3-5 A (0-2) /LPF Urine Microscopic RBC 0-2 (0-5) /HPF Urine Microscopic WBC 0-2 (0-5) /HPF Ur Epithelial Cells None Seen (None Seen) /HPF Urine Bacteria None Seen (None Seen) /HPF Urine Culture Reflexed NO (NO) Influenza Type A Ag (NEGATIVE) Influenza Type B Ag (NEGATIVE) RSV (PCR) (NEGATIVE) SARS-CoV-2 (PCR) (NEGATIVE) CT head without contrast per Radiologist Interpretation as below: Comparison: June 07, 2020 Again age-appropriate global atrophy and mild periventricular degenerative micro-ischemia bilaterally. New remote lacunar infarct right basal ganglia. No acute intracranial hemorrhage, abnormal extra-axial fluid collection, or mass effect. Fourth ventricle is midline without hydrocephalus. Bony calvarium intact. Visualized paranasal sinuses and mastoid air cells are clear. Impression: Again nonacute senile brain with new remote lacunar infarct right basal ganglia. Reported by: NENA OLMOS DO Signed by: NENA OLMOS DO Signed date/time: 07/22/24 1259 Chest X-Ray per Radiologist Interpretation as below: Comparison: May 30, 2024 Portable chest again hyperinflated without focal infiltrate, consolidation, or large effusion. Heart remains enlarged again with arteriosclerotic tortuous descending aorta. Bony thorax intact again with osteopenia, degenerative changes, and levoscoliosis. Impression: Continued nonacute chest with chronic features. Reported by: NENA OLMOS DO Signed by: NENA OLMOS DO Signed date/time: 07/22/24 1220 RUQ Ultrasound per Radiologist Interpretation as below: Comparison: None Pancreas no well seen due to to overlying bowel gas. Gallbladder partially contracted without stones or pericholecystic fluid. Common bile duct measures 3.6 mm. No intrahepatic biliary distention. Visualized liver sonographically unremarkable. Right kidney measures 7.8 x 4.3 x 3.8 cm with nonobstructing punctate calculi. Impression: Nonvisualization pancreas. Nonobstructing right renal punctate calculi. Remaining right upper quadrant sonogram negative. Reported by: NENA OLMOS DO Signed by: NENA OLMOS DO Signed date/time: 07/22/24 1451 - Progress Progress: re-examined Air Movement: good Progress Note: 07/22/24 14:12 Patient is doing well overall she states and has no acute complaints and appears to be no type of distress and has not requiring any oxygen or ventilatory supp ort throughout her time in the emergency room to maintain her SpO2 in the normal range 07/22/24 15:27 Patient is not any type of distress, is hemodynamically good condition, has not required any oxygen or ventilatory support throughout her time the emergency department and I reviewed her remaining lab tests with the patient and her daughter and they feel comfortable to being discharged at this time. 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 Patient EKG ordered that showed atrial fibrillation with no significant change in comparison to EKG from May 2024, had blood cultures drawn since she is currently on antibiotics for a leg infection which I saw no signs of concerning leg infection, venous blood gas ordered, urine ordered, viral swabs ordered chest x-ray ordered and a CT of the head since patient's had some dizziness in the form of some intermittent vertigo to start as well as continuous cardiac monitoring and continue SpO2 monitoring. Patient throughout her time did not require any oxygen or ventilatory support, and her chest x-ray was negative, her CT of the head was negative for any acute findings and had a remote lacunar infarct in the right basal ganglia, and her venous blood gas showed an elevated venous pH 7.52 with a slight low pCO2 33, normal lactic acid at 1.6, normal H&H 12.3/30.9, and a normal CMP except for an elevated total bilirubin 1.70 which is above her 0.51 thousand in May 2024, so a right upper quadrant ultrasound was ordered. Patient's urinalysis was negative for any signs of infection, her viral swabs were negative for COVID, RSV and influenza AMB, her proBNP was elevated at 1989, but it was significantly lower from May 2000 24 hours at 5050, her procalcitonin was elevated 0.129, but there is no signs of any active infection that was new on her examination, chest x-ray or urinalysis, and although her troponin was elevated 0.038, it was much lower than it was over the last 5 months which is the trend it has been and she had a negative EKG for any acute findings. Patient's exertional dyspnea could be potentially from her u ndertreated hypothyroidism as her TSH was at 12.9, so patient's family will have her follow this up with her provider to recheck this test and determine if she needs any other testing or increasing her treatment. Patient and her family were comfortable being discharged at this time and not being admitted as she recently had a negative 2D echo per their history as an outpatient by their strategic sourcing consultant, and all of her abnormal labs can be followed up as an outpatient and she had a negative ultrasound of the right upper quadrant that did not show any potential etiology to her elevated bilirubin and family did not want a CTA of her head to look at her posterior circulation at this time. Patient and her family are send that she is to return back to the nearest emergency room if she has any worsening dyspnea, new chest pain, new altered mental status, new fever, persistent vertigo, worsening dizziness, new jaundice, new abdominal pain, worsening swelling in her legs or any other concerning signs or symptoms that were not present at today's emergency room visit for immediate reevaluation in the nearest emergency department. At the time of discharge, patient was in no type of distress, preferred to be discharged and followed up as an outpatient, hemodynamically in good condition and did not require any oxygen or ventilatory support throughout her time in the emergency department Blood Culture(s) Obtained: Yes Antibiotics given: No Counseled pt/family regarding: lab results, diagnosis, need for follow-up, rad results Medical Desision Making - Independent Historian Additional History obtained from: Family - External Record(s) Reviewed Records reviewed as a part of evaluation & management: Clinic - Diagnostic Testing Diagnostic test were ordered, analyzed, and reviewed by me: Yes Radiological Interpretation: Reviewed by me - Risk of complications Low Risk: Low risk of morbidity from additional dx testing or treatment - Departure Departure Disposition: Home Clinical Impression: Exertional dyspnea, Hyperbilirubinemia, Dizziness Hypothyroid Qualifiers: Hypothyroidism type: unspecified Qualified Code(s): E03.9 - Hypothyroidism, unspecified Condition: Good Critical Care Time: No Referrals: ASHLY LAMB NP [Primary Care Provider] - Follow Up with PCP/3 days Instructions: Shortness of Breath (Dyspnea) (DC), Dizziness in adults - ED disc harge instructions, Hypothyroidism (underactive thyroid), Jaundice, Adult (DC) Additional Instructions: Follow-up with your providers to follow-up your low thyroid, continue evaluate your heart function, continue resolution of your skin infection in your leg, and return back to the nearest emergency room for any new fever, change in mental status or confusion, new or worsening shortness of breath, new back pain, new chest pain, new abdominal pain, persistent spinning type sensation or worsening dizziness or any other concerning signs or symptoms that were not present at today's emergency room visit for immediate reevaluation in the nearest emergency department
--- NOTE | 2024-07-22 12:25 | XRAY ---
Indication: Dyspnea. Comparison: May 30, 2024 Portable chest again hyperinflated without focal infiltrate, consolidation, or large effusion. Heart remains enlarged again with arteriosclerotic tortuous descending aorta. Bony thorax intact again with osteopenia, degenerative changes, and levoscoliosis. Impression: Continued nonacute chest with chronic features.
[2024-07-22 12:53] LABS: VBG BASE EXCESS 4.3 (-2.0-2.0); VBG CARBOXYHEMOGLOBIN 4.1 % T HGB (0.0-6.9); VBG HCO3- 26.9 meq/L (22-28); VBG HEMOGLOBIN 13.1; VBG POTASSIUM 4.8 (3.5-5.1); VBG pH 7.52 (7.32-7.42)
[2024-07-22 13:00] LABS: Absolute Neutrophil Ct (ANC) 9.89 x10^3/uL (1.56-6.13); BASOPHIL % 0.2 % (0.1-1.2); Basophil (Absolute #) 0.02 x10^3/uL (0.01-0.08); Eosinophil (Absolute #) 0 x10^3/uL (0.04-0.36); Hematocrit 38.9 % (34.1-44.9); Hemoglobin 12.3 g/dL (11.2-15.7); IMMATURE GRAN # 0.06 x10^3u/L (0.001-0.031); IMMATURE GRAN % 0.5 % (0.001-0.429); Lymphocyte (Absolute #) 2.38 x10^3/uL (1.18-3.74); Lymphocytes % 18.2 % (19.3-51.7); Mean Cell Volume 93.1 fL (79.4-94.8); Mean Corpuscular Hemoglobin 29.4 pg (25.6-32.2); Mean Corpuscular Hgb Concent. 31.6 g/dL (32.2-35.5); Mean Platelet Volume 9.9 fL (9.4-12.3); Monocyte (Absolute #) 0.74 x10^3/uL (0.24-0.86); Monocytes % 5.7 % (4.7-12.5); Neutrophil % 75.4 % (34.0-71.1); Platelet Count 191 x10^3/uL (182-369); Red Blood Count 4.18 x10^6/uL (3.93-5.22); Red Cell Distribution Width 16.1 % (11.7-14.4); White Blood Count 13.1 x10^3/uL (3.98-10.04)
--- NOTE | 2024-07-22 13:03 | XRAY ---
Indication: Vertigo. Multiple contiguous axial images obtained through the head without contrast. Comparison: June 07, 2020 Again age-appropriate global atrophy and mild periventricular degenerative micro-ischemia bilaterally. New remote lacunar infarct right basal ganglia. No acute intracranial hemorrhage, abnormal extra-axial fluid collection, or mass effect. Fourth ventricle is midline without hydrocephalus. Bony calvarium intact. Visualized paranasal sinuses and mastoid air cells are clear. Impression: Again nonacute senile brain with new remote lacunar infarct right basal ganglia.
[2024-07-22 13:15] LABS: INR 1.13 (0.8-3.0); PROTIME 12.2 SECONDS (9.4-12.5)
[2024-07-22 13:24] LABS: Appearance Clear (Clear); Bacteria None Seen /HPF (None Seen); Bilirubin Negative (Negative); Blood Negative (Negative); Epithelial Cells None Seen /HPF (None Seen); Glucose, Urine 500 mg/dL (Negative); Ketones Negative (Negative); Leukocyte Esterase Negative (Negative); Nitrite Negative (Negative); Protein,Urine Dip Negative (Negative); RBC 0-2 /HPF (0-5); Urobilinogen 0.2 mg/dL (0.2); WBC 0-2 /HPF (0-5)
[2024-07-22 13:48] LABS: ALBUMIN 3.4 g/dL (3.5-5.0); ANION GAP 10.9 MEQ/L (5-15); BILIRUBIN,TOTAL 1.7 mg/dL (0.2-1.3); Calcium 8.4 mg/dL (8.4-10.2); Creatinine 1 0.97 mg/dL (0.52-1.04); EST GLOMERULAR FILTRATION RATE 56.2 ML/MIN; MAGNESIUM 2.1 mg/dL (1.6-2.3); Potassium 4.7 mmol/L (3.5-5.1); TSH, 3RD Generation 12.912 mIU/L (0.470-4.680)
[2024-07-22 14:15] VITALS: O2SAT 98
[2024-07-22 14:21] LABS: INFLUENZA A NEGATIVE (NEGATIVE); INFLUENZA B NEGATIVE (NEGATIVE); RESPIRATORY SYNCTIAL VIRUS NEGATIVE (NEGATIVE); SARS-CoV-2 Xpert Express NEGATIVE (NEGATIVE)
--- NOTE | 2024-07-22 14:56 | XRAY ---
Indication: Hyperbilirubinemia. Two-dimensional Limited right upper quadrant sonogram performed. Comparison: None Pancreas no well seen due to to overlying bowel gas. Gallbladder partially contracted without stones or pericholecystic fluid. Common bile duct measures 3.6 mm. No intrahepatic biliary distention. Visualized liver sonographically unremarkable. Right kidney measures 7.8 x 4.3 x 3.8 cm with nonobstructing punctate calculi. Impression: Nonvisualization pancreas. Nonobstructing right renal punctate calculi. Remaining right upper quadrant sonogram negative.
[2024-07-22 15:57] VITALS: BP 107/56; PULSE 63; RESP 18
== END 2024-07-22 15:58 | disposition home or self-care (01) ==
LOC: ED 11:34
DX: R06.09 Other forms of dyspnea (principal); E80.6 Other disorders of bilirubin metabolism; R42 Dizziness and giddiness; E03.9 Hypothyroidism, unspecified; I50.9 Heart failure, unspecified; E78.5 Hyperlipidemia, unspecified; Z79.01 Long term (current) use of anticoagulants; Z79.84 Long term (current) use of oral hypoglycemic drugs; Z79.899 Other long term (current) drug therapy
CPT/HCPCS: 0241U; 36415; 70450; 71045; 76705; 80053; 81001; 82550; 82805; 83605; 83690; 83735; 83880; 84145; 84443; 84484; 85025; 85610; 87040; 93005; 93041; 94760; 99285; 99284

== ENCOUNTER 2024-08-17 15:35 | Inpatient (IN) | payer MEDICARE, OTHER ==
--- NOTE | 2024-08-17 16:24 | PCM.HP ---
History of Present Illness - Chief Complaint Chief Complaint: gangreene toe Date: 08/17/24 History of Present Illness: is a 88 year old female with pmhx of peripheral neuropathy, CHF, Chronic a-fib, hyperlipidemia, bronchitis, OA, GERD, Pulm HTN, GERD, and PVD. Pt was being seen OP for BLLE wounds 2:2 PVD. She has gangrene of the R great toe. Podiatry asked that we admit pt and he will be taking pt to surgery in the AM. Pt was to have revascularization with Dr. Coon tomorrow but this is now on hold as Dr. Moise wants pt to be admitted and stay until next Thursday or Thursday. Will start broad spectrem antibiotocs as requested by podiatry. Will start IVF for dehydration. She denies any further concerns at this time. - Review of Systems Constitutional: No Fever, No Chills Eyes: No Symptoms Ears, Nose, & Throat: No Symptoms Respiratory: No Cough, No Short Of Breath Cardiac: No Chest Pain, No Edema, No Syncope Abdominal/Gastrointestinal: No Abdominal Pain, No Nausea, No Vomiting, No Diarrhea Genitourinary Symptoms: No Dysuria Musculoskeletal: No Back Pain, No Neck Pain Skin: Skin Lesions (BLLE), Other (Right great toe gangrene), No Rash Neurological: No Dizziness, No Focal Weakness, No Sensory Changes Psychological: No Symptoms Endocrine: No Symptoms Hematologic/Lymphatic: No Symptoms Immunological/Allergic: No Symptoms Medications & Allergies Home Medications: Home Medication List Pregabalin [Lyrica] 50 mg PO QAM 06/01/17 [History Confirmed 08/17/24] Sildenafil Citrate [Revatio] 20 mg PO TID 06/01/17 [History Confirmed 08/17/24] Atorvastatin Calcium [Lipitor 20MG Tablet] 20 mg PO HS 09/06/17 [History Confirmed 08/17/24] Apixaban [Eliquis] 2.5 mg PO BID 06/05/20 [History Confirmed 08/17/24] Omeprazole 20 mg PO DAILY 06/05/20 [History Confirmed 08/17/24] Pregabalin 200 mg PO QHS 06/05/20 [History Confirmed 08/17/24] Trazodone HCl 50 mg [Desyrel 50 mg] 50 mg PO HS 06/05/20 [History Confirmed 08/17/24] Prednisone 10 mg [Deltasone 10 mg] 10 mg PO DAILY 06/07/20 [History Confirmed 08/17/24] Empagliflozin [Jardiance] 10 mg PO DAILY 05/17/23 [History Confirmed 08/17/24] Metoprolol Tartrate 50 mg [Lopressor 50 MG] 50 mg PO BID 30 Days #60 tablet 05/19/23 [Rx Confirmed 08/17/24] Bumetanide 1 mg [Bumex 1 mg] 1 mg PO DAILY 07/10/23 [History Confirmed 08/17/24] Spironolactone 25 mg PO DAILY 08/10/23 [History Confirmed 08/17/24] Levothyroxine Sodium 75 Mcg [Synthroid 75 Mcg] 100 mcg PO DAILY 09/17/23 [History Confirmed 08/17/24] Denosumab 60 mg [Prolia 60 mg Injection] 60 mg SQ UD 02/08/24 [History Confirmed 08/17/24] Digoxin 0.125 mg Tablet [Lanoxin 0.125MG TABLET] 0.125 mg PO .MWF 02/08/24 [History Confirmed 08/17/24] Metolazone 2.5 mg [Zaroxolyn 2.5 MG] 2.5 mg PO .THURSDAY/Thursday02/08/24 [History Confirmed 08/17/24] Midodrine HCl 2.5 mg PO TID 02/08/24 [History Confirmed 08/17/24] Hydrocodone/Acetaminophen [[place] 10-325 mg] 1 tab PO BID PRN PRN 08/17/24 [History Confirmed 08/17/24] Allergies/Adverse Reactions: Allergies Allergy/AdvReac Type Severity Reaction Status Date / Time amlodipine [From Norvasc] Allergy Swelling Verified 08/17/24 14:00 cefuroxime Allergy Verified 08/17/24 11:26 cephalexin [From Keflex] Allergy Hives Verified 08/17/24 14:00 gabapentin [From Neurontin] Allergy HAIR LOSS Verified 08/17/24 14:00 Sulfa (Sulfonamide Allergy Hives Verified 08/17/24 14:00 Antibiotics) - Past Medical History Past Medical History: Yes Neurological History: Peripheral Neuropathy ENT History: No Pertinent History Cardiac History: Arrhythmia, Congestive Heart Failure, High Cholesterol Respiratory History: Bronchitis Endocrine Medical History: No Pertinent History Musculoskelatal History: Osteoarthritis, Osteoporosis GI Medical History: GERD History: No Pertinent History Pyscho-Social History: No Pertinent History Reproductive Disorders: No Pertinent History Comment: HX OF PULMONARY HTN, ASTHMA/BRONCHITIS. MULTIPLE P.T. INTERVENTIONS FOR WOUND CARE. CHronic Afib - Past Surgical History Past Surgical History: Yes Neuro Surgical History: No Pertinent History Cardiac History: No Pertinent History Respiratory Surgery: No Pertinent History GI Surgical History: No Pertinent History Genitourinary Surgical Hx: No Pertinent History Musculskeletal Surgical Hx: Orthopedic Surgery Female Surgical History: No Pertinent History Other Surgical History: back surgery. ANGIOGRAM Significant Family History: no pertinent family hx - Social History Smoking Status: Never smoker Exposure to second hand smoke: No Alcohol: None Drug Use: none - Social Determinants of Health Will the patient participate in the screening: Yes Do you worry about a steady place to live?: No In the past 12 months,have you had to go without utilities?: No Have you or anyone in your house had to go without enough: No Transportation Issues: No Has anyone in your support network made you feel unsafe?: No Does the patient want assistance with any of the above?: No - Physical Exam General Appearance: no apparent distress, alert Neurologic Exam: alert, oriented x 3, cooperative, normal mood/affect, nml cerebellar function, nml station & gait, sensation nml, No motor deficits Eye Exam: PERRL/EOMI, eyes nml inspection Ears, Nose, Throat Exam: normal ENT inspection, TMs normal, pharynx normal, moist mucous membranes Neck Exam: normal inspection, non-tender, supple, full range of motion Respiratory Exam: normal breath sounds, lungs clear, No respiratory distress Cardiovascular Exam: regular rate/rhythm, normal heart sounds, normal peripheral pulses Gastrointestinal/Abdomen Exam: soft, normal bowel sounds, No tenderness, No mass Back Exam: normal inspection, normal range of motion, No CVA tenderness, No vertebral tenderness Extremity Exam: normal inspection, normal range of motion, pelvis stable Skin Exam: normal color, warm, dry, other (wound of right great toe, BLLE wounds- see pics in chart), No rash Lymphatic Exam: No adenopathy Assessment/Plan (1) Gangrene of toe of right foot Current Visit: Yes Status: Acute Assessment & Plan: - R great toe - D/T drug allergies vancomycin, flagyl, and levaquin started - Probiotics - NPO after midnight - Plan is to have surgery in AM with podiatry- Dr. Moise - WBC 13.0 - CBC, CMP reviewed - Tele Code(s): I96 - GANGRENE, NOT ELSEWHERE CLASSIFIED (2) Dehydration Current Visit: Yes Status: Acute Assessment & Plan: - NS @ 50 ml/hr - Anion gap 16.7 - CMP reviewed Code(s): E86.0 - DEHYDRATION (3) PAD (peripheral artery disease) Current Visit: No Status: Chronic Assessment & Plan: - Noted - Was to have revascular procedure with Dr. Coon tomorrow but now on hold until possibly next week. Code(s): I73.9 - PERIPHERAL VASCULAR DISEASE, UNSPECIFIED (4) Venous insufficiency of both lower extremities Current Visit: No Status: Chronic Assessment & Plan: - Known hx - adds to complexity Code(s): I87.2 - VENOUS INSUFFICIENCY (CHRONIC) (PERIPHERAL) (5) Chronic atrial fibrillation Current Visit: No Status: Chronic Assessment & Plan: - Hold Eliquis for surgery in AM Code(s): I48.20 - CHRONIC ATRIAL FIBRILLATION, UNSPECIFIED (6) Chronic diastolic (congestive) heart failure Current Visit: No Status: Chronic Assessment & Plan: - Continue home meds - Not in current exacerbation - Continue home meds - Low Na+ diet - Echo 07/20/24: EF 55% IMPRESSION: 1) NORMAL LEFT VENTRICULAR SIZE. 2) NORMAL LEFT VENTRICULAR SYSTOLIC FUNCTION. 3) SEVERE BIATRIAL ENLARGEMENT. 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 5) MILD TO MODERATE MITRAL REGURGITATION, MILD AORTIC INSUFFICIENCY. 6) MILD TO MODERATE TRICUSPID REGURGITATION AND MILD PULMONIC INSUFFICIENCY WITH EVIDENCE OF MILD PULMONARY HYPERTENSION. 7) MILD RIGHT VENTRICULAR ENLARGEMENT. Code(s): I50.32 - CHRONIC DIASTOLIC (CONGESTIVE) HEART FAILURE (7) GERD (gastroesophageal reflux disease) Current Visit: No Status: Chronic Assessment & Plan: - Continue omeprazole Code(s): K21.9 - GASTRO-ESOPHAGEAL REFLUX DISEASE WITHOUT ESOPHAGITIS (8) Hypothyroidism Current Visit: No Status: Chronic Assessment & Plan: - Continue synthroid Code(s): E03.9 - HYPOTHYROIDISM, UNSPECIFIED (9) Hyperlipidemia Current Visit: No Status: Chronic Assessment & Plan: - Continue statin VTE: Eliquis held for surgery PPI: omeprazole Next of KIN: Daughter Naomie Han D/C plan: 6-7 days per podiatry recs Code status: SCO Code(s): E78.5 - HYPERLIPIDEMIA, UNSPECIFIED Telemedicine Encounter - Telemedicine Encounter Telemedicine Encounter: "The entirety of this encounter was performed via Telemedicine" This visit was performed using real-time audio and video connection between my location and thepatients locationwith the assistance of a surrogateat the patients location. Written or verbal consent was obtained from the patient/guardian to perform this visit using[facility] technology. Any patient questions regarding the telemedicine interaction were answered.
[2024-08-17] MEDS ORDERED: LEVOFLOXACIN 750MG/150ML D5W 750 MG/150 ML BAG IV STA (17:00)
[2024-08-17] MEDS: Sodium Chloride 0.9% 1000 ML 1,000 ML IV SCH (17:52)
[2024-08-17] MEDS: Levofloxacin 500MG/100ML D5W 500 MG/100 ML BAG IV SCH (18:11)
[2024-08-17] MEDS: Levaquin 250MG/50ML D5W 250 MG/50 ML BAG IV ONE (18:12)
[2024-08-17] MEDS: Acidophilus TABLET PO SCH (19:00)
[2024-08-17] MEDS: FLAGYL 500 MG IVPB 500 MG/100 ML BAG IV SCH (20:19)
[2024-08-17] MEDS: VANCOCIN 500 MG VIAL*** 500 MG in Sodium Chloride 100ML MINI-BAG PLUS 100 ML IV SCH (22:40)
[2024-08-17] MEDS: PHARMACY DOSING REQUIRED: VANCOMYCIN IV STA (22:40)
[2024-08-17] MEDS: DESYREL 50 MG PO SCH (22:42)
[2024-08-17] MEDS: LYRICA 100MG PO SCH (22:42)
[2024-08-17] MEDS: NORCO 10-325 MG PO PRN (22:43)
[2024-08-18 05:43] LABS: Hematocrit 33.3 % (34.1-44.9); Hemoglobin 10.3 g/dL (11.2-15.7); Mean Cell Volume 90.5 fL (79.4-94.8); Mean Corpuscular Hgb Concent. 30.9 g/dL (32.2-35.5); Mean Platelet Volume 10.1 fL (9.4-12.3); Platelet Count 168 x10^3/uL (182-369); Red Blood Count 3.68 x10^6/uL (3.93-5.22); Red Cell Distribution Width 16.3 % (11.7-14.4); White Blood Count 8.7 x10^3/uL (3.98-10.04)
[2024-08-18] MEDS ORDERED: Marcaine Mpf 0.5% Vial 30 Ml ONE (06:06)
[2024-08-18] MEDS ORDERED: Xylocaine 1% Vial 30 ML PF IJ ONE (06:06)
[2024-08-18 06:09] LABS: ALBUMIN 2.9 g/dL (3.5-5.0); BILIRUBIN,TOTAL 0.6 mg/dL (0.2-1.3); Creatinine 1 0.99 mg/dL (0.52-1.04); EST GLOMERULAR FILTRATION RATE 54.8 ML/MIN; Potassium 3.6 mmol/L (3.5-5.1); Total Protein 5.3 g/dL (6.3-8.2)
[2024-08-18] MEDS ORDERED: propofoL IV ONE (06:10)
[2024-08-18] MEDS ORDERED: SUBLIMAZE 100 MCG/2 ML ONE (06:27)
[2024-08-18] MEDS ORDERED: Sodium Chloride 0.9% 1000 ML 1,000 ML ONE (06:54)
[2024-08-18] MEDS ORDERED: NORCO 10-325 MG PO PRN (08:42)
[2024-08-18] MEDS ORDERED: DENOSUMAB SQ SCH (08:45)
[2024-08-18] MEDS: Oxy-IR 5 MG PO PRN (09:07)
[2024-08-18] MEDS: BUMEX 1 MG PO SCH (09:44)
[2024-08-18] MEDS: DELTASONE 10 MG PO SCH (09:44)
[2024-08-18] MEDS: Lyrica 50MG PO SCH (09:44)
[2024-08-18] MEDS: Aldactone 25 MG PO SCH (09:45)
[2024-08-18] MEDS: Lopressor 50 MG PO SCH (09:45)
[2024-08-18] MEDS: SILDENAFIL CITRATE PO SCH (09:45)
[2024-08-18] MEDS: ELIQUIS 2.5 MG TABLET PO SCH (09:45)
[2024-08-18] MEDS: SYNTHROID 100 MCG PO SCH (09:45)
[2024-08-18] MEDS: Protonix 40MG Tablet PO SCH (09:45)
[2024-08-18] MEDS: JARDIANCE PO SCH (09:46)
[2024-08-18] MEDS: DAPTOmycin 500 MG in Sodium Chloride Flush 30 ML*** 10 ML IV SCH (09:51)
[2024-08-18] MEDS ORDERED: LEVOFLOXACIN 750MG/150ML D5W 750 MG/150 ML BAG IV SCH (10:00)
[2024-08-18] MEDS ORDERED: VANCOCIN 500 MG VIAL*** 500 MG in Sodium Chloride 100ML MINI-BAG PLUS 100 ML IV SCH (10:00)
[2024-08-18] MEDS: PROAMATINE PO SCH (12:05)
--- NOTE | 2024-08-18 14:07 | PCM.NOTE ---
Date and Time: 08/18/24 1359 Subjective Assessment: 08/17/24 is a 88 year old female with pmhx of peripheral neuropathy, CHF, Chronic a-fib, hyperlipidemia, bronchitis, OA, GERD, Pulm HTN, GERD, and PVD. Pt was being seen OP for BLLE wounds 2:2 PVD. She has gangrene of the R great toe. Podiatry asked that we admit pt and he will be taking pt to surgery in the AM. Pt was to have revascularization with Dr. Coon tomorrow but this is now on hold as Dr. Moise wants pt to be admitted and stay until next Thursday or Thursday. Will start broad spectrem antibiotocs as requested by podiatry. Will start IVF for dehydration. She denies any further concerns at this time. 08/18/24 Pt resting in bed. She has surgery this AM with podiatry and having some post op pain. Pain medication provided by nursing. Per podiatry he would like her on daptomycin. Discussed with and will keep on flagyl according to guidelines for gangrene treatment. WBC improved 8.7. She denies any further concerns at this time. - Review of Systems Constitutional: No Fever, No Chills Eyes: No Symptoms Ears, Nose, & Throat: No Symptoms Respiratory: No Cough, No Short Of Breath Cardiac: No Chest Pain, No Edema, No Syncope Abdominal/Gastrointestinal: No Abdominal Pain, No Nausea, No Vomiting, No Diarrhea Genitourinary Symptoms: No Dysuria Musculoskeletal: No Back Pain, No Neck Pain Skin: Other (Right foot pain), No Rash Neurological: No Dizziness, No Focal Weakness, No Sensory Changes Psychological: No Symptoms Endocrine: No Symptoms Hematologic/Lymphatic: No Symptoms Immunological/Allergic: No Symptoms Objective Exam General Appearance: no apparent distress, alert Neurologic Exam: alert, oriented x 3, cooperative, normal mood/affect, nml cerebellar function, sensation nml, No motor deficits Skin Exam: normal color, warm, dry Wound Assessment: Skin/Wound Assessment Wound/Incision Assessment Start: 08/18/24 03:38 Text: Status: Active Freq: Q6H Protocol: Document 08/18/24 13:41 [facility] (Rec: 08/18/24 13:43 [facility] [id number]) Wound/Incision Assessment Bilateral Upper Medial Leg Wound Assessment Shift Assessment Wound Type Skin Tear Wound Stage Non Pressure Wound General Appearance Open to air Comment Healing skin tears, open to air, no drainage noted. Right Arm Wound Assessment Shift Assessment Wound Type Skin Tear Wound Stage Non Pressure Wound Dressing Status Dry & Intact Drainage Amount None Comment Skin tear near PICC site noted all covered with tegaderm and gauze Right Medial Calf Wound Assessment Shift Assessment Dressing Status Dry & Intact Drainage Amount None Comment POD #0, Unable to Assess d/t drsg. Drsg includes adaptic, ABD, 4x4, Kerlex x2, 4 in and 6 in CARMENCITA. No shadowing noted. Left Upper Calf Wound Assessment Shift Assessment Wound Type Skin Tear Wound Stage Non Pressure Wound Drainage Amount None General Appearance Open to air Comment Open to air, no drainage at this time. Right Great Toe Wound Assessment Shift Assessment Wound Type Amputation Wound Stage Non Pressure Wound Dressing Status Dry & Intact Drainage Amount None Comment POD #0, Unable to Assess d/t drsg. Drsg includes adaptic, ABD, 4x4, Kerlex x2, 4 in. and 6 in. CARMEN[place]A wrap, No shadowing noted. Wound Photo Photo Taken No Eye Exam: PERRL, EOMI, eyes nml inspection Ears, Nose, Throat Exam: normal ENT inspection, pharynx normal, moist mucous membranes Neck Exam: normal inspection, non-tender, supple, full range of motion Respiratory Exam: normal breath sounds, lungs clear, No respiratory distress Cardiovascular Exam: regular rate/rhythm, normal heart sounds Gastrointestinal/Abdomen Exam: soft, No tenderness, No mass Extremity Exam: normal inspection, normal range of motion, tenderness (RLE, Wrapped) Back Exam: normal inspection, normal range of motion, No CVA tenderness, No vertebral tenderness Pelvic Exam: deferred Rectal Exam: deferred Objective Data Vital Signs: Vital Signs - 24 hr Temp Pulse Resp BP Pulse Ox 08/18/24 10:45 96.7 F 65 16 127/60 94 L 08/18/24 09:45 87 15 152/78 95 08/18/24 09:15 78 16 166/87 95 08/18/24 08:45 79 16 168/76 94 L 08/18/24 08:30 97.6 F 65 16 146/70 94 L 08/18/24 06:18 97.1 F 87 20 135/65 93 L 08/18/24 04:15 97.1 F 87 20 135/65 93 L 08/17/24 20:55 93 L 08/17/24 20:00 97.1 F 76 20 135/60 93 L 08/17/24 17:36 91 L 08/17/24 16:37 96.9 F 71 20 140/65 90 L 08/17/24 15:57 96.9 F 71 18 140/65 96 Pain Assessment - Last Documented Pain Intensity 4 Pain Scale Used 0-10 Pain Scale Intake and Output: Intake & Output 08/16/24 08/17/24 08/18/24 08/19/24 11:59 11:59 11:59 11:59 Intake Total 1278 120 Balance 1278 120 Weight 58 kg Lab Results: Lab Results-Last 24 Hours 08/18/24 08/18/24 Range/Units 05:34 05:34 WBC 8.7 (3.98-10.04) x10^3/uL RBC 3.68 L (3.93-5.22) x10^6/uL Hgb 10.3 L (11.2-15.7) g/dL Hct 33.3 L (34.1-44.9) % MCV 90.5 (79.4-94.8) fL MCH 28.0 (25.6-32.2) pg MCHC 30.9 L (32.2-35.5) g/dL RDW 16.3 H (11.7-14.4) % Plt Count 168 L (182-369) x10^3/uL MPV 10.1 (9.4-12.3) fL Sodium 139 (135-145) mmol/L Potassium 3.6 (3.5-5.1) mmol/L Chloride 100 (98-107) mmol/L Carbon Dioxide 30 (22-30) mmol/L Anion Gap 13.0 (5-15) MEQ/L BUN 34 H (7-17) mg/dL Creatinine 0.99 (0.52-1.04) mg/dL Estimated GFR 54.8 ML/MIN Glucose 78 (74-106) mg/dL Calcium 8.0 L (8.4-10.2) mg/dL Total Bilirubin 0.60 (0.2-1.3) mg/dL AST 22 (14-36) U/L ALT 13 (0-35) U/L Alkaline Phosphatase 49 (38-126) U/L Serum Total Protein 5.3 L (6.3-8.2) g/dL Albumin 2.9 L (3.5-5.0) g/dL Multi-Disciplinary Progress Notes: Multi-Disciplinary Progress Notes 08/18/24 09:11 Pharmacy Note by Gumaro Giordano Please be aware of possible drug interaction with Cubicin and Lipitor. May increase the risk of skeletal muscle toxicity. Initialized on 08/18/24 09:11 - END OF NOTE 08/18/24 08:36 Pharmacy Note by Gumaro Giordano Levaquin dose decreased to 750mg q48h per renal dosing policy. Estimated crcl is 27ml/min. Initialized on 08/18/24 08:36 - END OF NOTE Assessment/Plan (1) Gangrene of toe of right foot Current Visit: Yes Status: Acute Code(s): I96 - GANGRENE, NOT ELSEWHERE CLASSIFIED (2) Dehydration Current Visit: Yes Status: Acute Code(s): E86.0 - DEHYDRATION (3) PAD (peripheral artery disease) Current Visit: No Status: Chronic Code(s): I73.9 - PERIPHERAL VASCULAR DISEASE, UNSPECIFIED (4) Venous insufficiency of both lower extremities Current Visit: No Status: Chronic Code(s): I87.2 - VENOUS INSUFFICIENCY (CHRONIC) (PERIPHERAL) (5) Chronic atrial fibrillation Current Visit: No Status: Chronic Code(s): I48.20 - CHRONIC ATRIAL FIBRILLATION, UNSPECIFIED (6) Chronic diastolic (congestive) heart failure Current Visit: No Status: Chronic Code(s): I50.32 - CHRONIC DIASTOLIC (CONGESTIVE) HEART FAILURE (7) GERD (gastroesophageal reflux disease) Current Visit: No Status: Chronic Code(s): K21.9 - GASTRO-ESOPHAGEAL REFLUX DISEASE WITHOUT ESOPHAGITIS (8) Hypothyroidism Current Visit: No Status: Chronic Code(s): E03.9 - HYPOTHYROIDISM, UNSPECIFIED (9) Hyperlipidemia Current Visit: No Status: Chronic Assessment & Plan: 1) Gangrene of toe of right foot Current Visit: Yes Status: Acute Assessment & Plan: - R great toe - D/T drug allergies vancomycin, flagyl, and levaquin started - Probiotics - NPO after midnight - Plan is to have surgery in AM with podiatry- Dr. Moise - WBC 13.0 - CBC, CMP reviewed - Tele 08/18 - WBC 8.7 - CBC, CMP reviewed - Surgery this AM with podiatry- POD #1 - Antibiotics changed to Daptomycin per podiatry - Keep Flagyl per guidelines - PICC placed yesterday OP Code(s): I96 - GANGRENE, NOT ELSEWHERE CLASSIFIED (2) Dehydration Current Visit: Yes Status: Acute Assessment & Plan: - NS @ 50 ml/hr - Anion gap 16.7 - CMP reviewed 08/18 - resolved - IVF stopped Code(s): E86.0 - DEHYDRATION (3) PAD (peripheral artery disease) Current Visit: No Status: Chronic Assessment & Plan: - Noted - Was to have revascular procedure with Dr. Coon tomorrow but now on hold until possibly next week. Code(s): I73.9 - PERIPHERAL VASCULAR DISEASE, UNSPECIFIED (4) Venous insufficiency of both lower extremities Current Visit: No Status: Chronic Assessment & Plan: - Known hx - adds to complexity Code(s): I87.2 - VENOUS INSUFFICIENCY (CHRONIC) (PERIPHERAL) (5) Chronic atrial fibrillation Current Visit: No Status: Chronic Assessment & Plan: - Hold Eliquis for surgery in AM 08/18 - Continue Eliquis per podiatry Code(s): I48.20 - CHRONIC ATRIAL FIBRILLATION, UNSPECIFIED (6) Chronic diastolic (congestive) heart failure Current Visit: No Status: Chronic Assessment & Plan: - Continue home meds - Not in current exacerbation - Continue home meds - Heart healthy diet - Echo 07/20/24: EF 55% IMPRESSION: 1) NORMAL LEFT VENTRICULAR SIZE. 2) NORMAL LEFT VENTRICULAR SYSTOLIC FUNCTION. 3) SEVERE BIATRIAL ENLARGEMENT. 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 5) MILD TO MODERATE MITRAL REGURGITATION, MILD AORTIC INSUFFICIENCY. 6) MILD TO MODERATE TRICUSPID REGURGITATION AND MILD PULMONIC INSUFFICIENCY WITH EVIDENCE OF MILD PULMONARY HYPERTENSION. 7) MILD RIGHT VENTRICULAR ENLARGEMENT. Code(s): I50.32 - CHRONIC DIASTOLIC (CONGESTIVE) HEART FAILURE (7) GERD (gastroesophageal reflux disease) Current Visit: No Status: Chronic Assessment & Plan: - Continue omeprazole Code(s): K21.9 - GASTRO-ESOPHAGEAL REFLUX DISEASE WITHOUT ESOPHAGITIS (8) Hypothyroidism Current Visit: No Status: Chronic Assessment & Plan: - Continue synthroid Code(s): E03.9 - HYPOTHYROIDISM, UNSPECIFIED (9) Hyperlipidemia Current Visit: No Status: Chronic Assessment & Plan: - Continue statin VTE: Eliquis held for surgery PPI: omeprazole Next of KIN: Daughter - Emely D/C plan: Thursday or Thursday per podiatry recs Code status: SCO Code(s): E78.5 - HYPERLIPIDEMIA, UNSPECIFIED Code(s): E78.5 - HYPERLIPIDEMIA, UNSPECIFIED
[2024-08-18] MEDS: Docusate Sodium 100 MG PO PRN (14:52)
[2024-08-18] MEDS: LYRICA 100MG PO SCH (21:59)
[2024-08-18] MEDS ORDERED: LIPITOR 40MG PO SCH (22:00)
[2024-08-18] MEDS ORDERED: DESYREL 50 MG PO SCH (22:00)
[2024-08-19 04:41] LABS: Hematocrit 37.3 % (34.1-44.9); Hemoglobin 11.3 g/dL (11.2-15.7); Mean Cell Volume 92.3 fL (79.4-94.8); Mean Corpuscular Hgb Concent. 30.3 g/dL (32.2-35.5); Mean Platelet Volume 9.7 fL (9.4-12.3); Platelet Count 185 x10^3/uL (182-369); Red Blood Count 4.04 x10^6/uL (3.93-5.22); Red Cell Distribution Width 16.6 % (11.7-14.4); White Blood Count 14.7 x10^3/uL (3.98-10.04)
[2024-08-19 05:03] LABS: ANION GAP 12.2 MEQ/L (5-15); Calcium 8.1 mg/dL (8.4-10.2); Creatinine 1 1.02 mg/dL (0.52-1.04); EST GLOMERULAR FILTRATION RATE 52.9 ML/MIN; Potassium 4.2 mmol/L (3.5-5.1)
[2024-08-19] MEDS: Zaroxolyn 2.5 MG PO SCH (09:13)
[2024-08-19] MEDS: Lanoxin 0.125MG TABLET PO SCH (09:14)
--- NOTE | 2024-08-19 09:44 | PCM.NOTE ---
Date and Time: 08/19/24 0937 Subjective Assessment: 08/17/24 is a 88 year old female with pmhx of peripheral neuropathy, CHF, Chronic a-fib, hyperlipidemia, bronchitis, OA, GERD, Pulm HTN, GERD, and PVD. Pt was being seen OP for BLLE wounds 2:2 PVD. She has gangrene of the R great toe. Podiatry asked that we admit pt and he will be taking pt to surgery in the AM. Pt was to have revascularization with Dr. Coon tomorrow but this is now on hold as Dr. Moise wants pt to be admitted and stay until next Thursday or Thursday. Will start broad spectrem antibiotocs as requested by podiatry. Will start IVF for dehydration. She denies any further concerns at this time. 08/18/24 Pt resting in bed. She has surgery this AM with podiatry and having some post op pain. Pain medication provided by nursing. Per podiatry he would like her on daptomycin. Discussed with and will keep on flagyl according to guidelines for gangrene treatment. WBC improved 8.7. She denies any further concerns at this time. 08/19/24 Pt resting in bed. She reported she had some pain in her foot when she woke up this morning but now controlled. Podiatry changed dressing. Wound is closed and appears to be healing well w/o redness or edema. Continue IV antibiotics for gangrene. She denies CP, SOB, abd. pain, N/V/D. - Review of Systems Constitutional: No Fever, No Chills Eyes: No Symptoms Ears, Nose, & Throat: No Symptoms Respiratory: No Cough, No Short Of Breath Cardiac: No Chest Pain, No Edema, No Syncope Abdominal/Gastrointestinal: No Abdominal Pain, No Nausea, No Vomiting, No Diarrhea Genitourinary Symptoms: No Dysuria Musculoskeletal: No Back Pain, No Neck Pain Skin: Skin Lesions (right large toe amputation- closed), Other (wound RLE), No Rash Neurological: No Dizziness, No Focal Weakness, No Sensory Changes Psychological: No Symptoms Endocrine: No Symptoms Hematologic/Lymphatic: No Symptoms Immunological/Allergic: No Symptoms Objective Exam General Appearance: no apparent distress, alert Neurologic Exam: alert, oriented x 3, cooperative, normal mood/affect, nml cerebellar function, sensation nml, No motor deficits Skin Exam: normal color, warm, dry Wound Assessment: Skin/Wound Assessment Wound/Incision Assessment Start: 08/18/24 03:38 Text: Status: Active Freq: Q6H Protocol: Document 08/19/24 08:00 [facility] (Rec: 08/19/24 08:39 [facility] [id number]) Wound/Incision Assessment Bilateral Upper Medial Leg Wound Assessment Shift Assessment Wound Type Skin Tear Wound Stage Non Pressure Wound General Appearance Open to air Comment Healing skin tears, open to air, no drainage noted. - remains true Right Arm Wound Assessment Shift Assessment Wound Type Skin Tear Wound Stage Non Pressure Wound Dressing Status Dry & Intact Drainage Amount None Comment Skin tear near PICC site noted all covered with tegaderm and gauze, Skin tear on forearm covered with bandage - remains true Right Medial Calf Wound Assessment Shift Assessment Wound Type Incision Dressing Status Changed Drainage Amount None Comment POD #1, Drsg changed by podiatry staff. Left Upper Calf Wound Assessment Shift Assessment Wound Type Skin Tear Wound Stage Non Pressure Wound Drainage Amount None Primary Dressing Non-Adherent Gauze Pads Comment No drainage noted - remains true Right Great Toe Wound Assessment Shift Assessment Wound Type Amputation Wound Stage Non Pressure Wound Dressing Status Changed Comment POD #1, Drsg changed by podiatry staff. Wound Photo Photo Taken No Eye Exam: PERRL, EOMI, eyes nml inspection Ears, Nose, Throat Exam: normal ENT inspection, pharynx normal, moist mucous membranes Neck Exam: normal inspection, non-tender, supple, full range of motion Respiratory Exam: normal breath sounds, lungs clear, No respiratory distress Cardiovascular Exam: regular rate/rhythm, normal heart sounds Gastrointestinal/Abdomen Exam: soft, No tenderness, No mass Extremity Exam: normal inspection, normal range of motion, tenderness (RLE), other (Right great toe amputation- closed, wound RLE) Back Exam: normal inspection, normal range of motion, No CVA tenderness, No vertebral tenderness Pelvic Exam: deferred Rectal Exam: deferred Objective Data Vital Signs: Vital Signs - 24 hr Temp Pulse Resp BP BP Pulse Ox 08/19/24 09:14 80 116/54 08/19/24 08:00 97.4 F 93 H 15 128/60 91 L 08/19/24 04:00 97.5 F 76 15 130/88 08/19/24 00:00 97.1 F 84 15 138/78 08/18/24 20:25 91 L 08/18/24 20:00 97.5 F 75 17 117/56 91 L 08/18/24 16:00 97.4 F 79 16 135/73 95 08/18/24 10:45 96.7 F 65 16 127/60 94 L 08/18/24 09:45 87 15 152/78 95 Pain Assessment - Last Documented Pain Intensity 10 Pain Scale Used 0-10 Pain Scale Intake and Output: Intake & Output 08/16/24 08/17/24 08/18/24 08/19/24 11:59 11:59 11:59 11:59 Intake Total 1278 1439 Balance 1278 1439 Weight 58 kg Lab Results: Lab Results-Last 24 Hours 08/19/24 08/19/24 Range/Units 04:40 04:40 WBC 14.7 H (3.98-10.04) x10^3/uL RBC 4.04 (3.93-5.22) x10^6/uL Hgb 11.3 (11.2-15.7) g/dL Hct 37.3 (34.1-44.9) % MCV 92.3 (79.4-94.8) fL MCH 28.0 (25.6-32.2) pg MCHC 30.3 L (32.2-35.5) g/dL RDW 16.6 H (11.7-14.4) % Plt Count 185 (182-369) x10^3/uL MPV 9.7 (9.4-12.3) fL Sodium 137 (135-145) mmol/L Potassium 4.2 (3.5-5.1) mmol/L Chloride 100 (98-107) mmol/L Carbon Dioxide 29 (22-30) mmol/L Anion Gap 12.2 (5-15) MEQ/L BUN 31 H (7-17) mg/dL Creatinine 1.02 (0.52-1.04) mg/dL Estimated GFR 52.9 ML/MIN Glucose 82 (74-106) mg/dL Calcium 8.1 L (8.4-10.2) mg/dL Assessment/Plan (1) Gangrene of toe of right foot Current Visit: Yes Status: Acute Code(s): I96 - GANGRENE, NOT ELSEWHERE CLASSIFIED (2) Dehydration Current Visit: Yes Status: Acute Code(s): E86.0 - DEHYDRATION (3) PAD (peripheral artery disease) Current Visit: No Status: Chronic Code(s): I73.9 - PERIPHERAL VASCULAR DISEASE, UNSPECIFIED (4) Venous insufficiency of both lower extremities Current Visit: No Status: Chronic Code(s): I87.2 - VENOUS INSUFFICIENCY (CHRONIC) (PERIPHERAL) (5) Chronic atrial fibrillation Current Visit: No Status: Chronic Code(s): I48.20 - CHRONIC ATRIAL FIBRILLATION, UNSPECIFIED (6) Chronic diastolic (congestive) heart failure Current Visit: No Status: Chronic Code(s): I50.32 - CHRONIC DIASTOLIC (CONGESTIVE) HEART FAILURE (7) GERD (gastroesophageal reflux disease) Current Visit: No Status: Chronic Code(s): K21.9 - GASTRO-ESOPHAGEAL REFLUX DISEASE WITHOUT ESOPHAGITIS (8) Hypothyroidism Current Visit: No Status: Chronic Code(s): E03.9 - HYPOTHYROIDISM, UNSPECIFIED (9) Hyperlipidemia Current Visit: No Status: Chronic Assessment & Plan: 1) Gangrene of toe of right foot Current Visit: Yes Status: Acute Assessment & Plan: - R great toe - D/T drug allergies vancomycin, flagyl, and levaquin started - Probiotics - NPO after midnight - Plan is to have surgery in AM with podiatry- Dr. Moise - WBC 13.0 - CBC, CMP reviewed - Tele - Narcotic pain control 08/18 - WBC 8.7 - CBC, CMP reviewed - Surgery this AM with podiatry- POD #1 - Antibiotics changed to Daptomycin per podiatry - Keep Flagyl per guidelines - PICC placed yesterday OP 08/19 - WBC 14.7 - Continue IV antibiotics - Podiatry changed dressing today - CBC, CMP reviewed - POD #2 Code(s): I96 - GANGRENE, NOT ELSEWHERE CLASSIFIED (2) Dehydration Current Visit: Yes Status: Acute Assessment & Plan: - NS @ 50 ml/hr - Anion gap 16.7 - CMP reviewed 08/18 - resolved - IVF stopped Code(s): E86.0 - DEHYDRATION (3) PAD (peripheral artery disease) Current Visit: No Status: Chronic Assessment & Plan: - Noted - Was to have revascular procedure with Dr. Coon tomorrow but now on hold until possibly next week. Code(s): I73.9 - PERIPHERAL VASCULAR DISEASE, UNSPECIFIED (4) Venous insufficiency of both lower extremities Current Visit: No Status: Chronic Assessment & Plan: - Known hx - adds to complexity Code(s): I87.2 - VENOUS INSUFFICIENCY (CHRONIC) (PERIPHERAL) (5) Chronic atrial fibrillation Current Visit: No Status: Chronic Assessment & Plan: - Hold Eliquis for surgery in AM 08/18 - Continue Eliquis per podiatry Code(s): I48.20 - CHRONIC ATRIAL FIBRILLATION, UNSPECIFIED (6) Chronic diastolic (congestive) heart failure Current Visit: No Status: Chronic Assessment & Plan: - Continue home meds - Not in current exacerbation - Continue home meds - Heart healthy diet - Echo 07/20/24: EF 55% IMPRESSION: 1) NORMAL LEFT VENTRICULAR SIZE. 2) NORMAL LEFT VENTRICULAR SYSTOLIC FUNCTION. 3) SEVERE BIATRIAL ENLARGEMENT. 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 5) MILD TO MODERATE MITRAL REGURGITATION, MILD AORTIC INSUFFICIENCY. 6) MILD TO MODERATE TRICUSPID REGURGITATION AND MILD PULMONIC INSUFFICIENCY WITH EVIDENCE OF MILD PULMONARY HYPERTENSION. 7) MILD RIGHT VENTRICULAR ENLARGEMENT. Code(s): I50.32 - CHRONIC DIASTOLIC (CONGESTIVE) HEART FAILURE (7) GERD (gastroesophageal reflux disease) Current Visit: No Status: Chronic Assessment & Plan: - Continue omeprazole Code(s): K21.9 - GASTRO-ESOPHAGEAL REFLUX DISEASE WITHOUT ESOPHAGITIS (8) Hypothyroidism Current Visit: No Status: Chronic Assessment & Plan: - Continue synthroid Code(s): E03.9 - HYPOTHYROIDISM, UNSPECIFIED (9) Hyperlipidemia Current Visit: No Status: Chronic Assessment & Plan: - Continue statin VTE: Eliquis held for surgery PPI: omeprazole Next of KIN: Daughter - Emely D/C plan: Thursday or Thursday per podiatry recs Code status: SCO Code(s): E78.5 - HYPERLIPIDEMIA, UNSPECIFIED Code(s): E78.5 - HYPERLIPIDEMIA, UNSPECIFIED
[2024-08-19] MEDS ORDERED: Levofloxacin 500MG/100ML D5W 500 MG/100 ML BAG IV SCH (19:00)
[2024-08-19] MEDS ORDERED: Levaquin 250MG/50ML D5W 250 MG/50 ML BAG IV SCH (20:00)
[2024-08-20 05:30] LABS: Hematocrit 35.3 % (34.1-44.9); Hemoglobin 10.9 g/dL (11.2-15.7); Mean Cell Volume 90.5 fL (79.4-94.8); Mean Corpuscular Hemoglobin 27.9 pg (25.6-32.2); Mean Corpuscular Hgb Concent. 30.9 g/dL (32.2-35.5); Mean Platelet Volume 9.8 fL (9.4-12.3); Platelet Count 149 x10^3/uL (182-369); Red Cell Distribution Width 16.8 % (11.7-14.4)
[2024-08-20 05:50] LABS: ANION GAP 12.8 MEQ/L (5-15); Calcium 7.5 mg/dL (8.4-10.2); Creatinine 1 0.86 mg/dL (0.52-1.04); EST GLOMERULAR FILTRATION RATE 64.9 ML/MIN; Potassium 4.8 mmol/L (3.5-5.1)
[2024-08-20] MEDS: Tums EX 750 MG PO SCH (09:18)
--- NOTE | 2024-08-20 11:25 | PCM.NOTE ---
Date and Time: 08/20/24 1120 Subjective Assessment: 08/17/24 is a 88 year old female with pmhx of peripheral neuropathy, CHF, Chronic a-fib, hyperlipidemia, bronchitis, OA, GERD, Pulm HTN, GERD, and PVD. Pt was being seen OP for BLLE wounds 2:2 PVD. She has gangrene of the R great toe. Podiatry asked that we admit pt and he will be taking pt to surgery in the AM. Pt was to have revascularization with Dr. Coon tomorrow but this is now on hold as Dr. Moise wants pt to be admitted and stay until next Thursday or Thursday. Will start broad spectrem antibiotocs as requested by podiatry. Will start IVF for dehydration. She denies any further concerns at this time. 08/18/24 Pt resting in bed. She has surgery this AM with podiatry and having some post op pain. Pain medication provided by nursing. Per podiatry he would like her on daptomycin. Discussed with and will keep on flagyl according to guidelines for gangrene treatment. WBC improved 8.7. She denies any further concerns at this time. 08/19/24 Pt resting in bed. She reported she had some pain in her foot when she woke up this morning but now controlled. Podiatry changed dressing. Wound is closed and appears to be healing well w/o redness or edema. Continue IV antibiotics for gangrene. She denies CP, SOB, abd. pain, N/V/D. 08/20/24 Pt resting in bed. No new changes overnight. Narcotic pain meds controlling pain well. Continue IV antibiotics for gangrene. She denies CP, SOB, abd. pain, N/V/D. - Review of Systems Constitutional: No Fever, No Chills Eyes: No Symptoms Ears, Nose, & Throat: No Symptoms Respiratory: No Cough, No Short Of Breath Cardiac: No Chest Pain, No Edema, No Syncope Abdominal/Gastrointestinal: No Abdominal Pain, No Nausea, No Vomiting, No Diarrhea Genitourinary Symptoms: No Dysuria Musculoskeletal: No Back Pain, No Neck Pain Skin: Skin Lesions (ight large toe amputation- closed), Other (wound RLE), No Rash Neurological: No Dizziness, No Focal Weakness, No Sensory Changes Psychological: No Symptoms Endocrine: No Symptoms Hematologic/Lymphatic: No Symptoms Immunological/Allergic: No Symptoms Objective Exam General Appearance: no apparent distress, alert Neurologic Exam: alert, oriented x 3, cooperative, normal mood/affect, nml cerebellar function, sensation nml, No motor deficits Skin Exam: normal color, warm, dry Wound Assessment: Skin/Wound Assessment Wound/Incision Assessment Start: 08/18/24 03: 38 Text: Status: Active Freq: Q6H Protocol: Document 08/20/24 08:00 [facility] (Rec: 08/20/24 10:15 [facility] [id number]) Wound/Incision Assessment Bilateral Upper Medial Leg Wound Assessment Shift Assessment Wound Type Skin Tear Wound Stage Non Pressure Wound General Appearance Open to air Comment Healing skin tears, open to air Right Arm Wound Assessment Shift Assessment Wound Type Skin Tear Wound Stage Non Pressure Wound Dressing Status Changed Drainage Amount Moderate Drainage Description Serosanguineous Surrounding Tissue Sharon,Purple,Edematous Primary Dressing Non-Adherent Gauze Pads Right Medial Calf Wound Assessment Shift Assessment Wound Type Incision Dressing Status Dry & Intact Drainage Amount None Comment POD #2, bulky dressing CDI - ANALIA wound Left Upper Calf Wound Assessment Shift Assessment Wound Type Skin Tear Wound Stage Non Pressure Wound Drainage Amount None Primary Dressing Non-Adherent Gauze Pads Comment No drainage noted Right Great Toe Wound Assessment Shift Assessment Wound Type Amputation Wound Stage Non Pressure Wound Dressing Status Dry & Intact Comment POD #2, bulky dressing CDI - ANALIA wound Wound Photo Photo Taken No Eye Exam: PERRL, EOMI, eyes nml inspection Ears, Nose, Throat Exam: normal ENT inspection, pharynx normal, moist mucous membranes Neck Exam: normal inspection, non-tender, supple, full range of motion Respiratory Exam: normal breath sounds, lungs clear, No respiratory distress Cardiovascular Exam: regular rate/rhythm, normal heart sounds Gastrointestinal/Abdomen Exam: soft, No tenderness, No mass Extremity Exam: normal inspection, normal range of motion, tenderness (RLE), other (Right great toe amputation- closed, wound RLE) Back Exam: normal inspection, normal range of motion, No CVA tenderness, No vertebral tenderness Pelvic Exam: deferred Rectal Exam: deferred Objective Data Vital Signs: Vital Signs - 24 hr Temp Pulse Resp BP Pulse Ox 08/20/24 09:15 93 H 122/69 08/20/24 07:49 95 08/20/24 07:38 96.8 F 66 15 116/56 95 08/20/24 04:25 97.0 F 78 17 120/68 95 08/20/24 00:03 97.8 F 54 L 15 104/56 97 08/19/24 21:00 68 08/19/24 19:46 97.5 F 71 16 119/63 92 L 08/19/24 18:41 92 L 08/19/24 16:00 92 H 130/60 08/19/24 12:44 97.5 F 84 16 125/59 91 L 08/19/24 11:27 93 L Pain Assessment - Last Documented Pain Intensity 6 Pain Scale Used 0-10 Pain Scale Intake and Output: Intake & Output 08/17/24 08/18/24 08/19/24 08/20/24 11:59 11:59 11:59 11:59 Intake Total 1278 1439 1140 Balance 1278 1439 1140 Weight 58 kg 58 kg Lab Results: Lab Results-Last 24 Hours 08/20/24 08/20/24 Range/Units 05:29 05:29 WBC 12.0 H (3.98-10.04) x10^3/uL RBC 3.90 L (3.93-5.22) x10^6/uL Hgb 10.9 L (11.2-15.7) g/dL Hct 35.3 (34.1-44.9) % MCV 90.5 (79.4-94.8) fL MCH 27.9 (25.6-32.2) pg MCHC 30.9 L (32.2-35.5) g/dL RDW 16.8 H (11.7-14.4) % Plt Count 149 L (182-369) x10^3/uL MPV 9.8 (9.4-12.3) fL Sodium 133 L (135-145) mmol/L Potassium 4.8 (3.5-5.1) mmol/L Chloride 98 (98-107) mmol/L Carbon Dioxide 27 (22-30) mmol/L Anion Gap 12.8 (5-15) MEQ/L BUN 31 H (7-17) mg/dL Creatinine 0.86 (0.52-1.04) mg/dL Estimated GFR 64.9 ML/MIN Glucose 79 (74-106) mg/dL Calcium 7.5 L (8.4-10.2) mg/dL Multi-Disciplinary Progress Notes: Multi-Disciplinary Progress Notes 08/19/24 13:32 Case Management Note by Melina Isaac PATIENT HAS [facility]. THEY WERE NOTIFIED PATIENT HERE INPT. THEY WILL NEED NOTIFIED AT TIME OF DC AT [phone]. THEY WILL NEED FAXED THE DC INSTRUCTIONS, DC MED LIST AND DC SUMMARY TO [phone] Initialized on 08/19/24 13:32 - END OF NOTE Assessment/Plan (1) Gangrene of toe of right foot Current Visit: Yes Status: Acute Code(s): I96 - GANGRENE, NOT ELSEWHERE CLASSIFIED (2) Dehydration Current Visit: Yes Status: Acute Code(s): E86.0 - DEHYDRATION (3) PAD (peripheral artery disease) Current Visit: No Status: Chronic Code(s): I73.9 - PERIPHERAL VASCULAR DISEASE, UNSPECIFIED (4) Venous insufficiency of both lower extremities Current Visit: No Status: Chronic Code(s): I87.2 - VENOUS INSUFFICIENCY (CHRONIC) (PERIPHERAL) (5) Chronic atrial fibrillation Current Visit: No Status: Chronic Code(s): I48.20 - CHRONIC ATRIAL FIBRILLATION, UNSPECIFIED (6) Chronic diastolic (congestive) heart failure Current Visit: No Status: Chronic Code(s): I50.32 - CHRONIC DIASTOLIC (CONGESTIVE) HEART FAILURE (7) GERD (gastroesophageal reflux disease) Current Visit: No Status: Chronic Code(s): K21.9 - GASTRO-ESOPHAGEAL REFLUX DISEASE WITHOUT ESOPHAGITIS (8) Hypothyroidism Current Visit: No Status: Chronic Code(s): E03.9 - HYPOTHYROIDISM, UNSPECIFIED (9) Hyperlipidemia Current Visit: No Status: Chronic Assessment & Plan: 1) Gangrene of toe of right foot Current Visit: Yes Status: Acute Assessment & Plan: - R great toe - D/T drug allergies vancomycin, flagyl, and levaquin started - Probiotics - NPO after midnight - Plan is to have surgery in AM with podiatry- Dr. Moise - WBC 13.0 - CBC, CMP reviewed - Tele - Narcotic pain control 08/18 - WBC 8.7 - CBC, CMP reviewed - Surgery this AM with podiatry- POD #1 - Antibiotics changed to Daptomycin per podiatry - Keep Flagyl per guidelines - PICC placed yesterday OP 08/19 - WBC 14.7 - Continue IV antibiotics - Podiatry changed dressing today - CBC, CMP reviewed - POD #2 08/20 - POD #3 - WBC 12- improved - CBC, CMP reviewed Code(s): I96 - GANGRENE, NOT ELSEWHERE CLASSIFIED (2) Dehydration Current Visit: Yes Status: Acute Assessment & Plan: - NS @ 50 ml/hr - Anion gap 16.7 - CMP reviewed 08/18 - resolved - IVF stopped Code(s): E86.0 - DEHYDRATION (3) PAD (peripheral artery disease) Current Visit: No Status: Chronic Assessment & Plan: - Noted - Was to have revascular procedure with Dr. Coon tomorrow but now on hold until possibly next week. Code(s): I73.9 - PERIPHERAL VASCULAR DISEASE, UNSPECIFIED (4) Venous insufficiency of both lower extremities Current Visit: No Status: Chronic Assessment & Plan: - Known hx - adds to complexity Code(s): I87.2 - VENOUS INSUFFICIENCY (CHRONIC) (PERIPHERAL) (5) Chronic atrial fibrillation Current Visit: No Status: Chronic Assessment & Plan: - Hold Eliquis for surgery in AM 08/18 - Continue Eliquis per podiatry Code(s): I48.20 - CHRONIC ATRIAL FIBRILLATION, UNSPECIFIED (6) Chronic diastolic (congestive) heart failure Current Visit: No Status: Chronic Assessment & Plan: - Continue home meds - Not in current exacerbation - Continue home meds - Heart healthy diet - Echo 07/20/24: EF 55% IMPRESSION: 1) NORMAL LEFT VENTRICULAR SIZE. 2) NORMAL LEFT VENTRICULAR SYSTOLIC FUNCTION. 3) SEVERE BIATRIAL ENLARGEMENT. 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 5) MILD TO MODERATE MITRAL REGURGITATION, MILD AORTIC INSUFFICIENCY. 6) MILD TO MODERATE TRICUSPID REGURGITATION AND MILD PULMONIC INSUFFICIENCY WITH EVIDENCE OF MILD PULMONARY HYPERTENSION. 7) MILD RIGHT VENTRICULAR ENLARGEMENT. Code(s): I50.32 - CHRONIC DIASTOLIC (CONGESTIVE) HEART FAILURE (7) GERD (gastroesophageal reflux disease) Current Visit: No Status: Chronic Assessment & Plan: - Continue omeprazole Code(s): K21.9 - GASTRO-ESOPHAGEAL REFLUX DISEASE WITHOUT ESOPHAGITIS (8) Hypothyroidism Current Visit: No Status: Chronic Assessment & Plan: - Continue synthroid Code(s): E03.9 - HYPOTHYROIDISM, UNSPECIFIED (9) Hyperlipidemia Current Visit: No Status: Chronic Assessment & Plan: - Continue statin Code(s): E78.5 - HYPERLIPIDEMIA, UNSPECIFIED Code(s): E78.5 - HYPERLIPIDEMIA, UNSPECIFIED (10) Hypocalcemia Current Visit: Yes Status: Acute Assessment & Plan: - acute on chronic - Ca+ 7.5 - Tums BID VTE: Eliquis held for surgery PPI: omeprazole Next of KIN: Daughter - Emely D/C plan: Thursday or Thursday per podiatry recs Code status: SCO Code(s): E83.51 - HYPOCALCEMIA
[2024-08-21 06:20] LABS: Hematocrit 33.6 % (34.1-44.9); Hemoglobin 10.6 g/dL (11.2-15.7); Mean Cell Volume 89.4 fL (79.4-94.8); Mean Corpuscular Hemoglobin 28.2 pg (25.6-32.2); Mean Corpuscular Hgb Concent. 31.5 g/dL (32.2-35.5); Mean Platelet Volume 10.2 fL (9.4-12.3); Platelet Count 125 x10^3/uL (182-369); Red Blood Count 3.76 x10^6/uL (3.93-5.22); Red Cell Distribution Width 16.4 % (11.7-14.4)
[2024-08-21 06:25] LABS: ALBUMIN 2.9 g/dL (3.5-5.0); ANION GAP 9.9 MEQ/L (5-15); BILIRUBIN,TOTAL 1.1 mg/dL (0.2-1.3); Calcium 7.6 mg/dL (8.4-10.2); Creatinine 1 0.87 mg/dL (0.52-1.04); Total Protein 5.4 g/dL (6.3-8.2)
--- NOTE | 2024-08-21 09:09 | PCM.NOTE ---
Date and Time: 08/21/24902 Subjective Assessment: 08/17/24 is a 88 year old female with pmhx of peripheral neuropathy, CHF, Chronic a-fib, hyperlipidemia, bronchitis, OA, GERD, Pulm HTN, GERD, and PVD. Pt was being seen OP for BLLE wounds 2:2 PVD. She has gangrene of the R great toe. Podiatry asked that we admit pt and he will be taking pt to surgery in the AM. Pt was to have revascularization with Dr. Coon tomorrow but this is now on hold as Dr. Moise wants pt to be admitted and stay until next Thursday or Thursday. Will start broad spectrem antibiotocs as requested by podiatry. Will start IVF for dehydration. She denies any further concerns at this time. 08/18/24 Pt resting in bed. She has surgery this AM with podiatry and having some post op pain. Pain medication provided by nursing. Per podiatry he would like her on daptomycin. Discussed with and will keep on flagyl according to guidelines for gangrene treatment. WBC improved 8.7. She denies any further concerns at this time. 08/19/24 Pt resting in bed. She reported she had some pain in her foot when she woke up this morning but now controlled. Podiatry changed dressing. Wound is closed and appears to be healing well w/o redness or edema. Continue IV antibiotics for gangrene. She denies CP, SOB, abd. pain, N/V/D. 08/20/24 Pt resting in bed. No new changes overnight. Narcotic pain meds controlling pain well. Continue IV antibiotics for gangrene. She denies CP, SOB, abd. pain, N/V/D. 08/21/24 Pt resting in bed. No new changes overnight. Narcotic pain meds controlling pain well. Continue IV antibiotics for gangrene. She is not eating or drinking well. Encouraged intake to aide in healing. She denies CP, SOB, abd. pain, N/V/D. - Review of Systems Constitutional: No Fever, No Chills Eyes: No Symptoms Ears, Nose, & Throat: No Symptoms Respiratory: No Cough, No Short Of Breath Cardiac: No Chest Pain, No Edema, No Syncope Abdominal/Gastrointestinal: No Abdominal Pain, No Nausea, No Vomiting, No Diarrhea Genitourinary Symptoms: No Dysuria Musculoskeletal: No Back Pain, No Neck Pain Skin: Other (Right large toe amputation- closed, Wound RLE), No Rash Neurological: No Dizziness, No Focal Weakness, No Sensory Changes Psychological: No Symptoms Endocrine: No Symptoms Hematologic/Lymphatic: No Symptoms Immunological/Allergic: No Symptoms Objective Exam General Appearance: no apparent distress, alert Neurologic Exam: alert, oriented x 3, cooperative, normal mood/affect, nml cerebellar function, sensation nml, No motor deficits Skin Exam: normal color, warm, dry, other (Right large toe amputation- closed, Wound RLE) Wound Assessment: Skin/Wound Assessment Wound/Incision Assessment Start: 08/18/24 03:38 Text: Status: Active Freq: Q6H Protocol: Document 08/21/24 08:10 JV (Rec: 08/21/24 08:50 JV [id number]) Wound/Incision Assessment Bilateral Upper Medial Leg Wound Assessment Shift Assessment Wound Type Skin Tear Wound Stage Non Pressure Wound General Appearance Open to air Comment healing skin tears, open to air Right Arm Wound Assessment Shift Assessment Wound Type Skin Tear Wound Stage Non Pressure Wound Dressing Status Dry & Intact Drainage Amount Minimal Drainage Description Serosanguineous Surrounding Tissue [place],Purple,Edematous Primary Dressing Non-Adherent Gauze Pads Secondary Dressing Gauze Roll/Wrap Right Medial Calf Wound Assessment Shift Assessment Wound Type Incision Dressing Status Dry & Intact Drainage Amount None Comment bulky dressing CDI - ANALIA wound . Remains true Left Upper Calf Wound Assessment Shift Assessment Wound Type Skin Tear Wound Stage Non Pressure Wound Drainage Amount None Primary Dressing Non-Adherent Gauze Pads Right Great Toe Wound Assessment Shift Assessment Wound Type Amputation Wound Stage Non Pressure Wound Dressing Status Dry & Intact Comment bulky dressing CDI - ANALIA wound . Remains true Wound Photo Photo Taken No Eye Exam: PERRL, EOMI, eyes nml inspection Ears, Nose, Throat Exam: normal ENT inspection, pharynx normal, moist mucous membranes Neck Exam: normal inspection, non-tender, supple, full range of motion Respiratory Exam: normal breath sounds, lungs clear, No respiratory distress Cardiovascular Exam: regular rate/rhythm, normal heart sounds Gastrointestinal/Abdomen Exam: soft, No tenderness, No mass Extremity Exam: normal inspection, normal range of motion Back Exam: normal inspection, normal range of motion, No CVA tenderness, No vertebral tenderness Pelvic Exam: deferred Rectal Exam: deferred Objective Data Vital Signs: Vital Signs - 24 hr Temp Pulse Resp BP Pulse Ox 08/21/24 07:52 97.6 F 88 16 109/56 91 L 08/21/24 07:15 91 L 08/21/24 04:00 18 08/20/24 23:52 97.1 F 85 16 131/79 95 08/20/24 19:57 97.6 F 92 H 17 125/73 96 08/20/24 16:40 97 F 78 18 121/82 97 08/20/24 11:39 96.4 F 82 21 113/55 95 08/20/24 09:15 93 H 122/69 Pain Assessment - Last Documented Pain Intensity 6 Pain Scale Used 0-10 Pain Scale Intake and Output: Intake & Output 08/18/24 08/19/24 08/20/24 08/21/24 11:59 11:59 11:59 11:59 Intake Total 1278 1439 1140 440 Balance 1278 1439 1140 440 Weight 58 kg 58 kg Lab Results: Lab Results-Last 24 Hours 08/21/24 08/21/24 Range/Units 05:44 05:44 WBC 11.0 H (3.98-10.04) x10^3/uL RBC 3.76 L (3.93-5.22) x10^6/uL Hgb 10.6 L (11.2-15.7) g/dL Hct 33.6 L (34.1-44.9) % MCV 89.4 (79.4-94.8) fL MCH 28.2 (25.6-32.2) pg MCHC 31.5 L (32.2-35.5) g/dL RDW 16.4 H (11.7-14.4) % Plt Count 125 L (182-369) x10^3/uL MPV 10.2 (9.4-12.3) fL Sodium 131 L (135-145) mmol/L Potassium 4.0 (3.5-5.1) mmol/L Chloride 96 L (98-107) mmol/L Carbon Dioxide 29 (22-30) mmol/L Anion Gap 9.9 (5-15) MEQ/L BUN 29 H (7-17) mg/dL Creatinine 0.87 (0.52-1.04) mg/dL Estimated GFR 64.0 ML/MIN Glucose 77 (74-106) mg/dL Calcium 7.6 L (8.4-10.2) mg/dL Total Bilirubin 1.10 (0.2-1.3) mg/dL AST 31 (14-36) U/L ALT 11 (0-35) U/L Alkaline Phosphatase 33 L (38-126) U/L Serum Total Protein 5.4 L (6.3-8.2) g/dL Albumin 2.9 L (3.5-5.0) g/dL Assessment/Plan (1) Gangrene of toe of right foot Current Visit: Yes Status: Acute Code(s): I96 - GANGRENE, NOT ELSEWHERE CLASSIFIED (2) Dehydration Current Visit: Yes Status: Acute Code(s): E86.0 - DEHYDRATION (3) PAD (peripheral artery disease) Current Visit: No Status: Chronic Code(s): I73.9 - PERIPHERAL VASCULAR DISEASE, UNSPECIFIED (4) Venous insufficiency of both lower extremities Current Visit: No Status: Chronic Code(s): I87.2 - VENOUS INSUFFICIENCY (CHRONIC) (PERIPHERAL) (5) Chronic atrial fibrillation Current Visit: No Status: Chronic Code(s): I48.20 - CHRONIC ATRIAL FIBRILLATION, UNSPECIFIED (6) Chronic diastolic (congestive) heart failure Current Visit: No Status: Chronic Code(s): I50.32 - CHRONIC DIASTOLIC (CONGESTIVE) HEART FAILURE (7) GERD (gastroesophageal reflux disease) Current Visit: No Status: Chronic Code(s): K21.9 - GASTRO-ESOPHAGEAL REFLUX DISEASE WITHOUT ESOPHAGITIS (8) Hypothyroidism Current Visit: No Status: Chronic Code(s): E03.9 - HYPOTHYROIDISM, UNSPECIFIED (9) Hyperlipidemia Current Visit: No Status: Chronic Code(s): E78.5 - HYPERLIPIDEMIA, UNSPECIFIED (10) Hypocalcemia Current Visit: Yes Status: Acute Assessment & Plan: 1) Gangrene of toe of right foot Current Visit: Yes Status: Acute Assessment & Plan: - R great toe - D/T drug allergies vancomycin, flagyl, and levaquin started - Probiotics - NPO after midnight - Plan is to have surgery in AM with podiatry- Dr. Moise - WBC 13.0 - CBC, CMP reviewed - Tele - Narcotic pain control 08/18 - WBC 8.7 - CBC, CMP reviewed - Surgery this AM with podiatry- POD #1 - Antibiotics changed to Daptomycin per podiatry - Keep Flagyl per guidelines - PICC placed yesterday OP 08/19 - WBC 14.7 - Continue IV antibiotics - Podiatry changed dressing today - CBC, CMP reviewed - POD #2 315 - POD #3 - WBC 12- improved - CBC, CMP reviewed 08/21 - POD #4 - WBC 11- improved - CBC, CMP reviewed - Pain well controlled with narcotic pain med - Per nursing pt to not place weight on affected foot and pt is not strong enough to hold herself up. Consider Rehab or swing bed for PT. Code(s): I96 - GANGRENE, NOT ELSEWHERE CLASSIFIED (2) Dehydration Current Visit: Yes Status: Acute Assessment & Plan: - NS @ 50 ml/hr - Anion gap 16.7 - CMP reviewed 08/18 - resolved - IVF stopped Code(s): E86.0 - DEHYDRATION (3) PAD (peripheral artery disease) Current Visit: No Status: Chronic Assessment & Plan: - Noted - Was to have revascular procedure with Dr. Coon tomorrow but now on hold until possibly next week. Code(s): I73.9 - PERIPHERAL VASCULAR DISEASE, UNSPECIFIED (4) Venous insufficiency of both lower extremities Current Visit: No Status: Chronic Assessment & Plan: - Known hx - adds to complexity Code(s): I87.2 - VENOUS INSUFFICIENCY (CHRONIC) (PERIPHERAL) (5) Chronic atrial fibrillation Current Visit: No Status: Chronic Assessment & Plan: - Hold Eliquis for surgery in AM 08/18 - Continue Eliquis per podiatry - Heart healthy diet Code(s): I48.20 - CHRONIC ATRIAL FIBRILLATION, UNSPECIFIED (6) Chronic diastolic (congestive) heart failure Current Visit: No Status: Chronic Assessment & Plan: - Continue home meds - Not in current exacerbation - Continue home meds - Heart healthy diet - Echo 07/20/24: EF 55% IMPRESSION: 1) NORMAL LEFT VENTRICULAR SIZE. 2) NORMAL LEFT VENTRICULAR SYSTOLIC FUNCTION. 3) SEVERE BIATRIAL ENLARGEMENT. 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 5) MILD TO MODERATE MITRAL REGURGITATION, MILD AORTIC INSUFFICIENCY. 6) MILD TO MODERATE TRICUSPID REGURGITATION AND MILD PULMONIC INSUFFICIENCY WITH EVIDENCE OF MILD PULMONARY HYPERTENSION. 7) MILD RIGHT VENTRICULAR ENLARGEMENT. Code(s): I50.32 - CHRONIC DIASTOLIC (CONGESTIVE) HEART FAILURE (7) GERD (gastroesophageal reflux disease) Current Visit: No Status: Chronic Assessment & Plan: - Continue omeprazole Code(s): K21.9 - GASTRO-ESOPHAGEAL REFLUX DISEASE WITHOUT ESOPHAGITIS (8) Hypothyroidism Current Visit: No Status: Chronic Assessment & Plan: - Continue synthroid Code(s): E03.9 - HYPOTHYROIDISM, UNSPECIFIED (9) Hyperlipidemia Current Visit: No Status: Chronic Assessment & Plan: - Continue statin Code(s): E78.5 - HYPERLIPIDEMIA, UNSPECIFIED (10) Hypocalcemia Current Visit: Yes Status: Acute Assessment & Plan: - acute on chronic - Ca+ 7.5 - Tums BID 08/21 - Corrected Ca+ 8.1- improved Code(s): E83.51 - HYPOCALCEMIA Code(s): E83.51 - HYPOCALCEMIA (11) Hyponatremia Current Visit: Yes Status: Acute Assessment & Plan: - Mild Na+ 131- trend - not eating and drinking well- encouraged oral intake Code(s): E87.1 - HYPO-OSMOLALITY AND HYPONATREMIA (12) Thrombocytopenia Current Visit: No Status: Chronic Assessment & Plan: - PLT 125- trend - acute on chroic after reviewing past labs VTE: Eliquis held for surgery PPI: omeprazole Next of KIN: Daughter - Emely D/C plan: Thursday or Thursday per podiatry recs Code status: ARSammy
[2024-08-21] MEDS ORDERED: Narcan 0.4 MG/ML IV PRN (09:10)
[2024-08-21] MEDS: Docusate Sodium 100 MG PO SCH (21:26)
[2024-08-22] MEDS: NORCO 10-325 MG PO PRN (03:11)
[2024-08-22 04:50] LABS: Hematocrit 35.3 % (34.1-44.9); Hemoglobin 11.3 g/dL (11.2-15.7); Mean Cell Volume 87.2 fL (79.4-94.8); Mean Corpuscular Hemoglobin 27.9 pg (25.6-32.2); Mean Platelet Volume 9.7 fL (9.4-12.3); Platelet Count 161 x10^3/uL (182-369); Red Blood Count 4.05 x10^6/uL (3.93-5.22); Red Cell Distribution Width 16.4 % (11.7-14.4); White Blood Count 15.5 x10^3/uL (3.98-10.04)
[2024-08-22] MEDS: TYLENOL 325 MG PO PRN (04:53)
[2024-08-22 05:00] LABS: ANION GAP 12.7 MEQ/L (5-15); Calcium 8.3 mg/dL (8.4-10.2); Creatinine 1 1.05 mg/dL (0.52-1.04); EST GLOMERULAR FILTRATION RATE 51.1 ML/MIN; Potassium 3.4 mmol/L (3.5-5.1); Total Protein 5.5 g/dL (6.3-8.2)
--- NOTE | 2024-08-22 05:05 | PCM.NOTE ---
Date and Time: 08/22/24 0501 Subjective Assessment: Ms. Maldonado is an 88 year old female with pmhx of peripheral neuropathy, CHF, Chronic a-fib, hyperlipidemia, bronchitis, OA, GERD, Pulm HTN, GERD, and PVD was admitted for surgical management of right great toe gangrene secondary to PVD. Podiatry performed surgery on 08/18, and postoperatively, she had some pain, which was managed effectively with narcotic pain medications. Wound dressing managed by podiatry, and the site has remained closed and healing well. Broad-spectrum IV antibiotics, including daptomycin and Flagyl, were initiated per podiatry recommendations. WBC improved has improved, and no systemic signs of infection noted. She was initially scheduled for revascularization with Dr. Coon; however, this has been placed on hold per Dr. Moise, who requested inpatient monitoring until early this week. 08/22/24: Met with patient bedside. Endorses increased pain overnight. Currently rating 5/10 on numerical scale. Patient's daughter requesting swing bed on discharge. CM to look into this. Potassium is low and will be replenished. WBC and creat with elevation on morning labs. Plan to continue abx - hold diuretics today. - Review of Systems Constitutional: No Symptoms Eyes: No Symptoms Ears, Nose, & Throat: No Symptoms Respiratory: No Symptoms Cardiac: No Symptoms Abdominal/Gastrointestinal: No Symptoms Genitourinary Symptoms: No Symptoms Musculoskeletal: No Symptoms Skin: Other (right great toe amputation covered in dressing CDI) Neurological: No Symptoms Psychological: No Symptoms Endocrine: No Symptoms Hematologic/Lymphatic: No Symptoms Immunological/Allergic: No Symptoms Objective Exam General Appearance: no apparent distress Neurologic Exam: alert, oriented x 3, cooperative Skin Exam: other (right great toe s/p amputation -with dressing CDI) Wound Assessment: Skin/Wound Assessment Wound/Incision Assessment Start: 08/18/24 03:38 Text: Status: Active Freq: Q6H Protocol: Document 08/21/24 22:00 MM (Rec: 08/21/24 22:03 MM [id number]) Wound/Incision Assessment Left Medial Calf Wound Assessment Shift Assessment Wound Type Skin Tear Wound Stage Non Pressure Wound Drainage Amount None General Appearance Open to air,Clean/Dry Comment Barrier cream applied Bilateral Upper Medial Leg Wound Assessment Shift Assessment Wound Type Skin Tear Wound Stage Non Pressure Wound Drainage Amount None General Appearance Open to air,Clean/Dry Comment healing skin tears, open to air. Barrier cream applied Right Arm Wound Assessment Shift Assessment Wound Type Skin Tear Wound Stage Non Pressure Wound Dressing Status Changed Drainage Amount Moderate Drainage Description Serosanguineous Wound Bed Greatest Portion Red (Gran[place]) Surrounding Tissue [place],Purple,Edematous Topical Solution/Irrigant Saline Irrigant Primary Dressing Non-Adherent Gauze Pads Secondary Dressing Gauze Roll/Wrap Comment Right upper arm. dressing remains CDI Right Medial Calf Wound Assessment Shift Assessment Wound Type Incision Dressing Status Dry & Intact Drainage Amount None Comment dressing CDI - ANALIA wound. Remains true Left Upper Calf Wound Assessment Shift Assessment Wound Type Skin Tear Wound Stage Non Pressure Wound Drainage Amount None General Appearance Open to air,Clean/Dry Comment Barrier cream applied Right Great Toe Wound Assessment Shift Assessment Wound Type Amputation Wound Stage Non Pressure Wound Dressing Status Dry & Intact Comment dressing CDI - ANALIA wound. Remains true Wound Photo Photo Taken No Eye Exam: PERRL Ears, Nose, Throat Exam: normal ENT inspection Neck Exam: normal inspection Respiratory Exam: crackles/rales Cardiovascular Exam: regular rate/rhythm, normal heart sounds Gastrointestinal/Abdomen Exam: soft, normal bowel sounds Extremity Exam: amputations (right great toe) Back Exam: normal inspection Pelvic Exam: deferred Rectal Exam: deferred Objective Data Vital Signs: Vital Signs - 24 hr Temp Pulse Resp BP Pulse Ox 08/22/24 03:50 98.2 F 88 16 115/66 94 L 08/21/24 23:40 97.7 F 75 21 108/62 95 08/21/24 20:50 94 L 08/21/24 20:00 96.9 F 79 16 119/63 93 L 08/21/24 19:09 93 L 08/21/24 16:00 97.5 F 85 18 110/61 91 L 08/21/24 12:00 97.9 F 81 16 120/72 90 L 08/21/24 07:52 97.6 F 88 16 109/56 91 L 08/21/24 07:15 91 L Pain Assessment - Last Documented Pain Intensity 10 Pain Scale Used 0-10 Pain Scale Intake and Output: Intake & Output 08/19/24 08/20/24 08/21/24 08/22/24 11:59 11:59 11:59 11:59 Intake Total 1439 1140 560 960 Balance 1439 1140 560 960 Weight 58 kg Lab Results: Lab Results-Last 24 Hours 08/21/24 08/21/24 08/22/24 Range/Units 05:44 05:44 04:10 WBC 11.0 H 15.5 H (3.98-10.04) x10^3/uL RBC 3.76 L 4.05 (3.93-5.22) x10^6/uL Hgb 10.6 L 11.3 (11.2-15.7) g/dL Hct 33.6 L 35.3 (34.1-44.9) % MCV 89.4 87.2 (79.4-94.8) fL MCH 28.2 27.9 (25.6-32.2) pg MCHC 31.5 L 32.0 L (32.2-35.5) g/dL RDW 16.4 H 16.4 H (11.7-14.4) % Plt Count 125 L 161 L (182-369) x10^3/uL MPV 10.2 9.7 (9.4-12.3) fL Sodium 131 L (135-145) mmol/L Potassium 4.0 (3.5-5.1) mmol/L Chloride 96 L (98-107) mmol/L Carbon Dioxide 29 (22-30) mmol/L Anion Gap 9.9 (5-15) MEQ/L BUN 29 H (7-17) mg/dL Creatinine 0.87 (0.52-1.04) mg/dL Estimated GFR 64.0 ML/MIN Glucose 77 (74-106) mg/dL Calcium 7.6 L (8.4-10.2) mg/dL Total Bilirubin 1.10 (0.2-1.3) mg/dL AST 31 (14-36) U/L ALT 11 (0-35) U/L Alkaline Phosphatase 33 L (38-126) U/L Serum Total Protein 5.4 L (6.3-8.2) g/dL Albumin 2.9 L (3.5-5.0) g/dL Assessment/Plan (1) Gangrene of toe of right foot Current Visit: Yes Status: Acute Assessment & Plan: - R great toe - Probiotics - CBC, CMP reviewed- elevation in WBC and CReat -Blood cultures -Discuss with podiatry - path from amputation - Tele - Narcotic pain control - Surgery 08/18/24 - Continue Daptomycin per podiatry - Keep Flagyl per guidelines - PICC placed 08/17/24 Code(s): I96 - GANGRENE, NOT ELSEWHERE CLASSIFIED (2) Dehydration Current Visit: Yes Status: Acute Assessment & Plan: - resolved Code(s): E86.0 - DEHYDRATION (3) Hypocalcemia Current Visit: Yes Status: Acute Assessment & Plan: - Tums BID Code(s): E83.51 - HYPOCALCEMIA (4) Chronic atrial fibrillation Current Visit: No Status: Chronic Assessment & Plan: - Continue Eliquis per podiatry Code(s): I48.20 - CHRONIC ATRIAL FIBRILLATION, UNSPECIFIED (5) Chronic diastolic (congestive) heart failure Current Visit: No Status: Chronic Assessment & Plan: - Continue home meds - hold diuretics today - Not in current exacerbation - Continue home meds - Heart healthy diet - Echo 07/20/24: EF 55% IMPRESSION: 1) NORMAL LEFT VENTRICULAR SIZE. 2) NORMAL LEFT VENTRICULAR SYSTOLIC FUNCTION. 3) SEVERE BIATRIAL ENLARGEMENT. 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 5) MILD TO MODERATE MITRAL REGURGITATION, MILD AORTIC INSUFFICIENCY. 6) MILD TO MODERATE TRICUSPID REGURGITATION AND MILD PULMONIC INSUFFICIENCY WITH EVIDENCE OF MILD PULMONARY HYPERTENSION. 7) MILD RIGHT VENTRICULAR ENLARGEMENT. Code(s): I50.32 - CHRONIC DIASTOLIC (CONGESTIVE) HEART FAILURE (6) GERD (gastroesophageal reflux disease) Current Visit: No Status: Chronic Assessment & Plan: - Continue omeprazole Code(s): K21.9 - GASTRO-ESOPHAGEAL REFLUX DISEASE WITHOUT ESOPHAGITIS (7) Hyperlipidemia Current Visit: No Status: Chronic Assessment & Plan: - Continue statin Code(s): E78.5 - HYPERLIPIDEMIA, UNSPECIFIED (8) Hypothyroid Current Visit: No Status: Chronic Assessment & Plan: - Continue synthroid Code(s): E03.9 - HYPOTHYROIDISM, UNSPECIFIED (9) PAD (peripheral artery disease) Current Visit: No Status: Chronic Assessment & Plan: - Noted - Scheduled for revascularization procedure with Dr. Coon but now on hold until possibly this week Code(s): I73.9 - PERIPHERAL VASCULAR DISEASE, UNSPECIFIED (10) Venous insufficiency of both lower extremities Current Visit: No Status: Chronic Assessment & Plan: -Noted- adds to complexity VTE: Eliquis PPI: omeprazole Next of KIN: Daughter - Emely D/C plan: Thursday or Thursday per podiatry recs Code status: SCO Code(s): I87.2 - VENOUS INSUFFICIENCY (CHRONIC) (PERIPHERAL) (11) Hypokalemia Current Visit: Yes Status: Acute Assessment & Plan: -Potassium reviewed at 3.4- replenish per protocol Code(s): E87.6 - HYPOKALEMIA
[2024-08-22] MEDS: Klor Con PO SCH (07:58)
--- NOTE | 2024-08-22 18:04 | PCM.NOTE ---
Date and Time: 08/22/241756 Subjective Assessment: Patient seen post op day #3 s/p amputation of right hallux and delayed closure right leg wounds x2. Patient lethargic at chairside today however rousable to sound. Complaints of pain to the amputation site. Awaiting Peripheral vascular intervention at this time. Physical Exam - Narrative Narrative Physical Exam: Podiatry Physical Exam Objective Data Vital Signs: Vital Signs - 24 hr Temp Pulse Resp BP Pulse Ox 08/22/24 17:05 93 L 08/22/24 16:00 97.6 F 61 16 118/60 92 L 08/22/24 11:07 97.9 F 82 16 101/58 92 L 08/22/24 07:57 97.6 F 80 16 110/53 97 08/22/24 07:17 94 L 08/22/24 03:50 98.2 F 88 16 115/66 94 L 08/21/24 23:40 97.7 F 75 21 108/62 95 08/21/24 20:50 94 L 08/21/24 20:00 96.9 F 79 16 119/63 93 L 08/21/24 19:09 93 L Pain Assessment - Last Documented Pain Intensity 5 Pain Scale Used 0-10 Pain Scale Intake and Output: Intake & Output 08/20/24 08/21/24 08/22/24 08/23/24 11:59 11:59 11:59 11:59 Intake Total 6590 794 1457 280 Output Total 300 750 Balance 4643 179 9824 -470 Weight 58 kg Lab Results: Lab Results-Last 24 Hours 08/22/24 08/22/24 08/22/24 Range/Units 04:10 04:10 12:35 WBC 15.5 H (3.98-10.04) x10^3/uL RBC 4.05 (3.93-5.22) x10^6/uL Hgb 11.3 (11.2-15.7) g/dL Hct 35.3 (34.1-44.9) % MCV 87.2 (79.4-94.8) fL MCH 27.9 (25.6-32.2) pg MCHC 32.0 L (32.2-35.5) g/dL RDW 16.4 H (11.7-14.4) % Plt Count 161 L (182-369) x10^3/uL MPV 9.7 (9.4-12.3) fL Sodium 132 L (135-145) mmol/L Potassium 3.4 L 3.7 (3.5-5.1) mmol/L Chloride 93 L (98-107) mmol/L Carbon Dioxide 29 (22-30) mmol/L Anion Gap 12.7 (5-15) MEQ/L BUN 35 H (7-17) mg/dL Creatinine 1.05 H (0.52-1.04) mg/dL Estimated GFR 51.1 ML/MIN Glucose 102 (74-106) mg/dL Calcium 8.3 L (8.4-10.2) mg/dL Total Bilirubin 1.00 (0.2-1.3) mg/dL AST 24 (14-36) U/L ALT 13 (0-35) U/L Alkaline Phosphatase 50 (38-126) U/L Serum Total Protein 5.5 L (6.3-8.2) g/dL Albumin 3.0 L (3.5-5.0) g/dL // Range/Units 16:30 WBC (3.98-10.04) x10^3/uL RBC (3.93-5.22) x10^6/uL Hgb (11.2-15.7) g/dL Hct (34.1-44.9) % MCV (79.4-94.8) fL MCH (25.6-32.2) pg MCHC (32.2-35.5) g/dL RDW (11.7-14.4) % Plt Count (182-369) x10^3/uL MPV (9.4-12.3) fL Sodium (135-145) mmol/L Potassium 4.4 (3.5-5.1) mmol/L Chloride (98-107) mmol/L Carbon Dioxide (22-30) mmol/L Anion Gap (5-15) MEQ/L BUN (7-17) mg/dL Creatinine (0.52-1.04) mg/dL Estimated GFR ML/MIN Glucose (74-106) mg/dL Calcium (8.4-10.2) mg/dL Total Bilirubin (0.2-1.3) mg/dL AST (14-36) U/L ALT (0-35) U/L Alkaline Phosphatase (38-126) U/L Serum Total Protein (6.3-8.2) g/dL Albumin (3.5-5.0) g/dL Multi-Disciplinary Progress Notes: Multi-Disciplinary Progress Notes 08/22/24 12:47 Case Management Note by Melina Isaac DAUGHTER REQUESTING SWINGBED STAY D/T PROFOUND WEAKNESS AND NEEDING TO STAY NONWTBEARING ON OP FOOT. SHE IS UNSURE IF PATIENT WILL BE AGREEABLE- WILL DISCUSS THIS WITH PATIENT. Initialized on 08/22/24 12:47 - END OF NOTE Assessment/Plan (1) Osteomyelitis Current Visit: Yes Status: Acute Assessment & Plan: s/p amputation toe with closure. Monitoring WBCs trending down until today where there was a spike to 15 possibly stress response. Patient largely asymptomatic follow trend vs infeciton site assessment. Code(s): M86.9 - OSTEOMYELITIS, UNSPECIFIED (2) Peripheral vascular disease Current Visit: Yes Status: Acute Assessment & Plan: Awaiting Peripheral vascular intervention with Dr. Phillip Originally scheduled for 08/19/2024 however patient underwent amputation and admission Rescheduled for 09/01/2024 Due to dusking over incision site Marjan was contacted. He agrees to proceed with earlier date if [facility] can be [facility] Can monitor for now to assess for further demarcation. Will discuss game plan for possible d/c vs continue with outpatient surgical intervention. monitoring this aspect closely. Code(s): I73.9 - PERIPHERAL VASCULAR DISEASE, UNSPECIFIED (3) Acute asthmatic bronchitis Current Visit: No Status: Acute Code(s): J45.909 - UNSPECIFIED ASTHMA, UNCOMPLICATED (4) Pulmonary hypertension Current Visit: No Status: Chronic Code(s): I27.20 - PULMONARY HYPERTENSION, UNSPECIFIED (5) Hypertensive urgency Current Visit: No Status: Acute Code(s): I16.0 - HYPERTENSIVE URGENCY (6) Generalized weakness Current Visit: No Status: Acute Assessment & Plan: ok to bear weight to the operative extremity for transfers ans short distances. PT ordered to work on strengthening. Code(s): R53.1 - WEAKNESS (7) VIVEK (acute kidney injury) Current Visit: No Status: Acute Code(s): N17.9 - ACUTE KIDNEY FAILURE, UNSPECIFIED
[2024-08-23 05:07] LABS: Absolute Neutrophil Ct (ANC) 6.39 x10^3/uL (1.56-6.13); Basophil (Absolute #) 0 x10^3/uL (0.01-0.08); Eosinophil % 0.8 % (0.7-5.8); Eosinophil (Absolute #) 0.08 x10^3/uL (0.04-0.36); Hematocrit 34.5 % (34.1-44.9); IMMATURE GRAN # 0.05 x10^3u/L (0.001-0.031); IMMATURE GRAN % 0.5 % (0.001-0.429); Lymphocyte (Absolute #) 2.25 x10^3/uL (1.18-3.74); Lymphocytes % 22.6 % (19.3-51.7); Mean Corpuscular Hemoglobin 28.1 pg (25.6-32.2); Mean Corpuscular Hgb Concent. 31.9 g/dL (32.2-35.5); Mean Platelet Volume 9.9 fL (9.4-12.3); Monocyte (Absolute #) 1.19 x10^3/uL (0.24-0.86); Monocytes % 11.9 % (4.7-12.5); Neutrophil % 64.2 % (34.0-71.1); Platelet Count 154 x10^3/uL (182-369); Red Blood Count 3.92 x10^6/uL (3.93-5.22); Red Cell Distribution Width 16.4 % (11.7-14.4)
--- NOTE | 2024-08-23 05:21 | PCM.NOTE ---
Date and Time: 08/23/24 0521 Subjective Assessment: Ms. Maldonado is an 88 year old female with pmhx of peripheral neuropathy, CHF, Chronic a-fib, hyperlipidemia, bronchitis, OA, GERD, Pulm HTN, GERD, and PVD was admitted for surgical management of right great toe gangrene secondary to PVD. Podiatry performed surgery on 08/18, and postoperatively, she had some pain, which was managed effectively with narcotic pain medications. Wound dressing managed by podiatry, and the site has remained closed and healing well. Broad-spectrum IV antibiotics, including daptomycin and Flagyl, were initiated per podiatry recommendations. WBC improved has improved, and no systemic signs of infection noted. She was initially scheduled for revascularization with Dr. Coon; however, this has been placed on hold per Dr. Moise, who requested inpatient monitoring until early this week. 08/22/24: Met with patient bedside. Endorses increased pain overnight. Currently rating 5/10 on numerical scale. Patient's daughter requesting swing bed on discharge. CM to look into this. Potassium is low and will be replenished. WBC and creat with elevation on morning labs. Plan to continue abx - hold diuretics today. 08/23/24: The patient had a restful night with well-controlled pain. Transfer to [place] for revascularization surgery is pending due to a waitlist. Wound culture shows normal skin minoo, and pathology from the right great toe amputation is pending. The plan includes continued IV antibiotics (Flagyl, Daptomycin) and ongoing inpatient podiatry management. - Review of Systems Constitutional: No Symptoms Eyes: No Symptoms Ears, Nose, & Throat: No Symptoms Respiratory: No Symptoms Cardiac: No Symptoms Abdominal/Gastrointestinal: No Symptoms Genitourinary Symptoms: No Symptoms Musculoskeletal: Joint Pain (right great toe s/p amputation) Skin: Other (right great toe amputation with sutures) Neurological: No Symptoms Psychological: No Symptoms Endocrine: No Symptoms Hematologic/Lymphatic: No Symptoms Immunological/Allergic: No Symptoms Objective Exam General Appearance: no apparent distress Neurologic Exam: alert, oriented x 3, cooperative Skin Exam: other (right great toe amputation with sutures) Wound Assessment: Skin/Wound Assessment Wound/Incision Assessment Start: 08/18/24 03:38 Text: Status: Active Freq: Q6H Protocol: Document 08/22/24 22:00 MP (Rec: 03/18/25 03:04 MP [id number]) Wound/Incision Assessment Left Medial Calf Wound Assessment Shift Assessment Wound Type Skin Tear Wound Stage Non Pressure Wound Drainage Amount None General Appearance Open to air,Clean/Dry Comment BARRIER CREAM APPLIED Bilateral Upper Medial Leg Wound Assessment Shift Assessment Wound Type Skin Tear Wound Stage Non Pressure Wound Drainage Amount None General Appearance Open to air,Clean/Dry Comment BARRIER CREAM APPLIED Right Arm Wound Assessment Shift Assessment Wound Type Skin Tear Dressing Status Dry & Intact Comment DRESSING C/D/I Right Medial Calf Wound Assessment Shift Assessment Wound Type Skin Tear Dressing Status Dry & Intact Comment DRESSING C/D/I Left Upper Calf Wound Assessment Shift Assessment Wound Type Skin Tear General Appearance Open to air,Clean/Dry Comment BARRIER CREAM APPLIED Right Great Toe Wound Assessment Shift Assessment Wound Type Amputation Wound Stage Non Pressure Wound Dressing Status Dry & Intact Comment DRESSING C/D/I - RLE ELEVATED ON PILLOWS Wound Photo Photo Taken No Eye Exam: PERRL Ears, Nose, Throat Exam: normal ENT inspection Neck Exam: normal inspection Respiratory Exam: normal breath sounds, lungs clear Cardiovascular Exam: regular rate/rhythm, normal heart sounds Gastrointestinal/Abdomen Exam: soft, normal bowel sounds Extremity Exam: normal inspection Back Exam: normal inspection Pelvic Exam: deferred Rectal Exam: deferred Objective Data Vital Signs: Vital Signs - 24 hr Temp Pulse Resp BP Pulse Ox 08/23/24 04:00 98.8 F 86 16 126/70 95 08/22/24 23:50 98.9 F 66 16 118/71 96 08/22/24 22:55 95 08/22/24 20:00 97.6 F 80 20 121/69 08/22/24 17:05 93 L 08/22/24 16:00 97.6 F 61 16 118/60 92 L 08/22/24 11:07 97.9 F 82 16 101/58 92 L 08/22/24 07:57 97.6 F 80 16 110/53 97 08/22/24 07:17 94 L Pain Assessment - Last Documented Pain Intensity 4 Pain Scale Used 0-10 Pain Scale Intake and Output: Intake & Output 08/20/24 08/21/24 08/22/24 08/23/24 11:59 11:59 11:59 11:59 Intake Total 0628 930 7672 280 Output Total 300 750 Balance 8928 832 5484 -470 Weight 58 kg Lab Results: Lab Results-Last 24 Hours 08/22/24 08/22/24 08/22/24 Range/Units 12:35 16:30 20:10 WBC (3.98-10.04) x10^3/uL RBC (3.93-5.22) x10^6/uL Hgb (11.2-15.7) g/dL Hct (34.1-44.9) % MCV (79.4-94.8) fL MCH (25.6-32.2) pg MCHC (32.2-35.5) g/dL RDW (11.7-14.4) % Plt Count (182-369) x10^3/uL MPV (9.4-12.3) fL Gran % (34.0-71.1) % Immature Gran % (Auto) (0.001-0.429) % Nucleat RBC Rel Count (0.00-0.2) % Eos # (Auto) (0.04-0.36) x10^3/uL Immature Gran # (Auto) (0.001-0.031) x10^3u/L Absolute Lymphs (auto) (1.18-3.74) x10^3/uL Absolute Monos (auto) (0.24-0.86) x10^3/uL Absolute Nucleated RBC (0.00-0.012) x10^3u/L Lymphocytes % (19.3-51.7) % Monocytes % (4.7-12.5) % Eosinophils % (0.7-5.8) % Basophils % (0.1-1.2) % Absolute Granulocytes (1.56-6.13) x10^3/uL Basophils # (0.01-0.08) x10^3/uL Potassium 3.7 4.4 4.8 (3.5-5.1) mmol/L 08/23/24 Range/Units 05:01 WBC 10.0 (3.98-10.04) x10^3/uL RBC 3.92 L (3.93-5.22) x10^6/uL Hgb 11.0 L (11.2-15.7) g/dL Hct 34.5 (34.1-44.9) % MCV 88.0 (79.4-94.8) fL MCH 28.1 (25.6-32.2) pg MCHC 31.9 L (32.2-35.5) g/dL RDW 16.4 H (11.7-14.4) % Plt Count 154 L (182-369) x10^3/uL MPV 9.9 (9.4-12.3) fL Gran % 64.2 (34.0-71.1) % Immature Gran % (Auto) 0.5 H (0.001-0.429) % Nucleat RBC Rel Count 0.0 (0.00-0.2) % Eos # (Auto) 0.08 (0.04-0.36) x10^3/uL Immature Gran # (Auto) 0.05 H (0.001-0.031) x10^3u/L Absolute Lymphs (auto) 2.25 (1.18-3.74) x10^3/uL Absolute Monos (auto) 1.19 H (0.24-0.86) x10^3/uL Absolute Nucleated RBC 0.00 (0.00-0.012) x10^3u/L Lymphocytes % 22.6 (19.3-51.7) % Monocytes % 11.9 (4.7-12.5) % Eosinophils % 0.8 (0.7-5.8) % Basophils % 0.0 L (0.1-1.2) % Absolute Granulocytes 6.39 H (1.56-6.13) x10^3/uL Basophils # 0 L (0.01-0.08) x10^3/uL Potassium (3.5-5.1) mmol/L Multi-Disciplinary Progress Notes: Multi-Disciplinary Progress Notes 08/22/24 12:47 Case Management Note by Melina Isaac DAUGHTER REQUESTING SWINGBED STAY D/T PROFOUND WEAKNESS AND NEEDING TO STAY NONWTBEARING ON OP FOOT. SHE IS UNSURE IF PATIENT WILL BE AGREEABLE- WILL DISCUSS THIS WITH PATIENT. Initialized on 08/22/24 12:47 - END OF NOTE Assessment/Plan (1) Gangrene of toe of right foot Current Visit: Yes Status: Acute Assessment & Plan: - R great toe - Probiotics - CBC, CMP reviewed- elevation in WBC and CReat -Blood cultures -Discuss with podiatry - path from amputation - Tele - Narcotic pain control - Surgery 08/18/24 - Continue Daptomycin per podiatry - Keep Flagyl per guidelines - PICC placed 08/17/2408/23: -WBC reviewed at 10.0<15.5- trend -Reviewed podiatry documentation - Due to dusking over incision site Jaymie was contacted. He agrees to proceed with earlier date for revascularization if patient can be admitted to [place]-Will discuss game plan for possible d/c vs continue with outpatient surgical intervention -transfer to [facility] has been initiated- currently there is a wait list -WB to the operative extremity for transfers and short distances. -PT ordered to work on strengthening. Code(s): I96 - GANGRENE, NOT ELSEWHERE CLASSIFIED (2) Dehydration Current Visit: Yes Status: Acute Assessment & Plan: - resolved Code(s): E86.0 - DEHYDRATION (3) Hypocalcemia Current Visit: Yes Status: Acute Assessment & Plan: - Tums BID Code(s): E83.51 - HYPOCALCEMIA (4) Chronic atrial fibrillation Current Visit: No Status: Chronic Assessment & Plan: - Continue Eliquis per podiatry Code(s): I48.20 - CHRONIC ATRIAL FIBRILLATION, UNSPECIFIED (5) Chronic diastolic (congestive) heart failure Current Visit: No Status: Chronic Assessment & Plan: - Continue home meds - hold diuretics today - Not in current exacerbation - Continue home meds - Heart healthy diet - Echo 07/20/24: EF 55% IMPRESSION: 1) NORMAL LEFT VENTRICULAR SIZE. 2) NORMAL LEFT VENTRICULAR SYSTOLIC FUNCTION. 3) SEVERE BIATRIAL ENLARGEMENT. 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 5) MILD TO MODERATE MITRAL REGURGITATION, MILD AORTIC INSUFFICIENCY. 6) MILD TO MODERATE TRICUSPID REGURGITATION AND MILD PULMONIC INSUFFICIENCY WITH EVIDENCE OF MILD PULMONARY HYPERTENSION. 7) MILD RIGHT VENTRICULAR ENLARGEMENT. Code(s): I50.32 - CHRONIC DIASTOLIC (CONGESTIVE) HEART FAILURE (6) GERD (gastroesophageal reflux disease) Current Visit: No Status: Chronic Assessment & Plan: - Continue omeprazole Code(s): K21.9 - GASTRO-ESOPHAGEAL REFLUX DISEASE WITHOUT ESOPHAGITIS (7) Hyperlipidemia Current Visit: No Status: Chronic Assessment & Plan: - Continue statin Code(s): E78.5 - HYPERLIPIDEMIA, UNSPECIFIED (8) Hypothyroid Current Visit: No Status: Chronic Assessment & Plan: - Continue synthroid Code(s): E03.9 - HYPOTHYROIDISM, UNSPECIFIED (9) PAD (peripheral artery disease) Current Visit: No Status: Chronic Assessment & Plan: - Noted - Scheduled for revascularization procedure with Dr. Coon but now on hold until possibly this week Code(s): I73.9 - PERIPHERAL VASCULAR DISEASE, UNSPECIFIED (10) Venous insufficiency of both lower extremities Current Visit: No Status: Chronic Assessment & Plan: -Noted- adds to complexity VTE: Eliquis PPI: omeprazole Next of KIN: Daughter Naomie Han D/C plan: Thursday or Thursday per podiatry recs Code status: SCO Code(s): I87.2 - VENOUS INSUFFICIENCY (CHRONIC) (PERIPHERAL) (11) Hypokalemia Current Visit: Yes Status: Acute Assessment & Plan: -Potassium reviewed at 3.4- replenish per protocol 08/23/24: -Resolved Code(s): E87.6 - HYPOKALEMIA Code(s): I96 - GANGRENE, NOT ELSEWHERE CLASSIFIED (2) Dehydration Current Visit: Yes Status: Acute Code(s): E86.0 - DEHYDRATION (3) Hypocalcemia Current Visit: Yes Status: Acute Code(s): E83.51 - HYPOCALCEMIA (4) Chronic atrial fibrillation Current Visit: No Status: Chronic Code(s): I48.20 - CHRONIC ATRIAL FIBRILLATION, UNSPECIFIED (5) Chronic diastolic (congestive) heart failure Current Visit: No Status: Chronic Code(s): I50.32 - CHRONIC DIASTOLIC (CONGESTIVE) HEART FAILURE (6) GERD (gastroesophageal reflux disease) Current Visit: No Status: Chronic Code(s): K21.9 - GASTRO-ESOPHAGEAL REFLUX DISEASE WITHOUT ESOPHAGITIS (7) Hyperlipidemia Current Visit: No Status: Chronic Code(s): E78.5 - HYPERLIPIDEMIA, UNSPECIFIED (8) Hypothyroid Current Visit: No Status: Chronic Code(s): E03.9 - HYPOTHYROIDISM, UNSPECIFIED (9) PAD (peripheral artery disease) Current Visit: No Status: Chronic Code(s): I73.9 - PERIPHERAL VASCULAR DISEASE, UNSPECIFIED (10) Venous insufficiency of both lower extremities Current Visit: No Status: Chronic Code(s): I87.2 - VENOUS INSUFFICIENCY (CHRONIC) (PERIPHERAL) (11) Hypokalemia Current Visit: Yes Status: Acute Code(s): E87.6 - HYPOKALEMIA
[2024-08-23 05:36] LABS: ALBUMIN 2.7 g/dL (3.5-5.0); ANION GAP 13.2 MEQ/L (5-15); BILIRUBIN,TOTAL 0.8 mg/dL (0.2-1.3); Calcium 8.1 mg/dL (8.4-10.2); Creatinine 1 1.03 mg/dL (0.52-1.04); EST GLOMERULAR FILTRATION RATE 52.3 ML/MIN; Potassium 4.1 mmol/L (3.5-5.1); Total Protein 5.3 g/dL (6.3-8.2)
[2024-08-24 05:01] LABS: Absolute Neutrophil Ct (ANC) 6.34 x10^3/uL (1.56-6.13); BASOPHIL % 0.1 % (0.1-1.2); Basophil (Absolute #) 0.01 x10^3/uL (0.01-0.08); Eosinophil % 0.8 % (0.7-5.8); Eosinophil (Absolute #) 0.09 x10^3/uL (0.04-0.36); Hematocrit 35.2 % (34.1-44.9); Hemoglobin 11.1 g/dL (11.2-15.7); IMMATURE GRAN # 0.06 x10^3u/L (0.001-0.031); IMMATURE GRAN % 0.6 % (0.001-0.429); Lymphocytes % 27.2 % (19.3-51.7); Mean Cell Volume 88.7 fL (79.4-94.8); Mean Corpuscular Hgb Concent. 31.5 g/dL (32.2-35.5); Monocyte (Absolute #) 1.28 x10^3/uL (0.24-0.86); Neutrophil % 59.3 % (34.0-71.1); Platelet Count 193 x10^3/uL (182-369); Red Blood Count 3.97 x10^6/uL (3.93-5.22); Red Cell Distribution Width 16.6 % (11.7-14.4); White Blood Count 10.7 x10^3/uL (3.98-10.04)
--- NOTE | 2024-08-24 05:08 | PCM.NOTE ---
Date and Time: 08/24/24 0506 Subjective Assessment: Ms. Maldonado is an 88 year old female with pmhx of peripheral neuropathy, CHF, Chronic a-fib, hyperlipidemia, bronchitis, OA, GERD, Pulm HTN, GERD, and PVD was admitted 08/17/24 for surgical management of right great toe gangrene secondary to PVD. Podiatry performed surgery on 08/18, and postoperatively, she had some pain, which was managed effectively with narcotic pain medications. Wound dressing managed by podiatry, and the site has remained closed and healing well. Broad-spectrum IV antibiotics, including daptomycin and Flagyl, were initiated per podiatry recommendations. WBC improved has improved, and no systemic signs of infection noted. She was initially scheduled for revascularization with Dr. Coon; however, this has been placed on hold per Dr. Moise, who requested inpatient monitoring until early this week. 08/22/24: Met with patient bedside. Endorses increased pain overnight. Currently rating 5/10 on numerical scale. Patient's daughter requesting swing bed on discharge. CM to look into this. Potassium is low and will be replenished. WBC and creat with elevation on morning labs. Plan to continue abx - hold diuretics today. 08/23/24: The patient had a restful night with well-controlled pain. Transfer to [place] for revascularization surgery is pending due to a waitlist. Wound culture shows normal skin minoo, and pathology from the right great toe amputation is pending. The plan includes continued IV antibiotics (Flagyl, Daptomycin) and ongoing inpatient podiatry management 08/24/24: Met with patient and daughter bedside. Patient reports a poor appetite and energy level today and having nausea/indigestion after eating. Pain is controlled with current pain regimen. Labs and vitals stable. Awaiting transfer to [facility]. Will start Lovenox and hold home Eliquis in preparation of surgery. Will hold diurectics today. - Review of Systems Constitutional: Fatigue, Weakness Eyes: No Symptoms Ears, Nose, & Throat: No Symptoms Respiratory: Cough, Short Of Breath Cardiac: No Symptoms Abdominal/Gastrointestinal: No Symptoms Genitourinary Symptoms: No Symptoms Musculoskeletal: No Symptoms Skin: Other (right great toe amputation with surgical dressing ) Neurological: No Symptoms Psychological: No Symptoms Endocrine: No Symptoms Hematologic/Lymphatic: No Symptoms Immunological/Allergic: No Symptoms Objective Exam General Appearance: no apparent distress Neurologic Exam: alert, oriented x 3, cooperative Skin Exam: pale, other (see wound assessment) Wound Assessment: Skin/Wound Assessment Wound/Incision Assessment Start: 08/18/24 0 3:38 Text: Status: Active Freq: Q6H Protocol: Document 08/23/24 22:00 LB (Rec: 08/23/24 23:28 LB [id number]) Wound/Incision Assessment Left Medial Calf Wound Assessment Shift Assessment Wound Type Skin Tear Wound Stage Non Pressure Wound Drainage Amount None General Appearance Open to air,Clean/Dry Bilateral Upper Medial Leg Wound Assessment Shift Assessment Wound Type Skin Tear Wound Stage Non Pressure Wound Drainage Amount None General Appearance Open to air,Clean/Dry Right Arm Wound Assessment Shift Assessment Wound Type Skin Tear Dressing Status Dry & Intact Comment DRESSING C/D/I Right Medial Calf Wound Assessment Shift Assessment Wound Type Skin Tear Dressing Status Dry & Intact Comment DRESSING C/D/I Left Upper Calf Wound Assessment Shift Assessment Wound Type Skin Tear General Appearance Open to air,Clean/Dry Right Great Toe Wound Assessment Shift Assessment Wound Type Amputation Wound Stage Non Pressure Wound Dressing Status Dry & Intact Comment dressing CDI, leg elevated on pillows Wound Photo Photo Taken No Eye Exam: PERRL Ears, Nose, Throat Exam: normal ENT inspection Neck Exam: normal inspection Respiratory Exam: normal breath sounds, lungs clear Cardiovascular Exam: regular rate/rhythm, normal heart sounds Gastrointestinal/Abdomen Exam: soft, normal bowel sounds Extremity Exam: normal inspection Back Exam: normal inspection Pelvic Exam: deferred Rectal Exam: deferred Objective Data Vital Signs: Vital Signs - 24 hr Temp Pulse Resp BP Pulse Ox 08/24/24 00:00 68 15 08/23/24 20:00 97.5 F 71 16 128/64 91 L 08/23/24 18:27 94 L 08/23/24 15:59 97.6 F 41 L 16 153/85 95 08/23/24 11:29 97.6 F 78 16 98/52 96 08/23/24 07:27 97.8 F 72 16 118/59 97 08/23/24 06:27 93 L Pain Assessment - Last Documented Pain Intensity 0 Pain Scale Used 0-10 Pain Scale Intake and Output: Intake & Output 08/21/24 08/22/24 08/23/24 08/24/24 11:59 11:59 11:59 11:59 Intake Total 560 1540 660 760 Output Total 300 1100 600 Balance 560 1240 -440 160 Lab Results: Lab Results-Last 24 Hours 08/18/24 08/23/24 08/23/24 Range/Units 08:38 05:01 05:01 WBC 10.0 (3.98-10.04) x10^3/uL RBC 3.92 L (3.93-5.22) x10^6/uL Hgb 11.0 L (11.2-15.7) g/dL Hct 34.5 (34.1-44.9) % MCV 88.0 (79.4-94.8) fL MCH 28.1 (25.6-32.2) pg MCHC 31.9 L (32.2-35.5) g/dL RDW 16.4 H (11.7-14.4) % Plt Count 154 L (182-369) x10^3/uL MPV 9.9 (9.4-12.3) fL Gran % 64.2 (34.0-71.1) % Immature Gran % (Auto) 0.5 H (0.001-0.429) % Nucleat RBC Rel Count 0.0 (0.00-0.2) % Eos # (Auto) 0.08 (0.04-0.36) x10^3/uL Immature Gran # (Auto) 0.05 H (0.001-0.031) x10^3u/L Absolute Lymphs (auto) 2.25 (1.18-3.74) x10^3/uL Absolute Monos (auto) 1.19 H (0.24-0.86) x10^3/uL Absolute Nucleated RBC 0.00 (0.00-0.012) x10^3u/L Lymphocytes % 22.6 (19.3-51.7) % Monocytes % 11.9 (4.7-12.5) % Eosinophils % 0.8 (0.7-5.8) % Basophils % 0.0 L (0.1-1.2) % Absolute Granulocytes 6.39 H (1.56-6.13) x10^3/uL Basophils # 0 L (0.01-0.08) x10^3/uL Sodium 131 L (135-145) mmol/L Potassium 4.1 (3.5-5.1) mmol/L Chloride 93 L (98-107) mmol/L Carbon Dioxide 29 (22-30) mmol/L Anion Gap 13.2 (5-15) MEQ/L BUN 34 H (7-17) mg/dL Creatinine 1.03 (0.52-1.04) mg/dL Estimated GFR 52.3 ML/MIN Glucose 85 (74-106) mg/dL Calcium 8.1 L (8.4-10.2) mg/dL Total Bilirubin 0.80 (0.2-1.3) mg/dL AST 23 (14-36) U/L ALT 11 (0-35) U/L Alkaline Phosphatase 47 (38-126) U/L Serum Total Protein 5.3 L (6.3-8.2) g/dL Albumin 2.7 L (3.5-5.0) g/dL Surg PTH Specimen SEE COMMENTS Multi-Disciplinary Progress Notes: Multi-Disciplinary Progress Notes 08/23/24 12:39 Case Management Note by Melina Isaac FURTHER CM/DC PLANNING HELD AT THIS TIME- PATIENT MAY NEED TO TRANSFER TO HIGHER LEVEL OF CARE Initialized on 08/23/24 12:39 - END OF NOTE Assessment/Plan (1) Gangrene of toe of right foot Current Visit: Yes Status: Acute Assessment & Plan: - R great toe - Probiotics - CBC, CMP reviewed- elevation in WBC and CReat -Blood cultures -Discuss with podiatry - path from amputation - Tele - Narcotic pain control - Surgery 08/18/24 - Continue Daptomycin per podiatry - Keep Flagyl per guidelines - PICC placed 08/17/2408/23: -WBC reviewed at 10.0<15.5- trend -Reviewed podiatry documentation - Due to dusking over incision site Jaymie was contacted. He agrees to proceed with earlier date for revascularization if patient can be admitted to [place]-Will discuss game plan for possible d/c vs continue with outpatient surgical intervention -transfer to [place] has been initiated- currently there is a wait list -WB to the operative extremity for transfers and short distances. -PT ordered to work on strengthening. 08/24: -CBC reviewed with WBC at 10.7 -Podiatry following - transfer pending - continue Dapto - discontinue Flagyl -Path pending from right great toe Code(s): I96 - GANGRENE, NOT ELSEWHERE CLASSIFIED (2) Dehydration Current Visit: Yes Status: Acute Assessment & Plan: - resolved Code(s): E86.0 - DEHYDRATION (3) Hypocalcemia Current Visit: Yes Status: Acute Assessment & Plan: - Tums BID 08/24: -Resolved Code(s): E83.51 - HYPOCALCEMIA (4) Chronic atrial fibrillation Current Visit: No Status: Chronic Assessment & Plan: - Continue Eliquis per podiatry 08/24: -Hold eliquis and start Lovenox in prep for surgery Code(s): I48.20 - CHRONIC ATRIAL FIBRILLATION, UNSPECIFIED (5) Chronic diastolic (congestive) heart failure Current Visit: No Status: Chronic Assessment & Plan: - Continue home meds - hold diuretics today - Not in current exacerbation - Continue home meds - Heart healthy diet - Echo 07/20/24: EF 55% IMPRESSION: 1) NORMAL LEFT VENTRICULAR SIZE. 2) NORMAL LEFT VENTRICULAR SYSTOLIC FUNCTION. 3) SEVERE BIATRIAL ENLARGEMENT. 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 5) MILD TO MODERATE MITRAL REGURGITATION, MILD AORTIC INSUFFICIENCY. 6) MILD TO MODERATE TRICUSPID REGURGITATION AND MILD PULMONIC INSUFFICIENCY WITH EVIDENCE OF MILD PULMONARY HYPERTENSION. 7) MILD RIGHT VENTRICULAR ENLARGEMENT. Code(s): I50.32 - CHRONIC DIASTOLIC (CONGESTIVE) HEART FAILURE (6) GERD (gastroesophageal reflux disease) Current Visit: No Status: Chronic Assessment & Plan: - Continue omeprazole Code(s): K21.9 - GASTRO-ESOPHAGEAL REFLUX DISEASE WITHOUT ESOPHAGITIS (7) Hyperlipidemia Current Visit: No Status: Chronic Assessment & Plan: - Continue statin Code(s): E78.5 - HYPERLIPIDEMIA, UNSPECIFIED (8) Hypothyroid Current Visit: No Status: Chronic Assessment & Plan: - Continue synthroid Code(s): E03.9 - HYPOTHYROIDISM, UNSPECIFIED (9) PAD (peripheral artery disease) Current Visit: No Status: Chronic Assessment & Plan: - Noted - Scheduled for revascularization procedure with Dr. Coon but now on hold until possibly this week Code(s): I73.9 - PERIPHERAL VASCULAR DISEASE, UNSPECIFIED (10) Venous insufficiency of both lower extremities Current Visit: No Status: Chronic Assessment & Plan: -Noted- adds to complexity VTE: Eliquis PPI: omeprazole Next of KIN: Daughter - Emely D/C plan: Thursday or Thursday per podiatry recs Code status: SCO Code(s): I87.2 - VENOUS INSUFFICIENCY (CHRONIC) (PERIPHERAL) (11) Hypokalemia Current Visit: Yes Status: Acute Assessment & Plan: -Potassium reviewed at 3.4- replenish per protocol 08/23/24: -Resolved Code(s): E87.6 - HYPOKALEMIA Code(s): I96 - GANGRENE, NOT ELSEWHERE CLASSIFIED Code(s): I96 - GANGRENE, NOT ELSEWHERE CLASSIFIED (2) Dehydration Current Visit: Yes Status: Acute Code(s): E86.0 - DEHYDRATION (3) Hypocalcemia Current Visit: Yes Status: Acute Code(s): E83.51 - HYPOCALCEMIA (4) Chronic atrial fibrillation Current Visit: No Status: Chronic Code(s): I48.20 - CHRONIC ATRIAL FIBRILLATION, UNSPECIFIED (5) Chronic diastolic (congestive) heart failure Current Visit: No Status: Chronic Code(s): I50.32 - CHRONIC DIASTOLIC (CONGESTIVE) HEART FAILURE (6) GERD (gastroesophageal reflux disease) Current Visit: No Status: Chronic Code(s): K21.9 - GASTRO-ESOPHAGEAL REFLUX DISEASE WITHOUT ESOPHAGITIS (7) Hyperlipidemia Current Visit: No Status: Chronic Code(s): E78.5 - HYPERLIPIDEMIA, UNSPECIFIED (8) Hypothyroid Current Visit: No Status: Chronic Code(s): E03.9 - HYPOTHYROIDISM, UNSPECIFIED (9) PAD (peripheral artery disease) Current Visit: No Status: Chronic Code(s): I73.9 - PERIPHERAL VASCULAR DISEASE, UNSPECIFIED (10) Venous insufficiency of both lower extremities Current Visit: No Status: Chronic Code(s): I87.2 - VENOUS INSUFFICIENCY (CHRONIC) (PERIPHERAL) (11) Hypokalemia Current Visit: Yes Status: Acute Code(s): E87.6 - HYPOKALEMIA
[2024-08-24 05:26] LABS: ALBUMIN 2.7 g/dL (3.5-5.0); ANION GAP 12.3 MEQ/L (5-15); BILIRUBIN,TOTAL 0.6 mg/dL (0.2-1.3); Calcium 8.4 mg/dL (8.4-10.2); Creatinine 1 0.91 mg/dL (0.52-1.04); EST GLOMERULAR FILTRATION RATE 60.7 ML/MIN; Potassium 3.8 mmol/L (3.5-5.1); Total Protein 5.2 g/dL (6.3-8.2)
[2024-08-24 10:30] LABS: Appearance Clear (Clear); Bacteria None Seen /HPF (None Seen); Bilirubin Negative (Negative); Blood Trace (Negative); Epithelial Cells Few /HPF (None Seen); Glucose, Urine >=1000 mg/dL (Negative); Hyaline Casts NONE SEEN /LPF (0-2); Ketones Negative (Negative); Leukocyte Esterase Small (Negative); Nitrite Negative (Negative); Ph 6.5 (4.6-8.0); Protein,Urine Dip Trace (Negative); RBC 0-2 /HPF (0-5); Urobilinogen 0.2 mg/dL (0.2)
[2024-08-24 10:32] LABS: Budding Yeast Few /HPF (None Seen)
[2024-08-24 12:12] VITALS: RESP 17
--- NOTE | 2024-08-24 13:08 | PCM.NOTE ---
Date and Time: 08/24/24 1306 Subjective Assessment: Patient progressing at this time, Better controlled pain. better sleep overnight. No new increases in pain. Awaiting potential transfer to [facility] for intervention with Dr. Phillip. Physical Exam - Narrative Narrative Physical Exam: Podiatry Physical Exam Objective Data Vital Signs: Vital Signs - 24 hr Temp Pulse Resp BP BP Pulse Ox 08/24/24 12:00 97.5 F 85 17 104/56 96 08/24/24 09:59 82 112/61 08/24/24 09:46 91 L 08/24/24 08:00 96.4 F 82 16 112/61 96 08/24/24 04:00 96.0 F 80 16 122/70 96 08/24/24 00:00 68 15 08/23/24 20:00 97.5 F 71 16 128/64 91 L 08/23/24 18:27 94 L 08/23/24 15:59 97.6 F 41 L 16 153/85 95 Pain Assessment - Last Documented Pain Intensity 4 Pain Scale Used 0-10 Pain Scale Intake and Output: Intake & Output 08/22/24 08/23/24 08/24/24 08/25/24 11:59 11:59 11:59 11:59 Intake Total 5023 456 4182 Output Total 300 1100 900 Balance 1240 -440 220 Lab Results: Lab Results-Last 24 Hours 08/18/24 08/24/24 08/24/24 Range/Units 08:38 04:20 04:20 WBC 10.7 H (3.98-10.04) x10^3/uL RBC 3.97 (3.93-5.22) x10^6/uL Hgb 11.1 L (11.2-15.7) g/dL Hct 35.2 (34.1-44.9) % MCV 88.7 (79.4-94.8) fL MCH 28.0 (25.6-32.2) pg MCHC 31.5 L (32.2-35.5) g/dL RDW 16.6 H (11.7-14.4) % Plt Count 193 (182-369) x10^3/uL MPV 10.0 (9.4-12.3) fL Gran % 59.3 (34.0-71.1) % Immature Gran % (Auto) 0.6 H (0.001-0.429) % Nucleat RBC Rel Count 0.0 (0.00-0.2) % Eos # (Auto) 0.09 (0.04-0.36) x10^3/uL Immature Gran # (Auto) 0.06 H (0.001-0.031) x10^3u/L Absolute Lymphs (auto) 2.90 (1.18-3.74) x10^3/uL Absolute Monos (auto) 1.28 H (0.24-0.86) x10^3/uL Absolute Nucleated RBC 0.00 (0.00-0.012) x10^3u/L Lymphocytes % 27.2 (19.3-51.7) % Monocytes % 12.0 (4.7-12.5) % Eosinophils % 0.8 (0.7-5.8) % Basophils % 0.1 (0.1-1.2) % Absolute Granulocytes 6.34 H (1.56-6.13) x10^3/uL Basophils # 0.01 (0.01-0.08) x10^3/uL Sodium 130 L (135-145) mmol/L Potassium 3.8 (3.5-5.1) mmol/L Chloride 94 L (98-107) mmol/L Carbon Dioxide 28 (22-30) mmol/L Anion Gap 12.3 (5-15) MEQ/L BUN 33 H (7-17) mg/dL Creatinine 0.91 (0.52-1.04) mg/dL Estimated GFR 60.7 ML/MIN Glucose 80 (74-106) mg/dL Calcium 8.4 (8.4-10.2) mg/dL Total Bilirubin 0.60 (0.2-1.3) mg/dL AST 22 (14-36) U/L ALT 11 (0-35) U/L Alkaline Phosphatase 49 (38-126) U/L Creatine Kinase (30-135) U/L Serum Total Protein 5.2 L (6.3-8.2) g/dL Albumin 2.7 L (3.5-5.0) g/dL Urine Color (Yellow) Urine Appearance (Clear) Urine pH (4.6-8.0) Ur Specific [place] (1.005-1.030) Urine Protein (Negative) Urine Glucose (UA) (Negative) mg/dL Urine Ketones (Negative) Urine Blood (Negative) Urine Nitrite (Negative) Urine Bilirubin (Negative) Urine Urobilinogen (0.2) mg/dL Ur Leukocyte Esterase (Negative) U Hyaline Cast (Auto) (0-2) /LPF Urine Microscopic RBC (0-5) /HPF Urine Microscopic WBC (0-5) /HPF Ur Epithelial Cells (None Seen) /HPF Urine Bacteria (None Seen) /HPF Urine Yeast (Budding) (None Seen) /HPF Urine Culture Reflexed (NO) Surg PTH Specimen SEE COMMENTS 08/24/24 08/24/24 Range/Units 04:50 05:30 WBC (3.98-10.04) x10^3/uL RBC (3.93-5.22) x10^6/uL Hgb (11.2-15.7) g/dL Hct (34.1-44.9) % MCV (79.4-94.8) fL MCH (25.6-32.2) pg MCHC (32.2-35.5) g/dL RDW (11.7-14.4) % Plt Count (182-369) x10^3/uL MPV (9.4-12.3) fL Gran % (34.0-71.1) % Immature Gran % (Auto) (0.001-0.429) % Nucleat RBC Rel Count (0.00-0.2) % Eos # (Auto) (0.04-0.36) x10^3/uL Immature Gran # (Auto) (0.001-0.031) x10^3u/L Absolute Lymphs (auto) (1.18-3.74) x10^3/uL Absolute Monos (auto) (0.24-0.86) x10^3/uL Absolute Nucleated RBC (0.00-0.012) x10^3u/L Lymphocytes % (19.3-51.7) % Monocytes % (4.7-12.5) % Eosinophils % (0.7-5.8) % Basophils % (0.1-1.2) % Absolute Granulocytes (1.56-6.13) x10^3/uL Basophils # (0.01-0.08) x10^3/uL Sodium (135-145) mmol/L Potassium (3.5-5.1) mmol/L Chloride (98-107) mmol/L Carbon Dioxide (22-30) mmol/L Anion Gap (5-15) MEQ/L BUN (7-17) mg/dL Creatinine (0.52-1.04) mg/dL Estimated GFR ML/MIN Glucose (74-106) mg/dL Calcium (8.4-10.2) mg/dL Total Bilirubin (0.2-1.3) mg/dL AST (14-36) U/L ALT (0-35) U/L Alkaline Phosphatase (38-126) U/L Creatine Kinase 52 (30-135) U/L Serum Total Protein (6.3-8.2) g/dL Albumin (3.5-5.0) g/dL Urine Color Dark Yellow A (Yellow) Urine Appearance Clear (Clear) Urine pH 6.5 (4.6-8.0) Ur Specific [place] 1.020 (1.005-1.030) Urine Protein Trace A (Negative) Urine Glucose (UA) >=1000 A (Negative) mg/dL Urine Ketones Negative (Negative) Urine Blood Trace (Negative) Urine Nitrite Negative (Negative) Urine Bilirubin Negative (Negative) Urine Urobilinogen 0.2 (0.2) mg/dL Ur Leukocyte Esterase Small A (Negative) U Hyaline Cast (Auto) NONE SEEN (0-2) /LPF Urine Microscopic RBC 0-2 (0-5) /HPF Urine Microscopic WBC 11-20 A (0-5) /HPF Ur Epithelial Cells Few (None Seen) /HPF Urine Bacteria None Seen (None Seen) /HPF Urine Yeast (Budding) Few A (None Seen) /HPF Urine Culture Reflexed YES (NO) Surg PTH Specimen Multi-Disciplinary Progress Notes: Multi-Disciplinary Progress Notes 08/24/24 09:12 Case Management Note by Melina Isaac NO FURTHER DC DISCUSSIONS AT THIS TIME-PATIENT WAITING FOR BED AT HIGHER LEVEL OF CARE- HOPEFUL FOR BED TODAY Initialized on 08/24/24 09:12 - END OF NOTE Assessment/Plan (1) Osteomyelitis Current Visit: Yes Status: Acute Assessment & Plan: Confirmed with pathology. Unfortunately necrosis is seen at proximal medial as pect of surgical margin. Infection appears to be absent at the proximal resection site to the level of bone. Code(s): M86.9 - OSTEOMYELITIS, UNSPECIFIED (2) Peripheral vascular disease Current Visit: Yes Status: Acute Assessment & Plan: Awaiting transfer to [facility] for intervention with Dr. José Phillip (vascular) Code(s): I73.9 - PERIPHERAL VASCULAR DISEASE, UNSPECIFIED (3) Acute asthmatic bronchitis Current Visit: No Status: Acute Code(s): J45.909 - UNSPECIFIED ASTHMA, UNCOMPLICATED (4) Pulmonary hypertension Current Visit: No Status: Chronic Code(s): I27.20 - PULMONARY HYPERTENSION, UNSPECIFIED (5) Hypertensive urgency Current Visit: No Status: Acute Code(s): I16.0 - HYPERTENSIVE URGENCY (6) Generalized weakness Current Visit: No Status: Acute Code(s): R53.1 - WEAKNESS (7) VIVEK (acute kidney injury) Current Visit: No Status: Acute Code(s): N17.9 - ACUTE KIDNEY FAILURE, UNSPECIFIED
[2024-08-24] MEDS ORDERED: PHARMACY DOSING REQUEST MC ONE (13:25)
[2024-08-24] MEDS ORDERED: Zofran 4 MG/2 ML VIAL IV PRN (13:26)
[2024-08-24] MEDS ORDERED: MARY'S MOUTHWASH PO PRN (14:21)
[2024-08-24] MEDS: Sodium Chloride 0.9% 500 ML 500 ML IV SCH (14:40)
--- NOTE | 2024-08-24 15:13 | XRAY ---
Indication: Short of breath. Comparison: August 17, 2024 Portable chest again demonstrates cardiomegaly with right arm PICC line. New small bibasilar effusions/atelectasis is favoring cardiac decompensation/CHF versus fluid overload.
[2024-08-24 15:16] LABS: INFLUENZA A NEGATIVE (NEGATIVE); INFLUENZA B NEGATIVE (NEGATIVE); RESPIRATORY SYNCTIAL VIRUS NEGATIVE (NEGATIVE); SARS-CoV-2 Xpert Express NEGATIVE (NEGATIVE)
[2024-08-24] MEDS ORDERED: NORCO 7.5/325 MG TAB ONE (17:19)
[2024-08-24] MEDS: NORCO 7.5/325 MG TAB PO PRN (17:23)
[2024-08-24] MEDS ORDERED: Hydromorphone 1 mg/ml Injection IV PRN (18:15)
[2024-08-24 20:43] VITALS: BP 128/55; PULSE 84; TEMP 97.5; O2SAT 91
[2024-08-24] MEDS: ENOXAPARIN SODIUM SQ SCH (21:55)
--- NOTE | 2024-08-25 05:11 | PCM.DS ---
Discharge Summary Date of Admission: 08/17/24 15:51 Date of Discharge: 08/25/19 Admitting Physician: DANIELLE MACEDO MD Consults: Consults on Case 08/17/24 16:44 Consult Podiatry ROUTINE Primary Care Provider: GRACIE LLOYD Allergies Allergies amlodipine [From Norvasc] Allergy (Verified 08/17/24 14:00) Swelling cefuroxime Allergy (Verified 08/17/24 11:26) cephalexin [From Keflex] Allergy (Verified 08/17/24 14:00) Hives gabapentin [From Neurontin] Allergy (Verified 08/17/24 14:00) HAIR LOSS Sulfa (Sulfonamide Antibiotics) Allergy (Verified 08/17/24 14:00) [facility] Hospital Summary - Hospital Course Hospital Course: The patient, an 88-year-old female with a history of peripheral neuropathy, CHF, chronic atrial fibrillation, hyperlipidemia, bronchitis, osteoarthritis, GERD, pulmonary hypertension, and PVD, was admitted on 08/17/24 for surgical management of right great toe gangrene due to PVD. She underwent surgery on 08/18, with post-operative pain well-managed. IV antibiotics (Daptomycin, initially with Flagyl) were administered, and WBC improved without systemic infection signs. Revascularization with Dr. Lloyd was planned but delayed due to a waitlist for transfer to [facility]. Throughout admission, she experienced episodes of dehydration, hypocalcemia, and hypokalemia, all of which resolved with treatment. Pain remained controlled, and podiatry managed wound care, with pathology from amputation pending. Medications were adjusted, including holding Eliquis and starting Lovenox in preparation for surgery. She remains hemodynamically stable, with ongoing podiatry and PT involvement. Patient discharged to [place] for higher level of care for revascularization surgery per Dr. Lloyd recommendations. I spent 35 minutes [id number] with the patient on the day of discharge performing discharge exam, discussing hospital stay and discharge instructions with patient and caregivers, preparation of discharge records, prescriptions & referral forms and addressing any questions/concerns the patient had as documented above. - Vitals & Intake/Output Vital Signs: Vital Signs Temperature 97.5 F 08/24/24 20:00 Pulse Rate 84 08/24/24 20:00 Respiratory Rate 17 08/24/24 20:00 Blood Pressure 128/55 08/24/24 20:00 O2 Sat by Pulse Oximetry 91 L 08/24/24 20:00 Intake & Output: Intake & Output 08/22/24 08/23/24 08/24/24 08/25/24 11:59 11:59 11:59 11:59 Intake Total 9168 148 5624 300 Output Total 300 1100 900 Balance 1240 -440 220 300 - Lab Result Diagrams: 08/24/24 04:20 08/24/24 04:20 Lab Results-Last 24 Hrs: Lab Results-Last 24 Hours 08/24/24 08/24/24 08/24/24 Range/Units 04:20 04:20 04:50 WBC 10.7 H (3.98-10.04) x10^3/uL RBC 3.97 (3.93-5.22) x10^6/uL Hgb 11.1 L (11.2-15.7) g/dL Hct 35.2 (34.1-44.9) % MCV 88.7 (79.4-94.8) fL MCH 28.0 (25.6-32.2) pg MCHC 31.5 L (32.2-35.5) g/dL RDW 16.6 H (11.7-14.4) % Plt Count 193 (182-369) x10^3/uL MPV 10.0 (9.4-12.3) fL Gran % 59.3 (34.0-71.1) % Immature Gran % (Auto) 0.6 H (0.001-0.429) % Nucleat RBC Rel Count 0.0 (0.00-0.2) % Eos # (Auto) 0.09 (0.04-0.36) x10^3/uL Immature Gran # (Auto) 0.06 H (0.001-0.031) x10^3u/L Absolute Lymphs (auto) 2.90 (1.18-3.74) x10^3/uL Absolute Monos (auto) 1.28 H (0.24-0.86) x10^3/uL Absolute Nucleated RBC 0.00 (0.00-0.012) x10^3u/L Lymphocytes % 27.2 (19.3-51.7) % Monocytes % 12.0 (4.7-12.5) % Eosinophils % 0.8 (0.7-5.8) % Basophils % 0.1 (0.1-1.2) % Absolute Granulocytes 6.34 H (1.56-6.13) x10^3/uL Basophils # 0.01 (0.01-0.08) x10^3/uL Sodium 130 L (135-145) mmol/L Potassium 3.8 (3.5-5.1) mmol/L Chloride 94 L (98-107) mmol/L Carbon Dioxide 28 (22-30) mmol/L Anion Gap 12.3 (5-15) MEQ/L BUN 33 H (7-17) mg/dL Creatinine 0.91 (0.52-1.04) mg/dL Estimated GFR 60.7 ML/MIN Glucose 80 (74-106) mg/dL Calcium 8.4 (8.4-10.2) mg/dL Total Bilirubin 0.60 (0.2-1.3) mg/dL AST 22 (14-36) U/L ALT 11 (0-35) U/L Alkaline Phosphatase 49 (38-126) U/L Creatine Kinase (30-135) U/L Serum Total Protein 5.2 L (6.3-8.2) g/dL Albumin 2.7 L (3.5-5.0) g/dL Urine Color Dark Yellow A (Yellow) Urine Appearance Clear (Clear) Urine pH 6.5 (4.6-8.0) Ur Specific [place] 1.020 (1.005-1.030) Urine Protein Trace A (Negative) Urine Glucose (UA) >=1000 A (Negative) mg/dL Urine Ketones Negative (Negative) Urine Blood Trace (Negative) Urine Nitrite Negative (Negative) Urine Bilirubin Negative (Negative) Urine Urobilinogen 0.2 (0.2) mg/dL Ur Leukocyte Esterase Small A (Negative) U Hyaline Cast (Auto) NONE SEEN (0-2) /LPF Urine Microscopic RBC 0-2 (0-5) /HPF Urine Microscopic WBC 11-20 A (0-5) /HPF Ur Epithelial Cells Few (None Seen) /HPF Urine Bacteria None Seen (None Seen) /HPF Urine Yeast (Budding) Few A (None Seen) /HPF Urine Culture Reflexed YES (NO) Influenza Type A Ag (NEGATIVE) Influenza Type B Ag (NEGATIVE) RSV (PCR) (NEGATIVE) SARS-CoV-2 (PCR) (NEGATIVE) Group A Strep Antibody (NEGATIVE) 08/24/24 08/24/24 08/24/24 Range/Units 05:30 14:23 16:27 WBC (3.98-10.04) x10^3/uL RBC (3.93-5.22) x10^6/uL Hgb (11.2-15.7) g/dL Hct (34.1-44.9) % MCV (79.4-94.8) fL MCH (25.6-32.2) pg MCHC (32.2-35.5) g/dL RDW (11.7-14.4) % Plt Count (182-369) x10^3/uL MPV (9.4-12.3) fL Gran % (34.0-71.1) % Immature Gran % (Auto) (0.001-0.429) % Nucleat RBC Rel Count (0.00-0.2) % Eos # (Auto) (0.04-0.36) x10^3/uL Immature Gran # (Auto) (0.001-0.031) x10^3u/L Absolute Lymphs (auto) (1.18-3.74) x10^3/uL Absolute Monos (auto) (0.24-0.86) x10^3/uL Absolute Nucleated RBC (0.00-0.012) x10^3u/L Lymphocytes % (19.3-51.7) % Monocytes % (4.7-12.5) % Eosinophils % (0.7-5.8) % Basophils % (0.1-1.2) % Absolute Granulocytes (1.56-6.13) x10^3/uL Basophils # (0.01-0.08) x10^3/uL Sodium (135-145) mmol/L Potassium (3.5-5.1) mmol/L Chloride (98-107) mmol/L Carbon Dioxide (22-30) mmol/L Anion Gap (5-15) MEQ/L BUN (7-17) mg/dL Creatinine (0.52-1.04) mg/dL Estimated GFR ML/MIN Glucose (74-106) mg/dL Calcium (8.4-10.2) mg/dL Total Bilirubin (0.2-1.3) mg/dL AST (14-36) U/L ALT (0-35) U/L Alkaline Phosphatase (38-126) U/L Creatine Kinase 52 (30-135) U/L Serum Total Protein (6.3-8.2) g/dL Albumin (3.5-5.0) g/dL Urine Color (Yellow) Urine Appearance (Clear) Urine pH (4.6-8.0) Ur Specific [place] (1.005-1.030) Urine Protein (Negative) Urine Glucose (UA) (Negative) mg/dL Urine Ketones (Negative) Urine Blood (Negative) Urine Nitrite (Negative) Urine Bilirubin (Negative) Urine Urobilinogen (0.2) mg/dL Ur Leukocyte Esterase (Negative) U Hyaline Cast (Auto) (0-2) /LPF Urine Microscopic RBC (0-5) /HPF Urine Microscopic WBC (0-5) /HPF Ur Epithelial Cells (None Seen) /HPF Urine Bacteria (None Seen) /HPF Urine Yeast (Budding) (None Seen) /HPF Urine Culture Reflexed (NO) Influenza Type A Ag NEGATIVE (NEGATIVE) Influenza Type B Ag NEGATIVE (NEGATIVE) RSV (PCR) NEGATIVE (NEGATIVE) SARS-CoV-2 (PCR) NEGATIVE (NEGATIVE) Group A Strep Antibody NOT DETECTED (NEGATIVE) Micro Results-Entire Visit: Microbiology 08/22/24 12:00 Blood Culture - Preliminary Blood 08/22/24 11:53 Blood Culture - Preliminary Blood - Radiology Exams Ordered Rad Exams-Entire Visit: Radiology Procedures Category Date Time Status CHEST 1 VIEW (PORTABLE) Urgent Exams 08/24/24 14:43 Completed - Procedures and Test Procedures and Tests throughout Hospitalization: Therapy Orders & Screens 08/17/24 17:35 Oxygen Nasal Cannula 2 lpm Comment: Diagnosis: gangreene toe 08/18/24 13:33 PT Eval & Treat ( Order) ONCE Reason for Eval:: Impaired gait, NWB to right operative extremity Diagnosis: gangreene toe 08/24/24 15:35 Incentive Spirometry UD Comment: Diagnosis: gangreene toe Discharge Exam General Appearance: no apparent distress Neurologic Exam: alert, oriented x 3, cooperative Eye Exam: PERRL Ears, Nose, Throat Exam: normal ENT inspection Neck Exam: normal inspection Respiratory Exam: crackles/rales Cardiovascular Exam: regular rate/rhythm, normal heart sounds Gastrointestinal/Abdomen Exam: soft, normal bowel sounds Pelvic Exam: deferred Rectal Exam: deferred Back Exam: normal inspection Extremity Exam: normal inspection, other (see wound assessment) Skin Exam: ecchymosis Final Diagnosis/Problem List - Final Discharge Diagnosis/Problem (1) Gangrene of toe of right foot Status: Acute Code(s): I96 - GANGRENE, NOT ELSEWHERE CLASSIFIED (2) Dehydration Status: Acute Code(s): E86.0 - DEHYDRATION (3) Hypocalcemia Status: Acute Code(s): E83.51 - HYPOCALCEMIA (4) Chronic atrial fibrillation Status: Chronic Code(s): I48.20 - CHRONIC ATRIAL FIBRILLATION, UNSPECIFIED (5) Chronic diastolic (congestive) heart failure Status: Chronic Code(s): I50.32 - CHRONIC DIASTOLIC (CONGESTIVE) HEART FAILURE (6) GERD (gastroesophageal reflux disease) Status: Chronic Code(s): K21.9 - GASTRO-ESOPHAGEAL REFLUX DISEASE WITHOUT ESOPHAGITIS (7) Hyperlipidemia Status: Chronic Code(s): E78.5 - HYPERLIPIDEMIA, UNSPECIFIED (8) Hypothyroid Status: Chronic Code(s): E03.9 - HYPOTHYROIDISM, UNSPECIFIED (9) PAD (peripheral artery disease) Status: Chronic Code(s): I73.9 - PERIPHERAL VASCULAR DISEASE, UNSPECIFIED (10) Venous insufficiency of both lower extremities Status: Chronic Code(s): I87.2 - VENOUS INSUFFICIENCY (CHRONIC) (PERIPHERAL) (11) Hypokalemia Status: Acute Code(s): E87.6 - HYPOKALEMIA - Discharge Discharge Date: 08/25/24 Disposition: DC TO [facility] Condition: Good Prescriptions: Continue Pregabalin [Lyrica] 50 mg PO QAM Atorvastatin Calcium [Lipitor 20MG Tablet] 20 mg PO HS Pregabalin 200 mg PO QHS Omeprazole 20 mg PO DAILY Trazodone HCl 50 mg [Desyrel 50 mg] 50 mg PO HS Prednisone 10 mg [Deltasone 10 mg] 10 mg PO DAILY Empagliflozin [Jardiance] 10 mg PO DAILY Metoprolol Tartrate 50 mg [Lopressor 50 MG] 50 mg PO BID 30 Days #60 tablet Bumetanide 1 mg [Bumex 1 mg] 1 mg PO DAILY Spironolactone 25 mg PO DAILY Levothyroxine Sodium 75 Mcg [Synthroid 75 Mcg] 100 mcg PO DAILY Midodrine HCl 2.5 mg PO TID Digoxin 0.125 mg Tablet [Lanoxin 0.125MG TABLET] 0.125 mg PO .MWF Denosumab 60 mg [Prolia 60 mg Injection] 60 mg SQ UD Metolazone 2.5 mg [Zaroxolyn 2.5 MG] 2.5 mg PO .THURSDAY/THURSDAY Hydrocodone/Acetaminophen [[place] 10-325 mg] 1 tab PO BID PRN PRN PRN Reason: Pain Discontinued Sildenafil Citrate [Revatio] 20 mg PO TID Apixaban [Eliquis] 2.5 mg PO BID Additional Instructions: 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
--- NOTE | 2024-08-25 11:15 | OP ---
SURGERY DATE/TIME: 08/18/2024 [id number] PREOPERATIVE DIAGNOSES: 1) Osteomyelitis. 2) Peripheral vascular disease. 3) Chronic venous insufficiency ulcers. 4) Pain in right lower extremity. 5) Venous stasis. 6) Congestive heart failure. POSTOPERATIVE DIAGNOSES: 1) Osteomyelitis. 2) Peripheral vascular disease. 3) Chronic venous insufficiency ulcers. 4) Pain in right lower extremity. 5) Venous stasis. 6) Congestive heart failure. 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 2) Delayed primary closure x2 to right posterior calf wounds. SURGEON: Jose Maria Avendano DPM COUNTERSINKER BALANCE SCREW HOLE: Dany Dahl NP-Ronald ANESTHESIA: Monitored anesthesia care. HEMOSTASIS: Pressure dressing. ESTIMATED BLOOD LOSS: Approximately 5 mL. MATERIALS: 3-0 nylon, 4-0 Monocryl. INJECTABLES: 10 mL of a 1:1 mixture of 1% lidocaine plain and 0.5% bupivacaine plain injected in a Saul block-type fashion as well as another 10 mL for a proximal block at the posterior aspect of the calf. INDICATIONS: The patient is a very pleasant 88-year-old female who has been known to my service for several years now. She has had multiple venous insufficiency ulcers; however, had a significantly hard time getting the right leg ulcers healed up in a timely fashion. The patient unfortunately developed an infection in her toe which quickly progressed to osteomyelitis. In attempts for salvage, we proceeded with a toenail avulsion which hoped to evacuate the infection. However, by the time we had recognized it, there was already bone infection that had set in and patient does have some level of peripheral vascular disease which is being assessed at this time, some level of demarcation. At this time, we have decided that the best course of action would be to proceed with the amputation of the right great toe and hopeful of closure. Unfortunately, due to the osteomyelitis and the increase in the white blood cell count, we are concerned about possibility of patient going sepsis. We decided to push back her vascular intervention at this time in favor of proceeding with the amputation and an inpatient stay for IV antibiotics and monitoring. The patient has been made aware of all risks, complications, and benefits of surgical intervention at this time including, but not limited to, infection, hematoma, seroma, possibility of delayed wound healing, non-wound healing, possibility of failure of surgical intervention, and possible need for further surgical intervention at a later date. No guarantees were provided as to the outcome of surgical intervention. Plenty of time was allowed for the patient to ask questions, which were answered to her apparent satisfaction. It is at this time we decided to proceed. DESCRIPTION OF PROCEDURE AND FINDINGS: The patient was brought into the operating room, placed on the operating room table in the supine position. At this time, monitored anesthesia care was provided until the patient was adequately sedated. The right lower extremity was prepped and draped in a typical sterile fashion and lowered onto the surgical field. At this time, attention was directed to the right foot where a medial racquet-type incision was made at the base of the metatarsophalangeal joint circumferentially around the hallux, disarticulating the hallux from the first MPJ. Once this was performed, copious amounts of sterile saline were utilized to flush the surgical site. Then, 4-0 Monocryl and 3-0 nylon were utilized in a simple interrupted buried-type fashion to coapt the skin in a deep closure-type fashion as well as a horizontal mattress-type fashion. From that standpoint, attention was directed to the wounds on the posterior aspect of the right calf, which numbered 2. Debridement took place of these wounds and then a decision was made to proceed with the closure, utilizing 4-0 Monocryl and 3-0 nylon in a simple interrupted buried-type fashion and then in a horizontal mattress-type fashion to both posterior calf wounds. Once this was performed, a dressing consisting of Betadine, Adaptic, 4 x 4, Kerlix, ABD, and a well-padded multilayer compression dressing was applied to the patient's calf, however, providing less than 25% of compression. The patient was then reversed from anesthesia and returned to the postoperative anesthesia care unit with vital signs stable and vascular status intact. The patient handled the anesthesia as well as the procedure without significant complication. Postoperative orders as indicated in the patient's discharge chart.
== END 2024-08-24 23:42 | disposition home or self-care (01) | DRG 256 ==
LOC: MED SURG 15:51 → OBSVTOIN 15:51
PROVIDERS: ADMIT Internal Medicine; ATTEND Internal Medicine
PROC: 0Y6P0Z0 Detachment at Right 1st Toe, Complete, Open Approach (ICD-10-PCS; principal; 2024-08-18)
PROC: 0JQQ0ZZ Repair Right Foot Subcutaneous Tissue and Fascia, Open Approach (ICD-10-PCS; 2024-08-18)
DX: I96 Gangrene, not elsewhere classified (principal); I48.20 Chronic atrial fibrillation, unspecified; I50.32 Chronic diastolic (congestive) heart failure; M86.9 Osteomyelitis, unspecified; E86.0 Dehydration; E83.51 Hypocalcemia; K21.9 Gastro-esophageal reflux disease without esophagitis; E78.5 Hyperlipidemia, unspecified; E03.9 Hypothyroidism, unspecified; I87.2 Venous insufficiency (chronic) (peripheral); E87.6 Hypokalemia; M79.671 Pain in right foot; J45.909 Unspecified asthma, uncomplicated; I27.20 Pulmonary hypertension, unspecified; I16.0 Hypertensive urgency; R53.1 Weakness; N17.9 Acute kidney failure, unspecified; Z79.899 Other long term (current) drug therapy; Z79.01 Long term (current) use of anticoagulants
CPT/HCPCS: 0241U; 13160; 28820; 36415; 71045; 80048; 80053; 81001; 82550; 84132; 85025; 85027; 87040; 87086; 87651; 94760; 97110; 97161; 97530; A6260; Q3014; 29581; 99024; J0878; J1650; J1956; J2704; J3010; A9270-GY